=== PATIENT | male | born 1950 | race Caucasian/White ===

== ENCOUNTER 2017-05-11 05:45 | Emergency (ER) | payer MEDICARE ==
[2017-05-11] MEDS ORDERED: cefTRIAXone 250 MG VIAL IM STA (07:13)
[2017-05-11] MEDS ORDERED: CEPHALEXIN 500 MG CAP PO STA (07:13)
[2017-05-11] MEDS ORDERED: HYDROcodone/APAP 5-325MG 1 EACH TAB PO STA (07:13)
--- NOTE | 2017-05-11 07:36 | ED ---
General Adult HPI - General Chief complaint: Wound/Laceration Stated complaint: foot lac Time Seen by Provider: 05/11/17 06:13 Source: patient, RN notes reviewed, old records reviewed Mode of arrival: EMS Limitations: physical limitation - History of Present Illness Initial comments: This is a 66-year-old male who ER for evaluation of laceration. Patient is non- mobile morbidly obese patient. Patient is being transported to physical therapy this morning and had his foot banged against the door, sustaining multiple lacerations to the plantar aspect of his feet. Underneath his toes. Patient denies any complaints of pain when he states he does not have pain in his feet secondary to neuropathy. Patient has moderate bleeding from left toes , patient has no movement of left toes but he never has movement of left toes - Related Data Previous Rx's Medication Instructions Recorded Cephalexin [Keflex] 500 mg PO Q6HR #40 cap 05/11/17 Allergies Allergy/AdvReac Type Severity Reaction Status Date / Time No Known Allergies Allergy Verified 05/11/17 05:55 Review of Systems ROS Statement: Those systems with pertinent positive or pertinent negative responses have been documented in the HPI. ROS Other: All systems not noted in ROS Statement are negative. Past Medical History Past Medical History: Atrial Fibrillation, Diabetes Mellitus, Dialysis, GI Bleed , Hypertension, Pulmonary Embolus (PE), Renal Disease, Sleep Apnea/CPAP/BIPAP Additional Past Medical History / Comment(s): acute kidney failiure with dialysis with drain and nephrostomy, enlarged right kidney with stones. CKD, quadriplegia, xanthogranulomatos pyelonephritis, esophagitis, anemia, History of Any Multi-Drug Resistant Organisms: None Reported Past Surgical History: Back Surgery, Coronary Bypass/CABG, Hernia Repair Past Psychological History: No Psychological Hx Reported Smoking Status: Former smoker Past Alcohol Use History: None Reported Past Drug Use History: None Reported General Exam Limitations: physical limitation General appearance: alert, in no apparent distress Head exam: Present: atraumatic, normocephalic, normal inspection Eye exam: Present: normal appearance, PERRL, EOMI. Absent: scleral icterus, conjunctival injection, periorbital swelling ENT exam: Present: normal exam, mucous membranes moist Neck exam: Present: normal inspection. Absent: tenderness, meningismus, lymphadenopathy Respiratory exam: Present: normal lung sounds bilaterally. Absent: respiratory distress, wheezes, rales, rhonchi, stridor Cardiovascular Exam: Present: regular rate, normal rhythm, normal heart sounds. Absent: systolic murmur, diastolic murmur, rubs, gallop, clicks GI/Abdominal exam: Present: soft, normal bowel sounds. Absent: distended, tenderness, guarding, rebound, rigid Extremities exam: Present: normal inspection, full ROM, normal capillary refill , other (Laceration across the plantar aspect of 3 middle toes). Absent: tenderness, pedal edema, joint swelling, calf tenderness Back exam: Present: normal inspection Neurological exam: Present: alert, oriented X3, CN II-XII intact Psychiatric exam: Present: normal affect, normal mood Skin exam: Present: warm, dry, intact, normal color. Absent: rash Course Vital Signs 05/11/17 05/11/17 05/11/17 05:46 07:09 08:00 Temperature 99.0 F 97.7 F 97.8 F Pulse Rate 79 70 78 Respiratory 16 16 18 Rate Blood Pressure 127/68 119/63 121/64 O2 Sat by Pulse 96 95 97 Oximetry Procedures - Laceration Laceration #1 Consent Obtained: verbal consent Time Out Performed: Yes Indication: laceration Site: foot Description: linear Depth: simple, single layer Pre-repair: wound explored, irrigated extensively Type of Sutures: nylon Size of Sutures: 4-0 Technique: simple, interrupted Patient Tolerated Procedure: well Medical Decision Making - Medical Decision Making 66-year-old year for evaluation of lacerations to the plantar aspect of 3 middle toes left foot. Patient significantly from his toes, but he was able to be ceased, was completely irrigated and cleaned, cleaned with Betadine, toes and lacerations were approximated with suture, bleeding was ceased, patient did not have movement in those toes but never does. No significant pain and will be discharged home, patient plan antibiotics and encouraged to follow up with wound care regarding high likelihood of infection Disposition Clinical Impression: Laceration Disposition: HOME SELF-CARE Condition: Good Instructions: Care For Your Stitches (ED), Laceration (ED) Prescriptions: Cephalexin [Keflex] 500 mg PO Q6HR #40 cap Referrals: Roberto Summers MD [Primary Care Provider] - 1-2 days
[2017-05-11 08:04] VITALS: BP 121/64; PULSE 78; RESP 18; TEMP 97.8
--- NOTE | 2017-05-15 01:43 | CDI ---
Dear Po Thomas DO: Please do addendum length of the laceration. Thank You, Tobias Keller Email Campaign Specialist If you have any questions, please contact Security Specialist at [phone]. [facility]
== END 2017-05-11 08:23 | disposition home or self-care (01) ==
LOC: EC 05:45
DX: S91.115A Laceration without foreign body of left lesser toe(s) without damage to nail, initial encounter (principal); E66.01 Morbid (severe) obesity due to excess calories; Z87.891 Personal history of nicotine dependence; Z68.45 Body mass index [BMI] 70 or greater, adult; W20.8XXA Other cause of strike by thrown, projected or falling object, initial encounter; Y92.129 Unspecified place in nursing home as the place of occurrence of the external cause; Y93.89 Activity, other specified
CPT/HCPCS: 99283; 96372; 12001; J0696

== ENCOUNTER 2017-11-01 10:18 | Day surgery (SDC) | payer MEDICARE, OTHER ==
[2017-10-30 11:23] VITALS: BMI 46.7
[~2017-11-01 10:18] MED LIST: LACTATED RINGERS 1,000 ML IV SCH
[2017-11-01 10:42] VITALS: TEMP 99.1
[2017-11-01] MEDS ORDERED: LIDOCAINE 1% 20 ML VIAL (10MG/ML) FOR IV START INTRADERMA ONE (10:49)
[2017-11-01] MEDS ORDERED: ePHEDrine SULFATE/0.9% NACL/PF 50 MG/5 ML SYRINGE IV ONE (11:38)
[2017-11-01] MEDS ORDERED: PROPOFOL 10 MG/ML 20 ML VIAL IV ONE (11:38)
[2017-11-01] MEDS ORDERED: LIDOCAINE 1% INJ 10MG/ML (20 ML MDV) ONE (11:38)
--- NOTE | 2017-11-01 12:07 | P.PCN ---
Date of Procedure: 11/01/17 Procedure(s) Performed: BRIEF HISTORY: Patient is a 66-year-old pleasant white male scheduled for an elective colonoscopy as a part of evaluation of Hemoccult-positive stool. He denies any GI symptoms. PROCEDURE PERFORMED: Colonoscopy with snare polypectomy. PREOPERATIVE DIAGNOSIS .Hemoccult-positive stool IV sedation per Anesthesia. PROCEDURE: After informed consent was obtained, the patient, was brought into the endoscopy unit. IV sedation was administered by Anesthesia under continuous monitoring. Digital rectal examination was normal. Initially the Olympus CF- 160 flexible video colonoscope was then inserted in the rectum, gradually advanced into the cecum without any difficulty. Careful examination was performed as the scope was gradually being withdrawn. Ileocecal valve and the appendiceal orifice were visualized and appeared normal. Prep was fair. Mucosa of the cecum, appeared normal. In the ascending colon there were 2 polyps measuring 1 cm polyp removed by snare polypectomy. In the transverse colon there were 2 polyps measuring 5 mm and a 2 cm in size removed by snare polypectomy. The descending colon there was a 1.5 cm broad-based polyp removed by snare polypectomy area and in the rectum there was a 2 cm broad-based polyp removed by snare polypectomy. The rest of the, transverse colon, descending colon, sigmoid colon, and rectum appeared normal. Retroflexion was performed in the rectum and no lesions were seen. The patient tolerated the procedure well. IMPRESSION: 1 cm raising colon polyp serous post-polypectomy 5 mm and 2 cm broad-based polyps in the transverse colon status post polypectomy 1.5 cm broad-based descending colon polyp status post polypectomy 2 cm broad-based proximal rectal polyp status post polypectomy RECOMMENDATIONS: Findings of this examination were discussed with the patient [ as well as his family. He was advised to follow with the biopsy results. If the biopsy shows a tubular adenoma he can have a repeat colonoscopy in 2-3 years
[2017-11-01 12:49] VITALS: BP 122/70; PULSE 78; RESP 20
== END 2017-11-01 13:29 | disposition home or self-care (01) ==
LOC: ORWHC2ENDO 10:18
PROVIDERS: ATTEND Internal Medicine Gastroenterology
DX: D12.0 Benign neoplasm of cecum (principal); D12.4 Benign neoplasm of descending colon; D12.3 Benign neoplasm of transverse colon; K62.1 Rectal polyp; I12.0 Hypertensive chronic kidney disease with stage 5 chronic kidney disease or end stage renal disease; E11.22 Type 2 diabetes mellitus with diabetic chronic kidney disease; N18.6 End stage renal disease; Z99.2 Dependence on renal dialysis; Z86.711 Personal history of pulmonary embolism; Z79.891 Long term (current) use of opiate analgesic; Z79.899 Other long term (current) drug therapy
CPT/HCPCS: 88305; 45385; J2001; J2704

== ENCOUNTER 2018-09-11 18:22 | Inpatient (IN) | payer MEDICARE, OTHER ==
--- NOTE | 2018-09-11 18:38 | ED ---
General Adult HPI - General Chief complaint: Recheck/Abnormal Lab/Rx Stated complaint: Poss Sepsis Time Seen by Provider: 09/11/18 18:22 Source: patient, EMS, RN notes reviewed Mode of arrival: EMS Limitations: no limitations - History of Present Illness Initial comments: This is a 67-year-old male with past medical history significant for renal dialysis. Patient had dialysis this morning and had blood drawn this morning. The patient's blood work went to the primary medical care doctor and the doctor wanted the patient go to the emergency department the patient went to [facility] they evaluated the patient diagnosed with bronchitis and were about to send him home when the primary medical care doctor was informed of this he wanted the patient brought from that emergency departments waiting room to our emergency department because he wanted the patient admitted. Patient himself states he has no complaints he does have a little bit of a cough that has been dry. Patient denies being short of breath patient denies any chest pain. Patient denies any abdominal pain patient denies vomiting or diarrhea. - Related Data Home Medications Medication Instructions Recorded Confirmed Atorvastatin [Lipitor] 10 mg PO HS 10/30/17 09/11/18 B Complex W-C No.20/Folic Acid 1 mg PO HS 10/30/17 09/11/18 [Renal Caps Softgel] Calcium Acetate [Phoslo] 1,334 mg PO TID-W/MEALS 10/30/17 09/11/18 Cyanocobalamin (Vitamin B-12) 1,000 mcg PO DAILY 10/30/17 09/11/18 [Vitamin B-12] Diltiazem HCl [Diltiazem 24Hr ER] 120 mg PO DAILY 10/30/17 09/11/18 Ferrous Sulfate [Feosol] 325 mg PO DAILY 10/30/17 09/11/18 HYDROcodone/APAP 5-325MG [[place] 1 tab PO Q6HR PRN 10/30/17 09/11/18 5-325] Metoprolol Tartrate [Lopressor] 25 mg PO BID 10/30/17 09/11/18 Potassium Chloride [Klor-Con 10] 10 meq PO BID 10/30/17 09/11/18 Cholecalciferol [Vitamin D3] 1,000 unit PO DAILY 09/11/18 09/11/18 Furosemide [Lasix] 80 mg PO BID 09/11/18 09/11/18 Midodrine [ProAmatine] 5 - 10 mg PO DIRECTED PRN 09/11/18 09/11/18 Allergies Allergy/AdvReac Type Severity Reaction Status Date / Time No Known Allergies Allergy Verified 09/11/18 19:34 Review of Systems ROS Statement: Those systems with pertinent positive or pertinent negative responses have been documented in the HPI. ROS Other: All systems not noted in ROS Statement are negative. Past Medical History Past Medical History: Atrial Fibrillation, Diabetes Mellitus, Dialysis, GI Bleed , Hypertension, Pulmonary Embolus (PE), Renal Disease, Sleep Apnea/CPAP/BIPAP Additional Past Medical History / Comment(s): No use of legs r/t back injury/ surgery; Acute kidney failiure with dialysis with drain and nephrostomy bag; enlarged right kidney with stones. CKD, anemia, History of Any Multi-Drug Resistant Organisms: None Reported Past Surgical History: Back Surgery, Coronary Bypass/CABG, Hernia Repair Past Anesthesia/Blood Transfusion Reactions: No Reported Reaction Past Psychological History: No Psychological Hx Reported Smoking Status: Former smoker Past Alcohol Use History: None Reported Past Drug Use History: None Reported - Past Family History Brother(s) Family Medical History: Cancer Additional Family Medical History / Comment(s): Colon Ca Father Family Medical History: Cancer Additional Family Medical History / Comment(s): Prostate CA General Exam - General Exam Comments Initial Comments: GENERAL: Patient is well-developed and well-nourished. Patient is nontoxic and well- hydrated and is in no acute distress. ENT: Neck is soft and supple. No significant lymphadenopathy is noted. Oropharynx is clear. Moist mucous membranes. Neck has full range of motion without eliciting any pain. EYES: The sclera were anicteric and conjunctiva were pink and moist. Extraocular movements were intact and pupils were equal round and reactive to light. Eyelids were unremarkable. PULMONARY: Unlabored respirations. Good breath sounds bilaterally. No audible rales rhonchi or wheezing was noted. CARDIOVASCULAR: There is a regular rate and rhythm without any murmurs gallops or rubs. ABDOMEN: Soft and nontender with normal bowel sounds. SKIN: Skin is clear with no lesions or rashes and otherwise unremarkable. NEUROLOGIC: Patient is alert and oriented x3. Cranial nerves II through XII are grossly intact. MUSCULOSKELETAL: Normal extremities with adequate strength and full range of motion. No lower extremity swelling or edema. No calf tenderness. LYMPHATICS: No significant lymphadenopathy is noted PSYCHIATRIC: Normal psychiatric evaluation. Limitations: no limitations Course Vital Signs 09/11/18 09/11/18 18:24 19:11 Temperature 99.2 F Pulse Rate 92 90 Respiratory 20 19 Rate Blood Pressure 76/42 94/47 O2 Sat by Pulse 95 Oximetry Medical Decision Making - Medical Decision Making I reviewed all of the labs from [facility] and the chest x-ray results it did indicate the patient might have pneumonia with a white count and the chest x- ray results we decided to admit the patient. Spoke with the depression agreed to admit the patient admitted the patient I wrote admitting orders. Disposition Clinical Impression: Pneumonia Disposition: ADMITTED IP TO THIS HOSP Referrals: Akshat Nieves MD [Primary Care Provider] - 1-2 days Time of Disposition: 19:42
[2018-09-11] MEDS ORDERED: PNEUMONIA PROTOCOL UTILIZED 1 EACH MISC PO PRN (19:42)
[2018-09-11] MEDS ORDERED: SODIUM CHLORIDE 0.9% 500 ML 500 ML IV STA (20:46)
[2018-09-11] MEDS ORDERED: HYDROcodone/APAP 5-325MG 1 EACH TAB PO PRN (21:15)
[2018-09-11] MEDS ORDERED: MELATONIN 3 MG TABLET PO PRN (21:18)
[2018-09-11] MEDS ORDERED: ACETAMINOPHEN TAB 325 MG TAB PO PRN (21:18)
[2018-09-11] MEDS ORDERED: ONDANSETRON 4 MG/2 ML VIAL IVP PRN (21:18)
[2018-09-11] MEDS ORDERED: MAGNESIUM HYDROXIDE 2,400 MG/10 ML CUP PO PRN (21:18)
[2018-09-11] MEDS ORDERED: CALCIUM CARBONATE 500 MG CHEWABLE PO PRN (21:18)
[2018-09-11] MEDS ORDERED: ALPRAZolam 0.25 MG TAB PO PRN (21:18)
[2018-09-11] MEDS ORDERED: LACTULOSE 20 GM/30 ML CUP PO PRN (21:18)
--- NOTE | 2018-09-11 22:20 | HP ---
HISTORY AND PHYSICAL DATE OF ADMISSION: 09/11/2018 PRESENTING COMPLAINT: Congested chest. HISTORY OF PRESENTING COMPLAINT: This is a 67-year-old patient who follows with visiting physician Dr. Nieves. Chronic stable medical conditions include hypertension, end-stage kidney disease, on hemodialysis with left upper extremity fistula, chronic paraplegia from a back injury, chronic right-sided nephrostomy tube for over a year, pickwickian, obesity hypoventilation syndrome, obstructive sleep apnea with CPAP, chronic lower extremity venostasis. For 3 days the patient has been having a congested chest, cough, phlegm -- patient does not know the color. Appetite has gone down a little bit. Blood work was drawn and came back showing a white count of 18,000. The patient was taken down to the ER at [facility]. There was some infiltrate noted behind the left cardiac border. From there, the family requested the patient to be transferred to [facility] ER. Patient denies any obvious fever or chills. The patient was hemodialyzed today. Patient is nonambulatory. Patient's brother, who is his caregiver, and the patient's son are at the bedside. The patient is being admitted for the same. REVIEW OF SYSTEMS: CONSTITUTIONAL: Tired. HEENT: None. RESPIRATORY: As above. CARDIOVASCULAR: None. GASTROINTESTINAL: None. GENITOURINARY: None. MUSCULOSKELETAL: Pain in different joints. DERMATOLOGICAL: Chronic venostasis in the lower extremities and some intertriginous fungal skin changes. HEMATOLOGICAL: None. LYMPHATICS: None. PSYCHIATRY: None. NEUROLOGICAL: Paraparesis. PAST MEDICAL HISTORY: 1. Hypertension. 2. End-stage kidney disease, on hemodialysis, with fistula in the left upper extremity. 3. Paraplegia from back injury. 4. Chronic lower extremity venostasis. 5. Osteoarthritis. 6. GERD. 7. Obstructive sleep apnea. 8. Pickwickian syndrome. PAST SURGICAL HISTORY: 1. Back surgery. 2. Coronary artery bypass. 3. Hernia repair. 4. Right-sided nephrostomy tube. SOCIAL HISTORY: Patient smoked 2-1/2 packs for 10 years, stopped in 1979. The patient is a , lives with his brother, who is his caregiver. FAMILY HISTORY: Colon cancer. HOME MEDICATIONS: 1. Potassium 10 mEq p.o. b.i.d. 2. Midodrine 5 to 10 mg p.r.n. 3. Lopressor 25 mg b.i.d. 4. [place] 5 one tablet q.6 p.r.n. 5. Lasix 80 mg b.i.d. 6. Iron 325 p.o. daily. 7. Cardizem ER 120 mg a day. 8. Vitamin B12 1000 mcg p.o. daily. 9. Vitamin D3 1000 units p.o. daily. 10.PhosLo 1334 mg p.o. t.i.d. with meals. 11.Renal Caps soft gel 1 mg p.o. at bedtime. 12.Lipitor 10 mg at bedtime. ALLERGIES: NONE. PHYSICAL EXAMINATION: VITAL SIGNS ON PRESENTATION: Temperature 99.2, pulse 92, respiration 20, blood pressure 94/47, pulse ox 95% on room air. GENERAL APPEARANCE: Morbidly obese, BMI 48.1. Lying in bed, not in distress. EYES: Pupils equal. Conjunctivae normal. HEENT: External appearance of nose and ears normal. Oral cavity normal. NECK: Short, thick. JVD unable to assess. RESPIRATORY: Effort increased. LUNGS: Decreased breath sounds. Some expiratory crackles. CARDIOVASCULAR: Heart sounds muffled. Some edema. ABDOMEN: Soft, nontender. Liver and spleen not palpable. Right-sided nephrostomy tube. LYMPHATIC: No lymph node palpable in neck or axillae. PSYCHIATRY: Alert and oriented x3. Mood and affect normal. NEUROLOGICAL: Pupils equal. Cranial nerves grossly intact. Decreased sensation in lower extremities. No power in the lower extremities. Patient has supportive boots on both legs and has chronic skin changes on both feet with onychomycosis and footdrop. DERMATOLOGICAL: Venostasis on both lower extremities. Left upper extremity has a fistula in place and there are fungal skin changes, especially in the left armpit. INVESTIGATIONS: The patient's blood work from [facility] ER showed a hemoglobin of 9.7 and a white count of 18. Chest x-ray was reported to show possible infiltrate behind the left cardiac silhouette. ASSESSMENT: 1. Left lower lobe pneumonia in a patient who has a cough, white count of 18. 2. End-stage kidney disease, on hemodialysis Sunday, Sunday and Sunday with a left upper extremity fistula. 3. Chronic paraplegia from a back injury. 4. Chronic right-sided nephrostomy tube. 5. Primary osteoarthritis in multiple joints bilaterally. 6. Obstructive sleep apnea. Uses CPAP machine. 7. Pickwickian syndrome. 8. Anemia secondary to chronic kidney disease. 9. 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 PLAN: Patient is started on IV ceftriaxone. Normally the blood pressure runs around the 90s to 100s systolic; often has to use midodrine with hemodialysis. Patient may use his CPAP from home. Other home medications will be resumed. Care was discussed with the patient and family at the bedside. Nephrology was consulted. MMODL / IJN: [id number] /
[2018-09-11] MEDS: ATORVASTATIN 10 MG TAB PO SCH (23:05)
[2018-09-11] MEDS: FOLIC ACID-VIT B COMPLEX-VIT C 1 CAP PO SCH (23:05)
[2018-09-12 08:03] LABS: Anisocytosis Slight; Basophils % (A) 0 %; Eosinophils # (A) 0.2 k/uL (0-0.7); Eosinophils % (A) 1 %; HCT 30.1 % (39.0-53.0); Hypochromasia Marked; Lymphocytes # (A) 1.1 k/uL (1.0-4.8); Lymphocytes % (A) 7 %; MCH 27.4 pg (25.0-35.0); MCHC 29.9 g/dL (31.0-37.0); MCV 91.7 fL (80.0-100.0); Mean Platelet Volume 7.3; Monocytes # (A) 0.6 k/uL (0-1.0); Monocytes % (A) 4 %; Neutrophils # (A) 13.3 k/uL (1.3-7.7); Neutrophils % (A) 87 %; Platelet Count 271 k/uL (150-450); RBC 3.28 m/uL (4.30-5.90); WBC 15.4 k/uL (3.8-10.6)
[2018-09-12 08:18] LABS: Calcium 8.7 mg/dL (8.4-10.2); Potassium 3.3 mmol/L (3.5-5.1)
[2018-09-12] MEDS ORDERED: AZITHROMYCIN 500 MG TAB PO SCH (09:00)
[2018-09-12] MEDS: CALCIUM ACETATE 667 MG CAP PO SCH ×3 (09:03→17:25)
[2018-09-12] MEDS: FERROUS SULFATE 325 MG TAB PO SCH (09:04)
[2018-09-12] MEDS: CYANOCOBALAMIN 500 MCG TAB PO SCH (09:04)
[2018-09-12] MEDS: CHOLECALCIFEROL 1,000 UNIT TAB PO SCH (09:04)
[2018-09-12] MEDS: METOPROLOL TARTRATE 25 MG TAB PO SCH ×2 (09:05→21:40)
[2018-09-12] MEDS: POTASSIUM CITRATE 10 MEQ TABLET.ER PO SCH ×2 (09:05→21:40)
--- NOTE | 2018-09-12 10:56 | CDI ---
Last Revision, October 2017 Documentation Clarification Form Date: 09/12/2018 10:33:17 AM From: Shauna DuttonSolomonFREDDIE, CCDS Admit Date: 09/11/2018 7:42:00 PM Patient Name: Ramesh Dahl Visit Number: [id number] Discharge Date: ATTENTION: The Clinical Documentation Specialists (CDI) and [facility] Coding Staff appreciate your assistance in clarifying documentation. Please respond to the clarification below the line at the bottom and electronically sign. The CDI & [facility] Coding staff will review the response and follow-up if needed. Please note: Queries are made part of the Legal Health Record. If you have any questions, please contact the author of this message via ITS. Gamaliel Gonzales MD: 67 yo male, admitted with pneumonia. Per the History & Physical, the patient has documented paraplegia secondary to a back injury & subsequent surgery. History/Risk Factors: Hypertension, ESRD on HD, Atrial fibrillation, GERD, Anemia of CKD, Pickwickian, BMI: 48.1 and former smoker. Previous CABG. Clinical Indicators: Presented with cough & congestion. Activity per nursing: Maximum assist 3+ person, bed rails up x2 Treatment: Blood & Urine cultures, IV antibiotics for pneumonia, IV fluid bolus In order to capture the severity of condition, please clarify the type of paralysis and etiology if known: Paraplegia, please specify etiology if known: o Complete o Incomplete o Partial o Sequelae o Spastic o Traumatic o Other, please specify o Unable to determine unable to determine MTDD
[2018-09-12] MEDS: DILTIAZEM CD 120 MG CAP.ER.24H PO SCH (11:04)
[2018-09-12] MEDS: FUROSEMIDE 80 MG TAB PO SCH ×2 (11:07→21:39)
[2018-09-12] MEDS ORDERED: POTASSIUM CHLORIDE ER 20 MEQ TAB.ER PO STA (12:24)
--- NOTE | 2018-09-12 12:25 | P.NPCON ---
History of Present Illness - Reason for Consult end stage renal disease - History of Present Illness Reason for consultation: End-stage renal disease History of present illness: Patient is a 67-year-old male seen in consultation for end-stage renal disease. He is maintained on hemodialysis on a Sunday schedule for a left upper extremity AV fistula. Patient presented to the hospital due to diarrhea. He is noted to be C. diff positive. He is maintained on oral vancomycin. No vomiting. Oral intake is fair. Denies chest pain or shortness of breath. Last hemodialysis was yesterday. Hemodynamically stable. He is afebrile. Patient states he did have a cough and was seen at [facility] ER and subsequently discharged. He then came to [place] in ER. Patient has history of kidney stones and also has a chronic right-sided nephrostomy tube. He also has a history of a renal mass. He follows with urology out of [facility] in [place]. Vital signs are stable. General: The patient appeared well nourished and normally developed. HEENT: Head exam is unremarkable. Neck is without jugular venous distension. LUNGS: Lungs are clear to auscultation and percussion. Breath sounds decreased. HEART: Rate and Rhythm are regular. First and second heart sounds normal. No murmurs, rubs or gallops. ABDOMEN: Abdominal exam reveals normal bowel sounds. Non-tender and non- distended. No evidence of peritonitis. EXTREMITITES: 1+ edema. Chronic skin changes noted. Past Medical History Past Medical History: Atrial Fibrillation, Diabetes Mellitus, Dialysis, GI Bleed , Hypertension, Pulmonary Embolus (PE), Renal Disease, Sleep Apnea/CPAP/BIPAP Additional Past Medical History / Comment(s): No use of legs r/t back injury/ surgery unable to sit in his w/c -to painful;EMS TAKES HIM TO DIALYSIS TREATMENTS. ckd.Acute kidney failiure with dialysis sun-sun-sun. has drain and nephrostomy bag-per pt's son it was last changed 09-06-18 AT [facility]; enlarged right kidney with stones. , anemia, History of Any Multi-Drug Resistant Organisms: C-DIFF Date of last positivie culture/infection: 11/01/17 MDRO Source:: STOOL Past Surgical History: Back Surgery, Coronary Bypass/CABG, Hernia Repair Additional Past Surgical History / Comment(s): LT ARM FISTULA-NO BP OR BLOOD DRAWS IN LT ARM Past Anesthesia/Blood Transfusion Reactions: No Reported Reaction Smoking Status: Former smoker - Past Family History Brother(s) Family Medical History: Cancer Additional Family Medical History / Comment(s): Colon Ca Father Family Medical History: Cancer Additional Family Medical History / Comment(s): Prostate CA Medications and Allergies Home Medications Medication Instructions Recorded Confirmed Type Atorvastatin [Lipitor] 10 mg PO HS 10/30/17 09/11/18 History B Complex W-C No.20/Folic Acid 1 mg PO HS 10/30/17 09/11/18 History [Renal Caps Softgel] Calcium Acetate [Phoslo] 1,334 mg PO TID-W/MEALS 10/30/17 09/11/18 History Cyanocobalamin (Vitamin B-12) 1,000 mcg PO DAILY 10/30/17 09/11/18 History [Vitamin B-12] Diltiazem HCl [Diltiazem 24Hr ER] 120 mg PO DAILY 10/30/17 09/11/18 History Ferrous Sulfate [Feosol] 325 mg PO DAILY 10/30/17 09/11/18 History HYDROcodone/APAP 5-325MG [[place] 1 tab PO Q6HR PRN 10/30/17 09/11/18 History 5-325] Metoprolol Tartrate [Lopressor] 25 mg PO BID 10/30/17 09/11/18 History Potassium Chloride [Klor-Con 10] 10 meq PO BID 10/30/17 09/11/18 History Cholecalciferol [Vitamin D3] 1,000 unit PO DAILY 09/11/18 09/11/18 History Furosemide [Lasix] 80 mg PO BID 09/11/18 09/11/18 History Midodrine [ProAmatine] 5 - 10 mg PO DIRECTED PRN 09/11/18 09/11/18 History Allergies Allergy/AdvReac Type Severity Reaction Status Date / Time No Known Allergies Allergy Verified 09/11/18 19:34 Physical Exam Vitals: Vital Signs Temp Pulse Pulse Resp BP BP Pulse Ox 09/12/18 11:52 98.4 F 80 20 94/68 98 09/12/18 08:55 98.5 F 90 20 90/64 09/12/18 05:40 96.9 F L 92 18 91/48 95 11/01/18 00:00 20 09/11/18 22:33 97.8 F 91 18 87/55 94 L 09/11/18 21:10 91 19 92/53 97 09/11/18 20:41 98.2 F 92 20 90/50 96 09/11/18 19:11 90 19 94/47 09/11/18 18:24 99.2 F 92 20 76/42 95 Intake and Output 09/11/18 09/12/18 09/12/18 22:59 06:59 14:59 Intake Total 720 300 Output Total 1 Balance 720 300 -1 Intake: IV 500 0 Sodium Chloride 0.9% 500 500 0 ml 500 ml @ 999 mls/hr IV .Q31M STA Rx#:[id number] Oral 220 300 Output: Urine/Stool Mix 1 Other: Voiding Method Ileal Conduit (Right) Urinal # Bowel Movements 2 Weight 151.953 kg 152.2 kg Results - Lab Results Most recent lab results Calcium 8.7 mg/dL (8.4-10.2) 09/12/18 07:11 09/12/18 07:11 09/12/18 07:11 Assessment and Plan Plan: Assessment: 1. End-stage renal disease maintained on hemodialysis on a Sunday schedule via left upper extremity AV fistula. 2. C. diff colitis maintained on oral vancomycin. 3. History of nephrolithiasis with chronic right-sided nephrostomy tube. 4. History of renal mass. Patient follows with urology out of [facility] in [place]. 5. Anemia of chronic kidney disease. Rule out iron deficiency. 6. Chronic kidney disease mineral bone disease maintained on PhosLo. 7. Hypokalemia from GI losses and diuretics. Plan: Replace potassium. 40 mEq today. Hemodialysis tomorrow. Check iron studies. Add Aranesp. Maintain antibiotics. Thank you for the consultation. I will continue to follow the patient with you during his hospital stay.
[2018-09-12] MEDS ORDERED: DARBEPOETIN ALFA 40 MCG/0.4 ML SYRINGE SQ SCH (12:30)
[2018-09-12] MEDS: CHERRY FLAVOR 60 ML BOTTLE PO SCH ×2 (13:07→17:25)
[2018-09-12] MEDS: VANCOMYCIN ORAL SOLUTION 250 MG/5 ML BOTTLE PO SCH ×2 (13:07→17:25)
--- NOTE | 2018-09-12 14:11 | XR ---
EXAMINATION TYPE: XR chest 1V DATE OF EXAM: 09/12/2018 COMPARISON: Prior chest 01/31/2010 HISTORY: Pneumonia TECHNIQUE: frontal view of the chest is obtained on 2 images. FINDINGS: Patient is rotated. No evident pneumothorax or sizable effusion. Heart size may be accentu ated by technique. Question perihilar increased attenuation as on prior exam. Question prominence of the pulmonary artery. IMPRESSION: Technique somewhat limited, difficult to exclude perihilar interstitial edema or airspace disease. Additional findings above. Follow-up PA and lateral chest x-ray recommended.
[2018-09-12 19:09] LABS: Iron Saturation 13.49 (15.00-50.00)
[2018-09-12] MEDS: FOLIC ACID-VIT B COMPLEX-VIT C 1 CAP PO SCH (21:39)
[2018-09-12] MEDS: ATORVASTATIN 10 MG TAB PO SCH (21:40)
--- NOTE | 2018-09-12 23:32 | PN ---
PROGRESS NOTE DATE OF SERVICE: 09/12/2018. PRESENTING COMPLAINT: Congested chest. INTERVAL HISTORY: Patient with end-stage kidney disease with chronic paraplegia from a back injury, presented with pneumonia. The patient also tested positive for C diff. After checking today, the patient is only having 1 or 2 bowel movements a day. The patient was started on vancomycin for the same. The patient's respiratory symptoms are better. Did tolerate some diet. Also for hemodialysis. REVIEW OF SYSTEMS: Done for constitutional, cardiovascular, GI, pulmonary; relevant findings as above. CURRENT MEDICATIONS: Reviewed, that include ceftriaxone and oral vancomycin. PHYSICAL EXAMINATION: Temperature 98.4, pulse 50, respiration 20, blood pressure 94/68, pulse ox 98% on room air. GENERAL APPEARANCE: Lying in bed, awake. EYES: Pupils equal. Conjunctivae normal. HEENT: External appearance of nose and ears normal. Oral cavity normal. NECK: Short thick. JVD unable to assess. Mass not palpable. RESPIRATORY: Effort increased. Lungs distant breath sounds. CARDIOVASCULAR: 1st and 2nd sounds normal. ABDOMEN: Soft, nontender. Liver and spleen not palpable. DERMATOLOGIC: Venous stasis of both lower extremities. Left upper extremity has a fistula. Left arm fungal skin changes. NEUROLOGIC: [place] on both feet. INVESTIGATIONS: White count 15.4, hemoglobin, potassium 3.3. C diff was positive. ASSESSMENT: 1. Left lower lobe pneumonia, responding to ceftriaxone. 2. End-stage kidney disease, on hemodialysis Sunday, Sunday and Sunday with left upper extremity fistula. 3. Acute clostridium difficile colitis. 4. Chronic paraplegia from back injury. 5. Chronic right-sided nephrostomy tube. 6. Primary osteoarthritis in multiple joints bilaterally. 7. Obstructive sleep apnea, uses CPAP machine. 8. Pickwickian syndrome. 9. Anemia secondary to chronic kidney disease. 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 PLAN: Continue patient's ceftriaxone and oral vancomycin. Clinically patient is doing better. The patient normally runs low blood pressure, anywhere from 90s and 100s systolic. Care was discussed with the brother and son at the bedside. Will probably watch the patient for another 24 hours. MMODL / IJN: [id number] /
[2018-09-13] MEDS: CHERRY FLAVOR 60 ML BOTTLE PO SCH ×4 (00:23→18:10)
[2018-09-13] MEDS: VANCOMYCIN ORAL SOLUTION 250 MG/5 ML BOTTLE PO SCH ×4 (00:23→18:10)
[2018-09-13] MEDS: CALCIUM ACETATE 667 MG CAP PO SCH ×3 (07:09→18:10)
[2018-09-13] MEDS: POTASSIUM CITRATE 10 MEQ TABLET.ER PO SCH (07:11)
[2018-09-13] MEDS: CYANOCOBALAMIN 500 MCG TAB PO SCH (07:11)
[2018-09-13] MEDS: FERROUS SULFATE 325 MG TAB PO SCH (07:11)
[2018-09-13] MEDS: CHOLECALCIFEROL 1,000 UNIT TAB PO SCH (07:11)
[2018-09-13 08:06] LABS: Calcium 9.1 mg/dL (8.4-10.2); Potassium 4.1 mmol/L (3.5-5.1)
[2018-09-13] MEDS: FUROSEMIDE 80 MG TAB PO SCH (08:27)
[2018-09-13] MEDS ORDERED: MIDODRINE 5 MG TAB PO STA (10:29)
[2018-09-13] MEDS: METOPROLOL TARTRATE 25 MG TAB PO SCH (11:07)
[2018-09-13 12:12] VITALS: BP 115/58; PULSE 68; RESP 18; TEMP 97.1
[2018-09-13] MEDS: DILTIAZEM CD 120 MG CAP.ER.24H PO SCH (13:00)
[2018-09-13] MEDS ORDERED: LORATADINE-PSEUDOEPH 5-120 MG 1 EACH TAB.ER.12H PO SCH (13:30)
--- NOTE | 2018-09-13 21:49 | PN ---
PROGRESS NOTE HISTORY: Patient is currently seen on hemodialysis. His blood pressure this morning was low. He states he feels fairly well and denies any chest pains or shortness of breath. PHYSICAL EXAMINATION: This morning blood pressure was 82/47, heart rate of 90 per minute. He is afebrile. HEART: S1, S2. Examination lungs bilateral breath sounds are heard. Abdomen is soft, morbidly obese. Examination of lower extremities shows chronic skin changes, chronic edema. The patient has a right nephrostomy tube in place. LABS: Show sodium 133, potassium 4.1, hemoglobin was 9.0 g/dL. ASSESSMENT: 1. End-stage renal disease, on hemodialysis, on Sunday, Sunday, Sunday schedule. Patient is currently being dialyzed. 2. C diff colitis with improvement in diarrhea. 3. Chronic hypotension, maintained on midodrine, particularly predialysis. 4. Chronic kidney disease mineral bone disorder. 5. Anemia of chronic disease. 6. History of renal mass and obstructive uropathy with chronic right nephrostomy. PLAN: Hemodialysis today. We will give midodrine at 10 mg now and repeat if needed depending on blood pressure. Goal UF of about 2 L. MMODL / IJN: [id number] /
--- NOTE | 2018-09-14 06:01 | DS ---
DISCHARGE SUMMARY DATE OF ADMISSION: 09/10/2018 DATE OF DISCHARGE: 09/13/2018. FINAL DIAGNOSES: 1. Left lower lobe pneumonia suspect gram-negative organism. 2. End-stage kidney disease on hemodialysis Sunday, Sunday and Sunday with left upper extremity fistula. 3. Acute C difficile colitis, present on admission. 4. Chronic paraplegia from back surgery. 5. Chronic right-sided nephrostomy tube. 6. Primary osteoarthritis of multiple joints bilaterally. 7. Obstructive sleep apnea uses CPAP machine. 8. Pickwickian syndrome. 9. Anemia secondary to chronic kidney disease. 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 11.Bilateral lower extremity venous stasis with dermatitis. HOSPITAL COURSE: This morbidly obese patient with chronic bilateral lower extremity venous dermatitis , presented with a congested cough, felt to be pneumonia and diarrhea, which came back positive for C diff. The patient's diarrhea is greatly improved by the time of discharge, respiratory symptoms are greatly improved by the time of discharge. On examination, temperature 97.1, pulse 58, respiratory 18, blood pressure 115/58, pulse ox 98% on room air. Lungs fair entry. Abdomen soft, nontender. Care was discussed with the patient before he was discharged. All questions were answered. DISCHARGE MEDICATION: 1. Lipitor 10 mg q.h.s. 2. Renal caps soft gel 1 mg p.o. q.h.s. 3. PhosLo 1334 mg p.o. t.i.d. 4. Vitamin B12 1000 mcg p.o. daily. 5. Cardizem ER 120 mg a day. 6. Ferrous sulfate 325 mg p.o. daily. 7. [place] 5 one tablet p.o. q.6 p.r.n. 8. Lopressor 25 mg p.o. b.i.d. 9. Potassium 10 mEq p.o. b.i.d. 10.Vitamin D3 1000 units p.o. daily. 11.Lasix 80 mg p.o. b.i.d. 12.Midodrine 5-10 mg p.o. q.h.s. p.r.n. 13.Ceftin 500 mg p.o. b.i.d. 10 tablets. 14.Claritin-D 1 tablet p.o. b.i.d., 10 tablets. 15.Vancomycin 250 mg q.6 for 7 days. FOLLOWUP: With Visiting Physician, Dr. Akshat Nieves. Care was discussed with the patient. Copy to visiting physician Dr. Akshat Nieves. MMAGUILARL / MARLENEN: [id number] /
[2018-09-16] MEDS ORDERED: MIDODRINE 5 MG TAB PO SCH (08:00)
== END 2018-09-13 18:53 | disposition home health service (06) | DRG 177 ==
LOC: EC 18:22 → 3NMEDONC 19:42
PROVIDERS: ADMIT Hospitalist; ATTEND Hospitalist
DX: J15.6 Pneumonia due to other Gram-negative bacteria (principal); N18.6 End stage renal disease; A04.72 Enterocolitis due to Clostridium difficile, not specified as recurrent; E66.2 Morbid (severe) obesity with alveolar hypoventilation; G82.20 Paraplegia, unspecified; I12.0 Hypertensive chronic kidney disease with stage 5 chronic kidney disease or end stage renal disease; D63.1 Anemia in chronic kidney disease; E11.22 Type 2 diabetes mellitus with diabetic chronic kidney disease; E87.6 Hypokalemia; Z99.89 Dependence on other enabling machines and devices; T14.90XS Injury, unspecified, sequela; I48.91 Unspecified atrial fibrillation; I87.2 Venous insufficiency (chronic) (peripheral); I95.89 Other hypotension; K21.9 Gastro-esophageal reflux disease without esophagitis; L30.8 Other specified dermatitis; M15.9 Polyosteoarthritis, unspecified; M89.9 Disorder of bone, unspecified; Z79.899 Other long term (current) drug therapy; Z80.0 Family history of malignant neoplasm of digestive organs; Z80.42 Family history of malignant neoplasm of prostate; Z86.711 Personal history of pulmonary embolism; Z87.442 Personal history of urinary calculi; Z87.891 Personal history of nicotine dependence; Z95.1 Presence of aortocoronary bypass graft; Z99.2 Dependence on renal dialysis
CPT/HCPCS: 71045; 80048; 82728; 83540; 83550; 85025; 87040; 87493; 96365; 99285

== ENCOUNTER 2018-09-23 05:51 | Emergency (ER) | payer MEDICARE, OTHER ==
[2018-09-23 05:58] VITALS: RESP 19
--- NOTE | 2018-09-23 06:22 | ED ---
Male Urogenital HPI - General Chief complaint: Urogenital Stated complaint: Abd Pain Time Seen by Provider: 09/23/18 06:11 Source: patient, EMS Mode of arrival: EMS Limitations: physical limitation - History of Present Illness Initial comments: Ramesh Dahl is a morbidly obese 67-year-old end-stage renal disease dialysis dependent male who presents to the emergency department today for evaluation of decreased urine output and urinary retention. Patient reports that he usually urinates regularly, however since Sunday he believes he is only produced approximately 300 mL of urine. Sunil was his last dialysis he was due for dialysis this morning at 6 AM. Patient reports that he has the urge to urinate but feels as though he cannot produce any urine. She denies any other acute complaints including fevers, chills, nausea, vomiting or change in by mouth intake. - Related Data Home Medications Medication Instructions Recorded Confirmed Atorvastatin [Lipitor] 10 mg PO HS 10/30/17 09/11/18 B Complex W-C No.20/Folic Acid 1 mg PO HS 10/30/17 09/11/18 [Renal Caps Softgel] Calcium Acetate [PhosLo] 1,334 mg PO TID-W/MEALS 10/30/17 09/11/18 Cyanocobalamin (Vitamin B-12) 1,000 mcg PO DAILY 10/30/17 09/11/18 [Vitamin B-12] Diltiazem HCl [Diltiazem 24Hr ER] 120 mg PO DAILY 10/30/17 09/11/18 Ferrous Sulfate [Iron (65 MG 325 mg PO DAILY 10/30/17 09/11/18 Elemental)] HYDROcodone/APAP 5-325MG [[place] 1 tab PO Q6HR PRN 10/30/17 09/11/18 5-325] Metoprolol Tartrate [Lopressor] 25 mg PO BID 10/30/17 09/11/18 Potassium Chloride [Klor-Con 10] 10 meq PO BID 10/30/17 09/11/18 Cholecalciferol [Vitamin D3] 1,000 unit PO DAILY 09/11/18 09/11/18 Furosemide [Lasix] 80 mg PO BID 09/11/18 09/11/18 Midodrine [ProAmatine] 5 - 10 mg PO DIRECTED PRN 09/11/18 09/11/18 Previous Rx's Medication Instructions Recorded Cefuroxime Axetil [Ceftin] 500 mg PO BID #10 tab 09/13/18 Desloratadine/Pseudoephedrine 1 each PO BID #10 tbmp.12hr 09/13/18 [Clarinex-D 12 Hour Tablet] Vancomycin Oral Solution 250 mg PO Q6HR #140 ml 09/13/18 Cephalexin [Keflex] 500 mg PO Q8HR 5 Days #15 cap 09/23/18 Allergies Allergy/AdvReac Type Severity Reaction Status Date / Time No Known Allergies Allergy Verified 09/11/18 19:34 Review of Systems ROS Statement: Those systems with pertinent positive or pertinent negative responses have been documented in the HPI. ROS Other: All systems not noted in ROS Statement are negative. Past Medical History Past Medical History: Atrial Fibrillation, Diabetes Mellitus, Dialysis, GI Bleed , Hypertension, Pulmonary Embolus (PE), Renal Disease, Sleep Apnea/CPAP/BIPAP Additional Past Medical History / Comment(s): No use of legs r/t back injury/ surgery unable to sit in his w/c -to painful;EMS TAKES HIM TO DIALYSIS TREATMENTS. ckd.Acute kidney failiure with dialysis sun-sun-sun. has drain and nephrostomy bag-per pt's son it was last changed 09-06-18 AT [facility]; enlarged right kidney with stones. , anemia, History of Any Multi-Drug Resistant Organisms: C-DIFF Date of last positivie culture/infection: 11/01/17 MDRO Source:: STOOL Past Surgical History: Back Surgery, Coronary Bypass/CABG, Hernia Repair Additional Past Surgical History / Comment(s): LT ARM FISTULA-NO BP OR BLOOD DRAWS IN LT ARM Past Anesthesia/Blood Transfusion Reactions: No Reported Reaction Past Psychological History: No Psychological Hx Reported Smoking Status: Former smoker - Past Family History Brother(s) Family Medical History: Cancer Additional Family Medical History / Comment(s): Colon Ca Father Family Medical History: Cancer Additional Family Medical History / Comment(s): Prostate CA General Exam - General Exam Comments Initial Comments: Physical Exam GENERAL: Chronically ill appearing, appears much older than stated age, morbidly obese bedbound HENT: Normocephalic, Atraumatic. Poor dentition EYES: PERRL, EOMI PULMONARY: Unlabored respirations. No audible rales rhonchi or wheezing was noted. CARDIOVASCULAR: There is a regular rate and rhythm without any murmurs gallops or rubs. ABDOMEN: Obese, tenderness to palpation in suprapubic region To present in the right lateral abdomen, was placed by IR into an abscess in the right kidney draining purulent fluid SKIN: Bilateral lower extremities with significant skin changes, breakdown, venous stasis no evidence of acute cellulitis or infection : burried penis NEUROLOGIC: Patient is alert and oriented x3. Moving all extremities spontaneously MUSCULOSKELETAL: Bilateral feet in support boots, significant lymphedema bilateral lower extremities, decreased range of motion of lower extremities PSYCHIATRIC: Normal psychiatric evaluation. Limitations: no limitations Limitations: physical limitation Course Vital Signs 09/23/18 09/23/18 05:53 07:21 Temperature 97.5 F L 97.9 F Pulse Rate 79 75 Respiratory 19 19 Rate Blood Pressure 86/56 87/45 O2 Sat by Pulse 96 99 Oximetry Medical Decision Making - Medical Decision Making Patient is a 67-year-old male end-stage renal disease on dialysis who presents the ER today for evaluation of decreased urine output. Patient is scheduled for dialysis today. Does have a known infection in the right kidney within IR placed tube which is draining purulent fluid The patient is now experiencing urinary frequency, dysuria and hesitancy Limited ability to use bladder scan due to patient's body habitus Decision was made to place a Mcneal catheter The patient was noted to be mildly hypotensive however he has a history of this and is advised to take Midodrine and extra doses during dialysis. Patient has not taken his Midodrine today. Patient unable to provide urine sample, catheter sample obtained Patient care discussed with Dr. Salomon who states that oliguria is expected when on prolonged dialysis and not to be of concern, patient should attend dialysis today, no further workup indicated Plan was discussed with the patient and sons at bedside, patient expresses some surprise at the prospect of not making urine but is agreeable to not pursuing further workup and instead attending dialysis as scheduled Patient on attempting to contact dialysis Center for rescheduling of his dialysis as he is currently one hour late. Considering the patient is experiencing symptoms of dysuria and urinalysis is suggestive of a UTI I will order by mouth Keflex. Urine was cultured I advised the patient to discuss these findings with his radar technician as urinary abnormalities or not a typical patient become oligouric or anuric Patient contacted his dialysis center, they can accept him to the dialysis center [facility] and will treat him for as long as possible based on their schedule. [facility] was contacted they are his regular transport company, ETA 15 minutes and they will transport him to dialysis. - Lab Data Lab Results 09/23/18 Range/Units 06:25 Urine Color Yellow Urine Appearance Turbid (Clear) Urine pH 7.5 (5.0-8.0) Ur Specific [place] 1.015 (1.001-1.035) Urine Protein 2+ H (Negative) Urine Glucose (UA) Negative (Negative) Urine Ketones Negative (Negative) Urine Blood Moderate H (Negative) Urine Nitrite Negative (Negative) Urine Bilirubin Negative (Negative) Urine Urobilinogen <2.0 (<2.0) mg/dL Ur Leukocyte Esterase Large H (Negative) Urine RBC 35 H (0-5) /hpf Urine WBC >182 H (0-5) /hpf Urine WBC Clumps Many H (None) /hpf Urine Bacteria Few H (None) /hpf Urine Mucus Few H (None) /hpf Disposition Clinical Impression: Oliguria, ESRD (end stage renal disease), UTI (urinary tract infection) Disposition: HOME SELF-CARE Prescriptions: Cephalexin [Keflex] 500 mg PO Q8HR 5 Days #15 cap Is patient prescribed a controlled substance at d/c from ED?: No Referrals: Akshat Nieves MD [Primary Care Provider] - 1-2 days
[2018-09-23 06:48] LABS: Appearance,Urine Turbid (Clear); Bacteria,Urine Few /hpf; Bilirubin,Urine Negative (Negative); Blood,Urine Moderate (Negative); Color,Urine Yellow; Glucose,Urine (UA) Negative (Negative); Ketones,Urine Negative (Negative); Leukocyte Esterase,Urine Large (Negative); Mucus,Urine Few /hpf; Nitrite,Urine Negative (Negative); PH, Urine 7.5 (5.0-8.0); Protein,Urine 2+ (Negative); RBC,Urine 35 /hpf (0-5); Specific Gravity,Urine 1.015 (1.001-1.035); Urobilinogen,Urine <2.0 mg/dL (<2.0); WBC,Urine >182 /hpf (0-5)
[2018-09-23] MEDS ORDERED: CEPHALEXIN 500MG STARTER PACK 4 CAP BTL PO STA (07:07)
[2018-09-23 07:22] VITALS: BP 87/45; PULSE 75; TEMP 97.9
== END 2018-09-23 07:48 | disposition home or self-care (01) ==
LOC: EC 05:51
DX: N39.0 Urinary tract infection, site not specified (principal); I12.0 Hypertensive chronic kidney disease with stage 5 chronic kidney disease or end stage renal disease; N18.6 End stage renal disease; I48.91 Unspecified atrial fibrillation; D64.9 Anemia, unspecified; G47.30 Sleep apnea, unspecified; Z99.89 Dependence on other enabling machines and devices; Z93.6 Other artificial openings of urinary tract status; Z95.1 Presence of aortocoronary bypass graft; Z99.2 Dependence on renal dialysis; Z87.891 Personal history of nicotine dependence; Z87.442 Personal history of urinary calculi; Z79.899 Other long term (current) drug therapy
CPT/HCPCS: 51702; 81001; 87086; 99284

== ENCOUNTER 2018-10-09 05:43 | Inpatient (IN) | payer MEDICARE, OTHER ==
[2018-10-09] MEDS ORDERED: ONDANSETRON 4 MG/2 ML VIAL IVP STA ×2 (06:01→11:32)
[2018-10-09] MEDS ORDERED: SODIUM CHLORIDE 0.9% 1,000 ML IV STA (06:01)
--- NOTE | 2018-10-09 06:01 | ED ---
General Adult HPI <Moon Rojo - Last Filed: 10/09/18 07:38> <Zeeshan Sun - Last Filed: 10/09/18 10:08> - General Stated complaint: NVD Time Seen by Provider: 10/09/18 05:45 - History of Present Illness Initial comments: Is a 67-year-old male with end-stage renal disease on dialysis who presents the emergency department today for evaluation of approximately 12 hours of nausea, vomiting and diarrhea. Patient reports he estimates he's had approximately 10- 12 episodes of nonbloody nonbilious emesis and 2-3 episodes of nonbloody diarrhea over the past 12 hours. He denies any known suspicious food intake. He denies any sick contacts. Nobody else in the home is sick. (Moon Rojo) - Related Data Home Medications Medication Instructions Recorded Confirmed Atorvastatin [Lipitor] 10 mg PO HS 10/30/17 10/09/18 B Complex W-C No.20/Folic Acid 1 mg PO HS 10/30/17 10/09/18 [Renal Caps Softgel] Calcium Acetate [PhosLo] 1,334 mg PO TID 10/30/17 10/09/18 Cyanocobalamin (Vitamin B-12) 1,000 mcg PO DAILY 10/30/17 10/09/18 [Vitamin B-12] Diltiazem HCl [Diltiazem 24Hr ER] 120 mg PO DAILY 10/30/17 10/09/18 Ferrous Sulfate [Iron (65 MG 325 mg PO MOWEFR 10/30/17 10/09/18 Elemental)] HYDROcodone/APAP 5-325MG [[place] 1 tab PO Q6HR PRN 10/30/17 10/09/18 5-325] Metoprolol Tartrate [Lopressor] 25 mg PO BID 10/30/17 10/09/18 Potassium Chloride [Klor-Con 10] 10 meq PO BID 10/30/17 10/09/18 Cholecalciferol [Vitamin D3] 1,000 unit PO DAILY 09/11/18 10/09/18 Furosemide [Lasix] 80 mg PO BID 09/11/18 10/09/18 Midodrine [ProAmatine] 5 - 10 mg PO MOWEFR PRN 09/11/18 10/09/18 Allergies Allergy/AdvReac Type Severity Reaction Status Date / Time No Known Allergies Allergy Verified 10/09/18 07:42 Review of Systems ROS Other: All systems not noted in ROS Statement are negative. <Moon Rojo P - Last Filed: 10/09/18 07:38> ROS Other: All systems not noted in ROS Statement are negative. <Zeeshan Sun - Last Filed: 10/09/18 10:08> ROS Statement: Those systems with pertinent positive or pertinent negative responses have been documented in the HPI. Past Medical History Past Medical History: Atrial Fibrillation, Diabetes Mellitus, Dialysis, GI Bleed , Hypertension, Pulmonary Embolus (PE), Renal Disease, Sleep Apnea/CPAP/BIPAP Additional Past Medical History / Comment(s): No use of legs r/t back injury/ surgery unable to sit in his w/c -to painful;EMS TAKES HIM TO DIALYSIS TREATMENTS. ckd.Acute kidney failiure with dialysis sun-sun-sun. has drain and nephrostomy bag-per pt's son it was last changed 09-06-18 AT [facility]; enlarged right kidney with stones. , anemia, History of Any Multi-Drug Resistant Organisms: C-DIFF Date of last positivie culture/infection: 11/01/17 MDRO Source:: STOOL Past Surgical History: Back Surgery, Coronary Bypass/CABG, Hernia Repair Additional Past Surgical History / Comment(s): LT ARM FISTULA-NO BP OR BLOOD DRAWS IN LT ARM Past Anesthesia/Blood Transfusion Reactions: No Reported Reaction Past Psychological History: No Psychological Hx Reported Smoking Status: Former smoker - Past Family History Brother(s) Family Medical History: Cancer Additional Family Medical History / Comment(s): Colon Ca Father Family Medical History: Cancer Additional Family Medical History / Comment(s): Prostate CA <Moon Rojo P - Last Filed: 10/09/18 07:38> General Exam <Moon Rojo - Last Filed: 10/09/18 07:38> <Zeeshan Sun - Last Filed: 10/09/18 10:08> - General Exam Comments Initial Comments: Physical Exam GENERAL: Chronically ill-appearing, bedbound, morbidly obese HENT: Normocephalic, Atraumatic. EYES: PERRL, EOMI PULMONARY: Unlabored respirations. No audible rales rhonchi or wheezing was noted. CARDIOVASCULAR: There is a regular rate and rhythm without any murmurs gallops or rubs. ABDOMEN: Obese, soft, normal active bowel sounds Right-sided nephrostomy tube draining purulent discharge SKIN: Chronic skin changes of bilateral lower extremities with no acute erythema or signs of infection : Deferred NEUROLOGIC: Patient is alert and oriented x3. MUSCULOSKELETAL: Decreased strength and range of motion of bilateral lower extremities which is chronic PSYCHIATRIC: Normal psychiatric evaluation. Limitations: no limitations (Moon Rojo) Vital Signs 10/09/18 10/09/18 10/09/18 05:53 08:59 09:36 Temperature 98.6 F Pulse Rate 107 H 112 H 114 H Respiratory 16 18 17 Rate Blood Pressure 82/47 87/37 115/46 O2 Sat by Pulse 97 93 L 97 Oximetry Medical Decision Making - Lab Data Result diagrams: 10/09/18 06:20 <Moon Rojo - Last Filed: 10/09/18 07:38> - Lab Data Result diagrams: 10/09/18 06:20 10/09/18 06:20 <Zeeshan Sun - Last Filed: 10/09/18 10:08> - Medical Decision Making The patient was seen and evaluated history was obtained from the patient review of medical record Labs and IV fluids were ordered Patient is mildly hypertensive, however patient is hypertensive at baseline is on Midrin Patient care signed out to at 7am (Moon Rojo) Patient care sent out to me by previous shift resident. Briefly, patient is a 67-year-old male with multiple comorbidities. Patient is end-stage renal disease, gets dialysis Sunday. Patient has recently been treated for C. difficile. He's been having 3-4 days of acute nausea, vomiting and diarrhea. Patient presents with family who states that he's been having intractable nausea and vomiting. Patient was evaluated in the emergency department by previous shift resident. Plan at sign out was to follow-up with laboratory evaluation and reevaluation to reassess symptoms. Patient is reassessed with intractable nausea or vomiting. He continues to vomit. Some diarrhea while in the hospital. Patient has low blood pressure however this is his baseline. Patient denies any history of lightheadedness. Laboratory evaluation was completed. Leukocytosis of 16.7. Slightly above it it more than last time he was here recently. Rest of CBC is quite unremarkable. Metabolic panel shows stable potassium level and elevated renal markers which is the patient's baseline. Discussed patient case with motion study analyst will arrange for dialysis. Patient be admitted for intractable nausea vomiting possible recurrent C. diff infection. (Zeeshan Sun) - Lab Data Lab Results 10/09/18 10/09/18 Range/Units 06:20 06:20 WBC 16.7 H (3.8-10.6) k/uL RBC 4.02 L (4.30-5.90) m/uL Hgb 11.2 L (13.0-17.5) gm/dL Hct 37.6 L (39.0-53.0) % MCV 93.5 (80.0-100.0) fL MCH 27.9 (25.0-35.0) pg MCHC 29.8 L (31.0-37.0) g/dL RDW 19.4 H (11.5-15.5) % Plt Count 272 (150-450) k/uL Neutrophils % (Manual) 78 % Band Neutrophils % 5 % Lymphocytes % (Manual) 8 % Monocytes % (Manual) 9 % Neutrophils # (Manual) 13.80 H (1.3-7.7) k/uL Lymphocytes # (Manual) 1.34 (1.0-4.8) k/uL Monocytes # (Manual) 1.50 H (0-1.0) k/uL Nucleated RBCs 0 (0-0) /100 WBC Manual Slide Review Performed Toxic Granulation Present Hypochromasia Marked Anisocytosis Slight Macrocytosis Slight Sodium 135 L (137-145) mmol/L Potassium 4.2 (3.5-5.1) mmol/L Chloride 97 L (98-107) mmol/L Carbon Dioxide 23 (22-30) mmol/L Anion Gap 15 mmol/L BUN 26 H (9-20) mg/dL Creatinine 4.63 H (0.66-1.25) mg/dL Est GFR (CKD-EPI)AfAm 14 (>60 ml/min/1.73 sqM) Est GFR (CKD-EPI)NonAf 12 (>60 ml/min/1.73 sqM) Glucose 95 (74-99) mg/dL Calcium 8.4 (8.4-10.2) mg/dL Total Bilirubin 0.9 (0.2-1.3) mg/dL AST 25 (17-59) U/L ALT 22 (21-72) U/L Alkaline Phosphatase 80 (38-126) U/L Total Protein 6.9 (6.3-8.2) g/dL Albumin 2.8 L (3.5-5.0) g/dL Lipase 13 L (23-300) U/L Disposition <Moon Rooj - Last Filed: 10/09/18 07:38> Decision Time: 08:33 <Zeeshan Sun - Last Filed: 10/09/18 10:08> Clinical Impression: Intractable nausea and vomiting Disposition: ADMITTED IP TO THIS HOSP
[2018-10-09 06:53] LABS: Albumin 2.8 g/dL (3.5-5.0); Calcium 8.4 mg/dL (8.4-10.2); Potassium 4.2 mmol/L (3.5-5.1); Total Bilirubin 0.9 mg/dL (0.2-1.3); Total Protein 6.9 g/dL (6.3-8.2)
--- NOTE | 2018-10-09 07:30 | XR ---
EXAM: XR Kub CLINICAL HISTORY: ITS.REASON XR Reason: pain TECHNIQUE: X-ray kub. COMPARISON: No prior studies available. FINDINGS/IMPRESSION: Limited by body habitus. Flanks clipped. There is small bowel distention which may represent small bowel obstruction. There is a right percutaneous nephrostomy tube. There is suggestion of staghorn type calculi in the right kidney. Possible left renal stones, as well, with summation limiting evaluation. Calcifications in pelvis. Some of these appear vascular though cannot exclude ureteral or bladder calculi based on this examination alone.
[2018-10-09 07:50] LABS: Anisocytosis Slight; HCT 37.6 % (39.0-53.0); HGB 11.2 gm/dL (13.0-17.5); Hypochromasia Marked; MCH 27.9 pg (25.0-35.0); MCHC 29.8 g/dL (31.0-37.0); MCV 93.5 fL (80.0-100.0); Macrocytosis Slight; Platelet Count 272 k/uL (150-450); RBC 4.02 m/uL (4.30-5.90); RDW 19.4 % (11.5-15.5); WBC 16.7 k/uL (3.8-10.6)
[2018-10-09 08:05] LABS: Band Neutrophils % 5 %; Lymphocytes # (M) 1.34 k/uL (1.0-4.8); Neutrophils % (M) 78 %; Nucleated Red Blood Cells 0 /100 WBC (0-0); Total Cells Counted 100; Toxic Granulation Present
[2018-10-09] MEDS ORDERED: NALOXONE 0.4 MG/ML 1 ML VIAL IV PRN (08:30)
[2018-10-09] MEDS ORDERED: NYSTATIN 100,000UNIT/GM CREAM 30 GM TUBE TOPICAL SCH (10:45)
--- NOTE | 2018-10-09 10:52 | P.NPCON ---
History of Present Illness - Reason for Consult end stage renal disease - History of Present Illness Reason for consultation: End-stage renal disease History of present illness: Patient is a 67-year-old male seen in renal consultation for end-stage renal disease. He is maintained on hemodialysis on a Sunday schedule. Patient completed hemodialysis on Sunday. Patient presented to the hospital due to persistent nausea vomiting and diarrhea which began yesterday. Patient states he's had multiple episodes of vomiting and nonbloody diarrhea. Patient denies any sick contacts at home. Patient does have history of recent C. diff. He also has history of right-sided nephrolithiasis and has a chronic nephrostomy tube and follows at [facility]. Denies chest pain or shortness of breath. No fever or chills. Currently resting in bed. He did receive 1 L of normal saline bolus in the ER. Vital signs are stable. General: The patient appeared well nourished and normally developed. HEENT: Head exam is unremarkable. Neck is without jugular venous distension. LUNGS: Lungs are clear to auscultation and percussion. Breath sounds decreased. HEART: Rate and Rhythm are regular. First and second heart sounds normal. No murmurs, rubs or gallops. ABDOMEN: Abdominal exam reveals normal bowel sounds. Non-tender and non- distended. Right-sided nephrostomy tube noted. EXTREMITITES: No clubbing, cyanosis, or edema. Chronic changes noted. Past Medical History Past Medical History: Atrial Fibrillation, Diabetes Mellitus, Dialysis, GI Bleed , Hypertension, Pulmonary Embolus (PE), Renal Disease, Sleep Apnea/CPAP/BIPAP Additional Past Medical History / Comment(s): No use of legs r/t back injury/ surgery unable to sit in his w/c -to painful;EMS TAKES HIM TO DIALYSIS TREATMENTS. ckd.Acute kidney failiure with dialysis sun-sun-sun. has drain and nephrostomy bag-per pt's son it was last changed 09-06-18 AT [facility]; enlarged right kidney with stones. , anemia, History of Any Multi-Drug Resistant Organisms: C-DIFF Date of last positivie culture/infection: 11/01/17 MDRO Source:: STOOL Past Surgical History: Back Surgery, Coronary Bypass/CABG, Hernia Repair Additional Past Surgical History / Comment(s): LT ARM FISTULA-NO BP OR BLOOD DRAWS IN LT ARM Past Anesthesia/Blood Transfusion Reactions: No Reported Reaction Past Psychological History: No Psychological Hx Reported Smoking Status: Former smoker - Past Family History Brother(s) Family Medical History: Cancer Additional Family Medical History / Comment(s): Colon Ca Father Family Medical History: Cancer Additional Family Medical History / Comment(s): Prostate CA Medications and Allergies Home Medications Medication Instructions Recorded Confirmed Type Atorvastatin [Lipitor] 10 mg PO HS 10/30/17 10/09/18 History B Complex W-C No.20/Folic Acid 1 mg PO HS 10/30/17 10/09/18 History [Renal Caps Softgel] Calcium Acetate [PhosLo] 1,334 mg PO TID 10/30/17 10/09/18 History Cyanocobalamin (Vitamin B-12) 1,000 mcg PO DAILY 10/30/17 10/09/18 History [Vitamin B-12] Diltiazem HCl [Diltiazem 24Hr ER] 120 mg PO DAILY 10/30/17 10/09/18 History Ferrous Sulfate [Iron (65 MG 325 mg PO MOWEFR 10/30/17 10/09/18 History Elemental)] HYDROcodone/APAP 5-325MG [[place] 1 tab PO Q6HR PRN 10/30/17 10/09/18 History 5-325] Metoprolol Tartrate [Lopressor] 25 mg PO BID 10/30/17 10/09/18 History Potassium Chloride [Klor-Con 10] 10 meq PO BID 10/30/17 10/09/18 History Cholecalciferol [Vitamin D3] 1,000 unit PO DAILY 09/11/18 10/09/18 History Furosemide [Lasix] 80 mg PO BID 09/11/18 10/09/18 History Midodrine [ProAmatine] 5 - 10 mg PO MOWEFR PRN 09/11/18 10/09/18 History Allergies Allergy/AdvReac Type Severity Reaction Status Date / Time No Known Allergies Allergy Verified 10/09/18 07:42 Physical Exam Vitals: Vital Signs Temp Pulse Resp BP Pulse Ox 10/09/18 09:36 114 H 17 115/46 97 10/09/18 08:59 112 H 18 87/37 93 L 10/09/18 05:53 98.6 F 107 H 16 82/47 97 Intake and Output 10/08/18 10/09/18 10/09/18 22:59 06:59 14:59 Other: Weight 180.53 kg Results - Lab Results Most recent lab results Calcium 8.4 mg/dL (8.4-10.2) 10/09/18 06:20 10/09/18 06:20 10/09/18 06:20 Assessment and Plan Plan: Assessment: 1. End-stage renal disease maintained on hemodialysis on a Sunday schedule. 2. Intractable nausea vomiting and diarrhea possibly related to viral gastroenteritis. Rule out C. diff. 3. History of nephrolithiasis status post right-sided nephrostomy tube placement. Patient follows out of [facility]. Patient states the nephrostomy tube was last changed less than 2 months ago. 4. Chronic kidney disease mineral bone disease maintained on PhosLo. 5. Chronic hypotension maintained on midodrine before dialysis. Plan: Hemodialysis today. Check stool for C. diff. Check phosphorus level. Avoid aggressive IV fluids. Thank you for the consultation. I will continue to follow the patient with you during his hospital stay.
[2018-10-09] MEDS ORDERED: PROPRANOLOL 20 MG TAB PO STA (10:55)
[2018-10-09] MEDS ORDERED: MIDODRINE 5 MG TAB PO PRN (16:50)
[2018-10-09] MEDS ORDERED: IPRATROPIUM-ALBUTEROL 3 ML NEB INHALATION PRN (16:52)
[2018-10-09] MEDS ORDERED: ALPRAZolam 0.25 MG TAB PO PRN (16:53)
[2018-10-09] MEDS ORDERED: TEMAZEPAM 15 MG CAP PO PRN (16:53)
[2018-10-09] MEDS ORDERED: HYDROmorphone 1 MG/ML 1 ML SYRINGE IVP PRN (16:53)
[2018-10-09 17:53] LABS: INR 1.2 (<1.2); Prothrombin Time 11.4 sec (9.0-12.0)
[2018-10-09] MEDS: CALCIUM ACETATE 667 MG CAP PO SCH (17:57)
[2018-10-09] MEDS: FERROUS SULFATE 325 MG TAB PO SCH (17:57)
[2018-10-09] MEDS: VANCOMYCIN ORAL SOLUTION 250 MG/5 ML BOTTLE PO SCH (17:58)
[2018-10-09] MEDS: FUROSEMIDE 80 MG TAB PO SCH (17:58)
[2018-10-09] MEDS: CHERRY FLAVOR 60 ML BOTTLE PO PRN (17:58)
--- NOTE | 2018-10-09 18:24 | HP ---
HISTORY AND PHYSICAL DATE OF SERVICE: 10/09/2018 CHIEF COMPLAINTS: Nausea, vomiting, diarrhea and C difficile. HISTORY OF PRESENT ILLNESS: This 67-year-old gentleman with a past medical history of multiple medical problems, including history of atrial fibrillation, history of hemodialysis, chronic renal failure, history of DVT, GI bleed, hypertension, hyperlipidemia, sleep apnea, history of paraplegia secondary to back surgery, history of morbid obesity, history of anxiety, history of CAD and stent, being followed by Dr. Nieves [facility] in the outpatient setting, recently had an enlarged right kidney with stones, and nephrostomy tube was inserted through the anterior part from [facility] which is draining apparent brownish colored fluid at this time. The patient was recently admitted with acute C difficile colitis and patient was treated with antibiotics. Patient improved significantly. Currently the patient has persistent nausea, vomiting and diarrhea, and the patient also is unable to keep anything down. Patient came to [facility] and was admitted for further evaluation and treatment. The white count is still elevated. Sodium is 135. PAST MEDICAL HISTORY: 1. History of atrial fibrillation. 2. History of hemodialysis. 3. History of DVT. 4. GI bleed. 5. Hypertension. 6. Hyperlipidemia. 7. History of renal disease. 8. History of paraplegia. 9. Sleep apnea. 10.History of CAD, stent. HOME MEDICATIONS: 1. Lipitor 10 mg at bedtime. 2. ProAmatine 5-10 mg Sunday, Sunday, Sunday. 3. Elemental iron. 4. [place] 5 mg q.6 p.r.n. 5. Klor-Con 10 mEq p.o. b.i.d. 6. Lopressor 25 mg p.o. b.i.d. 7. Lasix 80 mg p.o. b.i.d. 8. Diltiazem 120 mg p.o. daily. 9. Renal Gel 1 mg at bedtime. 10.Vitamin B12 1000 mcg p.o. daily. 11.Vitamin D3 1000 daily. 12.PhosLo 1334 mg p.o. t.i.d. ALLERGIES: NONE. FAMILY HISTORY: History of colon cancer in the family. SOCIAL HISTORY: Previous history of smoking. No current smoking or alcohol intake. REVIEW OF SYSTEMS: ENT: No diminished hearing. No diminished vision. CARDIOVASCULAR SYSTEM: No angina, palpitations. RESPIRATORY SYSTEM: As mentioned earlier. GI: As mentioned earlier. : As mentioned earlier. NERVOUS SYSTEM: As mentioned earlier. ALLERGY/IMMUNOLOGY: No asthma, hayfever. MUSCULOSKELETAL: As mentioned earlier. HEMATOLOGY/ONCOLOGY: No history of anemia. ENDOCRINE: No history of diabetes, hypothyroidism. CONSTITUTIONAL: As mentioned earlier. DERMATOLOGY: Negative. RHEUMATOLOGY: Negative. PSYCHIATRY: As mentioned earlier. PHYSICAL EXAMINATION: Alert and oriented x3. Pulse is 118, blood pressure 112/43, respiration 16, temperature 98.6, pulse ox 93% on room air. HEENT: Conjunctivae normal. Oral mucosa moist. NECK: No jugular venous distention. No carotid bruit. No lymph node enlargement. CARDIOVASCULAR SYSTEM: S1, S2 muffled. RESPIRATORY SYSTEM: Breath sounds diminished at the bases. A few scattered rhonchi and crackles. ABDOMEN: Soft, obese. Nephrostomy tube from the left which is draining brownish colored fluid, as mentioned earlier. Otherwise bowel sounds are diminished. LEGS: Bilateral leg edema. Significant ulcerations and excoriations present on the tip of the toes with dry skin sacral coccygeal area as well as left axillary area. NERVOUS SYSTEM: Higher functions as mentioned earlier. Moves upper limbs. Lower limb weakness. SKIN: As mentioned earlier. JOINTS: No active inflammation. LYMPHATICS: No lymph node palpable in neck, axillae or groin. LABS: Labs at this time show WBC 16.6, hemoglobin 11.2, sodium 130, potassium 4.2, creatinine 4.6. ASSESSMENT: 1. Nausea, vomiting, diarrhea; possible acute Clostridium difficile colitis with sepsis with failure of outpatient treatment. 2. Increased white count. 3. Anemia. 4. Hyponatremia. 5. Chronic renal failure, end-stage renal disease, stage IV, on hemodialysis. 6. 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 7. Left nephrostomy tube with enlarged right kidney with stones and possible infection/tumor. 8. Atrial fibrillation. 9. Deep venous thrombosis history. 10.History of gastrointestinal bleed. 11.Hypertension. 12.Hyperlipidemia. 13.Sleep apnea. 14.History of respiratory failure and ventilation. 15.History of obstructive sleep apnea. 16.History of Clostridium difficile colitis recently. 17.History of coronary artery disease and stent. 18.History of back surgery, degenerative joint disease. 19.Remote history of nicotine dependence. 20.Morbid obesity with body mass index of 57.1. 21.FULL CODE. RECOMMENDATIONS AND DISCUSSION: In this 67-year-old gentleman who presented with multiple complex medical issues., we will monitor the patient closely, continue the current management, continue with symptomatic treatment. Will initiate vancomycin. Otherwise, stool for C difficile. Cultures. Resume the home medications. Symptomatic treatment. Consult Dr. Barahona. Consult Infectious Disease. Guarded prognosis because of multiple complex medical issues. Further recommendations to follow. A copy of this dictation is being forwarded to Dr. Nieves, who is the primary physician. MMAGUILARL / IJN: [id number] / MTDD
[2018-10-09] MEDS: MIDODRINE 5 MG TAB PO PRN (21:03)
[2018-10-09] MEDS: POTASSIUM CHLORIDE ER 10 MEQ TAB.ER.PRT PO SCH (21:13)
[2018-10-09] MEDS: METOPROLOL TARTRATE 25 MG TAB PO SCH (21:13)
[2018-10-09] MEDS: ATORVASTATIN 10 MG TAB PO SCH (21:13)
[2018-10-09] MEDS: NYSTATIN 100,000 UNIT/GM POWD 15 GM TOPICAL SCH (21:17)
[2018-10-09] MEDS: FOLIC ACID-VIT B COMPLEX-VIT C 1 CAP PO SCH (22:24)
--- NOTE | 2018-10-10 00:15 | CONS ---
CONSULTATION DATE OF SERVICE: 10/09/2018. REASON FOR FOLLOWUP: Fever and diarrhea. HISTORY OF PRESENT ILLNESS: The patient is a 67-year-old male with a past medical history significant for end-stage renal disease on hemodialysis. The patient also have right-sided nephrolithiasis with chronic infected kidney on the right side with a nephrostomy tube that was last seen about a month ago at [facility] and the patient follows at that facility for the same. The patient recently did have multiple admissions at [facility] for C difficile colitis. The last one has been about a month ago. The patient said he did finish his oral vancomycin and was doing well. However, yesterday started having nausea, vomiting and diarrhea with multiple loose stools, which are watery. No blood or mucus in it. The patient has some crampy lower abdominal pain, intensity has been about 6 top 7 out of 10 and no radiation with persistent nausea and vomiting. The patient was also complaining of fever with rigors and chills. With these symptoms, the patient did call his dialysis center who advised the patient to go to the ER instead of going to dialysis. The patient on arrival to the ER was evaluated by the ER physician. The patient did not have any fever on arrival to the ER. His white count was elevated 15.7. The patient has been admitted to the hospital. Infectious Disease was consulted for further recommendation regarding antibiotic therapy. The patient also noticed to have an excoriation of his sacral area with also a wound to the left axillary area that he has had for a couple of days to weeks. The patient did have some itching and mild dull aching pain 3-4 out of 10 and no radiation with no surrounding redness or any foul-smelling drainage. REVIEW OF SYSTEMS: CONSTITUTIONAL: Positive for weakness along with the fever. EYES: No complaint. ENT: No complaint. RESPIRATORY: No complaint. CARDIOVASCULAR: No complaint. GENITOURINARY no complaint. GASTROINTESTINAL: As per HPI. MUSCULOSKELETAL: No complaint. INTEGUMENTARY: As per HPI. PSYCHOLOGICAL: No complaint. ENDOCRINE: No complaint. NEUROLOGIC: No complaint. PAST MEDICAL HISTORY: Atrial fibrillation, diabetes mellitus, end stage renal disease, on hemodialysis, hypertension, pulmonary embolism, sleep apnea and C difficile colitis. PAST SURGICAL HISTORY: Coronary artery bypass grafting, hernia repair, back surgery and right nephrostomy tube, left arm AV fistula. SOCIAL HISTORY: Remote history of smoking. No drinking or drug use. FAMILY HISTORY: Brother with a history of colon cancer. Father history of prostate cancer. ALLERGIES: No known drug allergies. MEDICATION: Include the patient is currently on [place], DuoNeb, Xanax, Lipitor, PhosLo, vitamin D3, diltiazem, iron sulfate, Lasix, heparin and Dilaudid, Lopressor, Nephrocaps, Theragran, Narcan, Protonix, Restoril and vancomycin 250 q.6 hours. PHYSICAL EXAMINATION: Blood pressure is 112/43, pulse 180, temperature 97.5. He is 93% on room air. General description is an elderly male lying in bed in no distress. No tachypnea or accessory muscle of respiration use. HEENT: Shows slight pallor. No scleral icterus. Oral mucosa membranes are dry. No pharyngeal erythema or thrush. Neck trachea central. No thyromegaly. Lungs unlabored breathing. Clear to auscultation anteriorly. No wheeze or crackles. Heart S1, S2. Regular rate and rhythm. ABDOMEN: Soft, mildly distended. No guarding. No rigidity. No organomegaly. Extremities are chronic swelling to the legs, but no cellulitis. The patient did have extensive cutaneous candidiasis of the left axillary are but no cellulitis. Neurological: Awake, alert, oriented x3. Mood and affect normal. LABS: Hemoglobin is 11.8, white count 16.7, BUN of 26, creatinine 4.63. Liver enzymes are normal. Stool for C difficile came positive. DIAGNOSTIC IMPRESSION/PLAN: 1. Patient admitted to the hospital with acute nausea, vomiting and diarrhea in this patient who does have a history of recurrent C difficile colitis. Last have been about a month ago likely representing an episode of C difficile colitis. 2. Patient with a sacral area excoriation, likely from his diarrhea, but no definite cellulitis. 3. Patient with left axillary cutaneous candidiasis. PLAN: 1. Vancomycin dose to be up to 500 p.o. q.6 hours in view of his extensive disease and will add Questran for symptomatic relief and toxin binding. 2. Nystatin powder to the left axillary area along with the to the sacral area to keep the area dry. 3. We will follow up on clinical condition and further adjust medication if needed. Thank you for this consultation. We will follow this patient with you. MMODL / IJN: [id number] /
[2018-10-10] MEDS: HEPARIN SODIUM,PORCINE 5,000 UNIT/ML 1 ML VIAL SQ SCH ×4 (00:35→23:38)
[2018-10-10] MEDS: CHERRY FLAVOR 60 ML BOTTLE PO PRN ×4 (00:35→17:00)
[2018-10-10] MEDS: VANCOMYCIN ORAL SOLUTION 250 MG/5 ML BOTTLE PO SCH ×5 (06:00→23:38)
--- NOTE | 2018-10-10 08:46 | P.PN ---
Subjective Patient is seen in follow-up for end-stage renal disease. He is maintained on hemodialysis on a Sunday schedule. Patient tolerated hemodialysis well yesterday. Continues to have vomiting and diarrhea. He is noted to be C. diff positive. Denies chest pain or shortness of breath. Vital signs are stable. General: The patient appeared well nourished and normally developed. HEENT: Head exam is unremarkable. Neck is without jugular venous distension. LUNGS: Lungs are clear to auscultation and percussion. Breath sounds decreased. HEART: Rate and Rhythm are regular. First and second heart sounds normal. No murmurs, rubs or gallops. ABDOMEN: Abdominal exam reveals normal bowel sounds. Non-tender and non- distended. No evidence of peritonitis. EXTREMITITES: No clubbing, cyanosis, or edema. Chronic skin changes noted. Objective - Vital Signs Vital signs: Vital Signs Temp 98.7 F 10/10/18 04:00 Pulse 125 H 10/10/18 04:00 Resp 20 10/10/18 04:00 BP 92/50 10/10/18 04:00 Pulse Ox 94 L 10/10/18 04:00 Intake & Output 10/09/18 10/10/18 10/10/18 18:59 06:59 18:59 Intake Total 120 Output Total 50 Balance 70 Intake: Oral 120 Output: Drainage 50 Right Abdomen 50 Other: Voiding Method Urinal Urinal - Labs CBC & Chem 7: 10/09/18 06:20 10/09/18 06:20 Labs: Abnormal Lab Results - Last 24 Hours (Table) 10/09/18 10/09/18 10/09/18 Range/Units 06:20 16:00 17:13 INR 1.2 H (<1.2) Phosphorus 4.9 H (2.5-4.5) mg/dL C. difficile (EIA) Intrp Positive A (Negative) Assessment and Plan Plan: Assessment: 1. End-stage renal disease maintained on hemodialysis on a Sunday schedule. 2. Intractable nausea vomiting and diarrhea possibly related to viral gastroenteritis. 3. History of nephrolithiasis status post right-sided nephrostomy tube placement. Patient follows out of [facility]. Patient states the nephrostomy tube was last changed less than 2 months ago. 4. Chronic kidney disease mineral bone disease maintained on PhosLo. Phosphorus level IV.9 this admission. 5. Chronic hypotension maintained on midodrine before dialysis. 6. C. diff colitis maintained on oral vancomycin. Plan: Hemodialysis tomorrow. Avoid aggressive IV fluids.
[2018-10-10] MEDS: CHOLECALCIFEROL 1,000 UNIT TAB PO SCH (09:03)
[2018-10-10] MEDS: PANTOPRAZOLE 40 MG TABLET PO SCH (09:03)
[2018-10-10] MEDS: DILTIAZEM CD 120 MG CAP.ER.24H PO SCH (09:03)
[2018-10-10] MEDS: POTASSIUM CHLORIDE ER 10 MEQ TAB.ER.PRT PO SCH ×2 (09:03→21:43)
[2018-10-10] MEDS: CYANOCOBALAMIN 500 MCG TAB PO SCH ×2 (09:03→09:07)
[2018-10-10] MEDS: FUROSEMIDE 80 MG TAB PO SCH ×2 (09:03→17:00)
[2018-10-10] MEDS: CALCIUM ACETATE 667 MG CAP PO SCH ×3 (09:04→16:59)
[2018-10-10] MEDS: METOPROLOL TARTRATE 25 MG TAB PO SCH ×2 (09:07→22:17)
[2018-10-10 10:09] LABS: Calcium 7.8 mg/dL (8.4-10.2); Potassium 3.6 mmol/L (3.5-5.1)
[2018-10-10 10:25] LABS: Anisocytosis Slight; Basophils % (A) 0 %; Eosinophils # (A) 0.1 k/uL (0-0.7); Eosinophils % (A) 1 %; HCT 36.5 % (39.0-53.0); Hypochromasia Marked; Lymphocytes % (A) 7 %; MCH 28.4 pg (25.0-35.0); MCHC 30.1 g/dL (31.0-37.0); MCV 94.4 fL (80.0-100.0); Macrocytosis Slight; Mean Platelet Volume 7.1; Monocytes # (A) 0.7 k/uL (0-1.0); Monocytes % (A) 6 %; Neutrophils # (A) 10.8 k/uL (1.3-7.7); Neutrophils % (A) 85 %; Platelet Count 297 k/uL (150-450); RBC 3.87 m/uL (4.30-5.90); RDW 18.7 % (11.5-15.5); WBC 12.8 k/uL (3.8-10.6)
--- NOTE | 2018-10-10 14:33 | CDI ---
Last Revision, October 2017 Documentation Clarification Form Date: 10/10/2018 2:25:22 PM From: Shelli Roland RN, CCDS Admit Date: 10/09/2018 8:30:00 AM Patient Name: Ramesh Dahl Visit Number: [id number] ATTENTION: The Clinical Documentation Specialists (CDI) and [facility] Coding Staff appreciate your assistance in clarifying documentation. Please respond to the clarification below the line at the bottom and electronically sign. The CDI & [facility] Coding staff will review the response and follow-up if needed. Please note: Queries are made part of the Legal Health Record. If you have any questions, please contact the author of this message via ITS. Ronny Sweeney MD Atrial fibrillation is documented in the H&P and Progress Notes History/Risk Factors: Atrial fib, DM, HD, PE, CKD, ISACC, HTN, CRF Clinical Indicators: EKG: ST Treatment: Lopressor 25 mg PO BID Inderal 60 mg PO OT In your professional opinion, can you please clarify the type of atrial fibrillation, if known? Chronic/Permanent Paroxysmal Persistent Other, please specify Unable to determine Please continue to document in your progress notes and discharge summary in order to capture severity of illness and risk of mortality. Include clinical findings that support your diagnosis. Persistent MTDD
[2018-10-10] MEDS: MULTIVITAMINS, THERA 1 EACH TAB PO SCH (14:41)
[2018-10-10 14:47] LABS: Appearance,Urine Turbid (Clear); Bacteria,Urine Occasional /hpf; Bilirubin,Urine Negative (Negative); Blood,Urine Moderate (Negative); Color,Urine Light Red; Glucose,Urine (UA) Negative (Negative); Ketones,Urine Trace (Negative); Leukocyte Esterase,Urine Large (Negative); Nitrite,Urine Negative (Negative); PH, Urine 6.5 (5.0-8.0); Protein,Urine 3+ (Negative); RBC,Urine 87 /hpf (0-5); Specific Gravity,Urine 1.019 (1.001-1.035); Urobilinogen,Urine <2.0 mg/dL (<2.0); WBC,Urine >182 /hpf (0-5)
[2018-10-10] MEDS: NYSTATIN 100,000 UNIT/GM POWD 15 GM TOPICAL SCH ×2 (14:48→21:43)
--- NOTE | 2018-10-10 14:51 | CDI ---
Last Revision, October 2017 Documentation Clarification Form Date: 10/10/2018 2:34:29 PM From: Shelli Roland RN, CCDS Admit Date: 10/09/2018 8:30:00 AM Patient Name: Ramesh Dahl Visit Number: [id number] ATTENTION: The Clinical Documentation Specialists (CDI) and [facility] Coding Staff appreciate your assistance in clarifying documentation. Please respond to the clarification below the line at the bottom and electronically sign. The CDI & [facility] Coding staff will review the response and follow-up if needed. Please note: Queries are made part of the Legal Health Record. If you have any questions, please contact the author of this message via ITS. Ronny Sweeney MD A diagnosis of anemia lacks specificity to accurately reflect your patients severity of condition and clarification is needed. History/Risk Factors: No history of anemia. CKD joi 4, paraplegia, left nephrostomy, A-Fib, HTN, Hyperlipidemia Clinical indicators: H&P: "Anemia" Hemoglobin: 11.2/11 Hematocrit: 37.6/36.5 Treatment: Monitoring labs Vitamin D3 100 U PO QD Vitamin B-12 1000 mcg PO Feosol 325 PO M/W/F In order to capture the severity of condition, please clarify the type of anemia and etiology if known: Acute blood loss anemia Acute on chronic blood loss anemia Chronic blood loss anemia Iron deficiency anemia Anemia of chronic disease Nutritional anemia Anemia of chronic kidney disease stage 4 Unable to determine Other, please specify Please continue to document in your progress notes and discharge summary in order to capture severity of illness and risk of mortality. Include clinical findings that support your diagnosis. Anemia of chronic kidney disease stage 4 MTDD
[2018-10-10 18:18] LABS: Hepatitis B Surface AB- Quant 3.5 mIU/mL
[2018-10-10] MEDS: ATORVASTATIN 10 MG TAB PO SCH (21:43)
[2018-10-10] MEDS: FOLIC ACID-VIT B COMPLEX-VIT C 1 CAP PO SCH (23:39)
[2018-10-10] MEDS: HYDROcodone/APAP 5-325MG 1 EACH TAB PO PRN (23:39)
--- NOTE | 2018-10-10 23:46 | PN ---
PROGRESS NOTE DATE OF SERVICE: 10/10/2018. REASON FOR FOLLOWUP: 1. C difficile colitis. 2. Sacral and left wound. INTERVAL HISTORY: The patient is afebrile. No further nausea or vomiting has been noticed. He still has some left lower abdominal pain decreased in intensity, slightly decreased. No chest pain, shortness of breath or cough. PHYSICAL EXAMINATION: Blood pressure is 90/44, pulse of 119, temperature of 98.4. He is 93% on room air. General description is an elderly male lying in bed in no distress. Respiratory system: Unlabored breathing, clear to auscultation anteriorly. Heart S1, S2. Regular rate and rhythm. ABDOMEN: Soft, tender left lower quadrant area. No guarding or rigidity. LABS: Hemoglobin is 11 with white count 12.8. BUN of 21, creatinine 4.23. DIAGNOSTIC IMPRESSION/PLAN: 1. Patient with recurrent C difficile colitis, currently on oral vancomycin 500 q.6h to continue at this point along with Questran for symptomatic relief. 2. Patient left axillary area cutaneous candidiasis. Local care with nystatin powder twice a day. 3. Sacral excoriation to keep the area dry off the pressure and Nystatin powder. MMODL / IJN: [id number] /
[2018-10-11] MEDS: VANCOMYCIN ORAL SOLUTION 250 MG/5 ML BOTTLE PO SCH ×3 (06:04→17:31)
[2018-10-11 08:50] LABS: Anisocytosis Slight; Basophils % (A) 0 %; Eosinophils # (A) 0.1 k/uL (0-0.7); Eosinophils % (A) 1 %; HCT 35.9 % (39.0-53.0); HGB 10.7 gm/dL (13.0-17.5); Hypochromasia Marked; Lymphocytes % (A) 6 %; MCH 27.8 pg (25.0-35.0); MCHC 29.8 g/dL (31.0-37.0); MCV 93.2 fL (80.0-100.0); Monocytes # (A) 0.8 k/uL (0-1.0); Monocytes % (A) 5 %; Neutrophils # (A) 14.1 k/uL (1.3-7.7); Neutrophils % (A) 86 %; Platelet Count 311 k/uL (150-450); RBC 3.86 m/uL (4.30-5.90); RDW 18.5 % (11.5-15.5); WBC 16.3 k/uL (3.8-10.6)
[2018-10-11] MEDS: HEPARIN SODIUM,PORCINE 5,000 UNIT/ML 1 ML VIAL SQ SCH ×2 (08:52→15:51)
[2018-10-11] MEDS: POTASSIUM CHLORIDE ER 10 MEQ TAB.ER.PRT PO SCH (08:52)
[2018-10-11] MEDS: CHOLECALCIFEROL 1,000 UNIT TAB PO SCH (08:53)
[2018-10-11] MEDS: PANTOPRAZOLE 40 MG TABLET PO SCH (08:54)
[2018-10-11] MEDS: FUROSEMIDE 80 MG TAB PO SCH ×2 (08:55→17:30)
[2018-10-11] MEDS: CALCIUM ACETATE 667 MG CAP PO SCH ×3 (08:55→17:29)
[2018-10-11] MEDS: METOPROLOL TARTRATE 25 MG TAB PO SCH (08:55)
[2018-10-11] MEDS: DILTIAZEM CD 120 MG CAP.ER.24H PO SCH (08:56)
[2018-10-11] MEDS: NYSTATIN 100,000 UNIT/GM POWD 15 GM TOPICAL SCH (08:56)
--- NOTE | 2018-10-11 09:17 | P.PN ---
Subjective Patient is seen in follow-up for end-stage renal disease. He is maintained on hemodialysis on a Sunday schedule. Vomiting and diarrhea have improved. He tolerated dinner last night and is having breakfast this morning. He is noted to be C. diff positive. Also noted to have left axillary drainage with cultures positive for gram-negative bacilli and MRSA. Denies chest pain or shortness of breath. Vital signs are stable. General: The patient appeared well nourished and normally developed. HEENT: Head exam is unremarkable. Neck is without jugular venous distension. LUNGS: Lungs are clear to auscultation and percussion. Breath sounds decreased. HEART: Rate and Rhythm are regular. First and second heart sounds normal. No murmurs, rubs or gallops. ABDOMEN: Abdominal exam reveals normal bowel sounds. Non-tender and non- distended. No evidence of peritonitis. EXTREMITITES: No clubbing, cyanosis, or edema. Chronic skin changes noted. Objective - Vital Signs Vital signs: Vital Signs Temp 97.8 F 10/11/18 05:00 Pulse 110 H 10/11/18 06:00 Resp 18 10/11/18 06:00 BP 92/50 10/11/18 05:00 Pulse Ox 96 10/11/18 05:00 Intake & Output 10/10/18 10/11/18 10/11/18 18:59 06:59 18:59 Intake Total 160 580 Output Total 9 3 Balance 151 577 Intake: Oral 160 580 Output: Stool 9 3 Other: Voiding Method Urinal Urinal Diaper # Voids 0 # Bowel Movements 2 1 - Labs CBC & Chem 7: 10/11/18 08:13 10/11/18 08:13 Labs: Abnormal Lab Results - Last 24 Hours (Table) 10/09/18 10/10/18 10/10/18 Range/Units 15:00 09:36 09:36 WBC 12.8 H (3.8-10.6) k/uL RBC 3.87 L (4.30-5.90) m/uL Hgb 11.0 L (13.0-17.5) gm/dL Hct 36.5 L (39.0-53.0) % MCHC 30.1 L (31.0-37.0) g/dL RDW 18.7 H (11.5-15.5) % Neutrophils # 10.8 H (1.3-7.7) k/uL Sodium (137-145) mmol/L Chloride (98-107) mmol/L BUN 21 H (9-20) mg/dL Creatinine 4.23 H (0.66-1.25) mg/dL Calcium 7.8 L (8.4-10.2) mg/dL Urine Protein 3+ H (Negative) Urine Ketones Trace H (Negative) Urine Blood Moderate H (Negative) Ur Leukocyte Esterase Large H (Negative) Urine RBC 87 H (0-5) /hpf Urine WBC >182 H (0-5) /hpf Urine WBC Clumps Many H (None) /hpf Urine Bacteria Occasional H (None) /hpf 10/11/18 10/11/18 Range/Units 08:13 08:13 WBC 16.3 H (3.8-10.6) k/uL RBC 3.86 L (4.30-5.90) m/uL Hgb 10.7 L (13.0-17.5) gm/dL Hct 35.9 L (39.0-53.0) % MCHC 29.8 L (31.0-37.0) g/dL RDW 18.5 H (11.5-15.5) % Neutrophils # 14.1 H (1.3-7.7) k/uL Sodium 133 L (137-145) mmol/L Chloride 95 L (98-107) mmol/L BUN 28 H (9-20) mg/dL Creatinine 5.11 H (0.66-1.25) mg/dL Calcium 8.0 L (8.4-10.2) mg/dL Urine Protein (Negative) Urine Ketones (Negative) Urine Blood (Negative) Ur Leukocyte Esterase (Negative) Urine RBC (0-5) /hpf Urine WBC (0-5) /hpf Urine WBC Clumps (None) /hpf Urine Bacteria (None) /hpf Microbiology - Last 24 Hours (Table) 10/10/18 00:10 Gram Stain - Preliminary Aspirate Body Fluid Culture - Preliminary Presumptive MRSA Gram Neg Bacilli 10/10/18 00:10 Gram Stain - Preliminary Axilla - Left Wound Culture - Preliminary Gram Neg Bacilli Gram Neg Bacilli#2 10/09/18 17:13 Blood Culture - Preliminary Blood No Growth after 24 hours 10/09/18 15:00 Urine Culture - Preliminary Urine,Catheterized Assessment and Plan Plan: Assessment: 1. End-stage renal disease maintained on hemodialysis on a Sunday schedule. 2. Intractable nausea vomiting and diarrhea possibly related to viral gastroenteritis. 3. History of nephrolithiasis status post right-sided nephrostomy tube placement. Patient follows out of [facility]. Patient states the nephrostomy tube was last changed less than 2 months ago. 4. Chronic kidney disease mineral bone disease maintained on PhosLo. Phosphorus level 4.9 this admission. 5. Chronic hypotension maintained on midodrine before dialysis. 6. C. diff colitis maintained on oral vancomycin. 7. Left axillary drainage with cultures positive for gram-negative bacilli and MRSA. 8. Hyponatremia secondary to chronic kidney disease. Plan: Hemodialysis today. Encouraged oral intake. Antibiotics per infectious disease.
[2018-10-11] MEDS: ONDANSETRON 4 MG/2 ML VIAL IVP PRN (13:42)
[2018-10-11] MEDS: HYDROcodone/APAP 5-325MG 1 EACH TAB PO PRN (13:47)
[2018-10-11] MEDS: MULTIVITAMINS, THERA 1 EACH TAB PO SCH (13:48)
[2018-10-11] MEDS ORDERED: VANCOMYCIN IV PER PHARMACY 1 EACH MISC MISCELLANE PRN (14:36)
[2018-10-11] MEDS ORDERED: IOPAMIDOL-300 CONTRAST 30 ML VIAL (ORAL USE) PO PRN (14:40)
[2018-10-11] MEDS ORDERED: VANCOMYCIN 2,500 MG in SODIUM CHLORIDE 0.9% 500 ML 500 ML IVPB ONE (15:00)
[2018-10-11] MEDS: FERROUS SULFATE 325 MG TAB PO SCH (17:30)
--- NOTE | 2018-10-11 19:02 | PN ---
PROGRESS NOTE DATE OF SERVICE: 10/11/2018 This 67-year-old gentleman who presented with nausea, vomiting, diarrhea, and acute C difficile colitis. Patient has significant vomiting also. The patient also had MRSA grown from the urostomy tube also. The patient is being closely monitored. Patient currently on p.o. Vancomycin. Multiple consultants are following the patient closely. PAST MEDICAL HISTORY: Past medical history reviewed. REVIEW OF SYSTEM: Cardiovascular system: No angina or palpitations. Respiratory: As mentioned earlier. GI as mentioned earlier. no dysuria. Nervous system: No numbness or weakness. CURRENT MEDICATIONS ARE: Reviewed and include: 1. [place] 5 mg q.6h p.r.n. 2. DuoNeb q.i.d. and p.r.n. 3. Xanax 0.5 t.i.d. 4. Lipitor 10 mg q.h.s. 5. PhosLo 30 to 34 mg p.o. t.i.d. 6. [place] syrup. 7. Vitamin D3 1000 daily. 8. Vitamin B12 1000 mcg. 9. Cardizem CD 120 mg p.o. daily. 10.Iron sulfate 320 mg daily. 11.Lasix 80 mg b.i.d. 12.Heparin 5000 subcu q.8h. 13.Dilaudid 0.5 q.6h. 15.Lopressor 25 mg p.o. b.i.d. 17.Nephrocaps 1 q.h.s. 18.Multivitamins 1 p.o. daily. 19.Narcan 0.2 q.2h p.r.n. 20.Zofran. 21.Protonix 40 mg IV b.i.d. 22.K-Dur 10 mEq p.o. b.i.d. 23.Restoril. 24.Vancomycin 500 mg q.6h p.r.n. PHYSICAL EXAM: Patient is alert, oriented x3. Pulse is 112, blood pressure is 89/58, respiration 22, temperature 97.8, pulse ox 98% on room air. HEENT: Conjunctivae normal. Oral mucosa moist. Neck is no jugular venous distention. No carotid bruit. No lymph node enlargement. Cardiovascular: S1, S2. Respiratory: Breath sounds diminished in the bases. A few scattered rhonchi and crackles. ABDOMEN: Soft, nontender. No mass palpable. Legs: No edema. No swelling. Central nervous system: No focal deficits. LABS: WBC 16.2, hemoglobin 10.6, sodium 133. ASSESSMENT: 1. Nausea, vomiting, diarrhea, possible acute C difficile colitis with sepsis with failure of outpatient treatment. 2. MRSA from the urine culture. 3. Increased WBC. 4. Anemia. 5. Hyponatremia. 6. Chronic end-stage renal disease stage IV, on hemodialysis. 7. 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 8. Left nephrostomy tube with enlarged right kidney with stones and possible infection tumor. 9. Atrial fibrillation. 10.History of deep vein thrombosis. 11.History of gastrointestinal bleed. 12.Hypertension. 13.Hyperlipidemia. 14.Sleep apnea. 15.History of respiratory failure on ventilation. 16.History of obstructive sleep apnea. 17.History of C difficile colitis recently. 18.History of coronary artery disease/stent. 19.History of back surgery, degenerative joint disease. 20.Remote history of nicotine dependence. 21.Morbid obesity with body mass index up to 7.1. 22.FULL CODE. RECOMMENDATIONS AND DISCUSSION: Recommend to continue current medications, continue with monitoring, symptomatic treatment. Otherwise at this time, I recommend continue the current medication. Continue with p.o. vancomycin. Otherwise, we will closely follow with Infectious Disease. I will consider IV vancomycin because of MRSA. Symptomatic treatment for the vomiting and proton pump inhibitors and back off the diet and if the patient is not feeling better, the patient will need a GI evaluation and consultation as well. Prognosis guarded because of multiple complex medical issues. Further recommendations to follow. MMODL / IJN: [id number] / MTDD
--- NOTE | 2018-10-11 22:47 | CT ---
EXAMINATION TYPE: CT abdomen pelvis w con DATE OF EXAM: 10/11/2018 COMPARISON: None HISTORY: Abdominal pain. CT DLP: 4360.1 mGycm. Automated exposure control for dose reduction was used. TECHNIQUE: Helical acquisition of images was performed from the lung bases through the pelvis. CONTRAST: Performed with Oral Contrast and with IV Contrast, patient injected with 100ml mL of Isovue 300. FINDINGS: There is gantry beam hardening artifact from the left side of the body, obscuring anatomic detail. LUNG BASES: Partial right lower lobe atelectasis is seen posteromedially. LIVER: No significant abnormality is appreciated. BILIARY TREE/PANCREAS: The gallbladder is distended without evidence of cholelithiasis and there is e dematous reticulation of the right anterior pararenal space and the pericholecystic position. These f indings suggest cholecystitis. The intrahepatic and extrahepatic biliary tree is not dilated. Pancrea s and pancreatic ductal anatomy unremarkable. SPLEEN: No significant abnormality is seen. ADRENALS: No significant abnormality is seen. KIDNEYS: Arising anteriorly from the upper pole the right kidney is a 7.5 cm soft tissue heterogeneou s mass, consistent with renal cell carcinoma until proven otherwise. This mass displaces the second p ortion of the duodenum anteriorly and medially. There is distention of the stomach to a moderate degr ee, but the duodenum appears collapsed throughout its extent. Percutaneous right renal pigtail catheter enters from a right anterior retrocolonic approach. Multifo maribel staghorn renal calcifications noted. At present, no obstructive uropathy on the right or left. PERITONEAL CAVITY: No pneumoperitoneum or fluid. OMENTUM: There is a reticular nodular pattern of increased density within the omentum, particularly right of midline, suspicious for early omental carcinomatosis. ABDOMINAL ADENOPATHY: None visualized REPRODUCTIVE ORGANS: No significant abnormality is seen URINARY BLADDER: No significant abnormality is seen. PELVIC ADENOPATHY: None visualized. OSSEOUS STRUCTURES: No significant abnormality is seen. BOWEL: The entire colon shows circumferential homogeneous mural thickening to a moderate degree, con sistent with pancolitis. There are no focal findings. VASCULATURE: Coronary calcifications noted. IMPRESSION: 1) FINDINGS CONSISTENT WITH A CLINICAL DIAGNOSIS OF ACUTE CHOLECYSTITIS. 2) PROMINENT ACUTE/SUBACUTE PANCOLITIS. 3) 7.5 CM DIAMETER RIGHT RENAL MASS, CONSISTENT WITH RENAL CELL CARCINOMA UNTIL PROVEN OTHERWISE. Abnormal results just now discussed with the patient's nurse, in order to ensure intact communication s.
--- NOTE | 2018-10-11 23:29 | PN ---
PROGRESS NOTE DATE OF SERVICE: 10/11/2018. REASON FOR FOLLOW UP: 1. Acute C difficile colitis. 2. Positive culture from the right nephrostomy tube. INTERVAL HISTORY: The patient's clinical course is complicated by more nausea, no vomiting. He is also complaining of abdominal pain, more of a dull aching pain 3 to 4/10, and no radiation. The patient's diarrhea has slightly slowed down with and he did have cultures obtained from his nephrostomy tube which did not show any gram-negative bacilli and MRSA. REVIEW OF SYSTEMS: Positive points have been mentioned in HPI. Rest of systems has been negative. Past medical and surgical history reviewed, no change. Medications reviewed. PHYSICAL EXAMINATION: Blood pressure is 89/58 with a pulse of 112, temperature of 97.8. He is 92% on room air. General description is an elderly male lying in bed in no distress. HEENT: Shows pallor. No scleral icterus. Oral mucosa membranes are dry. Neck: Trachea central. No thyromegaly. Lungs unlabored breathing. Clear to auscultation anteriorly. Heart S1, S2. Regular rate and rhythm. ABDOMEN: Soft, mildly distended. No guarding or rigidity. EXTREMITIES: With chronic changes but no cellulitis. LABS: Hemoglobin is 10.7, white count up to 16.3 with a BUN of 28, creatinine 5.11. DIAGNOSTIC IMPRESSION AND PLAN: Patient admitted to the hospital with acute nausea, vomiting and diarrhea. The patient has been diagnosed with acute c difficile colitis. The patient also has chronic drainage, nephrostomy tube to his right kidney area. This changed per [facility] physician. Cultures were obtained from the same site now showing the MRSA gram- negative bacilli. The patient did have more symptoms of nausea, vomiting and did have a jump in his white count. We will go ahead and obtain a CT abdominal and pelvis done with contrast and further discuss with staff research scientist who agree with giving the patient contrast to make sure no evidence of any abscess in the renal bed fossa that may need to be drained surgically. We will add vancomycin, pharmacy to cover for MRSA and will need gram-negative coverage with significant inflammation or infection in the right kidney area as well as C difficile colitis. The patient will continue on oral vancomycin. Overall prognosis remains to be guarded. Continue supportive care. MMODL / IJN: [id number] /
[2018-10-12] MEDS: FOLIC ACID-VIT B COMPLEX-VIT C 1 CAP PO SCH ×2 (00:42→23:01)
[2018-10-12] MEDS: ATORVASTATIN 10 MG TAB PO SCH ×2 (00:42→23:01)
[2018-10-12] MEDS: NYSTATIN 100,000 UNIT/GM POWD 15 GM TOPICAL SCH ×3 (00:43→23:02)
[2018-10-12] MEDS: METOPROLOL TARTRATE 25 MG TAB PO SCH ×3 (00:43→23:01)
[2018-10-12] MEDS: POTASSIUM CHLORIDE ER 10 MEQ TAB.ER.PRT PO SCH ×3 (00:44→23:02)
[2018-10-12] MEDS: VANCOMYCIN ORAL SOLUTION 250 MG/5 ML BOTTLE PO SCH ×5 (00:44→23:05)
[2018-10-12] MEDS: HEPARIN SODIUM,PORCINE 5,000 UNIT/ML 1 ML VIAL SQ SCH ×4 (00:44→23:02)
[2018-10-12] MEDS: CHERRY FLAVOR 60 ML BOTTLE PO PRN ×5 (00:45→23:05)
[2018-10-12] MEDS: PANTOPRAZOLE 40 MG/10 ML VIAL IVP SCH ×3 (00:45→23:02)
[2018-10-12] MEDS: HYDROcodone/APAP 5-325MG 1 EACH TAB PO PRN ×3 (00:46→23:04)
[2018-10-12 07:18] LABS: Anisocytosis Slight; Basophils % (A) 0 %; Eosinophils # (A) 0.2 k/uL (0-0.7); Eosinophils % (A) 1 %; HCT 36.9 % (39.0-53.0); HGB 10.8 gm/dL (13.0-17.5); Hypochromasia Marked; Lymphocytes # (A) 1.5 k/uL (1.0-4.8); Lymphocytes % (A) 12 %; MCH 27.4 pg (25.0-35.0); MCHC 29.3 g/dL (31.0-37.0); MCV 93.4 fL (80.0-100.0); Mean Platelet Volume 7.2; Monocytes # (A) 0.8 k/uL (0-1.0); Monocytes % (A) 7 %; Neutrophils # (A) 9.7 k/uL (1.3-7.7); Neutrophils % (A) 78 %; Platelet Count 301 k/uL (150-450); RBC 3.95 m/uL (4.30-5.90); RDW 18.2 % (11.5-15.5); WBC 12.6 k/uL (3.8-10.6)
[2018-10-12 07:26] LABS: Calcium 8.3 mg/dL (8.4-10.2)
[2018-10-12 07:33] LABS: Potassium 4.4 mmol/L (3.5-5.1)
[2018-10-12] MEDS ORDERED: VANCOMYCIN 2,500 MG in SODIUM CHLORIDE 0.9% 500 ML 500 ML IVPB ONE (09:00)
[2018-10-12] MEDS: CALCIUM ACETATE 667 MG CAP PO SCH ×3 (09:08→16:41)
[2018-10-12] MEDS: DILTIAZEM CD 120 MG CAP.ER.24H PO SCH (09:08)
[2018-10-12] MEDS: FUROSEMIDE 80 MG TAB PO SCH ×2 (09:08→16:41)
[2018-10-12] MEDS: CHOLECALCIFEROL 1,000 UNIT TAB PO SCH (09:08)
--- NOTE | 2018-10-12 12:46 | P.GSCN ---
History of Present Illness Consult date: 10/12/18 Reason for Consult: Possible cholecystitis History of present illness: Patient hospitalized for ongoing diarrhea as well as vomiting. Patient has had difficulty taking care of himself at home. Patient is a history of C. diff. He has a nephrostomy catheter in the right kidney. CAT scan was obtained this hospitalization on a CAT scan reported suggest the presence of possible cholecystitis. Patient denies abdominal pain however. White blood cell count has improved. Remains slightly elevated. Liver enzymes have been normal. Review of Systems The patient denies any acute changes in vision or hearing, no dysphagia or odynophagia, no chest pain or shortness of breath, no dysuria or hematuria, no headache, no runny nose, no rectal bleeding or melena, no unexplained weight loss Past Medical History Past Medical History: Atrial Fibrillation, Dialysis, Deep Vein Thrombosis (DVT) , GI Bleed, Hyperlipidemia, Hypertension, Renal Disease, Sleep Apnea/CPAP/BIPAP Additional Past Medical History / Comment(s): Paraplegia r/t back injury/surgery -pt states he no longer gets up into wheelchair d/t too painful, ESRD with hemodialysis-last received 10/07/18, enlarged R kidney with stones-has chronic nephrostomy tube/bag, chronic anemia, mineral bone disease, possible past upper GI bleed, DVT in a leg post op, arhtritis multiple joints, pickwickian syndrome , past respiratory failure/vented, ISACC with Cpap, bilateral lower extremity venous stasis/dermatitis, bilateral lower leg/feet edema and currently scabs on L foot toes. History of Any Multi-Drug Resistant Organisms: C-DIFF Year Discovered:: 11/01/17 MDRO Source:: STOOL Past Surgical History: Adenoidectomy, Back Surgery, Heart Catheterization With Stent, Hernia Repair, Tonsillectomy Additional Past Surgical History / Comment(s): LT ARM FISTULA-NO BP OR BLOOD DRAWS IN LT ARM, PCI with stent, low back surgery, nephrostomy tube, abdominal hernia, colonoscopy with benign polyp Past Anesthesia/Blood Transfusion Reactions: No Reported Reaction Date of Last Stent Placement:: 2004 Smoking Status: Former smoker - Past Family History Brother(s) Family Medical History: Cancer Additional Family Medical History / Comment(s): Colon Ca Father Family Medical History: Cancer Additional Family Medical History / Comment(s): father had lung cancer Medications and Allergies Home Medications Medication Instructions Recorded Confirmed Type Atorvastatin [Lipitor] 10 mg PO HS 10/30/17 10/09/18 History B Complex W-C No.20/Folic Acid 1 mg PO HS 10/30/17 10/09/18 History [Renal Caps Softgel] Calcium Acetate [PhosLo] 1,334 mg PO TID 10/30/17 10/09/18 History Cyanocobalamin (Vitamin B-12) 1,000 mcg PO DAILY 10/30/17 10/09/18 History [Vitamin B-12] Diltiazem HCl [Diltiazem 24Hr ER] 120 mg PO DAILY 10/30/17 10/09/18 History Ferrous Sulfate [Iron (65 MG 325 mg PO MOWEFR 10/30/17 10/09/18 History Elemental)] HYDROcodone/APAP 5-325MG [[place] 1 tab PO Q6HR PRN 10/30/17 10/09/18 History 5-325] Metoprolol Tartrate [Lopressor] 25 mg PO BID 10/30/17 10/09/18 History Potassium Chloride [Klor-Con 10] 10 meq PO BID 10/30/17 10/09/18 History Cholecalciferol [Vitamin D3] 1,000 unit PO DAILY 09/11/18 10/09/18 History Furosemide [Lasix] 80 mg PO BID 09/11/18 10/09/18 History Midodrine [ProAmatine] 5 - 10 mg PO MOWEFR PRN 09/11/18 10/09/18 History Allergies Allergy/AdvReac Type Severity Reaction Status Date / Time No Known Allergies Allergy Verified 10/09/18 07:42 Surgical - Exam Vital Signs Temp Pulse Resp BP Pulse Ox 98.6 F 107 H 16 82/47 97 10/09/18 05:53 10/09/18 05:53 10/09/18 05:53 10/09/18 05:53 10/09/18 05:53 Physical exam: General: Extremely obese white male lying supine HEENT: Normocephalic, sclerae nonicteric Abdomen: Nontender, nondistended, nephrostomy tube right upper quadrant with seropurulent fluid Extremities: Lower extremity edema Neuro: Alert and oriented Results - Labs 10/12/18 06:45 10/12/18 06:45 Abnormal Lab Results - Last 24 Hours (Table) 10/12/18 10/12/18 Range/Units 06:45 06:45 WBC 12.6 H (3.8-10.6) k/uL RBC 3.95 L (4.30-5.90) m/uL Hgb 10.8 L (13.0-17.5) gm/dL Hct 36.9 L (39.0-53.0) % MCHC 29.3 L (31.0-37.0) g/dL RDW 18.2 H (11.5-15.5) % Neutrophils # 9.7 H (1.3-7.7) k/uL Sodium 131 L (137-145) mmol/L Chloride 96 L (98-107) mmol/L BUN 22 H (9-20) mg/dL Creatinine 3.46 H (0.66-1.25) mg/dL Calcium 8.3 L (8.4-10.2) mg/dL Microbiology - Last 24 Hours (Table) 10/09/18 15:00 Urine Culture - Preliminary Urine,Catheterized Gram Neg Bacilli 10/09/18 17:13 Blood Culture - Preliminary Blood No Growth after 48 hours 10/10/18 00:10 Gram Stain - Preliminary Aspirate Body Fluid Culture - Preliminary Presumptive MRSA Gram Neg Bacilli 10/10/18 00:10 Gram Stain - Preliminary Axilla - Left Wound Culture - Preliminary Gram Neg Bacilli Gram Neg Bacilli#2 Diabetes panel 10/12/18 Range/Units 06:45 Sodium 131 L (137-145) mmol/L Potassium 4.4 (3.5-5.1) mmol/L Chloride 96 L (98-107) mmol/L Carbon Dioxide 25 (22-30) mmol/L BUN 22 H (9-20) mg/dL Creatinine 3.46 H (0.66-1.25) mg/dL Glucose 82 (74-99) mg/dL Calcium 8.3 L (8.4-10.2) mg/dL Calcium panel 10/12/18 Range/Units 06:45 Calcium 8.3 L (8.4-10.2) mg/dL Pituitary panel 10/12/18 Range/Units 06:45 Sodium 131 L (137-145) mmol/L Potassium 4.4 (3.5-5.1) mmol/L Chloride 96 L (98-107) mmol/L Carbon Dioxide 25 (22-30) mmol/L BUN 22 H (9-20) mg/dL Creatinine 3.46 H (0.66-1.25) mg/dL Glucose 82 (74-99) mg/dL Calcium 8.3 L (8.4-10.2) mg/dL Adrenal panel 10/12/18 Range/Units 06:45 Sodium 131 L (137-145) mmol/L Potassium 4.4 (3.5-5.1) mmol/L Chloride 96 L (98-107) mmol/L Carbon Dioxide 25 (22-30) mmol/L BUN 22 H (9-20) mg/dL Creatinine 3.46 H (0.66-1.25) mg/dL Glucose 82 (74-99) mg/dL Calcium 8.3 L (8.4-10.2) mg/dL Assessment and Plan (1) Intractable nausea and vomiting Narrative/Plan: CAT scan reviewed. Gallbladder does not appear distended. There are no evidence stones. The inflammatory changes are subtle and may be related to the adjacent colitis or possibly even the presence of the nephrostomy tube. No clinical indication for cholecystitis at this time. Continue treatment of patient's recurrent C. diff. No general surgery intervention planned at this time. Current Visit: Yes Status: Acute Code(s): R11.2 - NAUSEA WITH VOMITING, UNSPECIFIED SNOMED Code(s): 249575803
[2018-10-12] MEDS: MULTIVITAMINS, THERA 1 EACH TAB PO SCH (12:53)
--- NOTE | 2018-10-12 17:00 | P.PN ---
Subjective Progress Note Date: 10/12/18 Principal diagnosis: This is a 67-year-old male with ESRD on dialysis Sunday in hospital with vomiting diarrhea, a left axillary drainage from skin as well as C. diff. His diarrhea is better. Eating very well. He was dialyzed yesterday. Is morbidly obese bedridden chronically. He has chronic edema of the legs. He also grew gram-negative bacilli and MRSA in the axilla. Blood cultures have been negative. Additionally he has a chronic indwelling right nephrostomy because coming out from the right flank which is draining thick greenish yellow Objective - Vital Signs Vital signs: Vital Signs Temp 97.6 F 10/12/18 13:00 Pulse 119 H 10/12/18 14:04 Resp 16 10/12/18 14:04 BP 112/89 10/12/18 13:00 Pulse Ox 94 L 10/12/18 13:00 Intake & Output 10/11/18 10/12/18 10/12/18 18:59 06:59 18:59 Intake Total 900 740 Output Total 30 23 Balance -30 900 717 Intake: Intake, IV Titration 500 Amount Vancomycin 2,500 mg In 500 Sodium Chloride 0.9% 500 ml 500 ml @ 167 mls/hr IVPB ONCE ONE Rx#: [id number] Oral 900 240 Output: Drainage 30 Right Abdomen 30 Urine 20 Stool 3 Other: Voiding Method Urinal Urinal Diaper Diaper # Voids 1 # Bowel Movements 1 1 On examination is morbidly obese bedridden cheerful patient HEENT exam no JVP neck is supple no facial asymmetry Lungs are clear to auscultation but air entry is less than optimal as he was in capable of moving to listen to his back Heart sounds are unremarkable for any murmur rub gallop He is in atrial flutter ablation chronically Abdomen soft nontender obese Extremity exam was chronic stasis edema. Right flank draining a kidney chronically with the per nephrostomy. Neurologically awake alert oriented completely paraplegic - Labs CBC & Chem 7: 10/12/18 06:45 10/12/18 06:45 Labs: Abnormal Lab Results - Last 24 Hours (Table) 10/12/18 10/12/18 Range/Units 06:45 06:45 WBC 12.6 H (3.8-10.6) k/uL RBC 3.95 L (4.30-5.90) m/uL Hgb 10.8 L (13.0-17.5) gm/dL Hct 36.9 L (39.0-53.0) % MCHC 29.3 L (31.0-37.0) g/dL RDW 18.2 H (11.5-15.5) % Neutrophils # 9.7 H (1.3-7.7) k/uL Sodium 131 L (137-145) mmol/L Chloride 96 L (98-107) mmol/L BUN 22 H (9-20) mg/dL Creatinine 3.46 H (0.66-1.25) mg/dL Calcium 8.3 L (8.4-10.2) mg/dL Microbiology - Last 24 Hours (Table) 10/10/18 00:10 Gram Stain - Final Aspirate Body Fluid Culture - Final Methicillin resist S. aureus Pseudomonas aeruginosa 10/10/18 00:10 Gram Stain - Final Axilla - Left Wound Culture - Final Providencia stuartii Klebsiella oxytoca Proteus mirabilis 10/09/18 15:00 Urine Culture - Preliminary Urine,Catheterized Gram Neg Bacilli 10/09/18 17:13 Blood Culture - Preliminary Blood No Growth after 48 hours Assessment and Plan Assessment: Impression 1. ESRD on dialysis Sunday with a fistula in the left upper arm. 2. Nausea vomiting resolved. 3. C. diff colitis diarrhea better. 4. Drainage from axillary small area and bandaged. 5. Chronic right nephrostomy draining greenish yellow posterior 6. Morbid obesity and chronic bedridden state 7. Anemia of ESRD hemoglobin 10.8 at target 8. Mild hypo-19 yesterday and to ESRD and excess fluid intake sodium is 131. Recommendation. 1. Maintain current medication. 2. Antibiotics per infectious disease. 3. Watch calcium phosphorus hemoglobin and saturation albumin. 4. Watch hyponatremia and curtail fluid fluids if sodium continues to go down
--- NOTE | 2018-10-13 01:35 | PN ---
PROGRESS NOTE DATE OF SERVICE: 10/12/2018 This 67-year-old gentleman admitted with acute C difficile colitis, features of pancolitis in the CT scan. There is no evidence of any cholecystitis, cholelithiasis demonstrated. The patient still has some diarrhea. Patient is on vancomycin. Infectious Disease following the patient closely as well as Dr. Tate. The patient is on IV vancomycin also. The patient has also had MRSA grown from the urine culture along with Pseudomonas aeruginosa as well. PAST MEDICAL HISTORY: Reviewed. REVIEW OF SYSTEMS: CARDIOVASCULAR: No angina or palpitations. Respiration: As mentioned earlier. GI: As mentioned earlier. : No dysuria. CENTRAL NERVOUS SYSTEM: As mentioned earlier. CURRENT MEDICATIONS ARE: 1. Lyndon 5 mg q.6h p.r.n. 2. DuoNeb q.i.d. and p.r.n. 3. Xanax 0.5 t.i.d. 4. Lipitor 10 mg q.h.s. 5. PhosLo 1334 mg a.c. t.i.d. 6. Ceftazidime 1 g q24 hours. 7. Vitamin D. 8. Vitamin B12. 9. Cardizem. 10.Iron sulfate. 11.Lasix. 12.Heparin. 13.Dilaudid. 14.Lopressor. 15.ProAmatine. 16.Nephrocaps. 17.Multivitamins. 18.Narcan. 19.Zofran. 20.K-Dur. 21.Restoril. 22.Vancomycin. PHYSICAL EXAM: Patient is alert, oriented times two. Pulse 119, blood pressure 112/89, respiration 18, temperature 98.2, pulse ox 94% on room air. HEENT: Conjunctivae normal. Oral mucosa moist. Neck is no jugular venous distention. No carotid bruit. No lymph node enlargement. CARDIOVASCULAR SYSTEM: S1, S2 muffled. RESPIRATORY SYSTEM: Breath sounds diminished at the bases. A few scattered rhonchi and crackles. ABDOMEN: Soft. Mild diffuse discomfort to palpation. LEGS: No edema, No swelling. Central nervous system: No focal deficits. LABS: WBC 12.2, hemoglobin 10.8, sodium 131, creatinine is 3.46. ASSESSMENT: 1. Nausea, vomiting, diarrhea, possible acute C difficile colitis with harding colitis with sepsis with failure of outpatient treatment. 2. MRSA and Pseudomonas aeruginosa from the aspirate. 3. Increased WBC. 4. Anemia. 5. Hyponatremia. 6. Chronic renal failure stage 4 on hemodialysis. 7. 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 8. Right nephrostomy tube with large right kidney with stones and possible infection/tumor. 9. Atrial fibrillation. 10.History of deep vein thrombosis. 11.History of gastrointestinal bleed. 12.Hypertension. 13.Hyperlipidemia. 14.Sleep apnea. 15.Respiratory failure on ventilation. 16.History of obstructive sleep apnea. 17.History of C difficile colitis recently. 18.History of coronary artery disease stent. 19.History of back surgery, degenerative joint disease. 20.History of nicotine dependence. 21.Morbid obesity with body mass index . 22.FULL CODE. RECOMMENDATIONS AND DISCUSSION: I recommend to continue current management and continue symptomatic treatment. Continue the vancomycin p.o. IV cultures as noted. Prognosis extremely guarded because of multiple complex medical issues. We will continue the current line of treatment and discussed with the family at length. Understands and agrees. Further recommendation to follow. MMODL / IJN: [id number] / REINA
[2018-10-13] MEDS: CHERRY FLAVOR 60 ML BOTTLE PO PRN ×3 (05:35→17:26)
[2018-10-13] MEDS: VANCOMYCIN ORAL SOLUTION 250 MG/5 ML BOTTLE PO SCH ×3 (05:36→17:26)
[2018-10-13 08:10] LABS: Anisocytosis Slight; Basophils % (A) 0 %; Eosinophils # (A) 0.3 k/uL (0-0.7); Eosinophils % (A) 3 %; HCT 37.4 % (39.0-53.0); HGB 10.8 gm/dL (13.0-17.5); Hypochromasia Marked; Lymphocytes # (A) 1.5 k/uL (1.0-4.8); Lymphocytes % (A) 14 %; MCH 26.6 pg (25.0-35.0); MCHC 28.8 g/dL (31.0-37.0); MCV 92.6 fL (80.0-100.0); Mean Platelet Volume 6.9; Monocytes # (A) 0.8 k/uL (0-1.0); Monocytes % (A) 8 %; Neutrophils # (A) 7.7 k/uL (1.3-7.7); Neutrophils % (A) 73 %; Platelet Count 357 k/uL (150-450); RBC 4.04 m/uL (4.30-5.90); WBC 10.5 k/uL (3.8-10.6)
[2018-10-13 08:21] LABS: Calcium 8.5 mg/dL (8.4-10.2); Potassium 4.3 mmol/L (3.5-5.1)
[2018-10-13 08:26] LABS: Vancomycin,Random 29.6 ug/mL
[2018-10-13] MEDS: CALCIUM ACETATE 667 MG CAP PO SCH ×3 (10:15→17:24)
[2018-10-13] MEDS: METOPROLOL TARTRATE 25 MG TAB PO SCH ×2 (10:16→22:08)
[2018-10-13] MEDS: CHOLECALCIFEROL 1,000 UNIT TAB PO SCH (10:16)
[2018-10-13] MEDS: CYANOCOBALAMIN 500 MCG TAB PO SCH (10:16)
[2018-10-13] MEDS: DILTIAZEM CD 120 MG CAP.ER.24H PO SCH (10:17)
[2018-10-13] MEDS: PANTOPRAZOLE 40 MG/10 ML VIAL IVP SCH ×2 (10:17→21:43)
[2018-10-13] MEDS: FUROSEMIDE 80 MG TAB PO SCH ×2 (10:17→17:24)
[2018-10-13] MEDS: POTASSIUM CHLORIDE ER 10 MEQ TAB.ER.PRT PO SCH ×2 (10:17→21:44)
[2018-10-13] MEDS: HEPARIN SODIUM,PORCINE 5,000 UNIT/ML 1 ML VIAL SQ SCH ×2 (10:17→16:28)
--- NOTE | 2018-10-13 10:17 | P.PN ---
Subjective Progress Note Date: 10/13/18 Principal diagnosis: Possible cholecystitis Patient denies abdominal pain. Still with diarrhea. White blood cell count normal at 10.5. Tolerating diet. Objective - Vital Signs Vital signs: Vital Signs Temp 97.8 F 10/13/18 05:00 Pulse 82 10/13/18 05:00 Resp 16 10/13/18 05:00 BP 92/53 10/13/18 05:00 Pulse Ox 96 10/13/18 05:00 Intake & Output 10/12/18 10/13/18 10/13/18 18:59 06:59 18:59 Intake Total 740 1200 Output Total 23 Balance 717 1200 Intake: Intake, IV Titration 500 Amount Vancomycin 2,500 mg In 500 Sodium Chloride 0.9% 500 ml 500 ml @ 167 mls/hr IVPB ONCE ONE Rx#: [id number] Oral 240 1200 Output: Urine 20 Stool 3 Other: Voiding Method Urinal Urinal Diaper Diaper # Voids 1 2 # Bowel Movements 2 - Exam Abdomen: Soft, nontender, nondistended - Labs CBC & Chem 7: 10/13/18 07:50 10/13/18 07:50 Labs: Abnormal Lab Results - Last 24 Hours (Table) 10/13/18 10/13/18 Range/Units 07:50 07:50 RBC 4.04 L (4.30-5.90) m/uL Hgb 10.8 L (13.0-17.5) gm/dL Hct 37.4 L (39.0-53.0) % MCHC 28.8 L (31.0-37.0) g/dL RDW 18.0 H (11.5-15.5) % Sodium 129 L (137-145) mmol/L Chloride 94 L (98-107) mmol/L BUN 30 H (9-20) mg/dL Creatinine 4.61 H (0.66-1.25) mg/dL Glucose 101 H (74-99) mg/dL Microbiology - Last 24 Hours (Table) 10/09/18 15:00 Urine Culture - Final Urine,Catheterized Pseudomonas aeruginosa 10/09/18 17:13 Blood Culture - Preliminary Blood No Growth after 72 hours 10/10/18 00:10 Gram Stain - Final Aspirate Body Fluid Culture - Final Methicillin resist S. aureus Pseudomonas aeruginosa 10/10/18 00:10 Gram Stain - Final Axilla - Left Wound Culture - Final Providencia stuartii Klebsiella oxytoca Proteus mirabilis Assessment and Plan (1) Intractable nausea and vomiting Narrative/Plan: Continue antibiotics for C. diff colitis. Continue diet as tolerated. Dr. De La Rosa will resume coverage tomorrow. Current Visit: Yes Status: Acute Code(s): R11.2 - NAUSEA WITH VOMITING, UNSPECIFIED SNOMED Code(s): 076931541
[2018-10-13] MEDS: NYSTATIN 100,000 UNIT/GM POWD 15 GM TOPICAL SCH ×2 (10:18→21:47)
--- NOTE | 2018-10-13 11:02 | P.PN ---
Subjective Progress Note Date: 10/13/18 Principal diagnosis: This is a 67-year-old male with ESRD on dialysis Sunday in hospital with vomiting diarrhea, a left axillary drainage from skin as well as C. diff. His diarrhea is better. Eating very well. He was dialyzed yesterday. Is morbidly obese bedridden chronically. He has chronic edema of the legs. He also grew gram-negative bacilli and MRSA in the axilla. Blood cultures have been negative. Additionally he has a chronic indwelling right nephrostomy because coming out from the right flank which is draining thick greenish yellow Objective - Vital Signs Vital signs: Vital Signs Temp 97.8 F 10/13/18 05:00 Pulse 82 10/13/18 05:00 Resp 16 10/13/18 05:00 BP 107/64 10/13/18 10:24 Pulse Ox 96 10/13/18 05:00 Intake & Output 10/12/18 10/13/18 10/13/18 18:59 06:59 18:59 Intake Total 740 1200 Output Total 23 Balance 717 1200 Intake: Intake, IV Titration 500 Amount Vancomycin 2,500 mg In 500 Sodium Chloride 0.9% 500 ml 500 ml @ 167 mls/hr IVPB ONCE ONE Rx#: [id number] Oral 240 1200 Output: Urine 20 Stool 3 Other: Voiding Method Urinal Urinal Diaper Diaper # Voids 1 2 # Bowel Movements 2 - Labs CBC & Chem 7: 10/13/18 07:50 10/13/18 07:50 Labs: Abnormal Lab Results - Last 24 Hours (Table) 10/13/18 10/13/18 Range/Units 07:50 07:50 RBC 4.04 L (4.30-5.90) m/uL Hgb 10.8 L (13.0-17.5) gm/dL Hct 37.4 L (39.0-53.0) % MCHC 28.8 L (31.0-37.0) g/dL RDW 18.0 H (11.5-15.5) % Sodium 129 L (137-145) mmol/L Chloride 94 L (98-107) mmol/L BUN 30 H (9-20) mg/dL Creatinine 4.61 H (0.66-1.25) mg/dL Glucose 101 H (74-99) mg/dL Microbiology - Last 24 Hours (Table) 10/09/18 15:00 Urine Culture - Final Urine,Catheterized Pseudomonas aeruginosa 10/09/18 17:13 Blood Culture - Preliminary Blood No Growth after 72 hours 10/10/18 00:10 Gram Stain - Final Aspirate Body Fluid Culture - Final Methicillin resist S. aureus Pseudomonas aeruginosa 10/10/18 00:10 Gram Stain - Final Axilla - Left Wound Culture - Final Providencia stuartii Klebsiella oxytoca Proteus mirabilis Assessment and Plan Assessment: Impression 1. ESRD on dialysis Sunday with a fistula in the left upper arm. 2. Nausea vomiting resolved. 3. C. diff colitis diarrhea better. 4. Drainage from axillary small area and bandaged. 5. Chronic right nephrostomy draining greenish yellow pus 6. Morbid obesity and chronic bedridden state 7. Anemia of ESRD hemoglobin 10.8 at target 8. Mild hyponatremia yesterday sec to ESRD and excess fluid intake sodium is 131 > [address] scan showed right renal cell carcinoma most likely, 10. Computed tomography scan shows cholecystitis. LFTS normal and no pain 11. Computed tomography scan shows pancolitis. Has C Def Recommendation. 1. Maintain current medication. 2. Antibiotics per infectious disease. 3. Watch calcium phosphorus hemoglobin and saturation albumin. 4. Watch hyponatremia and curtail fluid to 1200 c as sodium continues to go down 5. HD tomorrow 4 hrs and [address] scan findings need FU re Ca right [id number] May have been addressed prev)
[2018-10-13] MEDS: MULTIVITAMINS, THERA 1 EACH TAB PO SCH (12:10)
--- NOTE | 2018-10-13 19:07 | PN ---
PROGRESS NOTE DATE OF SERVICE: 10/13/2018 This 67-year-old gentleman was admitted severe colitis also had right renal lesion, possibly malignancy, possible infection. Patient is on a drainage at this time. Patient had MRSA, Pseudomonas from the cultures. The patient closely monitored. PAST MEDICAL HISTORY: Reviewed. PHYSICAL EXAM: Patient is alert, oriented x3. Pulse 119, blood pressure 92/63, respirations 16, temperature 97.8, pulse ox 96% on room air. HEENT: Conjunctivae normal. NECK: No jugular venous distention. CARDIOVASCULAR: S1, S2 muffled. RESPIRATORY: Breath sounds diminished in the bases. A few scattered rhonchi and crackles. ABDOMEN: Soft, nontender. LEGS: No edema, no swelling. NERVOUS SYSTEM: No focal deficits. LAB STUDIES: WBC 10.4, hemoglobin 10.8, sodium 129. ASSESSMENT: 1. Nausea, vomiting, diarrhea, possible acute C difficile colitis with harding colitis with sepsis, failure of outpatient treatment. 2. MRSA and Pseudomonas aeruginosa from the cultures. 3. Increased WBC. 4. Anemia. 5. Hyponatremia. 6. Chronic renal failure stage IV on hemodialysis. 7. 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 8. Right nephrostomy tube with large right kidney with stones and possible infection/tumor. 9. Atrial fibrillation history. 10.History of deep vein thrombosis. 11.History of GI bleed. 12.Hypertension. 13.Hyperlipidemia. 14.Sleep apnea. 15.History of respiratory failure on mechanical ventilation. 16.History of obstructive sleep apnea. 17.History of C difficile colitis recently. 18.History of coronary artery disease, stent. 19.History of back surgery, degenerative joint disease. 20.History of nicotine dependence. 21.Morbid obesity with body mass index. 22.FULL CODE. RECOMMENDATIONS AND DISCUSSION: I recommend to continue current management, continue with monitoring and symptomatic treatment. Continue with p.o. vancomycin. Guarded prognosis because of multiple complex medical issues. I had a detailed discussion with the family at the bedside and the patient has follow up with the [facility] regarding renal tumor. Overall prognosis extremely guarded because of multiple complex medical issues. Further recommendations to follow. MMODL / IJN: [id number] /
[2018-10-13] MEDS: ATORVASTATIN 10 MG TAB PO SCH (21:44)
[2018-10-13] MEDS: FOLIC ACID-VIT B COMPLEX-VIT C 1 CAP PO SCH (21:44)
--- NOTE | 2018-10-13 22:49 | PN ---
PROGRESS NOTE DATE OF SERVICE: 10/13/2018. REASON FOR FOLLOWUP: 1. C difficile colitis. 2. Right renal abscess. INTERVAL HISTORY: The patient is currently afebrile. He is currently breathing comfortably. Denies having any chest pain or shortness of breath or cough. No nausea, no vomiting has been noticed and his diarrhea has slowed down. EXAMINATION: Blood pressure 107/58 with a pulse of 66, temperature 97.3. He is 98% on room air. General description is an elderly male lying in bed in no distress. Respiratory system: Unlabored breathing, clear to auscultation anteriorly. Heart S1, S2. Regular rate and rhythm. ABDOMEN: Soft, no tenderness. Extremities some chronic swelling. No redness. LABS: Hemoglobin is 10.2, white count 10.5 with a BUN of 30, creatinine 4.61. DIAGNOSTIC IMPRESSION AND PLAN: Patient admitted to the hospital with C difficile colitis and currently responding to the p.o. vancomycin however the patient did have a new fever. Did have elevated white count and the fluid from the right knee aspirate did grew MRSA as well as Pseudomonas aeruginosa. However, the patient white count has responded to the addition of Vanco that will be continued. Ceftazidime has been added to cover for the Pseudomonas. We will monitor his clinical course closely. However, depending upon finding on the CT, he may benefit from an evaluation at [facility] with nephrostomy tube has been placed as he may need further drainage procedure. Continue supportive care. SRIDHAR / MARLENEN: [id number] /
[2018-10-14] MEDS: HEPARIN SODIUM,PORCINE 5,000 UNIT/ML 1 ML VIAL SQ SCH ×3 (01:34→16:29)
[2018-10-14] MEDS: VANCOMYCIN ORAL SOLUTION 250 MG/5 ML BOTTLE PO SCH ×4 (01:34→23:57)
[2018-10-14] MEDS: CALCIUM ACETATE 667 MG CAP PO SCH ×3 (08:19→16:32)
[2018-10-14] MEDS: PANTOPRAZOLE 40 MG/10 ML VIAL IVP SCH (08:20)
[2018-10-14] MEDS: CYANOCOBALAMIN 500 MCG TAB PO SCH (08:21)
[2018-10-14] MEDS: CHOLECALCIFEROL 1,000 UNIT TAB PO SCH (08:22)
[2018-10-14] MEDS: DILTIAZEM CD 120 MG CAP.ER.24H PO SCH (08:22)
[2018-10-14] MEDS: METOPROLOL TARTRATE 25 MG TAB PO SCH (08:22)
[2018-10-14] MEDS: POTASSIUM CHLORIDE ER 10 MEQ TAB.ER.PRT PO SCH (08:22)
[2018-10-14] MEDS: MIDODRINE 5 MG TAB PO PRN (09:48)
[2018-10-14] MEDS: FUROSEMIDE 80 MG TAB PO SCH ×2 (10:05→17:36)
[2018-10-14] MEDS: NYSTATIN 100,000 UNIT/GM POWD 15 GM TOPICAL SCH (10:51)
[2018-10-14 11:26] LABS: Anisocytosis Slight; HCT 36.4 % (39.0-53.0); HGB 10.6 gm/dL (13.0-17.5); Hypochromasia Marked; MCH 26.7 pg (25.0-35.0); MCHC 29.2 g/dL (31.0-37.0); MCV 91.6 fL (80.0-100.0); Platelet Count 390 k/uL (150-450); RBC 3.98 m/uL (4.30-5.90); RDW 18.1 % (11.5-15.5); WBC 10.4 k/uL (3.8-10.6)
[2018-10-14 11:28] LABS: Calcium 8.7 mg/dL (8.4-10.2); Potassium 4.5 mmol/L (3.5-5.1)
[2018-10-14 11:33] LABS: Vancomycin,Random 27.3 ug/mL
[2018-10-14 11:59] LABS: Band Neutrophils % 2 %; Eosinophils # (M) 0.31 k/uL (0-0.7); Lymphocytes # (M) 1.25 k/uL (1.0-4.8); Metamyelocytes # (M) 0.31 k/uL (0); Metamyelocytes % 3 %; Monocytes # (M) 0.83 k/uL (0-1.0); Myelocytes # (M) 0.31 k/uL (0); Myelocytes % 3 %; Neutrophils % (M) 70 %; Nucleated Red Blood Cells 0 /100 WBC (0-0); Promyelocytes % 1 %; Total Cells Counted 200
[2018-10-14 12:00] LABS: Poikilocytosis (M) Present; Toxic Granulation Present
--- NOTE | 2018-10-14 14:02 | P.PN ---
Progress Note - Text Progress Note Date: 10/14/18 The patient will be scheduled for a HIDA scan to evaluate for possible biliary dysfunction due to his nausea and vomiting.
--- NOTE | 2018-10-14 14:40 | P.PN ---
Subjective Progress Note Date: 10/14/18 67-year-old male being seen by surgical service for nausea vomiting possible related to biliary dysfunction. Scheduled for a HIDA scan this afternoon. Currently receiving dialysis. Patient additionally is being treated for C. diff on antibiotics states the diarrhea is getting better. Just has no appetite. Patient is being treated for left axillary drain. Wound culture gram -negative bacilli with MRSA growing in the cultures. Patient has chronic edema to the lower extremities. Blood cultures have been negative to date patient is morbidly obese BMI is 57 is chronically bedridden with limited mobility Objective - Vital Signs Vital signs: Vital Signs Temp 97.9 F 10/14/18 03:34 Pulse 84 10/14/18 03:34 Resp 16 10/14/18 03:34 BP 83/52 10/14/18 03:34 Pulse Ox 94 L 10/14/18 03:34 Intake & Output 10/13/18 10/14/18 10/14/18 18:59 06:59 18:59 Intake Total 530 Output Total 15 25 10 Balance -15 -25 520 Intake: Intake, IV Titration 50 Amount cefTAZidime 1 gm In 50 Sodium Chloride 0.9% 50 ml @ 100 mls/hr IVPB Q24H [facility] Rx#:[id number] Oral 480 Output: Drainage 25 10 Right Abdomen 25 10 Urine 10 Stool 5 Other: Voiding Method Urinal Urinal Diaper Incontinent # Voids 2 # Bowel Movements 1 1 - Exam Exam Abdomen obese soft reports nausea vomiting sensation stooling less. - Labs CBC & Chem 7: 10/14/18 10:45 10/14/18 10:45 Labs: Abnormal Lab Results - Last 24 Hours (Table) 10/14/18 10/14/18 Range/Units 10:45 10:45 RBC 3.98 L (4.30-5.90) m/uL Hgb 10.6 L (13.0-17.5) gm/dL Hct 36.4 L (39.0-53.0) % MCHC 29.2 L (31.0-37.0) g/dL RDW 18.1 H (11.5-15.5) % Metamyelocytes # (Man) 0.31 H (0) k/uL Myelocytes # (Manual) 0.31 H (0) k/uL Promyelocytes # (Man) 0.10 H (0) k/uL Sodium 127 L (137-145) mmol/L Chloride 95 L (98-107) mmol/L BUN 37 H (9-20) mg/dL Creatinine 5.18 H (0.66-1.25) mg/dL Glucose 103 H (74-99) mg/dL Microbiology - Last 24 Hours (Table) 10/09/18 17:13 Blood Culture - Preliminary Blood No Growth after 96 hours Assessment and Plan Assessment: Impression C. diff colitis improving End-stage renal disease on hemodialysis Drainage from axillary Morbid obesity with BMI 57 Anemia related to end-stage renal disease Nausea vomiting scheduled for a HIDA scan possible biliary dysfunction not ruled out Plan Scheduled for HIDA scan later this afternoon will follow up on results with further recommendations We'll follow with you The above impression and plan of care have been discussed and directed by signing physician. Abena Gonzalez nurse practitioner acting as scribe for signing physician.
[2018-10-14] MEDS: HYDROcodone/APAP 5-325MG 1 EACH TAB PO PRN (14:49)
[2018-10-14] MEDS: MULTIVITAMINS, THERA 1 EACH TAB PO SCH (14:49)
[2018-10-14] MEDS: FERROUS SULFATE 325 MG TAB PO SCH (16:32)
--- NOTE | 2018-10-14 19:46 | PN ---
PROGRESS NOTE Patient is seen for followup for end-stage renal disease. He is currently seen on dialysis, tolerating his treatment fairly well. PHYSICAL EXAMINATION: Blood pressure was about 120/60, heart rate 82 per minute. Patient was afebrile. Examination shows bilateral chronic lower extremity edema and cellulitis. Patient has a right nephrostomy tube that is draining dark colored drainage. Abdomen is morbidly obese, but soft. LABS SHOW: Hemoglobin 10.6, sodium 127, potassium 4.5. ASSESSMENT: 1. End-stage renal disease on hemodialysis on a Sunday, Sunday, Sunday schedule. 2. History of right renal mass and right nephrostomy tube with dark colored drainage. The patient follows with Urology out of town. 3. Hypervolemic, hyponatremia and also from renal failure. Expect improvement with hemodialysis. 4. Anemia of chronic disease. 5. C diff colitis with improved diarrhea. PLAN: Hemodialysis today. Encourage increased oral intake. Next dialysis on Sunday. MMODL / IJN: [id number] /
--- NOTE | 2018-10-14 21:49 | PN ---
PROGRESS NOTE DATE OF SERVICE: 10/14/2018 This 67-year-old gentleman was admitted with severe colitis, had C difficile colitis. Patient also right renal lesion. Multiple organisms are grown from the cultures including MRSA, Pseudomonas aeruginosa and as well as Providencia, Klebsiella and Proteus also. The patient is being closely monitored. The diarrhea is improving at this time. Dr. Mittal is following the patient. No chest pain. No palpitations. No fever. The patient is receiving hemodialysis. PHYSICAL EXAM: Alert and oriented times three. Pulse 107. Blood pressure 139/67. Respiration 16, temperature 97.7, pulse ox 98% on room air. Conjunctivae normal. Neck: No jugular venous distention. Cardiovascular: S1, S2 muffled. Respirations: Breath sounds diminished in the bases. Bilateral scattered rhonchi and crackles. ABDOMEN: Soft. Obese. Mild diffuse discomfort. Otherwise no tenderness. No guarding. No rigidity. No mass palpable. Legs: Bilateral leg edema. Nervous system diffusely weak. Paraparesis. LAB STUDIES: WBC 10.1, hemoglobin is 10.6. Otherwise sodium 127 and creatinine 5.1. ASSESSMENT: 1. Nausea, vomiting, diarrhea, possible acute C difficile colitis with harding colitis and sepsis, failure of outpatient treatment, present on admission. 2. History of MRSA pseudomonas aeruginosa grown from the cultures. 3. Providencia, Klebsiella and Proteus from the 2nd set of cultures from the axilla. 4. Increased WBC. 5. Anemia. 6. Hyponatremia. 7. Chronic renal failure stage 4, on hemodialysis. 8. History of paraplegia secondary to back surgery. 9. Right nephrostomy tube with large right kidney with stones and possible infection/tumor. 10.Atrial fibrillation history. 11.History of deep vein thrombosis. 12.History of gastrointestinal bleed. 13.Hypertension. 14.Hyperlipidemia. 15.Sleep apnea. 16.History of respiratory failure on mechanical ventilation. 17.History of obstructive sleep apnea. 18.History of C difficile colitis recently. 19.History of coronary artery disease stent. 20.History of back surgery, degenerative joint disease. 21.History of nicotine dependence. 22.History of morbid obesity with body mass index of 57.1. RECOMMENDATIONS AND DISCUSSION: In this 67-year-old male who presented with multiple complex medical issues, we will monitor the patient closely. Continue the current medications, continue symptomatic treatment. Patient is also on ceftazidime. Otherwise, continue to monitor. Continue the vancomycin p.o. and IV. Overall prognosis extremely guarded. I also discussed with the patient's family and further recommendations to follow. SRIDHAR / TANIA: [id number] /
--- NOTE | 2018-10-14 23:52 | PN ---
PROGRESS NOTE DATE OF SERVICE: 10/14/2018. REASON FOR FOLLOWUP: C difficile colitis, right renal mass/sepsis. INTERVAL HISTORY: The patient is afebrile. Has been breathing comfortably. No further nausea or vomiting has been noticed. His diarrhea has slowed. Denies having any chest pain, shortness of breath or cough. No abdominal pain. EXAMINATION: Blood pressure 139/67 with a pulse of 79, temperature 97.7, he is 98% on room air. GENERAL DESCRIPTION: An elderly male lying in bed in no distress. RESPIRATORY SYSTEM: Unlabored breathing. Clear to auscultation anteriorly. HEART: S1, S2. Regular rate and rhythm. ABDOMEN: Soft, no distention. LABS: Hemoglobin is 10.6, white count 10.4 with a BUN of 37, creatinine is 5.18. DIAGNOSTIC IMPRESSION AND PLAN: Patient admitted to the hospital with C difficile colitis and responded to oral vancomycin. The patient did have a persistently elevated white count and culture obtained from the right nephrostomy tube did show multiple pathogen for a MRSA and Pseudomonas aeruginosa. He has been treated with IV vancomycin. White count normalized. We will continue for now. Re-evaluate the CT tomorrow. The wound on the left axilla does not look infected, hence we will disregard the local culture. Continue local care as ordered. Continue supportive care. MMODL / IJN: [id number] /
[2018-10-15] MEDS: PANTOPRAZOLE 40 MG/10 ML VIAL IVP SCH ×3 (00:19→21:18)
[2018-10-15] MEDS: VANCOMYCIN ORAL SOLUTION 250 MG/5 ML BOTTLE PO SCH ×5 (00:19→23:33)
[2018-10-15] MEDS: FOLIC ACID-VIT B COMPLEX-VIT C 1 CAP PO SCH ×2 (00:20→21:18)
[2018-10-15] MEDS: METOPROLOL TARTRATE 25 MG TAB PO SCH ×3 (00:20→23:37)
[2018-10-15] MEDS: POTASSIUM CHLORIDE ER 10 MEQ TAB.ER.PRT PO SCH ×3 (00:20→21:18)
[2018-10-15] MEDS: ATORVASTATIN 10 MG TAB PO SCH ×2 (00:20→21:18)
[2018-10-15] MEDS: HEPARIN SODIUM,PORCINE 5,000 UNIT/ML 1 ML VIAL SQ SCH ×4 (00:20→23:33)
[2018-10-15] MEDS: NYSTATIN 100,000 UNIT/GM POWD 15 GM TOPICAL SCH ×3 (00:21→21:18)
--- NOTE | 2018-10-15 01:20 | NM ---
EXAMINATION TYPE: NM hepatobiliary wo EF DATE OF EXAM: 10/15/2018 COMPARISON: NONE HISTORY: Pain TECHNIQUE: After the intravenous administration of 5.33 mCi Tc 99m Mebrofenin hepatobiliary scintigra phy is performed. Immediate images post injection. FINDINGS: There is prompt uptake of the tracer by the liver that has normal size and contour. There is tracer i n the small bowel at 10 minutes. Tracers mostly cleared from the liver at 1 hour. There is no evidenc e of any tracer accumulation in the gallbladder. IMPRESSION: The exam shows no tracer uptake in the gallbladder that is suggestive of acute cholecysti tis and complete cystic duct obstruction. No evidence of common bile duct obstruction. No focal liver defect.
[2018-10-15] MEDS: ONDANSETRON 4 MG/2 ML VIAL IVP PRN ×2 (04:09→19:24)
--- NOTE | 2018-10-15 08:04 | P.PN ---
Progress Note - Text Progress Note Date: 10/15/18 HIDA scan shows no visualization the gallbladder suggestive of cystic duct obstruction and acute and chronic cholecystitis. Patient will be scheduled for laparoscopic cholecystectomy in the a.m.
[2018-10-15] MEDS: DILTIAZEM CD 120 MG CAP.ER.24H PO SCH (08:10)
[2018-10-15] MEDS: FUROSEMIDE 80 MG TAB PO SCH ×2 (08:11→17:19)
[2018-10-15 08:59] LABS: Calcium 8.8 mg/dL (8.4-10.2); Potassium 4.3 mmol/L (3.5-5.1)
[2018-10-15 09:16] LABS: Anisocytosis Slight; HCT 37.9 % (39.0-53.0); HGB 10.9 gm/dL (13.0-17.5); Hypochromasia Marked; MCH 27.3 pg (25.0-35.0); MCHC 28.9 g/dL (31.0-37.0); MCV 94.5 fL (80.0-100.0); Macrocytosis Slight; Platelet Count 377 k/uL (150-450); RBC 4.01 m/uL (4.30-5.90); RDW 18.2 % (11.5-15.5); WBC 11.2 k/uL (3.8-10.6)
[2018-10-15] MEDS: CALCIUM ACETATE 667 MG CAP PO SCH ×3 (09:46→17:22)
[2018-10-15] MEDS: CHOLECALCIFEROL 1,000 UNIT TAB PO SCH (09:47)
[2018-10-15] MEDS: CYANOCOBALAMIN 500 MCG TAB PO SCH (09:48)
[2018-10-15 09:52] LABS: Band Neutrophils % 1 %; Eosinophils # (M) 0.45 k/uL (0-0.7); Lymphocytes # (M) 1.79 k/uL (1.0-4.8); Metamyelocytes # (M) 0.22 k/uL (0); Metamyelocytes % 2 %; Monocytes # (M) 1.12 k/uL (0-1.0); Myelocytes # (M) 0.56 k/uL (0); Myelocytes % 5 %; Neutrophils % (M) 63 %; Nucleated Red Blood Cells 0 /100 WBC (0-0); Promyelocytes # (M) 0.11 k/uL (0); Promyelocytes % 1 %; Total Cells Counted 200
[2018-10-15 09:53] LABS: Poikilocytosis (M) Present
[2018-10-15] MEDS: CHERRY FLAVOR 60 ML BOTTLE PO PRN (13:14)
[2018-10-15] MEDS: MULTIVITAMINS, THERA 1 EACH TAB PO SCH (13:14)
--- NOTE | 2018-10-15 13:38 | P.PN ---
Subjective Progress Note Date: 10/15/18 67-year-old male seen this morning at the bedside currently resting comfortably in bed. Did review with the patient HIDA report which showed no visualization of the gallbladder suggestive of cystic duct obstruction acute and chronic cholecystitis. Tentatively scheduled for a lap cholecystectomy in the morning Currently the patient is denying any abdominal pain when questioning Objective - Vital Signs Vital signs: Vital Signs Temp 98.3 F 10/15/18 12:30 Pulse 94 10/15/18 12:30 Resp 20 10/15/18 12:30 BP 78/49 10/15/18 12:30 Pulse Ox 98 10/15/18 12:30 Intake & Output 10/14/18 10/15/18 10/15/18 18:59 06:59 18:59 Intake Total 530 480 Output Total 22 101 Balance 508 379 Weight 180.53 kg Intake: Intake, IV Titration 50 Amount cefTAZidime 1 gm In 50 Sodium Chloride 0.9% 50 ml @ 100 mls/hr IVPB Q24H [facility] Rx#:[id number] Oral 480 480 Output: Drainage 10 Right Abdomen 10 Urine 10 Stool 2 1 Emesis 100 Other: Voiding Method Urinal Urinal Urinal Incontinent Incontinent # Voids 2 # Bowel Movements 1 1 - Constitutional Constitutional Comment(s): exam Abdomen soft nondistended obese nontender states has had not had a bowel movement this morning incontinently urine denying any tenderness abdominal pain when questioning reports no nausea vomiting - Labs CBC & Chem 7: 10/15/18 08:34 10/15/18 08:34 Labs: Abnormal Lab Results - Last 24 Hours (Table) 10/15/18 10/15/18 Range/Units 08:34 08:34 WBC 11.2 H (3.8-10.6) k/uL RBC 4.01 L (4.30-5.90) m/uL Hgb 10.9 L (13.0-17.5) gm/dL Hct 37.9 L (39.0-53.0) % MCHC 28.9 L (31.0-37.0) g/dL RDW 18.2 H (11.5-15.5) % Monocytes # (Manual) 1.12 H (0-1.0) k/uL Metamyelocytes # (Man) 0.22 H (0) k/uL Myelocytes # (Manual) 0.56 H (0) k/uL Promyelocytes # (Man) 0.11 H (0) k/uL Sodium 136 L (137-145) mmol/L BUN 23 H (9-20) mg/dL Creatinine 3.66 H (0.66-1.25) mg/dL Glucose 104 H (74-99) mg/dL Microbiology - Last 24 Hours (Table) 10/09/18 17:13 Blood Culture - Preliminary Blood No Growth after 120 hours Assessment and Plan Assessment: Impression C. diff colitis improving End-stage renal disease on hemodialysis Drainage from axillary Morbid obesity with BMI 57 Anemia related to end-stage renal disease HIDA scan showed no visualization of the gallbladder suggestive of cystic duct obstruction acute and chronic cholecystitis Hypotensive episodes asymptomatic Chronic debilitated limited mobility bedbound Chronic indwelling right nephrostomy tube Positive wound culture right axillary gram-negative bacilli MRSA Plan Tentatively schedule October 16 laparoscopic cholecystectomy We'll follow with you Further surgical recommendations pending The above impression and plan of care have been discussed and directed by signing physician. Abena Gonzalez nurse practitioner acting as scribe for signing physician.
--- NOTE | 2018-10-15 17:21 | PN ---
PROGRESS NOTE DATE OF SERVICE: 10/15/2018 This 67-year-old gentleman who was admitted with nausea, vomiting and diarrhea also had acute C difficile colitis. The patient is being closely monitored. The patient had multiple organisms grown from the culture, including MRSA and Pseudomonas aeruginosa. No chest pain. No palpitations. No fever. PHYSICAL EXAMINATION: Alert and oriented x3. Pulse 94, blood pressure 78/49, respiration 20, temperature 98.3, pulse ox 98% on room air. HEENT: Conjunctivae normal. NECK: No jugular venous distention. CARDIOVASCULAR SYSTEM: S1, S2 muffled. RESPIRATORY SYSTEM: Breath sounds diminished at the bases. A few scattered rhonchi. ABDOMEN: Soft, obese. LEGS: No edema. No swelling. NERVOUS SYSTEM: No focal deficit. LABS: WBC 11.3, hemoglobin 10.9. Creatinine is 3.66. ASSESSMENT: 1. Nausea, vomiting, diarrhea, possible acute Clostridium difficile colitis with pancolitis, sepsis, failure of outpatient treatment, present on admission. 2. History of methicillin-resistant Staphylococcus aeruginosa, Pseudomonas aeruginosa grown from the cultures. 3. Providencia, klebsiella, proteus from second set of cultures from the axilla. 4. Increased white count. 5. Anemia. 6. Hyponatremia. 7. Chronic renal failure, stage IV, on hemodialysis. 8. History of paraplegia secondary to back surgery. 9. Right nephrostomy tube with large right kidney with stones and possible infection/tumor. 10.Atrial fibrillation history. 11.History of deep vein thrombosis. 12.History of gastrointestinal bleed. 13.Hypertension. 14.Hyperlipidemia. 15.History of sleep apnea. 16.History of respiratory failure, on mechanical ventilation. 17.History of obstructive sleep apnea. 18.History of Clostridium difficile colitis previously. 19.History of coronary artery disease, stent. 20.History of back surgery, degenerative joint disease. 21.History of nicotine dependence. 22.History of morbid obesity with a body mass index of 57.1. 23.FULL CODE. RECOMMENDATIONS AND DISCUSSION: In this 67-year-old gentleman who presented with multiple complex medical issues, we will monitor the patient closely, continue the current management, continue with symptomatic treatment, continue the vancomycin. Continue the ceftazidime. Continue the rest of the medications. Prognosis extremely guarded because of multiple complex medical issues. I would recommend either home or ECF, depending upon the patient's functional status after completion of the antibiotic course. Further recommendations to follow. Discussed with family at length. Prognosis is guarded. The patient also should return to [facility] for further evaluation of the right renal tumors/abscess. SRIDHAR / MARLENEN: [id number] /
--- NOTE | 2018-10-15 21:12 | PN ---
PROGRESS NOTE Patient is seen for followup for end-stage renal disease. Currently, he is lying in bed. He is comfortable. Denies any significant complaints. The patient is maintained on a Sunday, Sunday, Sunday schedule for dialysis. His blood pressure runs low chronically. He is currently asymptomatic. PHYSICAL EXAMINATION: This morning blood pressure was 78/49, heart rate 94 per minute patient is afebrile. Examination of the heart S1, S2. Examination of the lungs, decreased breath sounds at the bases. ABDOMEN: Soft, morbidly obese, examination of lower extremities shows chronic skin changes chronic edema. LABS: Reveal a hemoglobin 10.9, sodium 136, potassium 4.3, vancomycin level 27.3. ASSESSMENT: 1. End-stage renal disease, on hemodialysis on a Sunday, Sunday, Sunday schedule. 2. Right renal mass with right nephrostomy draining purulent drainage. 3. C diff colitis, currently improving. 4. Urinary tract infection with Pseudomonas. 5. Left axilla wound growing Klebsiella, Proteus mirabilis and Providencia stuartii. PLAN: Hemodialysis in a.m. Antibiotics as per ID. Continue phosphate binders. Continue with midodrine, increase to 5 mg b.i.d. if blood pressure remains low. MMODL / IJN: [id number] /
--- NOTE | 2018-10-15 22:39 | PN ---
PROGRESS NOTE DATE OF SERVICE: 10/15/2018. REASON FOR FOLLOW UP: 1. C difficile colitis. 2. Positive culture from his right nephrostomy with MRSA and Pseudomonas. INTERVAL HISTORY: The patient is afebrile. Overall, he is feeling better. Breathing comfortably. The patient denies having any chest pain or shortness of breath or cough. No abdominal pain. His diarrhea has resolved. Did have soft bowel movement. EXAMINATION: Blood pressure is 92/59 with a pulse of 99, temperature 97.7. He is 96% on room air. General description is an elderly male lying in bed in no distress. RESPIRATORY SYSTEM: Unlabored breathing. Clear to auscultation anteriorly. Heart S1, S2. Regular rate and rhythm. ABDOMEN: Soft, no tenderness. No guarding or rigidity. The left axilla wound is drying out with no cellulitis. LABS: Hemoglobin is 10.8, white count 11.2 with a BUN of 23, creatinine 3.66. DIAGNOSTIC IMPRESSION AND PLAN: 1. Patient with C difficile colitis responding to the current oral vancomycin that will be transitioned to 250 q.6 and the patient continue for at least 2 weeks in outpatient setting. 2. The patient with a positive culture from the left nephrostomy tube site with an MRSA and Pseudomonas did treat currently on Fortaz and vancomycin. short course of about 10 days. The family did mention that his [facility] urologist is aware of the possible mass on the right kidney area. However, they were unable to biopsy because of his size and overall poor health. The patient can continue with these 2 antibiotics with dialysis, so we can avoid a PICC line and follow up with his urologist in the outpatient setting. Continue supportive care. MMODL / IJN: [id number] /
[2018-10-16] MEDS: VANCOMYCIN ORAL SOLUTION 250 MG/5 ML BOTTLE PO SCH ×5 (06:47→23:45)
[2018-10-16] MEDS: CALCIUM ACETATE 667 MG CAP PO SCH ×4 (07:41→19:14)
[2018-10-16] MEDS: DILTIAZEM CD 120 MG CAP.ER.24H PO SCH (07:41)
[2018-10-16] MEDS: CHOLECALCIFEROL 1,000 UNIT TAB PO SCH (07:41)
[2018-10-16] MEDS: FUROSEMIDE 80 MG TAB PO SCH ×2 (07:41→17:58)
[2018-10-16] MEDS: HEPARIN SODIUM,PORCINE 5,000 UNIT/ML 1 ML VIAL SQ SCH ×3 (07:41→23:44)
[2018-10-16] MEDS: CYANOCOBALAMIN 500 MCG TAB PO SCH (07:41)
[2018-10-16] MEDS: METOPROLOL TARTRATE 25 MG TAB PO SCH ×2 (07:42→22:16)
[2018-10-16] MEDS: POTASSIUM CHLORIDE ER 10 MEQ TAB.ER.PRT PO SCH ×2 (07:42→22:03)
[2018-10-16] MEDS: PANTOPRAZOLE 40 MG/10 ML VIAL IVP SCH ×2 (07:44→22:02)
[2018-10-16] MEDS: NYSTATIN 100,000 UNIT/GM POWD 15 GM TOPICAL SCH ×2 (07:44→22:03)
[2018-10-16 09:33] LABS: Anisocytosis Slight; HCT 38.7 % (39.0-53.0); HGB 11.1 gm/dL (13.0-17.5); Hypochromasia Marked; MCH 27.2 pg (25.0-35.0); MCHC 28.8 g/dL (31.0-37.0); MCV 94.6 fL (80.0-100.0); Macrocytosis Slight; Mean Platelet Volume 6.5; Platelet Count 387 k/uL (150-450); RBC 4.09 m/uL (4.30-5.90); RDW 18.5 % (11.5-15.5); WBC 11.3 k/uL (3.8-10.6)
[2018-10-16 10:36] LABS: Albumin 2.4 g/dL (3.5-5.0); Potassium 4.4 mmol/L (3.5-5.1); Total Bilirubin 0.3 mg/dL (0.2-1.3); Total Protein 5.9 g/dL (6.3-8.2)
[2018-10-16 10:43] LABS: Vancomycin,Random 24.1 ug/mL
[2018-10-16] MEDS: MIDODRINE 5 MG TAB PO PRN (10:52)
[2018-10-16 11:10] VITALS: BMI 57.1
[2018-10-16 11:49] LABS: Band Neutrophils % 4 %; Lymphocytes # (M) 1.02 k/uL (1.0-4.8); Metamyelocytes # (M) 0.11 k/uL (0); Metamyelocytes % 1 %; Monocytes # (M) 1.02 k/uL (0-1.0); Neutrophils % (M) 77 %; Nucleated Red Blood Cells 0 /100 WBC (0-0); Total Cells Counted 100; Toxic Granulation Present
--- NOTE | 2018-10-16 11:51 | P.PN ---
Subjective This is a pleasant 67 years old male with past medical history of atrial fibrillation on dialysis, deep venous thrombosis and GI bleed. Hyperlipidemia, hypertension, sleep apnea on CPAP, history of paraplegia related to back injury and he is bedridden for 14 years has been telling me. Today was lying in bed not in distress. No chest pain or dyspnea. No nausea vomiting. He still have loose bowel movement but home sure how many times. However he denies pain in his abdomen or anywhere else. He has right frontal urostomy tube. Patient was informed about the kidney mass and possible malignancy. Patient is going for lap cholecystectomy today. Objective - Vital Signs Vital signs: Vital Signs Temp 97.6 F 10/16/18 05:00 Pulse 109 H 10/16/18 05:00 Resp 17 10/16/18 05:00 BP 90/51 10/16/18 05:00 Pulse Ox 95 10/16/18 05:00 Intake & Output 10/15/18 10/16/18 10/16/18 18:59 06:59 18:59 Intake Total 300 Balance 300 Weight 180.53 kg Intake: Oral 300 Other: Voiding Method Urinal Urinal Urinal Incontinent Incontinent Incontinent # Bowel Movements 2 - Exam GENERAL: The patient is alert and oriented x3, not in any acute distress. Morbidly obese HEENT: Pupils are round and equally reacting to light. EOMI. No scleral icterus. No conjunctival pallor. Normocephalic, atraumatic. No pharyngeal erythema. No thyromegaly. CARDIOVASCULAR: S1 and S2 present. No murmurs, rubs, or gallops. PULMONARY: Chest is clear to auscultation, no wheezing or crackles. -ABDOMEN: Soft, mild lower abdominal tenderness. nondistended, normoactive bowel sounds. No palpable organomegaly. Right urostomy tube MUSCULOSKELETAL: No joint swelling or deformity. -EXTREMITIES: No cyanosis, clubbing, or pedal edema. Left axillary open wound with some purulent discharge, with minimal surrounding erythema and cellulitis -NEUROLOGICAL: Gross neurological examination did not reveal any focal deficits. Paraplegic SKIN: No rashes. - Labs CBC & Chem 7: 10/16/18 09:15 10/16/18 09:15 Labs: Abnormal Lab Results - Last 24 Hours (Table) 10/16/18 10/16/18 Range/Units 09:15 09:15 WBC 11.3 H (3.8-10.6) k/uL RBC 4.09 L (4.30-5.90) m/uL Hgb 11.1 L (13.0-17.5) gm/dL Hct 38.7 L (39.0-53.0) % MCHC 28.8 L (31.0-37.0) g/dL RDW 18.5 H (11.5-15.5) % Sodium 135 L (137-145) mmol/L BUN 29 H (9-20) mg/dL Creatinine 4.66 H (0.66-1.25) mg/dL AST 15 L (17-59) U/L Total Protein 5.9 L (6.3-8.2) g/dL Albumin 2.4 L (3.5-5.0) g/dL Microbiology - Last 24 Hours (Table) 10/09/18 17:13 Blood Culture - Final Blood No Growth after 144 hours Assessment and Plan Assessment: Possible C. diff colitis, with sepsis History of methicillin-resistant Staphylococcus encroaching onset, Pseudomonas aeruginosa and cross from the cultures Staghorn renal calculus Urinary tract infection Left axilla abscess Right renal mass, suspicious for right renal cell carcinoma. Morbid obesity Plan: This is a pleasant 67 years old male who presents with right mass and gallbladder disease and multiple infections including UTI, C. diff and left axillary abscess. Continue with antibiotics. Infectious disease and nephrology as well as surgical consult are appreciated. Labs and medication were reviewed.. Continue same treatment. Continue with symptomatic treatment. Resume home medication. Monitor lytes and vitals. DVT and GI prophylaxis. Further recommendations of the clinical course of the patient DVT prophylaxis: Subcutaneous heparin GI Prophylaxis: Protonix Prognosis is guarded
[2018-10-16] MEDS: MULTIVITAMINS, THERA 1 EACH TAB PO SCH (12:21)
[2018-10-16] MEDS ORDERED: SODIUM CHLORIDE 0.9% 1,000 ML IV ONE (14:22)
[2018-10-16 14:48] LABS: Glucose,Whole Blood 79 mg/dL (75-99)
[2018-10-16] MEDS ORDERED: HEPARIN SODIUM,PORCINE 5,000 UNIT/ML 1 ML VIAL SQ ONE (15:02)
[2018-10-16] MEDS ORDERED: NEOSTIGMINE 1 MG/ML 10 ML VIAL ONE (16:16)
[2018-10-16] MEDS ORDERED: ETOMIDATE 2 MG/ML 10 ML VIAL ONE (16:16)
[2018-10-16] MEDS ORDERED: GLYCOPYRROLATE 0.2 MG/ML 2 ML VIAL ONE (16:16)
[2018-10-16] MEDS ORDERED: PHENYLEPHRINE-0.9% NACL SYG 1 MG/10 ML SYRINGE ONE (16:16)
[2018-10-16] MEDS ORDERED: fentaNYL (PF) 50 MCG/ML 2 ML AMP ONE (16:16)
[2018-10-16] MEDS ORDERED: CISATRACURIUM 2 MG/ML 5 ML VIAL IV ONE (16:16)
[2018-10-16] MEDS ORDERED: BUPIVACAIN-EPI 0.25%-1:200,000 30 ML VIAL SQ ONE (16:59)
[2018-10-16] MEDS ORDERED: LACTATED RINGERS 1,000 ML IV ONE (17:38)
[2018-10-16] MEDS: FERROUS SULFATE 325 MG TAB PO SCH ×2 (18:02→19:14)
--- NOTE | 2018-10-16 20:48 | PN ---
PROGRESS NOTE DATE OF SERVICE: 10/16/2018 REASON FOR FOLLOWUP: 1. C difficile colitis. 2. Infected right renal abscess. INTERVAL HISTORY: The patient is afebrile. He has been breathing comfortably. Denies having any chest pain or shortness of breath or cough. No further nausea, vomiting or any diarrhea. PHYSICAL EXAMINATION: Blood pressure is 92/49, pulse of 95, temperature 97. He is 99% on room air. General description is an elderly male lying in bed in no distress. RESPIRATORY SYSTEM: Unlabored breathing. Clear to auscultation anteriorly. HEART: S1, S2. Regular rate and rhythm. ABDOMEN: Soft. No tenderness. No guarding or rigidity. LABS: Hemoglobin is 11.1, white count 11.3 with a BUN of 29, creatinine 4.68. DIAGNOSTIC IMPRESSION AND PLAN: 1. Patient with Clostridium difficile colitis, extensive; seems to have seemed to have shown clinical improvement. His diarrhea has resolved. Antibiotics transitioned to q.4 hours for another 10 days. 2. Patient with a positive culture of pseudomonas and methicillin-resistant Staphylococcus aeruginosa from his right nephrostomy tube with concern about abscess and possible mass. Patient is currently covered with Fortaz and vancomycin, Pharmacy to dose. Than can be done through the so we can avoid PICC line placement. Continue with supportive care. MMODL / IJN: [id number] /
[2018-10-16 21:29] VITALS: RESP 18
--- NOTE | 2018-10-16 21:54 | PN ---
PROGRESS NOTE Patient is seen on hemodialysis. He was seen this morning. Patient was scheduled for laparoscopic cholecystectomy. On examination this morning, patient was stable. Blood pressure was 103/48, and during dialysis he was running about 95 mmHg systolic. Heart rate about 100 per minute. Examination shows chronic lower extremity edema. Abdomen is morbidly obese and soft, nontender. Labs were reviewed. They showed hemoglobin 11.1, sodium 135, potassium 4.4. ASSESSMENT: 1. End-stage renal disease, on hemodialysis on a Sunday, Sunday, Sunday schedule. 2. Right renal mass with right nephrostomy with purulent drainage. 3. Clostridium difficile colitis. 4. Methicillin-resistant Staphylococcus aeruginosa and pseudomonas growth in the drainage from the nephrostomy tube. 5. Chronic hypotension, maintained on midodrine. 6. Chronic cholecystitis with evidence of cystic duct obstruction. Acute and chronic cholecystitis noted on HIDA scan, which showed no visualization of the gallbladder. Patient is scheduled for laparoscopic cholecystectomy today. PLAN: Next dialysis will be on Sunday. MMODL / IJN: [id number] /
[2018-10-16] MEDS: FOLIC ACID-VIT B COMPLEX-VIT C 1 CAP PO SCH (22:03)
[2018-10-16] MEDS: ATORVASTATIN 10 MG TAB PO SCH (22:03)
[2018-10-17 02:14] VITALS: TEMP 97.8
[2018-10-17] MEDS: VANCOMYCIN ORAL SOLUTION 250 MG/5 ML BOTTLE PO SCH ×3 (05:29→17:35)
--- NOTE | 2018-10-17 08:11 | P.OP ---
Date of Procedure: 10/16/18 Preoperative Diagnosis: Cholecystitis Postoperative Diagnosis: Cholecystitis Procedure(s) Performed: Diagnostic laparoscopy Anesthesia: ANISA Surgeon: Mina De La Rosa Estimated Blood Loss (ml): 3 Pathology: none sent Condition: stable Disposition: PACU Description of Procedure: The patient's placed on the operative table in the supine position. He received general anesthesia. His abdomen was prepped and draped usual fashion. A supraumbilical abdominal trocar was placed in the abdominal cavity under direct visualization. The abdomen was insufflated. After adequate insufflation the laparoscope was placed into the peritoneal cavity. Next an 8 mm trochars placed in the epigastric position. The patient's placed in reverse Trendelenburg right side up position. There was significant inflammation in the right upper quadrant. The gallbladder could not be visualized. It was impossible to perform the procedure laparoscopically. Given the patient's underlying medical comorbidities. His decided to not perform an open cholecystectomy. The trochars withdrawn. The abdomen was desufflated. Incision sites are closed with 3-0 Monocryl suture. Dermabond was applied. Patient was sent to recovery room stable condition.
[2018-10-17] MEDS: HEPARIN SODIUM,PORCINE 5,000 UNIT/ML 1 ML VIAL SQ SCH ×2 (08:19→17:27)
[2018-10-17] MEDS: CALCIUM ACETATE 667 MG CAP PO SCH ×3 (08:19→17:35)
[2018-10-17] MEDS: CHOLECALCIFEROL 1,000 UNIT TAB PO SCH (08:19)
[2018-10-17] MEDS: CYANOCOBALAMIN 500 MCG TAB PO SCH (08:19)
[2018-10-17 08:20] VITALS: BP 95/51; PULSE 102
[2018-10-17] MEDS: NYSTATIN 100,000 UNIT/GM POWD 15 GM TOPICAL SCH (08:22)
[2018-10-17] MEDS: PANTOPRAZOLE 40 MG/10 ML VIAL IVP SCH (10:11)
[2018-10-17] MEDS: POTASSIUM CHLORIDE ER 10 MEQ TAB.ER.PRT PO SCH (10:27)
[2018-10-17] MEDS: FUROSEMIDE 80 MG TAB PO SCH ×2 (10:27→17:35)
[2018-10-17] MEDS: DILTIAZEM CD 120 MG CAP.ER.24H PO SCH (10:27)
[2018-10-17] MEDS: METOPROLOL TARTRATE 25 MG TAB PO SCH (10:27)
--- NOTE | 2018-10-17 10:58 | P.PN ---
Subjective Progress Note Date: 10/17/18 67-year-old male seen at the bedside surgical dressing site dry abdomen soft nondistended patient currently is denying any abdominal pain when questioning patient's postop diagnostic laparoscopically with the decision not to perform an open cholecystectomy gallbladder could not be visualized as a possible to perform the procedure laparoscopically. Patient reports no nausea vomiting no stooling nephroscopy tube in place Objective - Vital Signs Vital signs: Vital Signs Temp 97.8 F 10/17/18 02:13 Pulse 102 H 10/17/18 08:20 Resp 18 10/17/18 08:00 BP 95/51 10/17/18 08:20 Pulse Ox 96 10/17/18 02:13 Intake & Output 10/16/18 10/17/18 10/17/18 18:59 06:59 18:59 Intake Total 1000 450 Output Total 2 2 2 Balance 998 448 -2 Weight 180.53 kg Intake: IV 1000 Oral 450 Output: Stool 2 2 2 Estimated Blood Loss 0 Other: Voiding Method Urinal Urinal Urinal Incontinent Incontinent Incontinent - Exam Exam Abdomen obese soft surgical dressing sites dry nontender nondistended has a chronic indwelling right nephrostomy tube in place currently draining greenish yellow secretions reports no nausea no vomiting Currently denying any abdominal pain when questioning - Labs CBC & Chem 7: 10/16/18 09:15 10/16/18 09:15 Labs: Abnormal Lab Results - Last 24 Hours (Table) 10/16/18 Range/Units 09:15 Neutrophils # (Manual) 9.10 H (1.3-7.7) k/uL Monocytes # (Manual) 1.02 H (0-1.0) k/uL Metamyelocytes # (Man) 0.11 H (0) k/uL Assessment and Plan Assessment: Impression C. diff colitis improving End-stage renal disease on hemodialysis Drainage from axillary Morbid obesity with BMI 57 Anemia related to end-stage renal disease HIDA scan showed no visualization of the gallbladder suggestive of cystic duct obstruction acute and chronic cholecystitis Hypotensive episodes asymptomatic Chronic debilitated limited mobility bedbound Chronic indwelling right nephrostomy tube Positive wound culture right axillary gram-negative bacilli MRSA Cholecystitis postop diagnostic laparoscopy not able to perform laparoscopically or open cholecystectomy due to gallbladder not being able to be visualized with the significant inflammation involving the right upper quadrant Plan Continue recommendations by the attending We'll follow with you Further surgical recommendations pending The above impression and plan of care have been discussed and directed by signing physician. Abena Gonzalez nurse practitioner acting as scribe for signing physician.
[2018-10-17] MEDS: MULTIVITAMINS, THERA 1 EACH TAB PO SCH (12:56)
--- NOTE | 2018-10-17 13:02 | P.PN ---
Subjective Patient is seen in follow-up for end-stage renal disease. He is maintained on hemodialysis on a Sunday schedule. Vomiting and diarrhea have improved. He is noted to be C. diff positive and is maintained on oral vancomycin. Also noted to have left axillary drainage with cultures positive for multiple organisms. Denies chest pain or shortness of breath. Underwent cholecystectomy yesterday. Denies any significant pain. Vital signs are stable. General: The patient appeared well nourished and normally developed. HEENT: Head exam is unremarkable. Neck is without jugular venous distension. LUNGS: Lungs are clear to auscultation and percussion. Breath sounds decreased. HEART: Rate and Rhythm are regular. First and second heart sounds normal. No murmurs, rubs or gallops. ABDOMEN: Abdominal exam reveals normal bowel sounds. Non-tender and non- distended. No evidence of peritonitis. EXTREMITITES: No clubbing, cyanosis, or edema. Chronic skin changes noted. Objective - Vital Signs Vital signs: Vital Signs Temp 97.8 F 10/17/18 02:13 Pulse 102 H 10/17/18 08:20 Resp 18 10/17/18 08:00 BP 95/51 10/17/18 08:20 Pulse Ox 96 10/17/18 02:13 Intake & Output 10/16/18 10/17/18 10/17/18 18:59 06:59 18:59 Intake Total 1000 450 Output Total 2 2 2 Balance 998 448 -2 Weight 180.53 kg Intake: IV 1000 Oral 450 Output: Stool 2 2 2 Estimated Blood Loss 0 Other: Voiding Method Urinal Urinal Urinal Incontinent Incontinent Incontinent - Labs CBC & Chem 7: 10/16/18 09:15 10/16/18 09:15 Assessment and Plan Plan: Assessment: 1. End-stage renal disease maintained on hemodialysis on a Sunday schedule. 2. Right renal mass. Again the patient follows out of [facility] urology Department. 3. History of nephrolithiasis status post right-sided nephrostomy tube placement. Patient follows out of [facility]. Patient states the nephrostomy tube was last changed less than 2 months ago. Culture positive for MRSA and Pseudomonas. 4. Chronic kidney disease mineral bone disease maintained on PhosLo. 5. Chronic hypotension maintained on midodrine before dialysis. 6. C. diff colitis maintained on oral vancomycin. 7. Left axillary drainage with cultures positive for probable Providencia, Klebsiella and Proteus. 8. Hyponatremia secondary to chronic kidney disease. Stable. 9. Chronic cholecystitis with evidence of cyst duct obstruction. Status post cholecystectomy on October 16. Plan: Hemodialysis tomorrow. Encouraged oral intake. Antibiotics per infectious disease. Monitor vancomycin levels. Target level near 15.
--- NOTE | 2018-10-17 15:23 | P.DS ---
Providers Date of admission: 10/09/18 08:30 Attending physician: Ronny Rao Consults: 10/09/18 08:29 Consult Physician Routine Consulting Provider: Jeffy Barahoan Consult Reason/Comments: dialysis Do you want consulting provider notified?: Already Contacted 10/09/18 16:47 Consult Physician Routine Consulting Provider: Won Mittal Consult Reason/Comments: Wounds Do you want consulting provider notified?: Yes 10/11/18 23:21 Consult Physician Routine Consulting Provider: Mina De La Rosa Consult Reason/Comments: chloecystitis Do you want consulting provider notified?: Yes Primary care physician: Akshat Nieves MD Hospital Course: This is a pleasant 67 years old male with past medical history of atrial fibrillation, end-stage renal disease on hemodialysis, deep venous thrombosis, GI bleed, hyperlipidemia, hypertension, sleep apnea on CPAP/BiPAP, paraplegia related to back injury/surgery for the last 14 years. Has chronic nephrostomy tube on the right side anteriorly. Presents to the hospital originally because of nausea, vomiting and diarrhea. Was found to have C. diff colitis and started on by mouth vancomycin and he showed interval improvement. On admission patient has elevated white cell count and fluid from the right nephrostomy tube was growing MRSA and pseudomonas aeruginosa. Patient was placed on IV vancomycin and ceftazidime by our infectious specialist. However patient additional findings on the CAT scan of the abdomen and he may benefit from evaluation at [facility] with nephrostomy tube and he may need further drainage procedures. CT of the abdomen and pelvis showing 7.5 cm renal mass consistent with renal cell carcinoma until proven otherwise, acute cholecystitis and pancolitis. However lap cholecystectomy was tried but were surgical team but could not be done because the right upper quadrant was significantly inflamed and patient did not wanted open cholecystectomy so the procedure was ended. Also patient has a draining wound in the left axilla with minimal surrounding cellulitis. Also patient his blood pressures on the low side since this admission but is asymptomatic. Previous systolic blood pressure is 120, compared to this admission is being fluctuating between 80 and 100. Of note because of his blood pressure on the low side compared to previous admission his blood pressure medication and for his A. fib operative held including Cardizem, metoprolol and Lasix with potassium (old put on hold now). I spoke with the pt and he agrees for the transfer . pt is stable for transfer to [facility]. physical exam Gen.: Patient alert awake and oriented X 3, NOT IN DISTRESS. Morbidly obese. Patient is bedridden CVS: s1-s2, RRR, no murmur CHEST:bilateral CTA, no wheezing or crepitation Abdomen: Soft, no tenderness, no distention, positive bowel sounds Extremities: No leg edema or induration time spent more than 35 min Plan - Discharge Summary Discharge Rx Participant: No New Discharge Prescriptions: New cefTAZidime [Fortaz] 0.5 gm IVPB Q24H vial Cholecalciferol [Vitamin D3] 1,000 unit PO DAILY tab Cyanocobalamin [Vitamin B-12] 1,000 mcg PO DAILY tab Folic Acid-Vit B Complex-Vit C [Nephrocaps] 1 each PO HS cap Heparin Sodium,Porcine [Heparin Sodium] 5,000 unit SQ Q8HR vial Ipratropium-Albuterol Nebulize [Duoneb 0.5 mg-3 mg/3 ml Soln] 3 ml INHALATION RT-QID PRN ampul.neb PRN Reason: Shortness Of Breath Or Wheezing Midodrine [ProAmatine] 5 mg PO DAILY PRN tab PRN Reason: Hypotension Multivitamins, Thera [Multivitamin (formulary)] 1 each PO DAILY@1200 tab Nystatin 100,000 Unit/gm Powd [Mycostatin Powder] 1 applic TOPICAL BID applic Ondansetron [Zofran] 4 mg IVP Q6HR PRN vial PRN Reason: Nausea And Vomiting Vancomycin Oral Solution 250 mg PO Q6HR ml Continue Ferrous Sulfate [Iron (65 MG Elemental)] 325 mg PO MOWEFR Calcium Acetate [PhosLo] 1,334 mg PO TID Metoprolol Tartrate [Lopressor] 25 mg PO BID Diltiazem HCl [Diltiazem 24Hr ER] 120 mg PO DAILY Atorvastatin [Lipitor] 10 mg PO HS Potassium Chloride [Klor-Con 10] 10 meq PO BID Midodrine [ProAmatine] 5 - 10 mg PO MOWEFR PRN PRN Reason: DIALYSIS Furosemide [Lasix] 80 mg PO BID Discontinued HYDROcodone/APAP 5-325MG [[place] 5-325] 1 tab PO Q6HR PRN PRN Reason: Pain Cyanocobalamin (Vitamin B-12) [Vitamin B-12] 1,000 mcg PO DAILY B Complex W-C No.20/Folic Acid [Renal Caps Softgel] 1 mg PO HS Cholecalciferol [Vitamin D3] 1,000 unit PO DAILY Discharge Medication List Atorvastatin [Lipitor] 10 mg PO HS 10/30/17 [History] Calcium Acetate [PhosLo] 1,334 mg PO TID 10/30/17 [History] Diltiazem HCl [Diltiazem 24Hr ER] 120 mg PO DAILY 10/30/17 [History] Ferrous Sulfate [Iron (65 MG Elemental)] 325 mg PO MOWEFR 10/30/17 [History] Metoprolol Tartrate [Lopressor] 25 mg PO BID 10/30/17 [History] Potassium Chloride [Klor-Con 10] 10 meq PO BID 10/30/17 [History] Furosemide [Lasix] 80 mg PO BID 09/11/18 [History] Midodrine [ProAmatine] 5 - 10 mg PO MOWEFR PRN 09/11/18 [History] Cholecalciferol [Vitamin D3] 1,000 unit PO DAILY tab 10/17/18 [Rx] Cyanocobalamin [Vitamin B-12] 1,000 mcg PO DAILY tab 10/17/18 [Rx] Folic Acid-Vit B Complex-Vit C [Nephrocaps] 1 each PO HS cap 10/17/18 [Rx] Heparin Sodium,Porcine [Heparin Sodium] 5,000 unit SQ Q8HR vial 10/17/18 [Rx] Ipratropium-Albuterol Nebulize [Duoneb 0.5 mg-3 mg/3 ml Soln] 3 ml INHALATION RT -QID PRN ampul.neb 10/17/18 [Rx] Midodrine [ProAmatine] 5 mg PO DAILY PRN tab 10/17/18 [Rx] Multivitamins, Thera [Multivitamin (formulary)] 1 each PO DAILY@1200 tab [Rx] Nystatin 100,000 Unit/gm Powd [Mycostatin Powder] 1 applic TOPICAL BID applic 10/17/18 [Rx] Ondansetron [Zofran] 4 mg IVP Q6HR PRN vial 10/17/18 [Rx] Vancomycin Oral Solution 250 mg PO Q6HR ml 10/17/18 [Rx] cefTAZidime [Fortaz] 0.5 gm IVPB Q24H vial 10/17/18 [Rx] Follow up Appointment(s)/Referral(s): Akshat Nieves MD [Primary Care Provider] - 1-2 days
--- NOTE | 2018-10-18 04:26 | PN ---
PROGRESS NOTE DATE OF SERVICE: 10/17/2018. REASON FOR FOLLOWUP VISIT: 1. C. dif colitis. 2. Right renal abscess with MRSA and Pseudomonas aeruginosa. INTERVAL HISTORY: The patient was seen on rounds earlier this afternoon. The patient has been afebrile. The patient denies having any chest pain or shortness of breath. No nausea, vomiting. RN mentioned that he had only one small loose stool today. The patient wanted to go home. EXAMINATION: Blood pressure 95/51 with a pulse of 102. Temperature 97.8. He is 97% on CPAP. General description is an elderly male lying in bed in no distress. Respiratory system: Unlabored breathing. Clear to auscultation anteriorly. Heart S1, S2. Regular rate and rhythm. ABDOMEN: Soft. No guarding. No rigidity. LABS: Hemoglobin 9.1, white count 11.3 with a BUN of 29, creatinine 4.66. DIAGNOSTIC IMPRESSION AND PLAN: 1. Patient with C difficile colitis. The patient to continue with p.o. vancomycin 250 q6 for another 10 days to 2 weeks. 2. Patient with right nephrostomy tube, positive culture with possible renal abscess. Culture positive for MRSA and Pseudomonas aeruginosa. The patient to continue with and vancomycin through dialysis for at least another 10 days to finish a course of therapy with close outpatient followup. Continue supportive care. APRYLL / MARLENEN: [id number] /
== END 2018-10-17 17:40 | disposition short-term general hospital (02) | DRG 853 ==
LOC: EC 05:43 → 3NMEDONC 08:30
PROVIDERS: ADMIT Hospitalist; ATTEND Hospitalist
PROC: 5A1D70Z Performance of Urinary Filtration, Intermittent, Less than 6 Hours Per Day (ICD-10-PCS; 2018-10-13)
PROC: 0WJG4ZZ Inspection of Peritoneal Cavity, Percutaneous Endoscopic Approach (ICD-10-PCS; principal; 2018-10-16 16:30)
DX: A41.9 Sepsis, unspecified organism (principal); N15.1 Renal and perinephric abscess; N18.6 End stage renal disease; A04.71 Enterocolitis due to Clostridium difficile, recurrent; C64.1 Malignant neoplasm of right kidney, except renal pelvis; Z68.43 Body mass index [BMI] 50.0-59.9, adult; E87.1 Hypo-osmolality and hyponatremia; M96.89 Other intraoperative and postprocedural complications and disorders of the musculoskeletal system; G82.20 Paraplegia, unspecified; I12.0 Hypertensive chronic kidney disease with stage 5 chronic kidney disease or end stage renal disease; I48.1 Persistent atrial fibrillation; K81.2 Acute cholecystitis with chronic cholecystitis; L02.412 Cutaneous abscess of left axilla; N39.0 Urinary tract infection, site not specified; B96.5 Pseudomonas (aeruginosa) (mallei) (pseudomallei) as the cause of diseases classified elsewhere; D63.1 Anemia in chronic kidney disease; E11.22 Type 2 diabetes mellitus with diabetic chronic kidney disease; E66.01 Morbid (severe) obesity due to excess calories; E78.5 Hyperlipidemia, unspecified; E87.70 Fluid overload, unspecified; G47.33 Obstructive sleep apnea (adult) (pediatric); Y83.8 Other surgical procedures as the cause of abnormal reaction of the patient, or of later complication, without mention of misadventure at the time of the procedure; Y79.3 Surgical instruments, materials and orthopedic devices (including sutures) associated with adverse incidents; I25.10 Atherosclerotic heart disease of native coronary artery without angina pectoris; I95.89 Other hypotension; N20.0 Calculus of kidney; Z74.01 Bed confinement status; Z79.899 Other long term (current) drug therapy; Z80.0 Family history of malignant neoplasm of digestive organs; Z80.1 Family history of malignant neoplasm of trachea, bronchus and lung; Z80.42 Family history of malignant neoplasm of prostate; Z86.14 Personal history of Methicillin resistant Staphylococcus aureus infection; Z86.19 Personal history of other infectious and parasitic diseases; Z86.711 Personal history of pulmonary embolism; Z86.718 Personal history of other venous thrombosis and embolism; Z87.442 Personal history of urinary calculi; Z87.891 Personal history of nicotine dependence; Z90.49 Acquired absence of other specified parts of digestive tract; Z93.6 Other artificial openings of urinary tract status; Z95.1 Presence of aortocoronary bypass graft; Z95.5 Presence of coronary angioplasty implant and graft; Z99.2 Dependence on renal dialysis; Z99.89 Dependence on other enabling machines and devices; Z53.8 Procedure and treatment not carried out for other reasons
CPT/HCPCS: 36415; 74018; 74177; 78226; 80048; 80053; 80202; 81001; 83605; 83690; 84100; 85025; 85610; 86704; 86706; 87040; 87070; 87077; 87086; 87186; 87205; 87324; 87340; 90935; 93005; 96361; 96374; 96376; 99285

== ENCOUNTER 2018-11-05 16:13 | Inpatient (IN) | payer MEDICARE, OTHER ==
[2018-11-05] MEDS ORDERED: ONDANSETRON 4 MG/2 ML VIAL IVP STA ×2 (16:37→20:50)
[2018-11-05] MEDS ORDERED: SODIUM CHLORIDE 0.9% 1,000 ML IV STA (16:37)
[2018-11-05] MEDS ORDERED: FAMOTIDINE 20 MG/2 ML VIAL IV STA (16:38)
--- NOTE | 2018-11-05 16:41 | ED ---
General Adult HPI - General Chief complaint: Nausea/Vomiting/Diarrhea Stated complaint: Nausea/Vomiting Time Seen by Provider: 11/05/18 16:23 Source: patient, EMS, RN notes reviewed Mode of arrival: EMS Limitations: no limitations - History of Present Illness Initial comments: Patient is a pleasant 67-year-old male presenting to the emergency department with nausea vomiting. Onset was this morning. Patient has vomited multiple times today. Patient states at least 10 times. Patient still has some nausea. has some mild discomfort only related with emesis. Otherwise no pain. No cough or dyspnea. Patient denies having any wounds. Patient does have a nephrostomy tube however still urinates. Patient states he is chronically unable to ambulate however is unclear why. Patient states he is minimally able to move his toes. - Related Data Home Medications Medication Instructions Recorded Confirmed Atorvastatin [Lipitor] 10 mg PO HS 10/30/17 11/05/18 Calcium Acetate [PhosLo] 1,334 mg PO TID 10/30/17 11/05/18 Diltiazem HCl [Diltiazem 24Hr ER] 120 mg PO DAILY 10/30/17 11/05/18 Ferrous Sulfate [Iron (65 MG 325 mg PO MOWEFR 10/30/17 11/05/18 Elemental)] Metoprolol Tartrate [Lopressor] 25 mg PO BID 10/30/17 11/05/18 Potassium Chloride [Klor-Con 10] 10 meq PO BID 10/30/17 11/05/18 Furosemide [Lasix] 80 mg PO BID 09/11/18 11/05/18 Midodrine [ProAmatine] 5 - 10 mg PO MOWEFR PRN 09/11/18 11/05/18 HYDROcodone/APAP 10-325MG [[place] 1 tab PO Q6HR PRN 11/05/18 11/05/18 10-325] Previous Rx's Medication Instructions Recorded Cholecalciferol [Vitamin D3] 1,000 unit PO DAILY tab 10/17/18 Cyanocobalamin [Vitamin B-12] 1,000 mcg PO DAILY tab 10/17/18 Folic Acid-Vit B Complex-Vit C 1 each PO HS cap 10/17/18 [Nephrocaps] Nystatin 100,000 Unit/gm Powd 1 applic TOPICAL BID applic 10/17/18 [Mycostatin Powder] Vancomycin Oral Solution 250 mg PO Q6HR ml 10/17/18 Allergies Allergy/AdvReac Type Severity Reaction Status Date / Time No Known Allergies Allergy Verified 11/05/18 19:08 Review of Systems ROS Statement: Those systems with pertinent positive or pertinent negative responses have been documented in the HPI. ROS Other: All systems not noted in ROS Statement are negative. Constitutional: Denies: fever Eyes: Denies: eye pain ENT: Denies: ear pain Respiratory: Denies: cough, dyspnea Cardiovascular: Denies: chest pain Endocrine: Reports: fatigue Gastrointestinal: Reports: nausea, vomiting. Denies: diarrhea, constipation Genitourinary: Denies: dysuria Musculoskeletal: Denies: back pain Skin: Denies: rash Neurological: Denies: weakness Past Medical History Past Medical History: Atrial Fibrillation, Dialysis, Deep Vein Thrombosis (DVT) , GI Bleed, Hyperlipidemia, Hypertension, Renal Disease, Sleep Apnea/CPAP/BIPAP Additional Past Medical History / Comment(s): Paraplegia r/t back injury/surgery -pt states he no longer gets up into wheelchair d/t too painful, ESRD with hemodialysis-last received 10/07/18, enlarged R kidney with stones-has chronic nephrostomy tube/bag, chronic anemia, mineral bone disease, possible past upper GI bleed, DVT in a leg post op, arhtritis multiple joints, pickwickian syndrome , past respiratory failure/vented, ISACC with Cpap, bilateral lower extremity venous stasis/dermatitis, bilateral lower leg/feet edema and currently scabs on L foot toes. History of Any Multi-Drug Resistant Organisms: C-DIFF, MRSA Date of last positivie culture/infection: 10/10/18 MDRO Source:: MRSA AXILLA Past Surgical History: Adenoidectomy, Back Surgery, Heart Catheterization With Stent, Hernia Repair, Tonsillectomy Additional Past Surgical History / Comment(s): LT ARM FISTULA-NO BP OR BLOOD DRAWS IN LT ARM, PCI with stent, low back surgery, nephrostomy tube, abdominal hernia, colonoscopy with benign polyp Past Anesthesia/Blood Transfusion Reactions: No Reported Reaction Date of Last Stent Placement:: 2004 Past Psychological History: No Psychological Hx Reported Smoking Status: Former smoker Past Alcohol Use History: None Reported Past Drug Use History: None Reported - Past Family History Brother(s) Family Medical History: Cancer Additional Family Medical History / Comment(s): Colon Ca Father Family Medical History: Cancer Additional Family Medical History / Comment(s): father had lung cancer General Exam Limitations: no limitations General appearance: alert, in no apparent distress, obese Head exam: Present: atraumatic Eye exam: Present: normal appearance, PERRL ENT exam: Present: mucous membranes dry Neck exam: Present: normal inspection Respiratory exam: Present: normal lung sounds bilaterally Cardiovascular Exam: Present: regular rate, normal rhythm GI/Abdominal exam: Present: soft. Absent: distended, tenderness, guarding, rebound, rigid Extremities exam: Present: other (Bilateral lower extremity medical boots.) Neurological exam: Present: alert, oriented X3, CN II-XII intact, other ( Bilateral leg weakness, strength 1/5. No upper extremity weakness.) Psychiatric exam: Present: normal affect, normal mood Skin exam: Present: normal color. Absent: rash Course Vital Signs 11/05/18 11/05/18 11/05/18 16:17 16:20 16:30 Temperature 97.9 F Pulse Rate 107 H Respiratory 18 Rate Blood Pressure 73/61 73/61 O2 Sat by Pulse 97 95 95 Oximetry 11/05/18 11/05/18 11/05/18 17:00 17:30 18:30 Temperature Pulse Rate Respiratory Rate Blood Pressure 97/71 96/78 110/98 O2 Sat by Pulse 96 96 97 Oximetry 11/05/18 19:31 Temperature Pulse Rate Respiratory 17 Rate Blood Pressure O2 Sat by Pulse Oximetry EKG Findings - EKG Comments: EKG Findings:: Sinus tachycardia 106. MI 164. QRS 96. QT 360. QTC 478. Normal axis. Normal QRS. No acute ST elevation. Medical Decision Making - Medical Decision Making Patient reevaluated and updated. Patient still of vomiting. Case discussed in detail with Dr. Zhang, covering for Dr. Burkett, who admits for Dr. Nieves. He will admit. - Lab Data Result diagrams: 11/05/18 18:17 11/05/18 18:17 Lab Results 11/05/18 11/05/18 11/05/18 Range/Units 18:17 18:17 18:17 WBC 9.5 (3.8-10.6) k/uL RBC 3.48 L (4.30-5.90) m/uL Hgb 9.4 L D (13.0-17.5) gm/dL Hct 32.4 L (39.0-53.0) % MCV 93.3 (80.0-100.0) fL MCH 27.0 (25.0-35.0) pg MCHC 29.0 L (31.0-37.0) g/dL RDW 20.0 H (11.5-15.5) % Plt Count 431 (150-450) k/uL Neutrophils % 87 % Lymphocytes % 7 % Monocytes % 4 % Eosinophils % 1 % Basophils % 0 % Neutrophils # 8.2 H (1.3-7.7) k/uL Lymphocytes # 0.7 L (1.0-4.8) k/uL Monocytes # 0.4 (0-1.0) k/uL Eosinophils # 0.1 (0-0.7) k/uL Basophils # 0.0 (0-0.2) k/uL Hypochromasia Marked Anisocytosis Moderate Macrocytosis Slight PT (9.0-12.0) sec INR (<1.2) APTT (22.0-30.0) sec Sodium 141 (137-145) mmol/L Potassium 4.1 (3.5-5.1) mmol/L Chloride 101 (98-107) mmol/L Carbon Dioxide 32 H (22-30) mmol/L Anion Gap 8 mmol/L BUN 30 H (9-20) mg/dL Creatinine 4.91 H (0.66-1.25) mg/dL Est GFR (CKD-EPI)AfAm 13 (>60 ml/min/1.73 sqM) Est GFR (CKD-EPI)NonAf 11 (>60 ml/min/1.73 sqM) Glucose 111 H (74-99) mg/dL Calcium 8.2 L (8.4-10.2) mg/dL Total Bilirubin 0.3 (0.2-1.3) mg/dL AST 16 L (17-59) U/L ALT 21 (21-72) U/L Alkaline Phosphatase 109 (38-126) U/L Total Creatine Kinase 25 L (55-170) U/L CK-MB (CK-2) 0.8 (0.0-2.4) ng/mL CK-MB (CK-2) Rel Index 3.2 Troponin I 0.014 (0.000-0.034) ng/mL Total Protein 7.1 (6.3-8.2) g/dL Albumin 3.0 L (3.5-5.0) g/dL Amylase 78 (30-110) U/L Lipase 193 (23-300) U/L 11/05/18 Range/Units 18:17 WBC (3.8-10.6) k/uL RBC (4.30-5.90) m/uL Hgb (13.0-17.5) gm/dL Hct (39.0-53.0) % MCV (80.0-100.0) fL MCH (25.0-35.0) pg MCHC (31.0-37.0) g/dL RDW (11.5-15.5) % Plt Count (150-450) k/uL Neutrophils % % Lymphocytes % % Monocytes % % Eosinophils % % Basophils % % Neutrophils # (1.3-7.7) k/uL Lymphocytes # (1.0-4.8) k/uL Monocytes # (0-1.0) k/uL Eosinophils # (0-0.7) k/uL Basophils # (0-0.2) k/uL Hypochromasia Anisocytosis Macrocytosis PT 9.9 (9.0-12.0) sec INR 0.9 (<1.2) APTT 24.1 (22.0-30.0) sec Sodium (137-145) mmol/L Potassium (3.5-5.1) mmol/L Chloride (98-107) mmol/L Carbon Dioxide (22-30) mmol/L Anion Gap mmol/L BUN (9-20) mg/dL Creatinine (0.66-1.25) mg/dL Est GFR (CKD-EPI)AfAm (>60 ml/min/1.73 sqM) Est GFR (CKD-EPI)NonAf (>60 ml/min/1.73 sqM) Glucose (74-99) mg/dL Calcium (8.4-10.2) mg/dL Total Bilirubin (0.2-1.3) mg/dL AST (17-59) U/L ALT (21-72) U/L Alkaline Phosphatase (38-126) U/L Total Creatine Kinase (55-170) U/L CK-MB (CK-2) (0.0-2.4) ng/mL CK-MB (CK-2) Rel Index Troponin I (0.000-0.034) ng/mL Total Protein (6.3-8.2) g/dL Albumin (3.5-5.0) g/dL Amylase (30-110) U/L Lipase (23-300) U/L - Radiology Data Radiology results: report reviewed (Chest x-ray shows atelectasis. No heart failure. KUB shows ileus. Renal calculi, staghorn.) Disposition Clinical Impression: Ileus, Intractable nausea and vomiting Disposition: ADMITTED IP TO THIS HOSP Is patient prescribed a controlled substance at d/c from ED?: No Referrals: Akshat Nieves MD [Primary Care Provider] - 1-2 days Decision Time: 20:47
[2018-11-05 18:56] LABS: Anisocytosis Moderate; Basophils % (A) 0 %; Eosinophils # (A) 0.1 k/uL (0-0.7); Eosinophils % (A) 1 %; HCT 32.4 % (39.0-53.0); Hypochromasia Marked; Lymphocytes # (A) 0.7 k/uL (1.0-4.8); Lymphocytes % (A) 7 %; MCV 93.3 fL (80.0-100.0); Macrocytosis Slight; Mean Platelet Volume 6.7; Monocytes # (A) 0.4 k/uL (0-1.0); Monocytes % (A) 4 %; Neutrophils # (A) 8.2 k/uL (1.3-7.7); Neutrophils % (A) 87 %; Platelet Count 431 k/uL (150-450); RBC 3.48 m/uL (4.30-5.90); WBC 9.5 k/uL (3.8-10.6)
[2018-11-05 19:03] LABS: HGB 9.4 gm/dL (13.0-17.5)
[2018-11-05 19:12] LABS: Calcium 8.2 mg/dL (8.4-10.2); Potassium 4.1 mmol/L (3.5-5.1); Total Bilirubin 0.3 mg/dL (0.2-1.3); Total Protein 7.1 g/dL (6.3-8.2)
--- NOTE | 2018-11-05 19:15 | XR ---
EXAMINATION TYPE: XR chest 2V DATE OF EXAM: 11/05/2018 COMPARISON: 09/12/2018 HISTORY: Pneumonia TECHNIQUE: Frontal and lateral views of the chest are obtained. FINDINGS: There is some linear density at the right lung base consistent with atelectasis. There is no heart failure. Heart size is normal. I see no definite pleural effusion. There is large amount of intestinal gas. IMPRESSION: Atelectasis at the right lung base is new compared to old exam. No heart failure.
--- NOTE | 2018-11-05 19:16 | XR ---
EXAMINATION TYPE: XR KUB DATE OF EXAM: 11/05/2018 COMPARISON: NONE HISTORY: Nausea and vomiting TECHNIQUE: 6 views FINDINGS: There is a large amount of intestinal gas. I see no definite free air. There is gas down to the rectum. There is right-sided apparent nephrostomy tube. There is no evidence of a mass. There ar e numerous calcifications over the right kidney. IMPRESSION: Staghorn right renal calculus. Large amount of intestinal gas consistent with generalized ileus. No change compared to last exam.
[2018-11-05 19:24] LABS: INR 0.9 (<1.2); Partial Thromboplastin Time 24.1 sec (22.0-30.0); Prothrombin Time 9.9 sec (9.0-12.0)
[2018-11-05 19:30] LABS: Creatine Kinase MB 0.8 ng/mL (0.0-2.4); Troponin I 0.014 ng/mL (0.000-0.034)
[2018-11-05] MEDS ORDERED: NALOXONE 0.4 MG/ML 1 ML VIAL IV PRN (20:48)
[2018-11-05 21:18] LABS: Appearance,Urine Clear (Clear); Bacteria,Urine Rare /hpf; Bilirubin,Urine Negative (Negative); Blood,Urine Trace (Negative); Color,Urine Light Yellow; Glucose,Urine (UA) 1+ (Negative); Ketones,Urine Negative (Negative); Leukocyte Esterase,Urine Large (Negative); Mucus,Urine Rare /hpf; Nitrite,Urine Negative (Negative); PH, Urine 8.5 (5.0-8.0); Protein,Urine 2+ (Negative); RBC,Urine 9 /hpf (0-5); Specific Gravity,Urine 1.008 (1.001-1.035); Squamous Epithelial Cell,Urine <1 /hpf (0-4); Urobilinogen,Urine <2.0 mg/dL (<2.0); WBC,Urine 76 /hpf (0-5)
[2018-11-05] MEDS: SODIUM CHLORIDE 0.9% 1,000 ML IV SCH (21:26)
[2018-11-05] MEDS: PANTOPRAZOLE 40 MG/10 ML VIAL IV SCH (21:26)
[2018-11-05 22:21] VITALS: BMI 48.0
[2018-11-06] MEDS: FERROUS SULFATE 325 MG TAB PO SCH (07:53)
[2018-11-06] MEDS: POTASSIUM CHLORIDE ER 10 MEQ TAB.ER.PRT PO SCH ×2 (07:53→22:06)
[2018-11-06] MEDS: FUROSEMIDE 80 MG TAB PO SCH ×2 (07:53→22:06)
[2018-11-06] MEDS: CALCIUM ACETATE 667 MG CAP PO SCH ×3 (07:53→17:10)
[2018-11-06] MEDS: CHOLECALCIFEROL 1,000 UNIT TAB PO SCH (07:53)
[2018-11-06] MEDS: METOPROLOL TARTRATE 25 MG TAB PO SCH ×2 (07:53→22:06)
[2018-11-06] MEDS: NYSTATIN 100,000 UNIT/GM POWD 15 GM TOPICAL SCH ×2 (07:53→22:07)
[2018-11-06] MEDS: PANTOPRAZOLE 40 MG/10 ML VIAL IV SCH (07:54)
[2018-11-06] MEDS: SODIUM CHLORIDE 0.9% 1,000 ML IV SCH (07:54)
[2018-11-06] MEDS: CYANOCOBALAMIN 500 MCG TAB PO SCH (07:54)
[2018-11-06] MEDS: DILTIAZEM CD 120 MG CAP.ER.24H PO SCH (07:58)
--- NOTE | 2018-11-06 09:06 | P.NPCON ---
History of Present Illness - Reason for Consult end stage renal disease - History of Present Illness Reason for consultation: End-stage renal disease History of present illness: Patient is a 67-year-old male seen in renal consultation for end-stage renal disease. He is maintained on hemodialysis on a Sunday schedule for a left upper extremity AV fistula. Patient presented to the hospital with nausea and vomiting. Patient states he had multiple episodes of vomiting yesterday. He also admits to diarrhea. Overall he feels better now. He is currently on clear liquids. Patient has history of nephrolithiasis and as a chronic right-sided nephrostomy tube in place. Patient follows out of [facility] urology Department. Abdominal x-ray this admission was suggestive of an ileus. Patient also has history of multiple episodes of C. diff colitis. Patient is currently resting in bed. Hemodynamically stable. He is due for dialysis today. Vital signs are stable. General: The patient appeared well nourished and normally developed. HEENT: Head exam is unremarkable. Neck is without jugular venous distension. LUNGS: Lungs are clear to auscultation and percussion. Breath sounds decreased. HEART: Rate and Rhythm are regular. First and second heart sounds normal. No murmurs, rubs or gallops. ABDOMEN: Abdominal exam reveals normal bowel sounds. Non-tender and non- distended. No evidence of peritonitis. EXTREMITITES: No clubbing, cyanosis, or edema. Chronic changes noted. Past Medical History Past Medical History: Atrial Fibrillation, Dialysis, Deep Vein Thrombosis (DVT) , GI Bleed, Hyperlipidemia, Hypertension, Renal Disease, Sleep Apnea/CPAP/BIPAP Additional Past Medical History / Comment(s): Paraplegia r/t back injury/surgery -pt states he no longer gets up into wheelchair d/t too painful, ESRD with hemodialysis-last received 10/07/18, enlarged R kidney with stones-has chronic nephrostomy tube/bag, chronic anemia, mineral bone disease, possible past upper GI bleed, DVT in a leg post op, arhtritis multiple joints, pickwickian syndrome , past respiratory failure/vented, ISACC with Cpap, bilateral lower extremity venous stasis/dermatitis, bilateral lower leg/feet edema and currently scabs on L foot toes. History of Any Multi-Drug Resistant Organisms: C-DIFF, MRSA Date of last positivie culture/infection: 10/10/18 MDRO Source:: MRSA AXILLA Past Surgical History: Adenoidectomy, Back Surgery, Heart Catheterization With Stent, Hernia Repair, Tonsillectomy Additional Past Surgical History / Comment(s): LT ARM FISTULA-NO BP OR BLOOD DRAWS IN LT ARM, PCI with stent, low back surgery, nephrostomy tube, abdominal hernia, colonoscopy with benign polyp Past Anesthesia/Blood Transfusion Reactions: No Reported Reaction Date of Last Stent Placement:: 2004 Past Psychological History: No Psychological Hx Reported Additional Psychological History / Comment(s): Pt has a brother that lives with him and his son comes over daily. They are his caregivers. He currently has no home care. Pt has a hospital bed and stays in bed now d/t too painful to get up into wheelchair. Owns a kelby lift, cpap and megamover transfer mat. Smoking Status: Former smoker Past Alcohol Use History: None Reported Additional Past Alcohol Use History / Comment(s): Pt started smoking in 1971 and quit in 1981 Past Drug Use History: None Reported - Past Family History Brother(s) Family Medical History: Cancer Additional Family Medical History / Comment(s): Colon Ca Father Family Medical History: Cancer Additional Family Medical History / Comment(s): father had lung cancer Medications and Allergies Home Medications Medication Instructions Recorded Confirmed Type Atorvastatin [Lipitor] 10 mg PO HS 10/30/17 11/05/18 History Calcium Acetate [PhosLo] 1,334 mg PO TID 10/30/17 11/05/18 History Diltiazem HCl [Diltiazem 24Hr ER] 120 mg PO DAILY 10/30/17 11/05/18 History Ferrous Sulfate [Iron (65 MG 325 mg PO MOWEFR 10/30/17 11/05/18 History Elemental)] Metoprolol Tartrate [Lopressor] 25 mg PO BID 10/30/17 11/05/18 History Potassium Chloride [Klor-Con 10] 10 meq PO BID 10/30/17 11/05/18 History Furosemide [Lasix] 80 mg PO BID 09/11/18 11/05/18 History Midodrine [ProAmatine] 5 - 10 mg PO MOWEFR PRN 09/11/18 11/05/18 History Cholecalciferol [Vitamin D3] 1,000 unit PO DAILY tab 10/17/18 11/05/18 Rx Cyanocobalamin [Vitamin B-12] 1,000 mcg PO DAILY tab 10/17/18 11/05/18 Rx Folic Acid-Vit B Complex-Vit C 1 each PO HS cap 10/17/18 11/05/18 Rx [Nephrocaps] Nystatin 100,000 Unit/gm Powd 1 applic TOPICAL BID applic 10/17/18 11/05/18 Rx [Mycostatin Powder] Vancomycin Oral Solution 250 mg PO Q6HR ml 10/17/18 11/05/18 Rx HYDROcodone/APAP 10-325MG [[place] 1 tab PO Q6HR PRN 11/05/18 11/05/18 History 10-325] Allergies Allergy/AdvReac Type Severity Reaction Status Date / Time No Known Allergies Allergy Verified 11/05/18 19:08 Physical Exam Vitals: Vital Signs Temp Pulse Pulse Resp BP BP Pulse Ox 11/06/18 07:15 98.0 F 104 H 20 91/56 97 11/05/18 23:00 97.2 F L 107 H 20 100/69 98 11/05/18 21:20 98.7 F 17 11/05/18 21:00 18 109/81 93 L 11/05/18 20:30 19 87/71 98 11/05/18 20:00 17 89/65 97 11/05/18 19:31 17 11/05/18 19:30 18 118/57 98 11/05/18 18:30 110/98 97 11/05/18 17:30 96/78 96 11/05/18 17:00 97/71 96 11/05/18 16:30 73/61 95 11/05/18 16:20 97.9 F 107 H 18 73/61 95 11/05/18 16:17 97 Intake and Output 11/05/18 11/06/18 11/06/18 22:59 06:59 14:59 Other: Voiding Method Urinal # Voids 0 # Bowel Movements 1 Weight 151.9 kg 171.912 kg Results - Lab Results Most recent lab results Calcium 8.2 mg/dL (8.4-10.2) L 11/05/18 18:17 11/05/18 18:17 11/05/18 18:17 Assessment and Plan Plan: Assessment: 1. End-stage renal disease maintained on hemodialysis on a Sunday schedule for a left upper extremity AV fistula. 2. Nausea and vomiting. Patient noted to have an ileus. Surgery recommendations pending. 3. History of C. diff colitis. Currently not on antibiotics. 4. Anemia of chronic kidney disease. 5. History of nephrolithiasis with chronic right-sided nephrostomy tube. Patient follows at [facility] urology department. 6. Chronic kidney disease mineral bone disease maintained on PhosLo. 7. Chronic hypotension maintained on midodrine. Plan: Hemodialysis today. Hep-Lock IV fluids. Add Aranesp. Check stool for C. diff. Advance diet per surgery. Thank you for the consultation. I will continue to follow the patient with you during his hospital stay.
[2018-11-06] MEDS ORDERED: DARBEPOETIN ALFA 40 MCG/0.4 ML SYRINGE SQ SCH (10:00)
[2018-11-06 10:51] LABS: Anisocytosis Slight; Basophils % (A) 1 %; Eosinophils # (A) 0.2 k/uL (0-0.7); Eosinophils % (A) 3 %; HGB 9.2 gm/dL (13.0-17.5); Hypochromasia Marked; Lymphocytes # (A) 1.1 k/uL (1.0-4.8); Lymphocytes % (A) 15 %; MCH 27.5 pg (25.0-35.0); MCHC 28.9 g/dL (31.0-37.0); MCV 95.1 fL (80.0-100.0); Macrocytosis Slight; Mean Platelet Volume 6.4; Monocytes # (A) 0.4 k/uL (0-1.0); Monocytes % (A) 6 %; Neutrophils # (A) 5.2 k/uL (1.3-7.7); Neutrophils % (A) 73 %; Platelet Count 410 k/uL (150-450); RBC 3.36 m/uL (4.30-5.90); RDW 19.9 % (11.5-15.5); WBC 7.2 k/uL (3.8-10.6)
[2018-11-06 11:06] LABS: Albumin 2.8 g/dL (3.5-5.0); Calcium 7.8 mg/dL (8.4-10.2); Total Bilirubin 0.3 mg/dL (0.2-1.3); Total Protein 6.6 g/dL (6.3-8.2)
[2018-11-06] MEDS: MIDODRINE 5 MG TAB PO PRN (17:10)
--- NOTE | 2018-11-06 20:19 | P.GSCN ---
History of Present Illness Consult date: 11/06/18 Reason for Consult: Abdominal pain History of present illness: Patient came to the hospital yesterday with complaints of nausea and vomiting. Those symptoms have since stopped. He thinks is related to some sausage that he was eating. Patient was taken or attempted laparoscopic cholecystectomy by Dr. De La Rosa a few weeks ago. Patient has multiple other comorbidities and medical problems. He is tolerating his liquid diet at this time. He is asking for solid foods. He is passing flatus. Review of Systems The patient denies any acute changes in vision or hearing, no dysphagia or odynophagia, no chest pain or shortness of breath, no dysuria or hematuria, no headache, no runny nose, no rectal bleeding or melena, no unexplained weight loss Past Medical History Past Medical History: Atrial Fibrillation, Dialysis, Deep Vein Thrombosis (DVT) , GI Bleed, Hyperlipidemia, Hypertension, Renal Disease, Sleep Apnea/CPAP/BIPAP Additional Past Medical History / Comment(s): Paraplegia r/t back injury/surgery -pt states he no longer gets up into wheelchair d/t too painful, ESRD with hemodialysis-last received 10/07/18, enlarged R kidney with stones-has chronic nephrostomy tube/bag, chronic anemia, mineral bone disease, possible past upper GI bleed, DVT in a leg post op, arhtritis multiple joints, pickwickian syndrome , past respiratory failure/vented, ISACC with Cpap, bilateral lower extremity venous stasis/dermatitis, bilateral lower leg/feet edema and currently scabs on L foot toes. History of Any Multi-Drug Resistant Organisms: C-DIFF, MRSA Year Discovered:: 10/10/18 MDRO Source:: MRSA AXILLA Past Surgical History: Adenoidectomy, Back Surgery, Heart Catheterization With Stent, Hernia Repair, Tonsillectomy Additional Past Surgical History / Comment(s): LT ARM FISTULA-NO BP OR BLOOD DRAWS IN LT ARM, PCI with stent, low back surgery, nephrostomy tube, abdominal hernia, colonoscopy with benign polyp Past Anesthesia/Blood Transfusion Reactions: No Reported Reaction Date of Last Stent Placement:: 2004 Past Psychological History: No Psychological Hx Reported Additional Psychological History / Comment(s): Pt has a brother that lives with him and his son comes over daily. They are his caregivers. He currently has no home care. Pt has a hospital bed and stays in bed now d/t too painful to get up into wheelchair. Owns a kelby lift, cpap and megamover transfer mat. Smoking Status: Former smoker Past Alcohol Use History: None Reported Additional Past Alcohol Use History / Comment(s): Pt started smoking in 1971 and quit in 1981 Past Drug Use History: None Reported - Past Family History Brother(s) Family Medical History: Cancer Additional Family Medical History / Comment(s): Colon Ca Father Family Medical History: Cancer Additional Family Medical History / Comment(s): father had lung cancer Medications and Allergies Home Medications Medication Instructions Recorded Confirmed Type Atorvastatin [Lipitor] 10 mg PO HS 10/30/17 11/05/18 History Calcium Acetate [PhosLo] 1,334 mg PO TID 10/30/17 11/05/18 History Diltiazem HCl [Diltiazem 24Hr ER] 120 mg PO DAILY 10/30/17 11/05/18 History Ferrous Sulfate [Iron (65 MG 325 mg PO MOWEFR 10/30/17 11/05/18 History Elemental)] Metoprolol Tartrate [Lopressor] 25 mg PO BID 10/30/17 11/05/18 History Potassium Chloride [Klor-Con 10] 10 meq PO BID 10/30/17 11/05/18 History Furosemide [Lasix] 80 mg PO BID 09/11/18 11/05/18 History Midodrine [ProAmatine] 5 - 10 mg PO MOWEFR PRN 09/11/18 11/05/18 History Cholecalciferol [Vitamin D3] 1,000 unit PO DAILY tab 10/17/18 11/05/18 Rx Cyanocobalamin [Vitamin B-12] 1,000 mcg PO DAILY tab 10/17/18 11/05/18 Rx Folic Acid-Vit B Complex-Vit C 1 each PO HS cap 10/17/18 11/05/18 Rx [Nephrocaps] Nystatin 100,000 Unit/gm Powd 1 applic TOPICAL BID applic 10/17/18 11/05/18 Rx [Mycostatin Powder] Vancomycin Oral Solution 250 mg PO Q6HR ml 10/17/18 11/05/18 Rx HYDROcodone/APAP 10-325MG [[place] 1 tab PO Q6HR PRN 11/05/18 11/05/18 History 10-325] Allergies Allergy/AdvReac Type Severity Reaction Status Date / Time No Known Allergies Allergy Verified 11/05/18 19:08 Surgical - Exam Vital Signs Pulse Ox 97 11/05/18 16:17 Physical exam: General: Well-developed, well-nourished HEENT: Normocephalic, sclerae nonicteric Abdomen: Nontender, nondistended, nephrostomy tube noted Extremities: No edema Neuro: Alert and oriented Results - Labs 11/06/18 10:20 11/06/18 10:20 Abnormal Lab Results - Last 24 Hours (Table) 11/05/18 11/06/18 11/06/18 Range/Units 20:45 10:20 10:20 RBC 3.36 L (4.30-5.90) m/uL Hgb 9.2 L (13.0-17.5) gm/dL Hct 32.0 L (39.0-53.0) % MCHC 28.9 L (31.0-37.0) g/dL RDW 19.9 H (11.5-15.5) % BUN 32 H (9-20) mg/dL Creatinine 4.88 H (0.66-1.25) mg/dL Calcium 7.8 L (8.4-10.2) mg/dL ALT 17 L (21-72) U/L Albumin 2.8 L (3.5-5.0) g/dL Urine pH 8.5 H (5.0-8.0) Urine Protein 2+ H (Negative) Urine Glucose (UA) 1+ H (Negative) Urine Blood Trace H (Negative) Ur Leukocyte Esterase Large H (Negative) Urine RBC 9 H (0-5) /hpf Urine WBC 76 H (0-5) /hpf Urine Bacteria Rare H (None) /hpf Urine Mucus Rare H (None) /hpf Microbiology - Last 24 Hours (Table) 11/05/18 20:45 Urine Culture - Preliminary Urine,Voided Diabetes panel 11/06/18 Range/Units 10:20 Sodium 142 (137-145) mmol/L Potassium 4.0 (3.5-5.1) mmol/L Chloride 104 (98-107) mmol/L Carbon Dioxide 29 (22-30) mmol/L BUN 32 H (9-20) mg/dL Creatinine 4.88 H (0.66-1.25) mg/dL Glucose 96 (74-99) mg/dL Calcium 7.8 L (8.4-10.2) mg/dL AST 17 (17-59) U/L ALT 17 L (21-72) U/L Alkaline Phosphatase 81 (38-126) U/L Total Protein 6.6 (6.3-8.2) g/dL Albumin 2.8 L (3.5-5.0) g/dL Calcium panel 11/06/18 Range/Units 10:20 Calcium 7.8 L (8.4-10.2) mg/dL Albumin 2.8 L (3.5-5.0) g/dL Pituitary panel 11/06/18 Range/Units 10:20 Sodium 142 (137-145) mmol/L Potassium 4.0 (3.5-5.1) mmol/L Chloride 104 (98-107) mmol/L Carbon Dioxide 29 (22-30) mmol/L BUN 32 H (9-20) mg/dL Creatinine 4.88 H (0.66-1.25) mg/dL Glucose 96 (74-99) mg/dL Calcium 7.8 L (8.4-10.2) mg/dL Adrenal panel 11/06/18 Range/Units 10:20 Sodium 142 (137-145) mmol/L Potassium 4.0 (3.5-5.1) mmol/L Chloride 104 (98-107) mmol/L Carbon Dioxide 29 (22-30) mmol/L BUN 32 H (9-20) mg/dL Creatinine 4.88 H (0.66-1.25) mg/dL Glucose 96 (74-99) mg/dL Calcium 7.8 L (8.4-10.2) mg/dL Total Bilirubin 0.3 (0.2-1.3) mg/dL AST 17 (17-59) U/L ALT 17 L (21-72) U/L Alkaline Phosphatase 81 (38-126) U/L Total Protein 6.6 (6.3-8.2) g/dL Albumin 2.8 L (3.5-5.0) g/dL Assessment and Plan (1) Intractable nausea and vomiting Narrative/Plan: Suspect gastroenteritis or food poisoning. His symptoms have resolved. Resume diet. We'll reevaluate tomorrow. Current Visit: Yes Status: Acute Code(s): R11.2 - NAUSEA WITH VOMITING, UNSPECIFIED SNOMED Code(s): 060600696
[2018-11-06] MEDS: ATORVASTATIN 10 MG TAB PO SCH (22:06)
[2018-11-06] MEDS: FOLIC ACID-VIT B COMPLEX-VIT C 1 CAP PO SCH (22:06)
[2018-11-06] MEDS: HEPARIN SODIUM,PORCINE 5,000 UNIT/ML 1 ML VIAL SQ SCH (22:07)
--- NOTE | 2018-11-06 23:40 | P.HPIM ---
History of Present Illness H&P Date: 11/06/18 Chief Complaint: Intractable nausea and vomiting Patient is a 67-year-old male with a known history of ESRD on hemodialysis, atrial fibrillation, history of DVT, hypertension, hyperlipidemia and obstructive sleep apnea and other multiple medical problems came to ER with complaints of intractable nausea and vomiting since yesterday. He is also having diarrhea. Patient says that all his symptoms started after eating sausage. No fever no chills. No cough or sputum production. chest pain or shortness of breath. patient is scheduled for hemodialysis today as per his regular schedule. patient does have a chronic right-sided nephrostomy tube, due to nephrolithiasis however still urinates. patient is chronically unable to ambulate. patient otherwise is morbidly obese. abdominal x-ray showed. ileus. patient does have a history of c. diff colitis. Review of Systems Constitutional: Patient denies any fever or chills . No generalized weakness or weight loss. Abdomen: Patient does have intractable nausea vomiting and diarrhea. Abdominal pain as well.. Cardiovascular: Patient denies any chest pain or short of breath no palpitations. Respiratory: patient denied any cough is from production. No shortness of breath Neurologic: Patient denied any numbness or tingling headache. Musculoskeletal: Patient denies any complaints of joint swelling or deformity. Skin: Negative Psychiatric: Negative Endocrine: No heat or cold intolerance. No recent weight gain. Genitourinary: No dysuria or hematuria. All other 14 point ROS negative except the above Past Medical History Past Medical History: Atrial Fibrillation, Dialysis, Deep Vein Thrombosis (DVT) , GI Bleed, Hyperlipidemia, Hypertension, Renal Disease, Sleep Apnea/CPAP/BIPAP Additional Past Medical History / Comment(s): Paraplegia r/t back injury/surgery -pt states he no longer gets up into wheelchair d/t too painful, ESRD with hemodialysis-last received 10/07/18, enlarged R kidney with stones-has chronic nephrostomy tube/bag, chronic anemia, mineral bone disease, possible past upper GI bleed, DVT in a leg post op, arhtritis multiple joints, pickwickian syndrome , past respiratory failure/vented, ISACC with Cpap, bilateral lower extremity venous stasis/dermatitis, bilateral lower leg/feet edema and currently scabs on L foot toes. History of Any Multi-Drug Resistant Organisms: C-DIFF, MRSA Date of last positivie culture/infection: 10/10/18 MDRO Source:: MRSA AXILLA Past Surgical History: Adenoidectomy, Back Surgery, Heart Catheterization With Stent, Hernia Repair, Tonsillectomy Additional Past Surgical History / Comment(s): LT ARM FISTULA-NO BP OR BLOOD DRAWS IN LT ARM, PCI with stent, low back surgery, nephrostomy tube, abdominal hernia, colonoscopy with benign polyp Past Anesthesia/Blood Transfusion Reactions: No Reported Reaction Date of Last Stent Placement:: 2004 Past Psychological History: No Psychological Hx Reported Additional Psychological History / Comment(s): Pt has a brother that lives with him and his son comes over daily. They are his caregivers. He currently has no home care. Pt has a hospital bed and stays in bed now d/t too painful to get up into wheelchair. Owns a kelby lift, cpap and megamover transfer mat. Smoking Status: Former smoker Past Alcohol Use History: None Reported Additional Past Alcohol Use History / Comment(s): Pt started smoking in 1971 and quit in 1981 Past Drug Use History: None Reported - Past Family History Brother(s) Family Medical History: Cancer Additional Family Medical History / Comment(s): Colon Ca Father Family Medical History: Cancer Additional Family Medical History / Comment(s): father had lung cancer Medications and Allergies Home Medications Medication Instructions Recorded Confirmed Type Atorvastatin [Lipitor] 10 mg PO HS 10/30/17 11/05/18 History Calcium Acetate [PhosLo] 1,334 mg PO TID 10/30/17 11/05/18 History Diltiazem HCl [Diltiazem 24Hr ER] 120 mg PO DAILY 10/30/17 11/05/18 History Ferrous Sulfate [Iron (65 MG 325 mg PO MOWEFR 10/30/17 11/05/18 History Elemental)] Metoprolol Tartrate [Lopressor] 25 mg PO BID 10/30/17 11/05/18 History Potassium Chloride [Klor-Con 10] 10 meq PO BID 10/30/17 11/05/18 History Furosemide [Lasix] 80 mg PO BID 09/11/18 11/05/18 History Midodrine [ProAmatine] 5 - 10 mg PO MOWEFR PRN 09/11/18 11/05/18 History Cholecalciferol [Vitamin D3] 1,000 unit PO DAILY tab 10/17/18 11/05/18 Rx Cyanocobalamin [Vitamin B-12] 1,000 mcg PO DAILY tab 10/17/18 11/05/18 Rx Folic Acid-Vit B Complex-Vit C 1 each PO HS cap 10/17/18 11/05/18 Rx [Nephrocaps] Nystatin 100,000 Unit/gm Powd 1 applic TOPICAL BID applic 10/17/18 11/05/18 Rx [Mycostatin Powder] Vancomycin Oral Solution 250 mg PO Q6HR ml 10/17/18 11/05/18 Rx HYDROcodone/APAP 10-325MG [[place] 1 tab PO Q6HR PRN 11/05/18 11/05/18 History 10-325] Allergies Allergy/AdvReac Type Severity Reaction Status Date / Time No Known Allergies Allergy Verified 11/05/18 19:08 Physical Exam Vitals: Vital Signs Temp Pulse Pulse Resp BP BP Pulse Ox 11/06/18 07:15 98.0 F 104 H 20 91/56 97 11/05/18 23:00 97.2 F L 107 H 20 100/69 98 11/05/18 21:20 98.7 F 17 11/05/18 21:00 18 109/81 93 L 11/05/18 20:30 19 87/71 98 11/05/18 20:00 17 89/65 97 11/05/18 19:31 17 11/05/18 19:30 18 118/57 98 11/05/18 18:30 110/98 97 11/05/18 17:30 96/78 96 11/05/18 17:00 97/71 96 11/05/18 16:30 73/61 95 11/05/18 16:20 97.9 F 107 H 18 73/61 95 11/05/18 16:17 97 Intake and Output 11/05/18 11/06/18 11/06/18 22:59 06:59 14:59 Output Total 0 Balance 0 Output: Urine 0 Other: Voiding Method Urinal # Voids 0 # Bowel Movements 1 Weight 151.9 kg 171.912 kg PHYSICAL EXAMINATION: Patient is lying in the bed comfortably, no acute distress, awake alert and oriented.. HEENT: Normocephalic. Neck is supple. Pupils reactive. Nostrils clear. Oral cavity is moist. Ears reveal no drainage. Neck reveals no JVD, carotid bruits, or thyromegaly. CHEST EXAMINATION: Trachea is central. Symmetrical expansion. Bibasilar diminished air entry.. CARDIAC: Normal S1, S2 with no gallops. No murmurs ABDOMEN: Soft. Bowel sounds normal. Bowel sounds normal. No organomegaly. No abdominal bruits. Extremities: reveal no edema. No clubbing or cyanosis Neurologically awake, alert, oriented x3 with well-coordinated movements. No focal deficits noted Skin: No rash or skin lesions. Psychiatric: Coperative. Nonsuicidal Musculoskeletal: No joint swelling or deformity. Normal range of motion. Results CBC & Chem 7: 11/06/18 10:20 11/06/18 10:20 Labs: Abnormal Lab Results - Last 24 Hours (Table) 11/05/18 11/05/18 11/05/18 Range/Units 18:17 18:17 18:17 RBC 3.48 L (4.30-5.90) m/uL Hgb 9.4 L D (13.0-17.5) gm/dL Hct 32.4 L (39.0-53.0) % MCHC 29.0 L (31.0-37.0) g/dL RDW 20.0 H (11.5-15.5) % Neutrophils # 8.2 H (1.3-7.7) k/uL Lymphocytes # 0.7 L (1.0-4.8) k/uL Carbon Dioxide 32 H (22-30) mmol/L BUN 30 H (9-20) mg/dL Creatinine 4.91 H (0.66-1.25) mg/dL Glucose 111 H (74-99) mg/dL Calcium 8.2 L (8.4-10.2) mg/dL AST 16 L (17-59) U/L ALT (21-72) U/L Total Creatine Kinase 25 L (55-170) U/L Albumin 3.0 L (3.5-5.0) g/dL Urine pH (5.0-8.0) Urine Protein (Negative) Urine Glucose (UA) (Negative) Urine Blood (Negative) Ur Leukocyte Esterase (Negative) Urine RBC (0-5) /hpf Urine WBC (0-5) /hpf Urine Bacteria (None) /hpf Urine Mucus (None) /hpf 11/05/18 11/06/18 11/06/18 Range/Units 20:45 10:20 10:20 RBC 3.36 L (4.30-5.90) m/uL Hgb 9.2 L (13.0-17.5) gm/dL Hct 32.0 L (39.0-53.0) % MCHC 28.9 L (31.0-37.0) g/dL RDW 19.9 H (11.5-15.5) % Neutrophils # (1.3-7.7) k/uL Lymphocytes # (1.0-4.8) k/uL Carbon Dioxide (22-30) mmol/L BUN 32 H (9-20) mg/dL Creatinine 4.88 H (0.66-1.25) mg/dL Glucose (74-99) mg/dL Calcium 7.8 L (8.4-10.2) mg/dL AST (17-59) U/L ALT 17 L (21-72) U/L Total Creatine Kinase (55-170) U/L Albumin 2.8 L (3.5-5.0) g/dL Urine pH 8.5 H (5.0-8.0) Urine Protein 2+ H (Negative) Urine Glucose (UA) 1+ H (Negative) Urine Blood Trace H (Negative) Ur Leukocyte Esterase Large H (Negative) Urine RBC 9 H (0-5) /hpf Urine WBC 76 H (0-5) /hpf Urine Bacteria Rare H (None) /hpf Urine Mucus Rare H (None) /hpf Microbiology - Last 24 Hours (Table) 11/05/18 20:45 Urine Culture - Preliminary Urine,Voided Thrombosis Risk Factor Assmnt - DVT/VTE Prophylaxis DVT/VTE Prophylaxis: Pharmacologic Prophylaxis ordered - Choose All That Apply Any of the Below Risk Factors Present?: Yes Each Factor Represents 1 point: Obesity (BMI >25) Other Risk Factors: Yes Each Risk Factor Represents 2 Points: Age 61-74 years Thrombosis Risk Factor Assessment Total Risk Factor Score: 3 Thrombosis Risk Factor Assessment Level: Moderate Risk Assessment and Plan Assessment: Intractable nausea vomiting and diarrhea possible gastroenteritis. Resolving now. Ileus secondary to above ESRD on hemodialysis History of atrial fibrillation and GI bleed Hypertension Hyperlipidemia Obstructive sleep apnea on CPAP Paraplegia related to back surgery/injury patient says that he no longer gets up into wheelchair due to pain Enlarged right kidney with stones is post chronic nephrostomy tube/bag next line chronic anemia/anemia of chronic disease Degenerative joint disease Pickwickian syndrome Bilateral lower action to venostasis/dermatitis and bilateral lower extremities swelling History of back surgery coronary artery disease with stent placement Previous history of smoking Chronic hypotension Maintained on Midodrin Morbid obesity with BMI 54.4 History of C. diff colitis DVT prophylaxis Plan: Patient will be continued on symptomatic management for nausea and vomiting. Patient is improving symptomatically otherwise. Seen by general surgery. No intervention recommended. Patient wants to try oral diet. Hemodialysis as per schedule. C. diff toxin was ordered. General surgery and nephrology is following. Further recommendations based on the clinical course. Prognosis is guarded with multiple medical problems and comorbid conditions. Time with Patient: Greater than 30
--- NOTE | 2018-11-07 09:39 | P.PN ---
Subjective Patient is seen in follow-up for end-stage renal disease. He is maintained on hemodialysis on a Sunday schedule. Currently resting in bed. He is tolerating breakfast. Denies abdominal pain. Did have vomiting after dinner last night. Vital signs are stable. General: The patient appeared well nourished and normally developed. HEENT: Head exam is unremarkable. Neck is without jugular venous distension. LUNGS: Lungs are clear to auscultation and percussion. Breath sounds decreased. HEART: Rate and Rhythm are regular. First and second heart sounds normal. No murmurs, rubs or gallops. ABDOMEN: Abdominal exam reveals normal bowel sounds. Non-tender and non- distended. No evidence of peritonitis. EXTREMITITES: No clubbing, cyanosis, or edema. Chronic changes noted. Objective - Vital Signs Vital signs: Vital Signs Temp 98.1 F 11/07/18 06:41 Pulse 94 11/07/18 06:41 Resp 18 11/07/18 06:41 BP 93/65 11/07/18 06:41 Pulse Ox 96 11/07/18 06:41 Intake & Output 11/06/18 11/07/18 11/07/18 18:59 06:59 18:59 Intake Total 100 Output Total 0 101 Balance 0 -1 Intake: Oral 100 Output: Urine 0 100 Emesis 1 Other: Voiding Method Urinal Urinal - Labs CBC & Chem 7: 11/06/18 10:20 11/06/18 10:20 Labs: Abnormal Lab Results - Last 24 Hours (Table) 11/06/18 11/06/18 Range/Units 10:20 10:20 RBC 3.36 L (4.30-5.90) m/uL Hgb 9.2 L (13.0-17.5) gm/dL Hct 32.0 L (39.0-53.0) % MCHC 28.9 L (31.0-37.0) g/dL RDW 19.9 H (11.5-15.5) % BUN 32 H (9-20) mg/dL Creatinine 4.88 H (0.66-1.25) mg/dL Calcium 7.8 L (8.4-10.2) mg/dL ALT 17 L (21-72) U/L Albumin 2.8 L (3.5-5.0) g/dL Microbiology - Last 24 Hours (Table) 11/05/18 18:17 Blood Culture - Preliminary Blood No Growth after 24 hours 11/05/18 20:45 Urine Culture - Preliminary Urine,Voided Assessment and Plan Plan: Assessment: 1. End-stage renal disease maintained on hemodialysis on a Sunday schedule for a left upper extremity AV fistula. 2. Nausea and vomiting. Tolerating regular diet this morning. Surgery following as well. 3. History of C. diff colitis. Currently not on antibiotics. 4. Anemia of chronic kidney disease maintained on Aranesp. 5. History of nephrolithiasis with chronic right-sided nephrostomy tube. Patient follows at [facility] urology department. 6. Chronic kidney disease mineral bone disease maintained on PhosLo. 7. Chronic hypotension maintained on midodrine. Plan: Hemodialysis tomorrow.
[2018-11-07] MEDS: ONDANSETRON 4 MG/2 ML VIAL IVP PRN ×2 (09:40→23:38)
[2018-11-07] MEDS: PANTOPRAZOLE 40 MG/10 ML VIAL IV SCH (09:40)
[2018-11-07] MEDS: HEPARIN SODIUM,PORCINE 5,000 UNIT/ML 1 ML VIAL SQ SCH ×2 (09:43→21:14)
[2018-11-07] MEDS: POTASSIUM CHLORIDE ER 10 MEQ TAB.ER.PRT PO SCH ×2 (09:46→21:14)
[2018-11-07] MEDS: DILTIAZEM CD 120 MG CAP.ER.24H PO SCH (09:46)
[2018-11-07] MEDS: METOPROLOL TARTRATE 25 MG TAB PO SCH ×2 (09:46→21:14)
[2018-11-07] MEDS: NYSTATIN 100,000 UNIT/GM POWD 15 GM TOPICAL SCH ×2 (09:46→21:16)
[2018-11-07] MEDS: CALCIUM ACETATE 667 MG CAP PO SCH ×3 (09:46→17:53)
[2018-11-07] MEDS: CHOLECALCIFEROL 1,000 UNIT TAB PO SCH (09:46)
[2018-11-07] MEDS: FUROSEMIDE 80 MG TAB PO SCH ×2 (09:46→21:14)
[2018-11-07] MEDS: CYANOCOBALAMIN 500 MCG TAB PO SCH (12:27)
[2018-11-07] MEDS ORDERED: SODIUM POLYSTYRENE SULFONATE 15 GM/60 ML BOTTLE PO STA (13:37)
--- NOTE | 2018-11-07 19:58 | P.PN ---
Subjective Progress Note Date: 11/07/18 Principal diagnosis: Abdominal pain Patient had an episode of vomiting today. Patient believes it was related to the Rich salad dressing. Denies pain currently. Objective - Vital Signs Vital signs: Vital Signs Temp 97.7 F 11/07/18 15:00 Pulse 94 11/07/18 15:00 Resp 22 11/07/18 15:00 BP 102/51 11/07/18 15:00 Pulse Ox 91 L 11/07/18 15:00 Intake & Output 11/07/18 11/07/18 11/08/18 06:59 18:59 06:59 Intake Total 100 240 Output Total 101 Balance -1 240 Intake: Oral 100 240 Output: Urine 100 Emesis 1 Other: Voiding Method Urinal # Voids 2 # Bowel Movements 1 - Exam An: Soft, nondistended, nontender, nephrostomy noted - Labs CBC & Chem 7: 11/06/18 10:20 11/06/18 10:20 Labs: Microbiology - Last 24 Hours (Table) 11/05/18 20:45 Urine Culture - Final Urine,Voided 11/05/18 18:17 Blood Culture - Preliminary Blood No Growth after 24 hours Assessment and Plan (1) Intractable nausea and vomiting Narrative/Plan: Continue diet as tolerated. We'll sign off. Please call if needed. Current Visit: Yes Status: Acute Code(s): R11.2 - NAUSEA WITH VOMITING, UNSPECIFIED SNOMED Code(s): 702935344
[2018-11-07] MEDS: ATORVASTATIN 10 MG TAB PO SCH (21:14)
[2018-11-07] MEDS: FOLIC ACID-VIT B COMPLEX-VIT C 1 CAP PO SCH (21:14)
--- NOTE | 2018-11-08 00:20 | P.PN ---
Subjective Progress Note Date: 11/07/18 Principal diagnosis: Intractable nausea and vomiting ESRD on hemodialysis Patient is a 67-year-old male with a known history of ESRD on hemodialysis, atrial fibrillation, history of DVT, hypertension, hyperlipidemia and obstructive sleep apnea and other multiple medical problems came to ER with complaints of intractable nausea and vomiting since yesterday. He is also having diarrhea. Patient says that all his symptoms started after eating sausage. No fever no chills. No cough or sputum production. chest pain or shortness of breath. patient is scheduled for hemodialysis today as per his regular schedule. patient does have a chronic right-sided nephrostomy tube, due to nephrolithiasis however still urinates. patient is chronically unable to ambulate. patient otherwise is morbidly obese. abdominal x-ray showed. ileus. patient does have a history of c. diff colitis. 11/07/2018 Patient did have a large emesis this morning. Currently is still complaining of nausea. Denied any bowel movement today. No fever no chills. No commerce of chest pain or worsening shortness of breath. No headache or dizziness or lightheadedness. No abdominal pain. No other acute overnight issues. Current medications reviewed Objective - Vital Signs Vital signs: Vital Signs Temp 97.7 F 11/07/18 15:00 Pulse 94 11/07/18 15:00 Resp 22 11/07/18 15:00 BP 102/51 11/07/18 15:00 Pulse Ox 91 L 11/07/18 15:00 Intake & Output 11/07/18 11/07/18 11/08/18 06:59 18:59 06:59 Intake Total 100 240 Output Total 101 Balance -1 240 Intake: Oral 100 240 Output: Urine 100 Emesis 1 Other: Voiding Method Urinal Urinal # Voids 2 # Bowel Movements 1 - Exam Patient is lying in the bed comfortably, no acute distress, awake alert and oriented. Morbidly obese. HEENT: Normocephalic. Neck is supple. Pupils reactive. Nostrils clear. Oral cavity is moist. Ears reveal no drainage. Neck reveals no JVD, carotid bruits, or thyromegaly. CHEST EXAMINATION: Trachea is central. Symmetrical expansion. Bibasilar diminished air entry.. CARDIAC: Normal S1, S2 with no gallops. No murmurs ABDOMEN: Soft. Bowel sounds normal. Bowel sounds normal. No organomegaly. No abdominal bruits. Extremities: Bilateral lower the chronic swelling and discoloration. No clubbing or cyanosis Neurologically awake, alert, oriented x3 with well-coordinated movements. No focal deficits noted Skin: No rash or skin lesions. Psychiatric: Coperative. Nonsuicidal Musculoskeletal: No joint swelling or deformity. Normal range of motion. - Labs CBC & Chem 7: 11/06/18 10:20 11/06/18 10:20 Labs: Microbiology - Last 24 Hours (Table) 11/05/18 18:17 Blood Culture - Preliminary Blood No Growth after 48 hours 11/05/18 20:45 Urine Culture - Final Urine,Voided Assessment and Plan Assessment: Intractable nausea vomiting and diarrhea possible gastroenteritis. Ileus secondary to above. Patient able to pass flatus. 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 diff colitis DVT prophylaxis Plan: Patient will be continued on symptomatic management for nausea and vomiting. Patient is improving symptomatically otherwise. Seen by general surgery. No intervention recommended. Patient wants to try oral diet. Hemodialysis as per schedule. C. diff toxin was ordered. General surgery and nephrology is following. Further recommendations based on the clinical course. Prognosis is guarded with multiple medical problems and comorbid conditions. Time with Patient: Greater than 30
[2018-11-08 07:54] LABS: Anisocytosis Slight; Basophils % (A) 1 %; Eosinophils # (A) 0.3 k/uL (0-0.7); Eosinophils % (A) 5 %; HCT 30.7 % (39.0-53.0); HGB 9.2 gm/dL (13.0-17.5); Hypochromasia Marked; Lymphocytes # (A) 1.1 k/uL (1.0-4.8); Lymphocytes % (A) 20 %; MCH 28.4 pg (25.0-35.0); MCHC 30.1 g/dL (31.0-37.0); MCV 94.4 fL (80.0-100.0); Macrocytosis Slight; Mean Platelet Volume 6.5; Monocytes # (A) 0.4 k/uL (0-1.0); Monocytes % (A) 8 %; Neutrophils # (A) 3.5 k/uL (1.3-7.7); Neutrophils % (A) 64 %; Platelet Count 322 k/uL (150-450); RBC 3.25 m/uL (4.30-5.90); RDW 19.1 % (11.5-15.5); WBC 5.5 k/uL (3.8-10.6)
[2018-11-08] MEDS: FERROUS SULFATE 325 MG TAB PO SCH (07:57)
[2018-11-08] MEDS: CALCIUM ACETATE 667 MG CAP PO SCH ×3 (07:57→17:11)
[2018-11-08] MEDS: DILTIAZEM CD 120 MG CAP.ER.24H PO SCH (07:57)
[2018-11-08] MEDS: FUROSEMIDE 80 MG TAB PO SCH ×2 (07:57→20:55)
[2018-11-08] MEDS: PANTOPRAZOLE 40 MG/10 ML VIAL IV SCH (07:58)
[2018-11-08] MEDS: ONDANSETRON 4 MG/2 ML VIAL IVP PRN (07:58)
[2018-11-08] MEDS: POTASSIUM CHLORIDE ER 10 MEQ TAB.ER.PRT PO SCH ×2 (07:58→20:55)
[2018-11-08] MEDS: METOPROLOL TARTRATE 25 MG TAB PO SCH ×2 (07:58→20:55)
[2018-11-08] MEDS: CHOLECALCIFEROL 1,000 UNIT TAB PO SCH (07:58)
[2018-11-08] MEDS: HEPARIN SODIUM,PORCINE 5,000 UNIT/ML 1 ML VIAL SQ SCH ×2 (07:58→21:00)
[2018-11-08] MEDS: NYSTATIN 100,000 UNIT/GM POWD 15 GM TOPICAL SCH ×2 (07:59→20:52)
[2018-11-08 08:12] LABS: Calcium 8.1 mg/dL (8.4-10.2); Potassium 4.2 mmol/L (3.5-5.1)
--- NOTE | 2018-11-08 09:03 | P.PN ---
Subjective Patient is seen in follow-up for end-stage renal disease. He is maintained on hemodialysis on a Sunday schedule. Currently resting in bed. He is tolerating breakfast. Denies abdominal pain. Did have vomiting yesterday and last night. Vital signs are stable. General: The patient appeared well nourished and normally developed. HEENT: Head exam is unremarkable. Neck is without jugular venous distension. LUNGS: Lungs are clear to auscultation and percussion. Breath sounds decreased. HEART: Rate and Rhythm are regular. First and second heart sounds normal. No murmurs, rubs or gallops. ABDOMEN: Abdominal exam reveals normal bowel sounds. Non-tender and non- distended. No evidence of peritonitis. EXTREMITITES: No clubbing, cyanosis, or edema. Chronic changes noted. Objective - Vital Signs Vital signs: Vital Signs Temp 98.0 F 11/08/18 07:40 Pulse 98 11/08/18 07:40 Resp 18 11/08/18 07:40 BP 95/54 11/08/18 07:40 Pulse Ox 92 L 11/08/18 07:40 Intake & Output 11/07/18 11/08/18 11/08/18 18:59 06:59 18:59 Intake Total 240 Balance 240 Weight 171 kg Intake: Oral 240 Other: Voiding Method Urinal # Voids 2 1 # Bowel Movements 1 - Labs CBC & Chem 7: 11/08/18 07:26 11/08/18 07:26 Labs: Abnormal Lab Results - Last 24 Hours (Table) 11/08/18 11/08/18 Range/Units 07:26 07:26 RBC 3.25 L (4.30-5.90) m/uL Hgb 9.2 L (13.0-17.5) gm/dL Hct 30.7 L (39.0-53.0) % MCHC 30.1 L (31.0-37.0) g/dL RDW 19.1 H (11.5-15.5) % BUN 23 H (9-20) mg/dL Creatinine 4.48 H (0.66-1.25) mg/dL Calcium 8.1 L (8.4-10.2) mg/dL Microbiology - Last 24 Hours (Table) 11/05/18 20:45 Urine Culture - Final Urine,Voided 11/05/18 18:17 Blood Culture - Preliminary Blood No Growth after 48 hours Assessment and Plan Plan: Assessment: 1. End-stage renal disease maintained on hemodialysis on a Sunday schedule for a left upper extremity AV fistula. 2. Nausea and vomiting. Tolerating regular diet this morning. Surgery following as well. 3. History of C. diff colitis. Currently not on antibiotics. C. diff now negative. 4. Anemia of chronic kidney disease maintained on Aranesp. 5. History of nephrolithiasis with chronic right-sided nephrostomy tube. Patient follows at [facility] urology department. 6. Chronic kidney disease mineral bone disease maintained on PhosLo. 7. Chronic hypotension maintained on midodrine. Plan: Hemodialysis today. Stable to be discharged home from nephrology standpoint.
--- NOTE | 2018-11-08 09:39 | P.PN ---
Subjective Progress Note Date: 11/08/18 Principal diagnosis: Abdominal pain Patient doing well today. Denies abdominal pain. No nausea or vomiting. Tolerating breakfast. White blood cell count normal. Objective - Vital Signs Vital signs: Vital Signs Temp 98.0 F 11/08/18 07:40 Pulse 98 11/08/18 07:40 Resp 18 11/08/18 07:40 BP 95/54 11/08/18 07:40 Pulse Ox 92 L 11/08/18 07:40 Intake & Output 11/07/18 11/08/18 11/08/18 18:59 06:59 18:59 Intake Total 240 Balance 240 Weight 171 kg Intake: Oral 240 Other: Voiding Method Urinal # Voids 2 1 # Bowel Movements 1 - Exam Abdomen: Soft, nondistended, nontender, nephrostomy noted - Labs CBC & Chem 7: 11/08/18 07:26 11/08/18 07:26 Labs: Abnormal Lab Results - Last 24 Hours (Table) 11/08/18 11/08/18 Range/Units 07:26 07:26 RBC 3.25 L (4.30-5.90) m/uL Hgb 9.2 L (13.0-17.5) gm/dL Hct 30.7 L (39.0-53.0) % MCHC 30.1 L (31.0-37.0) g/dL RDW 19.1 H (11.5-15.5) % BUN 23 H (9-20) mg/dL Creatinine 4.48 H (0.66-1.25) mg/dL Calcium 8.1 L (8.4-10.2) mg/dL Microbiology - Last 24 Hours (Table) 11/05/18 20:45 Urine Culture - Final Urine,Voided 11/05/18 18:17 Blood Culture - Preliminary Blood No Growth after 48 hours Assessment and Plan (1) Intractable nausea and vomiting Narrative/Plan: Continue diet as tolerated. No further workup or intervention planned. We'll sign off. Current Visit: Yes Status: Acute Code(s): R11.2 - NAUSEA WITH VOMITING, UNSPECIFIED SNOMED Code(s): 907568660
[2018-11-08] MEDS: MIDODRINE 5 MG TAB PO PRN (11:11)
[2018-11-08] MEDS: CYANOCOBALAMIN 500 MCG TAB PO SCH (12:28)
[2018-11-08] MEDS ORDERED: ONDANSETRON 4 MG/2 ML VIAL IVP PRN (16:44)
[2018-11-08] MEDS: ATORVASTATIN 10 MG TAB PO SCH (20:55)
[2018-11-08] MEDS: FOLIC ACID-VIT B COMPLEX-VIT C 1 CAP PO SCH (21:00)
[2018-11-09 06:44] VITALS: BP 116/60; PULSE 103; RESP 22; TEMP 96.4
[2018-11-09] MEDS ORDERED: PANTOPRAZOLE 40 MG TABLET PO SCH (07:30)
[2018-11-09] MEDS: CHOLECALCIFEROL 1,000 UNIT TAB PO SCH (07:52)
[2018-11-09] MEDS: CALCIUM ACETATE 667 MG CAP PO SCH ×2 (07:52→11:52)
[2018-11-09] MEDS: POTASSIUM CHLORIDE ER 10 MEQ TAB.ER.PRT PO SCH (07:53)
[2018-11-09] MEDS: METOPROLOL TARTRATE 25 MG TAB PO SCH (07:53)
[2018-11-09] MEDS: HEPARIN SODIUM,PORCINE 5,000 UNIT/ML 1 ML VIAL SQ SCH (07:53)
[2018-11-09] MEDS: FUROSEMIDE 80 MG TAB PO SCH (07:53)
[2018-11-09] MEDS: NYSTATIN 100,000 UNIT/GM POWD 15 GM TOPICAL SCH (07:53)
[2018-11-09] MEDS: DILTIAZEM CD 120 MG CAP.ER.24H PO SCH (08:49)
--- NOTE | 2018-11-09 09:14 | P.PN ---
Subjective Patient is seen in follow-up for end-stage renal disease. He is maintained on hemodialysis on a Sunday schedule. Currently resting in bed. He is tolerating breakfast. Denies abdominal pain. Did have emesis last night. Overall doing better. Tolerated hemodialysis well yesterday. Vital signs are stable. General: The patient appeared well nourished and normally developed. HEENT: Head exam is unremarkable. Neck is without jugular venous distension. LUNGS: Lungs are clear to auscultation and percussion. Breath sounds decreased. HEART: Rate and Rhythm are regular. First and second heart sounds normal. No murmurs, rubs or gallops. ABDOMEN: Abdominal exam reveals normal bowel sounds. Non-tender and non- distended. No evidence of peritonitis. EXTREMITITES: No clubbing, cyanosis, or edema. Chronic changes noted. Objective - Vital Signs Vital signs: Vital Signs Temp 96.4 F L 11/09/18 06:00 Pulse 103 H 11/09/18 06:00 Resp 22 11/09/18 06:00 BP 116/60 11/09/18 06:00 Pulse Ox 98 11/09/18 06:00 Intake & Output 11/08/18 11/09/18 11/09/18 18:59 06:59 18:59 Intake Total 800 600 Output Total 600 30 Balance 800 0 -30 Weight 160 kg Intake: Oral 800 600 Output: Drainage 30 Right Abdomen 30 Emesis 600 Other: Voiding Method Urinal # Voids 2 2 # Bowel Movements 1 # Emeses 2 1 - Labs CBC & Chem 7: 11/08/18 07:26 11/08/18 07:26 Labs: Microbiology - Last 24 Hours (Table) 11/05/18 18:17 Blood Culture - Preliminary Blood No Growth after 72 hours 11/05/18 20:45 Urine Culture - Final Urine,Voided Assessment and Plan Plan: Assessment: 1. End-stage renal disease maintained on hemodialysis on a Sunday schedule for a left upper extremity AV fistula. 2. Nausea and vomiting. Tolerating regular diet this morning. Surgery following as well. 3. History of C. diff colitis. Currently not on antibiotics. C. diff now negative. 4. Anemia of chronic kidney disease maintained on Aranesp. 5. History of nephrolithiasis with chronic right-sided nephrostomy tube. Patient follows at [facility] urology department. 6. Chronic kidney disease mineral bone disease maintained on PhosLo. 7. Chronic hypotension maintained on midodrine. Plan: Hemodialysis on Sunday if still in the hospital. Otherwise outpatient hemodialysis will be on Sunday due to holiday week schedule. Stable to be discharged home from nephrology standpoint.
[2018-11-09] MEDS: CYANOCOBALAMIN 500 MCG TAB PO SCH (11:52)
--- NOTE | 2018-11-09 23:16 | P.PN ---
Subjective Progress Note Date: 11/08/18 Principal diagnosis: Intractable nausea and vomiting ESRD on hemodialysis Patient is a 67-year-old male with a known history of ESRD on hemodialysis, atrial fibrillation, history of DVT, hypertension, hyperlipidemia and obstructive sleep apnea and other multiple medical problems came to ER with complaints of intractable nausea and vomiting since yesterday. He is also having diarrhea. Patient says that all his symptoms started after eating sausage. No fever no chills. No cough or sputum production. chest pain or shortness of breath. patient is scheduled for hemodialysis today as per his regular schedule. patient does have a chronic right-sided nephrostomy tube, due to nephrolithiasis however still urinates. patient is chronically unable to ambulate. patient otherwise is morbidly obese. abdominal x-ray showed. ileus. patient does have a history of c. diff colitis. 11/07/2018 Patient did have a large emesis this morning. Currently is still complaining of nausea. Denied any bowel movement today. No fever no chills. No commerce of chest pain or worsening shortness of breath. No headache or dizziness or lightheadedness. No abdominal pain. 11/08/2018 Patient did have emesis this afternoon. Otherwise tolerating oral diet. Patient did have a bowel movement. No fever no chills. No other acute overnight issues. Zofran dose will be increased to every 6 hourly. Anticipate discharge in next 24 hours. Current medications reviewed Objective - Vital Signs Vital signs: Vital Signs Temp 98.2 F 11/08/18 15:00 Pulse 81 11/08/18 15:00 Resp 18 11/08/18 15:00 BP 113/62 11/08/18 15:00 Pulse Ox 92 L 11/08/18 15:00 Intake & Output 11/08/18 11/08/18 11/09/18 06:59 18:59 06:59 Intake Total 800 Balance 800 Weight 171 kg Intake: Oral 800 Other: Voiding Method Urinal # Voids 1 2 # Bowel Movements 1 # Emeses 2 - Exam Patient is lying in the bed comfortably, no acute distress, awake alert and oriented. Morbidly obese. HEENT: Normocephalic. Neck is supple. Pupils reactive. Nostrils clear. Oral cavity is moist. Ears reveal no drainage. Neck reveals no JVD, carotid bruits, or thyromegaly. CHEST EXAMINATION: Trachea is central. Symmetrical expansion. Bibasilar diminished air entry.. CARDIAC: Normal S1, S2 with no gallops. No murmurs ABDOMEN: Soft. Bowel sounds normal. Bowel sounds normal. No organomegaly. No abdominal bruits. Extremities: Bilateral lower the chronic swelling and discoloration. No clubbing or cyanosis Neurologically awake, alert, oriented x3 with well-coordinated movements. No focal deficits noted Skin: No rash or skin lesions. Psychiatric: Coperative. Nonsuicidal Musculoskeletal: No joint swelling or deformity. Normal range of motion. - Labs CBC & Chem 7: 11/08/18 07:26 11/08/18 07:26 Labs: Abnormal Lab Results - Last 24 Hours (Table) 11/08/18 11/08/18 Range/Units 07:26 07:26 RBC 3.25 L (4.30-5.90) m/uL Hgb 9.2 L (13.0-17.5) gm/dL Hct 30.7 L (39.0-53.0) % MCHC 30.1 L (31.0-37.0) g/dL RDW 19.1 H (11.5-15.5) % BUN 23 H (9-20) mg/dL Creatinine 4.48 H (0.66-1.25) mg/dL Calcium 8.1 L (8.4-10.2) mg/dL Microbiology - Last 24 Hours (Table) 11/05/18 18:17 Blood Culture - Preliminary Blood No Growth after 72 hours 11/05/18 20:45 Urine Culture - Final Urine,Voided Assessment and Plan Assessment: Intractable nausea vomiting and diarrhea possible gastroenteritis. Ileus secondary to above. Patient able to pass flatus. 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 diff colitis DVT prophylaxis Plan: Patient will be continued on symptomatic management for nausea and vomiting. Patient is improving symptomatically otherwise. Seen by general surgery. No intervention recommended. Patient wants to try oral diet. Hemodialysis as per schedule. C. diff toxin was ordered. General surgery and nephrology is following. Further recommendations based on the clinical course. Prognosis is guarded with multiple medical problems and comorbid conditions.
--- NOTE | 2018-11-09 23:19 | P.DS ---
Providers Date of admission: 11/05/18 20:48 Expected date of discharge: 11/09/18 Attending physician: Galilea Zhang Consults: 11/05/18 20:48 Consult Physician Urgent Consulting Provider: Mina De La Rosa Consult Reason/Comments: ileus, vomiting Do you want consulting provider notified?: Yes 11/06/18 06:37 Consult Physician Routine Consulting Provider: Barbara Jacobson Consult Reason/Comments: dialysis Do you want consulting provider notified?: Yes, Notify in am Primary care physician: Akshat Nieves MD Hospital Course: Discharge diagnosis Intractable nausea vomiting and diarrhea possible gastroenteritis/food poisoning. Ileus secondary to above. Patient able to pass flatus. 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 diff colitis DVT prophylaxis Hospital course Patient is a 67-year-old male with a known history of ESRD on hemodialysis, atrial fibrillation, history of DVT, hypertension, hyperlipidemia and obstructive sleep apnea and other multiple medical problems came to ER with complaints of intractable nausea and vomiting since yesterday. He is also having diarrhea. Patient says that all his symptoms started after eating sausage. No fever no chills. No cough or sputum production. chest pain or shortness of breath. patient is scheduled for hemodialysis today as per his regular schedule. patient does have a chronic right-sided nephrostomy tube, due to nephrolithiasis however still urinates. patient is chronically unable to ambulate. patient otherwise is morbidly obese. abdominal x-ray showed. ileus. patient does have a history of c. diff colitis. 11/07/2018 Patient did have a large emesis this morning. Currently is still complaining of nausea. Denied any bowel movement today. No fever no chills. No commerce of chest pain or worsening shortness of breath. No headache or dizziness or lightheadedness. No abdominal pain. 11/08/2018 Patient did have emesis this afternoon. Otherwise tolerating oral diet. Patient did have a bowel movement. No fever no chills. No other acute overnight issues. Zofran dose will be increased to every 6 hourly. Anticipate discharge in next 24 hours. 11/09/2018 Patient is tolerating oral diet. No nausea vomiting or abdominal pain. No chest pain or shortness of breath. Patient is stable to be discharged home otherwise. Follow with hemodialysis center as an outpatient. Plan: Patient was continued on symptomatic management for nausea and vomiting. Seen by general surgery. No intervention recommended. Hemodialysis as per schedule. C. diff toxin was ordered. C. diff toxin was negative. Otherwise patient did improve clinically with symptomatic management. Hemodialysis as per schedule while in hospital. Patient is otherwise stable to be discharged home. Vital Signs - 24 hr 11/09/18 06:00 Temperature 96.4 F L Pulse Rate [ 103 H Pulse Oximetery ] Respiratory 22 Rate Blood Pressure 116/60 [Right Arm] O2 Sat by Pulse 98 Oximetry Patient Condition at Discharge: Stable Plan - Discharge Summary New Discharge Prescriptions: Continue Calcium Acetate [PhosLo] 1,334 mg PO TID Metoprolol Tartrate [Lopressor] 25 mg PO BID Diltiazem HCl [Diltiazem 24Hr ER] 120 mg PO DAILY Atorvastatin [Lipitor] 10 mg PO HS Potassium Chloride [Klor-Con 10] 10 meq PO BID Midodrine [ProAmatine] 5 - 10 mg PO MOWEFR PRN PRN Reason: DIALYSIS Furosemide [Lasix] 80 mg PO BID Cholecalciferol [Vitamin D3] 1,000 unit PO DAILY tab Cyanocobalamin [Vitamin B-12] 1,000 mcg PO DAILY tab Folic Acid-Vit B Complex-Vit C [Nephrocaps] 1 each PO HS cap Nystatin 100,000 Unit/gm Powd [Mycostatin Powder] 1 applic TOPICAL BID applic Vancomycin Oral Solution 250 mg PO Q6HR ml HYDROcodone/APAP 10-325MG [[place] 10-325] 1 tab PO Q6HR PRN PRN Reason: Pain Discontinued Ferrous Sulfate [Iron (65 MG Elemental)] 325 mg PO MOWEFR Discharge Medication List Atorvastatin [Lipitor] 10 mg PO HS 10/30/17 [History] Calcium Acetate [PhosLo] 1,334 mg PO TID 10/30/17 [History] Diltiazem HCl [Diltiazem 24Hr ER] 120 mg PO DAILY 10/30/17 [History] Metoprolol Tartrate [Lopressor] 25 mg PO BID 10/30/17 [History] Potassium Chloride [Klor-Con 10] 10 meq PO BID 10/30/17 [History] Furosemide [Lasix] 80 mg PO BID 09/11/18 [History] Midodrine [ProAmatine] 5 - 10 mg PO MOWEFR PRN 09/11/18 [History] Cholecalciferol [Vitamin D3] 1,000 unit PO DAILY tab 10/17/18 [Rx] Cyanocobalamin [Vitamin B-12] 1,000 mcg PO DAILY tab 10/17/18 [Rx] Folic Acid-Vit B Complex-Vit C [Nephrocaps] 1 each PO HS cap 10/17/18 [Rx] Nystatin 100,000 Unit/gm Powd [Mycostatin Powder] 1 applic TOPICAL BID applic 10/17/18 [Rx] Vancomycin Oral Solution 250 mg PO Q6HR ml 10/17/18 [Rx] HYDROcodone/APAP 10-325MG [[place] 10-325] 1 tab PO Q6HR PRN 11/05/18 [History] Follow up Appointment(s)/Referral(s): Akshat Nieves MD [Primary Care Provider] - 1-2 days (Please call and schedule appointment when office is open. ) Patient Instructions/Handouts: Acute Nausea and Vomiting (DC) Activity/Diet/Wound Care/Special Instructions: Activity as tolerated. Soft bland diet as tolerated. Discharge Disposition: HOME SELF-CARE
== END 2018-11-09 15:37 | disposition home or self-care (01) | DRG 391 ==
LOC: EC 16:13 → 4MS4W 20:48
PROVIDERS: ADMIT Internal Medicine; ATTEND Internal Medicine
PROC: 5A1D70Z Performance of Urinary Filtration, Intermittent, Less than 6 Hours Per Day (ICD-10-PCS; principal; 2018-11-06)
DX: A05.9 Bacterial foodborne intoxication, unspecified (principal); N18.6 End stage renal disease; K56.7 Ileus, unspecified; I12.0 Hypertensive chronic kidney disease with stage 5 chronic kidney disease or end stage renal disease; E66.2 Morbid (severe) obesity with alveolar hypoventilation; Z68.43 Body mass index [BMI] 50.0-59.9, adult; G82.20 Paraplegia, unspecified; E78.5 Hyperlipidemia, unspecified; D63.1 Anemia in chronic kidney disease; I25.10 Atherosclerotic heart disease of native coronary artery without angina pectoris; I48.91 Unspecified atrial fibrillation; I95.89 Other hypotension; L30.9 Dermatitis, unspecified; M79.89 Other specified soft tissue disorders; M19.90 Unspecified osteoarthritis, unspecified site; N20.0 Calculus of kidney; Z80.0 Family history of malignant neoplasm of digestive organs; Z79.899 Other long term (current) drug therapy; Z80.1 Family history of malignant neoplasm of trachea, bronchus and lung; Z99.2 Dependence on renal dialysis; Z99.89 Dependence on other enabling machines and devices; Z86.19 Personal history of other infectious and parasitic diseases; Z86.718 Personal history of other venous thrombosis and embolism; Z87.891 Personal history of nicotine dependence; Z93.6 Other artificial openings of urinary tract status; Z95.5 Presence of coronary angioplasty implant and graft
CPT/HCPCS: 36415; 71046; 74018; 80048; 80053; 81001; 82150; 82550; 82553; 83690; 84484; 85025; 85610; 85730; 87040; 87086; 87324; 90935; 93005; 96361; 96374; 96375; 96376; 99285

== ENCOUNTER 2019-03-05 20:27 | Inpatient (IN) | payer MEDICARE, OTHER ==
[2019-03-05 21:46] LABS: Anisocytosis Slight; Basophils % (A) 0 %; Eosinophils # (A) 0.2 k/uL (0-0.7); Eosinophils % (A) 1 %; HGB 11.1 gm/dL (13.0-17.5); Hypochromasia Marked; Lymphocytes # (A) 1.1 k/uL (1.0-4.8); Lymphocytes % (A) 7 %; MCH 26.2 pg (25.0-35.0); MCHC 30.1 g/dL (31.0-37.0); Mean Platelet Volume 6.8; Monocytes # (A) 0.7 k/uL (0-1.0); Monocytes % (A) 4 %; Neutrophils # (A) 14.7 k/uL (1.3-7.7); Neutrophils % (A) 87 %; Platelet Count 368 k/uL (150-450); RBC 4.25 m/uL (4.30-5.90); RDW 18.1 % (11.5-15.5)
[2019-03-05 21:55] LABS: Albumin 3.5 g/dL (3.5-5.0); Calcium 8.8 mg/dL (8.4-10.2); Potassium 3.8 mmol/L (3.5-5.1); Total Bilirubin 0.7 mg/dL (0.2-1.3); Total Protein 7.6 g/dL (6.3-8.2)
[2019-03-05] MEDS ORDERED: ONDANSETRON 4 MG TAB PO STA (22:27)
--- NOTE | 2019-03-06 00:19 | XR ---
EXAM: XR Abdomen CLINICAL HISTORY: Pain. TECHNIQUE: Frontal supine view of the abdomen/pelvis. A total of 4 images were obtained. COMPARISON: Radiographs dated 11/05/2018. FINDINGS: Gastrointestinal tract: Nonspecific and nonobstructive bowel gas pattern. Organs: Density in region of right renal pelvis and calyces suggestive of large right renal calculi. Bones/joints: Osseous degenerative changes. Tubes, lines and devices: Right nephrostomy tube with tip projecting at right renal fossa. IMPRESSION: 1. Right nephrostomy tube with tip projecting at right renal fossa. 2. Density in region of right renal pelvis and calyces suggestive of right renal staghorn calculus/calculi. 3. Nonspecific and nonobstructive bowel gas pattern.
[2019-03-06] MEDS ORDERED: CEFEPIME 2 GM in SODIUM CHLORIDE 0.9% 100 ML IVPB STA (00:42)
[2019-03-06] MEDS ORDERED: SODIUM CHLORIDE 0.9% 500 ML 500 ML IV ONE (00:43)
[2019-03-06] MEDS ORDERED: VANCOMYCIN IV PER PHARMACY 1 EACH MISC MISCELLANE PRN ×3 (00:46→23:27)
[2019-03-06] MEDS ORDERED: VANCOMYCIN 2,000 MG in SODIUM CHLORIDE 0.9% 500 ML 500 ML IVPB STA (00:47)
[2019-03-06 02:51] LABS: Appearance,Urine Turbid (Clear); Bilirubin,Urine Negative (Negative); Blood,Urine Moderate (Negative); Color,Urine Yellow; Glucose,Urine (UA) Negative (Negative); Ketones,Urine Negative (Negative); Leukocyte Esterase,Urine Large (Negative); Nitrite,Urine Negative (Negative); Protein,Urine 3+ (Negative); RBC,Urine 180 /hpf (0-5); Specific Gravity,Urine 1.019 (1.001-1.035); Urobilinogen,Urine <2.0 mg/dL (<2.0); WBC,Urine >182 /hpf (0-5)
[2019-03-06] MEDS ORDERED: SODIUM CHLORIDE 0.9% 500 ML 500 ML IV STA ×2 (03:00→03:02)
--- NOTE | 2019-03-06 03:53 | CT ---
EXAM: CT Abdomen and Pelvis Without Intravenous Contrast CLINICAL HISTORY: Pain TECHNIQUE: Axial computed tomography images of the abdomen and pelvis without intravenous contrast. CTDI is 0.242, 0.242, 31.3 mGy and DLP is 1995 mGy- cm. This CT exam was performed using one or more of the following dose reduction techniques: automated exposure control, adjustment of the mA and/or kV according to patient size, and/or use of iterative reconstruction technique. COMPARISON: CT abdomen and pelvis dated 10/11/2018 FINDINGS: Lung bases: Consolidation within the right lower lobe which unchanged. Pleural space: Trace right-sided pleural effusion. ABDOMEN: Liver: Unremarkable. Gallbladder and bile ducts: Gallstones. No CT evidence of acute cholecystitis. Pancreas: Unremarkable. Spleen: Unremarkable. Adrenals: Unremarkable. Kidneys and ureters: Calcifications are seen within both kidneys. Staghorn calculus noted within the right renal pelvis. Nephrostomy tube is noted. No hydronephrosis. 7.5 cm complex mass seen within superior pole right kidney likely representing neoplasm, which is unchanged. Complex cystic lesion seen within the inferior pole right kidney measures up to 5.3 cm which is grossly unchanged compared to the prior. Stomach and bowel: Mild wall thickening seen throughout the colon and rectum which may represent nonspecific proctocolitis. No bowel obstruction. PELVIS: Appendix: Appendix is unremarkable Bladder: Unremarkable. Reproductive: Unremarkable as visualized. ABDOMEN and PELVIS: Intraperitoneal space: Unremarkable. Bones/joints: No acute fracture. No dislocation. Soft tissues: Unremarkable. Vasculature: IVC filter is noted. No abdominal aortic aneurysm. Lymph nodes: Unremarkable. IMPRESSION: 1. Trace right-sided pleural effusion with consolidation within the right lower lobe, likely atelectasis. This is unchanged compared to the prior. 2. Gallstones. No CT evidence of acute cholecystitis. 3. Calcifications are seen within both kidneys. Staghorn calculus noted within the right renal pelvis. Nephrostomy tube is noted. No hydronephrosis. 4. 7.5 cm complex mass seen within superior pole right kidney likely representing neoplasm, which is unchanged. 5. Complex cystic lesion seen within the inferior pole right kidney measures up to 5.3 cm which is grossly unchanged compared to the prior. 6. Mild wall thickening seen throughout the colon and rectum which may represent nonspecific proctocolitis.
--- NOTE | 2019-03-06 04:15 | ED ---
General Adult HPI - General Chief complaint: Nausea/Vomiting/Diarrhea Stated complaint: Nausea, Vomiting Time Seen by Provider: 03/05/19 21:38 Source: EMS, RN notes reviewed, old records reviewed Mode of arrival: EMS Limitations: physical limitation - History of Present Illness Initial comments: 68-year-old male patient past medical history of end-stage renal disease, hypertension presents to ED with approximately 4 days a waxing and waning nausea vomiting diarrhea, waxing waning fevers. Patient did have dialysis treatment earlier today, tolerated well without difficulty. Patient course of after returning from as previously to have a mild fever resolved after ibuprofen. Patient currently denies any other complaints today. Denies any chest pain pain shortness of breath, abdominal pain. 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 Systemic: Pt denies fatigue, myalgia, fever/chills, rash. Pt denies weakness, night sweats, weight loss. Neuro: Pt denies headache, visual disturbances, syncope or pre-syncope. HEENT: Pt denies ocular discharge or irritation, otalgia, rhinorrhea, pharyngitis or notable lymphadenopathy. Cardiopulmonary: Pt denies chest pain, SOB, heart palpitations, dyspnea on exertion. Abdominal/GI: Pt denies abdominal pain. : Pt denies dysuria, burning w/ urination, frequency/urgency. Denies new onset urinary or bowel incontinence. MSK: Pt denies myalgia, loss of strength or function in extremities. Neuro: Pt denies new onset weakness, paresthesias. - Related Data Home Medications Medication Instructions Recorded Confirmed Atorvastatin [Lipitor] 10 mg PO HS 10/30/17 03/05/19 Calcium Acetate [PhosLo] 1,334 mg PO TID 10/30/17 03/05/19 Diltiazem HCl [Diltiazem 24Hr ER] 120 mg PO DAILY 10/30/17 03/05/19 Metoprolol Tartrate [Lopressor] 25 mg PO BID 10/30/17 03/05/19 Potassium Chloride [Klor-Con 10] 10 meq PO BID 10/30/17 03/05/19 Furosemide [Lasix] 80 mg PO BID 09/11/18 03/05/19 Midodrine [ProAmatine] 5 - 10 mg PO MOWEFR PRN 09/11/18 03/05/19 Ferrous Sulfate [Iron (65 MG 325 mg PO MOWEFR 03/05/19 03/05/19 Elemental)] HYDROcodone/APAP 5-325MG [[place] 1 tab PO Q6H PRN 03/05/19 03/05/19 5-325] Previous Rx's Medication Instructions Recorded Cholecalciferol [Vitamin D3] 1,000 unit PO DAILY tab 10/17/18 Cyanocobalamin [Vitamin B-12] 1,000 mcg PO DAILY tab 10/17/18 Folic Acid-Vit B Complex-Vit C 1 each PO HS cap 10/17/18 [Nephrocaps] Nystatin 100,000 Unit/gm Powd 1 applic TOPICAL BID applic 10/17/18 [Mycostatin Powder] Allergies Allergy/AdvReac Type Severity Reaction Status Date / Time No Known Allergies Allergy Verified 03/05/19 21:00 Review of Systems ROS Statement: Those systems with pertinent positive or pertinent negative responses have been documented in the HPI. ROS Other: All systems not noted in ROS Statement are negative. Past Medical History Past Medical History: Atrial Fibrillation, Dialysis, Deep Vein Thrombosis (DVT), GI Bleed, Hyperlipidemia, Hypertension, Renal Disease, Sleep Apnea/CPAP/BIPAP Additional Past Medical History / Comment(s): Paraplegia r/t back injury/surgery-pt states he no longer gets up into wheelchair d/t too painful, ESRD with hemodialysis-last received 10/07/18, enlarged R kidney with stones-has chronic nephrostomy tube/bag, chronic anemia, mineral bone disease, possible past upper GI bleed, DVT in a leg post op, arhtritis multiple joints, pickwickian syndrome, past respiratory failure/vented, ISACC with Cpap, bilateral lower extremity venous stasis/dermatitis, bilateral lower leg/feet edema and currently scabs on L foot toes. History of Any Multi-Drug Resistant Organisms: C-DIFF, MRSA Date of last positivie culture/infection: 10/10/18 MDRO Source:: MRSA AXILLA Past Surgical History: Adenoidectomy, Back Surgery, Heart Catheterization With Stent, Hernia Repair, Tonsillectomy Additional Past Surgical History / Comment(s): LT ARM FISTULA-NO BP OR BLOOD DRAWS IN LT ARM, PCI with stent, low back surgery, nephrostomy tube, abdominal hernia, colonoscopy with benign polyp Past Anesthesia/Blood Transfusion Reactions: No Reported Reaction Date of Last Stent Placement:: 2004 Past Psychological History: No Psychological Hx Reported Additional Psychological History / Comment(s): Pt has a brother that lives with him and his son comes over daily. They are his caregivers. He currently has no home care. Pt has a hospital bed and stays in bed now d/t too painful to get up into wheelchair. Owns a kelby lift, cpap and megamover transfer mat. Smoking Status: Former smoker Past Alcohol Use History: None Reported Additional Past Alcohol Use History / Comment(s): Pt started smoking in 1971 and quit in 1981 Past Drug Use History: None Reported - Past Family History Brother(s) Family Medical History: Cancer Additional Family Medical History / Comment(s): Colon Ca Father Family Medical History: Cancer Additional Family Medical History / Comment(s): father had lung cancer General Exam - General Exam Comments Initial Comments: Constitutional: NAD, AOX3, Pt has pleasant affect. HEENT: NC/AT, trachea midline, neck supple, no lymphadenopathy. Posterior pharynx non erythematous, without exudates. External ears appear normal, without discharge. Mucous membranes moist. Eyes PERRLA, EOM intact. There is no scleral icterus. No pallor noted. Cardiopulmonary: RRR, no murmurs, rubs or gallops, no JVD noted. Lungs CTAB in anterior and posterior dunn. No peripheral edema. Abdominal exam: Abdomen soft and non-distended. Abdomen non-tender to palpation in all 4 quadrants. Bowel sounds active in LLQ. No hepatosplenomegaly. No ecchymosis. Neuro: CN II-XII grossly intact. No nuchal rigidity. MSK: No posterior calf tenderness bilaterally, homans sign negative bilaterally. Posterior tibialis and radial pulse +2 bilaterally. Sensation intact in upper and lower extremities. Full active ROM in upper and lower extremities, 5/5 stregnth. Limitations: physical limitation Course Vital Signs 03/05/19 03/05/19 03/05/19 21:07 21:41 23:30 Temperature 97.3 F L Pulse Rate 104 H 104 H Respiratory 18 16 16 Rate Blood Pressure 134/107 111/64 Blood Pressure 96/83 [Right Arm] O2 Sat by Pulse 95 99 99 Oximetry 03/05/19 03/06/19 03/06/19 23:48 00:00 01:08 Temperature Pulse Rate 105 H 101 H Respiratory 14 24 Rate Blood Pressure 100/59 95/50 Blood Pressure [Right Arm] O2 Sat by Pulse 94 L Oximetry 03/06/19 03/06/19 03/06/19 01:30 03:00 03:30 Temperature Pulse Rate 99 98 101 H Respiratory 20 20 23 Rate Blood Pressure 95/50 90/57 85/60 Blood Pressure [Right Arm] O2 Sat by Pulse 95 95 95 Oximetry Medical Decision Making - Medical Decision Making 68-year-old male patient past medical history of end-stage renal disease, hypertension presents to ED with approximately 4 days a waxing and waning nausea vomiting diarrhea, waxing waning fevers. Patient did have dialysis treatment earlier today, tolerated well without difficulty. Patient course of after returning from as previously to have a mild fever resolved after ibuprofen. Patient currently denies any other complaints today. Denies any chest pain pain shortness of breath, abdominal pain. 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 Physical exam displayed nontender abdomen. Investigations revealed leukocytosis of 17.0. CMP revealed a creatinine of 2.6, patient is yesterday. UA revealed significant urinary tract infection. Lactic acid within normal limits. CT abdomen and pelvis without contrast displayed right-sided pleural effusion with likely atelectasis, unchanged to prior exam. Gallstones, close occasions within both kidneys. Simple 5 cm complex mass seen within superior right kidney pole, complex cystic lesion the inferior pole kidney 5.3 cm. Both of these A grossly unchanged compared to prior exam. Mild wall thickening throughout: Show a Nonspecific Proctocolitis. Blood Cultures Obtained. Patient Administered Antibiotics Cefepime, Vancomycin. Patient Be Admitted for IV Antibiotics, Evaluation from Nephrology, infectious Disease. Case discussed with Dr. Morales. - Lab Data Result diagrams: 03/05/19 21:38 03/05/19 21:38 Lab Results 03/05/19 03/05/19 03/05/19 Range/Units 21:38 21:38 21:38 WBC 17.0 H (3.8-10.6) k/uL RBC 4.25 L (4.30-5.90) m/uL Hgb 11.1 L (13.0-17.5) gm/dL Hct 37.0 L (39.0-53.0) % MCV 87.0 (80.0-100.0) fL MCH 26.2 (25.0-35.0) pg MCHC 30.1 L (31.0-37.0) g/dL RDW 18.1 H (11.5-15.5) % Plt Count 368 (150-450) k/uL Neutrophils % 87 % Lymphocytes % 7 % Monocytes % 4 % Eosinophils % 1 % Basophils % 0 % Neutrophils # 14.7 H (1.3-7.7) k/uL Lymphocytes # 1.1 (1.0-4.8) k/uL Monocytes # 0.7 (0-1.0) k/uL Eosinophils # 0.2 (0-0.7) k/uL Basophils # 0.0 (0-0.2) k/uL Hypochromasia Marked Anisocytosis Slight Sodium 137 (137-145) mmol/L Potassium 3.8 (3.5-5.1) mmol/L Chloride 95 L (98-107) mmol/L Carbon Dioxide 33 H (22-30) mmol/L Anion Gap 9 mmol/L BUN 20 (9-20) mg/dL Creatinine 2.60 H (0.66-1.25) mg/dL Est GFR (CKD-EPI)AfAm 28 (>60 ml/min/1.73 sqM) Est GFR (CKD-EPI)NonAf 25 (>60 ml/min/1.73 sqM) Glucose 97 (74-99) mg/dL Plasma Lactic Acid Dennis 1.2 (0.7-2.0) mmol/L Calcium 8.8 (8.4-10.2) mg/dL Total Bilirubin 0.7 (0.2-1.3) mg/dL AST 19 (17-59) U/L ALT 21 (21-72) U/L Alkaline Phosphatase 92 (38-126) U/L Total Protein 7.6 (6.3-8.2) g/dL Albumin 3.5 (3.5-5.0) g/dL Lipase (23-300) U/L Urine Color Urine Appearance (Clear) Urine pH (5.0-8.0) Ur Specific [place] (1.001-1.035) Urine Protein (Negative) Urine Glucose (UA) (Negative) Urine Ketones (Negative) Urine Blood (Negative) Urine Nitrite (Negative) Urine Bilirubin (Negative) Urine Urobilinogen (<2.0) mg/dL Ur Leukocyte Esterase (Negative) Urine RBC (0-5) /hpf Urine WBC (0-5) /hpf Urine WBC Clumps (None) /hpf 03/05/19 03/06/19 Range/Units 21:38 02:00 WBC (3.8-10.6) k/uL RBC (4.30-5.90) m/uL Hgb (13.0-17.5) gm/dL Hct (39.0-53.0) % MCV (80.0-100.0) fL MCH (25.0-35.0) pg MCHC (31.0-37.0) g/dL RDW (11.5-15.5) % Plt Count (150-450) k/uL Neutrophils % % Lymphocytes % % Monocytes % % Eosinophils % % Basophils % % Neutrophils # (1.3-7.7) k/uL Lymphocytes # (1.0-4.8) k/uL Monocytes # (0-1.0) k/uL Eosinophils # (0-0.7) k/uL Basophils # (0-0.2) k/uL Hypochromasia Anisocytosis Sodium (137-145) mmol/L Potassium (3.5-5.1) mmol/L Chloride (98-107) mmol/L Carbon Dioxide (22-30) mmol/L Anion Gap mmol/L BUN (9-20) mg/dL Creatinine (0.66-1.25) mg/dL Est GFR (CKD-EPI)AfAm (>60 ml/min/1.73 sqM) Est GFR (CKD-EPI)NonAf (>60 ml/min/1.73 sqM) Glucose (74-99) mg/dL Plasma Lactic Acid Dennis (0.7-2.0) mmol/L Calcium (8.4-10.2) mg/dL Total Bilirubin (0.2-1.3) mg/dL AST (17-59) U/L ALT (21-72) U/L Alkaline Phosphatase (38-126) U/L Total Protein (6.3-8.2) g/dL Albumin (3.5-5.0) g/dL Lipase 16 L (23-300) U/L Urine Color Yellow Urine Appearance Turbid (Clear) Urine pH 8.0 (5.0-8.0) Ur Specific [place] 1.019 (1.001-1.035) Urine Protein 3+ H (Negative) Urine Glucose (UA) Negative (Negative) Urine Ketones Negative (Negative) Urine Blood Moderate H (Negative) Urine Nitrite Negative (Negative) Urine Bilirubin Negative (Negative) Urine Urobilinogen <2.0 (<2.0) mg/dL Ur Leukocyte Esterase Large H (Negative) Urine RBC 180 H (0-5) /hpf Urine WBC >182 H (0-5) /hpf Urine WBC Clumps Many H (None) /hpf Disposition Clinical Impression: UTI (urinary tract infection), Sepsis Disposition: ADMITTED IP TO THIS HOSP Condition: Serious Is patient prescribed a controlled substance at d/c from ED?: No Referrals: Akshat Nieves MD [Primary Care Provider] - 1-2 days
[2019-03-06] MEDS ORDERED: NALOXONE 0.4 MG/ML 1 ML VIAL IV PRN (04:17)
[2019-03-06] MEDS: SODIUM CHLORIDE 0.9% 1,000 ML IV SCH (07:44)
--- NOTE | 2019-03-06 11:44 | P.NPCON ---
History of Present Illness - Reason for Consult end stage renal disease - History of Present Illness Reason for consultation: End-stage renal disease History of present illness: Patient is a 68-year-old male seen in renal consultation for end-stage renal disease. He is maintained on hemodialysis on a Sunday schedule. Patient presented to the hospital with nausea and vomiting going on for 2 days. Patient states he vomited after dialysis yesterday. He was unable to keep any food down. The brother decided to bring him to the hospital after he vomited shortly after starting his dinner. Patient did complete hemodialysis yesterday. He denies chest pain or shortness of breath. Patient has history of nephrolithiasis and is a chronic right-sided nephrostomy tube in place. He also has a right-sided renal mass for which she follows with urology out of [facility]. Patient states he was at [facility] last week and no significant changes were made in his care. No fever or chills. Hemodynamically stable. Vital signs are stable. General: The patient appeared well nourished and normally developed. HEENT: Head exam is unremarkable. Neck is without jugular venous distension. LUNGS: Lungs are clear to auscultation and percussion. Breath sounds decreased. HEART: Rate and Rhythm are regular. First and second heart sounds normal. No murmurs, rubs or gallops. ABDOMEN: Abdominal exam reveals normal bowel sounds. Non-tender and non- distended. No evidence of peritonitis. EXTREMITITES: 1+ edema. Chronic changes noted. Past Medical History Past Medical History: Atrial Fibrillation, Dialysis, Deep Vein Thrombosis (DVT), GI Bleed, Hyperlipidemia, Hypertension, Renal Disease, Sleep Apnea/CPAP/BIPAP Additional Past Medical History / Comment(s): Paraplegia r/t back injury/surgery-pt states he no longer gets up into wheelchair d/t too painful, ESRD with hemodialysis-last received 10/07/18, enlarged R kidney with stones-has chronic nephrostomy tube/bag, chronic anemia, mineral bone disease, possible past upper GI bleed, DVT in a leg post op, arhtritis multiple joints, pickwickian syndrome, past respiratory failure/vented, ISACC with Cpap, bilateral lower extremity venous stasis/dermatitis, bilateral lower leg/feet edema and currently scabs on L foot toes. History of Any Multi-Drug Resistant Organisms: C-DIFF, MRSA Date of last positivie culture/infection: 10/10/18 MDRO Source:: MRSA AXILLA Past Surgical History: Adenoidectomy, Back Surgery, Heart Catheterization With Stent, Hernia Repair, Tonsillectomy Additional Past Surgical History / Comment(s): LT ARM FISTULA-NO BP OR BLOOD DRAWS IN LT ARM, PCI with stent, low back surgery, nephrostomy tube, abdominal hernia, colonoscopy with benign polyp Past Anesthesia/Blood Transfusion Reactions: No Reported Reaction Date of Last Stent Placement:: 2004 Past Psychological History: No Psychological Hx Reported Additional Psychological History / Comment(s): Pt has a brother that lives with him and his son comes over daily. They are his caregivers. He currently has no home care. Pt has a hospital bed and stays in bed now d/t too painful to get up into wheelchair. Owns a kelby lift, cpap and megamover transfer mat. Smoking Status: Former smoker Past Alcohol Use History: None Reported Additional Past Alcohol Use History / Comment(s): Pt started smoking in 1971 and quit in 1981 Past Drug Use History: None Reported - Past Family History Brother(s) Family Medical History: Cancer Additional Family Medical History / Comment(s): Colon Ca Father Family Medical History: Cancer Additional Family Medical History / Comment(s): father had lung cancer Medications and Allergies Home Medications Medication Instructions Recorded Confirmed Type Atorvastatin [Lipitor] 10 mg PO HS 10/30/17 03/05/19 History Calcium Acetate [PhosLo] 1,334 mg PO TID 10/30/17 03/05/19 History Diltiazem HCl [Diltiazem 24Hr ER] 120 mg PO DAILY 10/30/17 03/05/19 History Metoprolol Tartrate [Lopressor] 25 mg PO BID 10/30/17 03/05/19 History Potassium Chloride [Klor-Con 10] 10 meq PO BID 10/30/17 03/05/19 History Furosemide [Lasix] 80 mg PO BID 09/11/18 03/05/19 History Midodrine [ProAmatine] 5 - 10 mg PO MOWEFR PRN 09/11/18 03/05/19 History Cholecalciferol [Vitamin D3] 1,000 unit PO DAILY tab 10/17/18 03/05/19 Rx Cyanocobalamin [Vitamin B-12] 1,000 mcg PO DAILY tab 10/17/18 03/05/19 Rx Folic Acid-Vit B Complex-Vit C 1 each PO HS cap 10/17/18 03/05/19 Rx [Nephrocaps] Nystatin 100,000 Unit/gm Powd 1 applic TOPICAL BID applic 10/17/18 03/05/19 Rx [Mycostatin Powder] Ferrous Sulfate [Iron (65 MG 325 mg PO MOWEFR 03/05/19 03/05/19 History Elemental)] HYDROcodone/APAP 5-325MG [[place] 1 tab PO Q6H PRN 03/05/19 03/05/19 History 5-325] Allergies Allergy/AdvReac Type Severity Reaction Status Date / Time No Known Allergies Allergy Verified 03/05/19 21:00 Physical Exam Vitals: Vital Signs Temp Pulse Pulse Resp BP BP Pulse Ox 03/06/19 07:44 97.4 F L 57 L 18 85/49 92 L 03/06/19 06:10 19 03/06/19 04:19 98.8 F 03/06/19 04:00 101 H 19 102/52 93 L 03/06/19 03:30 101 H 23 85/60 95 03/06/19 03:00 98 20 90/57 95 03/06/19 01:30 99 20 95/50 95 03/06/19 01:08 101 H 24 95/50 94 L 03/06/19 00:00 100/59 03/05/19 23:48 105 H 14 03/05/19 23:30 104 H 16 111/64 99 03/05/19 21:41 16 96/83 99 03/05/19 21:07 97.3 F L 104 H 18 134/107 95 Intake and Output 03/05/19 03/06/19 03/06/19 22:59 06:59 14:59 Other: Voiding Method Urinal Urinal Weight 151.953 kg Results - Lab Results Most recent lab results Calcium 8.8 mg/dL (8.4-10.2) 03/05/19 21:38 03/05/19 21:38 03/05/19 21:38 Assessment and Plan Plan: Assessment: 1. End-stage renal disease maintained on hemodialysis on a Sunday schedule. 2. Nausea and vomiting. Possible gastroenteritis. 3. Chronic kidney disease mineral bone disease maintained on PhosLo. 4. Chronic hypotension maintained on midodrine prior to dialysis. 5. Staghorn calculi with chronic right-sided nephrostomy tube in place. 6. Right-sided renal mass. No interventions planned. Patient follows with urology Department out of [facility] in [place]. Plan: Hemodialysis tomorrow. Resume PhosLo with meals. Follow-up cultures. Monitor vancomycin levels. Target level 15. Thank you for the consultation. I will continue to follow the patient with you during his hospital stay.
[2019-03-06] MEDS ORDERED: MIDODRINE 5 MG TAB PO PRN (11:50)
[2019-03-06] MEDS ORDERED: VANCOMYCIN 2,000 MG in SODIUM CHLORIDE 0.9% 500 ML 500 ML IVPB SCH (12:00)
--- NOTE | 2019-03-06 12:42 | P.HPIM ---
History of Present Illness Chief Complaint: Nausea vomiting diarrhea and abdominal pain 68-year-old gentleman with a past medical history significant for incisional disease on dialysis, history of right staghorn calculi status post nephrostomy tube on the right side, comes in with above-mentioned complaints. The patient says that nausea vomiting started about 4 days ago and 2 days ago he started having diarrhea. He says that he's been having fevers and chills with a T-max of 10 1F. He also is complaining of abdominal pain in the lower part of the abdomen. He otherwise does not complain of any chest pain racing heart, no cough no shortness of breath, no tingling numbness of the 70s, and additional rest. Patient says that he is mostly bedbound due to back problems since a long time. Patient is on dialysis. ER course temperature in the ER was 98.8 pulse 101 respiration 19 blood pressure 102/52 satting 9 3 % on room air. Labwork was initial WBC 17.0 hemoglobin 11.1 platelets 368 sodium 137 potassium 3.8 B1 20 creatinine 2.60. Patient had a CT of the abdomen pelvis done which showed mild wall thickening throughout the colon and rectum representing nonspecific proctocolitis. Complex cystic lesion in the inferior pole of the right kidney up to 5.3 cm unchanged from prior exam 7.5 complex mass seen in the superior pole of the right kidney which is unchanged. Patient has nephrostomy tubes. Patient had a UA done which showed more than 182 WBCs. Patient was thus admitted to the hospitalist service with the diagnosis of UTI. Nephrology and infectious disease were consulted Review of Systems All systems: negative Past Medical History Past Medical History: Atrial Fibrillation, Dialysis, Deep Vein Thrombosis (DVT), GI Bleed, Hyperlipidemia, Hypertension, Renal Disease, Sleep Apnea/CPAP/BIPAP Additional Past Medical History / Comment(s): Paraplegia r/t back injury/surgery-pt states he no longer gets up into wheelchair d/t too painful, ESRD with hemodialysis-last received 10/07/18, enlarged R kidney with stones-has chronic nephrostomy tube/bag, chronic anemia, mineral bone disease, possible past upper GI bleed, DVT in a leg post op, arhtritis multiple joints, pickwickian syndrome, past respiratory failure/vented, ISACC with Cpap, bilateral lower extremity venous stasis/dermatitis, bilateral lower leg/feet edema and currently scabs on L foot toes. History of Any Multi-Drug Resistant Organisms: C-DIFF, MRSA Date of last positivie culture/infection: 10/10/18 MDRO Source:: MRSA AXILLA Past Surgical History: Adenoidectomy, Back Surgery, Heart Catheterization With Stent, Hernia Repair, Tonsillectomy Additional Past Surgical History / Comment(s): LT ARM FISTULA-NO BP OR BLOOD DR BRYN IN LT ARM, PCI with stent, low back surgery, nephrostomy tube, abdominal hernia, colonoscopy with benign polyp Past Anesthesia/Blood Transfusion Reactions: No Reported Reaction Date of Last Stent Placement:: 2004 Past Psychological History: No Psychological Hx Reported Additional Psychological History / Comment(s): Pt has a brother that lives with him and his son comes over daily. They are his caregivers. He currently has no home care. Pt has a hospital bed and stays in bed now d/t too painful to get up into wheelchair. Owns a kelby lift, cpap and megamover transfer mat. Smoking Status: Former smoker Past Alcohol Use History: None Reported Additional Past Alcohol Use History / Comment(s): Pt started smoking in 1971 and quit in 1981 Past Drug Use History: None Reported - Past Family History Brother(s) Family Medical History: Cancer Additional Family Medical History / Comment(s): Colon Ca Father Family Medical History: Cancer Additional Family Medical History / Comment(s): father had lung cancer Medications and Allergies Home Medications Medication Instructions Recorded Confirmed Type Atorvastatin [Lipitor] 10 mg PO HS 10/30/17 03/05/19 History Calcium Acetate [PhosLo] 1,334 mg PO TID 10/30/17 03/05/19 History Diltiazem HCl [Diltiazem 24Hr ER] 120 mg PO DAILY 10/30/17 03/05/19 History Metoprolol Tartrate [Lopressor] 25 mg PO BID 10/30/17 03/05/19 History Potassium Chloride [Klor-Con 10] 10 meq PO BID 10/30/17 03/05/19 History Furosemide [Lasix] 80 mg PO BID 09/11/18 03/05/19 History Midodrine [ProAmatine] 5 - 10 mg PO MOWEFR PRN 09/11/18 03/05/19 History Cholecalciferol [Vitamin D3] 1,000 unit PO DAILY tab 10/17/18 03/05/19 Rx Cyanocobalamin [Vitamin B-12] 1,000 mcg PO DAILY tab 10/17/18 03/05/19 Rx Folic Acid-Vit B Complex-Vit C 1 each PO HS cap 10/17/18 03/05/19 Rx [Nephrocaps] Nystatin 100,000 Unit/gm Powd 1 applic TOPICAL BID applic 10/17/18 03/05/19 Rx [Mycostatin Powder] Ferrous Sulfate [Iron (65 MG 325 mg PO MOWEFR 03/05/19 03/05/19 History Elemental)] HYDROcodone/APAP 5-325MG [[place] 1 tab PO Q6H PRN 03/05/19 03/05/19 History 5-325] Allergies Allergy/AdvReac Type Severity Reaction Status Date / Time No Known Allergies Allergy Verified 03/05/19 21:00 Physical Exam Vitals: Vital Signs Temp Pulse Pulse Resp BP BP Pulse Ox 03/06/19 07:44 97.4 F L 57 L 18 85/49 92 L 03/06/19 06:10 19 03/06/19 04:19 98.8 F 03/06/19 04:00 101 H 19 102/52 93 L 03/06/19 03:30 101 H 23 85/60 95 03/06/19 03:00 98 20 90/57 95 03/06/19 01:30 99 20 95/50 95 03/06/19 01:08 101 H 24 95/50 94 L 03/06/19 00:00 100/59 03/05/19 23:48 105 H 14 03/05/19 23:30 104 H 16 111/64 99 03/05/19 21:41 16 96/83 99 03/05/19 21:07 97.3 F L 104 H 18 134/107 95 Intake and Output 03/05/19 03/06/19 03/06/19 22:59 06:59 14:59 Other: Voiding Method Urinal Urinal Weight 151.953 kg On exam, alert and oriented x3. HEENT: Conjunctivae normal. eyes normal. NECK: No JVD. No thyroid enlargement. No LNs CARDIOVASCULAR: S1, S2 muffled. No murmur RESPIRATION: Breath sounds diminished in the bases. No rhonchi or crackles. No bronchial breathing. ABDOMEN: Soft, tenderness in the suprapubic area. Patient has nephrostomy tube in the right side LEGS: No edema. no swelling NERVOUS SYSTEM: Cranial N 2-12 grossly normal. Moves all 4 limbs. No focal deficits. No sensory deficit. No signs of cerebellar dysfucntion. Skin: no ulcer no rash . Results CBC & Chem 7: 03/05/19 21:38 03/05/19 21:38 Labs: Abnormal Lab Results - Last 24 Hours (Table) 03/05/19 03/05/19 03/05/19 Range/Units 21:38 21:38 21:38 WBC 17.0 H (3.8-10.6) k/uL RBC 4.25 L (4.30-5.90) m/uL Hgb 11.1 L (13.0-17.5) gm/dL Hct 37.0 L (39.0-53.0) % MCHC 30.1 L (31.0-37.0) g/dL RDW 18.1 H (11.5-15.5) % Neutrophils # 14.7 H (1.3-7.7) k/uL Chloride 95 L (98-107) mmol/L Carbon Dioxide 33 H (22-30) mmol/L Creatinine 2.60 H (0.66-1.25) mg/dL Lipase 16 L (23-300) U/L Urine Protein (Negative) Urine Blood (Negative) Ur Leukocyte Esterase (Negative) Urine RBC (0-5) /hpf Urine WBC (0-5) /hpf Urine WBC Clumps (None) /hpf 03/06/19 Range/Units 02:00 WBC (3.8-10.6) k/uL RBC (4.30-5.90) m/uL Hgb (13.0-17.5) gm/dL Hct (39.0-53.0) % MCHC (31.0-37.0) g/dL RDW (11.5-15.5) % Neutrophils # (1.3-7.7) k/uL Chloride (98-107) mmol/L Carbon Dioxide (22-30) mmol/L Creatinine (0.66-1.25) mg/dL Lipase (23-300) U/L Urine Protein 3+ H (Negative) Urine Blood Moderate H (Negative) Ur Leukocyte Esterase Large H (Negative) Urine RBC 180 H (0-5) /hpf Urine WBC >182 H (0-5) /hpf Urine WBC Clumps Many H (None) /hpf Microbiology - Last 24 Hours (Table) 03/06/19 02:45 Body Fluid Culture - Preliminary Aspirate 03/06/19 02:00 Urine Culture - Preliminary Urine,Catheterized Thrombosis Risk Factor Assmnt - Choose All That Apply Any of the Below Risk Factors Present?: Yes Each Factor Represents 1 point: Obesity (BMI >25) Other Risk Factors: Yes Each Risk Factor Represents 2 Points: Age 61-74 years Thrombosis Risk Factor Assessment Total Risk Factor Score: 3 Thrombosis Risk Factor Assessment Level: Moderate Risk Assessment and Plan Assessment: - UTI - Proctocolitis - End-stage renal disease on dialysis - History of right staghorn calculi - History of complex mass in the right kidney. No surgical intervention contemplated at this time patient follows with urology as an outpatient - Obesity - History of A. fib - History of DVT - History of hyperlipidemia - History of hypertension - History of sleep apnea Plan - Patient is admitted to inpatient with telemetry - Continue antibiotics. Infectious disease consulted we'll wait for the expert recommendation from them - Continue dialysis as per nephrology schedule - Continue rest of home medications - DVT and GI prophylaxis - We'll order for lab work in the morning - Expected length of stay: 2 midnights - Patient is full code Time with Patient: Greater than 30
[2019-03-06] MEDS: CALCIUM ACETATE 667 MG CAP PO SCH ×2 (12:47→17:01)
[2019-03-06] MEDS: FUROSEMIDE 80 MG TAB PO SCH (17:01)
[2019-03-06] MEDS: CHERRY FLAVOR 60 ML BOTTLE PO PRN ×2 (17:40→23:13)
[2019-03-06] MEDS: VANCOMYCIN ORAL SOLUTION 250 MG/5 ML BOTTLE PO SCH ×2 (17:41→23:13)
[2019-03-06] MEDS ORDERED: CEFEPIME 0.5 GM in SODIUM CHLORIDE 0.9% 50 ML IVPB SCH (21:00)
[2019-03-06] MEDS: NYSTATIN 100,000 UNIT/GM POWD 15 GM TOPICAL SCH (21:35)
[2019-03-06] MEDS: ATORVASTATIN 10 MG TAB PO SCH (21:35)
[2019-03-06] MEDS: METOPROLOL TARTRATE 25 MG TAB PO SCH (21:55)
[2019-03-06] MEDS: HYDROcodone/APAP 5-325MG 1 EACH TAB PO PRN (22:52)
--- NOTE | 2019-03-06 23:26 | P.CONS ---
History of Present Illness - Reason for Consult Consult date: 03/06/19 - Chief Complaint Nausea and emesis - History of Present Illness 68-year-old male has multiple medical troubles that includes obesity, end-stage renal disease on hemodialysis, chronic staghorn calculus into the right kidney with obstruction requiring percutaneous nephrostomy tube for norah inage. Patient also has renal masses with concerns to underlying neoplasm. Disease-related the patient has been recently evaluated by his utility assembler at [facility] without any new changes. The patient has a very poor functional status and is not thought to be a surgical candidate for any specific intervention such as nephrectomy. Is related the patient suddenly became ill after his dialysis and during his dinner on the day of admission. He developed nausea and emesis and because of this he was brought to the emergency center and admitted. With concerns to sepsis the infectious diseases consultation was requested. The patient relates that he feels poorly. Nausea though is im proving. He believes he had fever and chill this is now improved. He has no new skin rashes. In the drainage from the percutaneous tube is without acute change. Review of Systems HEENT:Denies headache or acute visual change. Denies sinus or mouth discomforts. Denies neck stiffness or pain. Denies significant oral cavity pain. Denies difficulty on swallowing. Lungs: Denies significant shortness of breath, cough, sputum production, or hemoptysis. Cardiovascular: Denies significant shortness of breath, chest pain, chest wall pain, orthopnea, dyspnea on exertion, syncope Gastrointestinal: Is under pretty HPI Musculoskeletal: Chronic difficulty with ambulation due to lower extremity abnormalities Skin: Denies new rash or lesions. No new ulcers or wounds are related.. Neuro: Patient denies stroke but has evidence of poor function of the lower extremities right greater than left Psychiatric:Denies anxiety or depression. Endocrine: Chronic fatigue and superobesity Past Medical History Past Medical History: Atrial Fibrillation, Dialysis, Deep Vein Thrombosis (DVT), GI Bleed, Hyperlipidemia, Hypertension, Renal Disease, Sleep Apnea/CPAP/BIPAP Additional Past Medical History / Comment(s): Paraplegia r/t back injury/surgery-pt states he no longer gets up into wheelchair d/t too painful, ESRD with hemodialysis-last received 10/07/18, enlarged R kidney with stones-has chronic nephrostomy tube/bag, chronic anemia, mineral bone disease, possible past upper GI bleed, DVT in a leg post op, arhtritis multiple joints, pickwickian syndrome, past respiratory failure/vented, ISACC with Cpap, bilateral lower extremity venous stasis/dermatitis, bilateral lower leg/feet edema and cur rently scabs on L foot toes. History of Any Multi-Drug Resistant Organisms: C-DIFF, MRSA Year Discovered:: 10/10/18 MDRO Source:: MRSA AXILLA Past Surgical History: Adenoidectomy, Back Surgery, Heart Catheterization With Stent, Hernia Repair, Tonsillectomy Additional Past Surgical History / Comment(s): LT ARM FISTULA-NO BP OR BLOOD DRAWS IN LT ARM, PCI with stent, low back surgery, nephrostomy tube, abdominal hernia, colonoscopy with benign polyp Past Anesthesia/Blood Transfusion Reactions: No Reported Reaction Date of Last Stent Placement:: 2004 Past Psychological History: No Psychological Hx Reported Additional Psychological History / Comment(s): Pt has a brother that lives with him and his son comes over daily. They are his caregivers. He currently has no home care. Pt has a hospital bed and stays in bed now d/t too painful to get up into wheelchair. Owns a kelby lift, cpap and megamover transfer mat. Smoking Status: Former smoker Past Alcohol Use History: None Reported Additional Past Alcohol Use History / Comment(s): Pt started smoking in 1971 and quit in 1981 Past Drug Use History: None Reported - Past Family History Brother(s) Family Medical History: Cancer Additional Family Medical History / Comment(s): Colon Ca Father Family Medical History: Cancer Additional Family Medical History / Comment(s): father had lung cancer Medications and Allergies Home Medications and Allergies Comment(s): Current Medications Hydrocodone Bitart/Acetaminophen (Casselberry 5-325) 1 each PO Q6H PRN PRN Reason: Pain Last Admin: 03/06/19 22:52 Dose: 1 each Documented by: Atorvastatin Calcium (Lipitor) 10 mg PO HS [facility] Last Admin: 03/06/19 21:35 Dose: 10 mg Documented by: Calcium Acetate (Phoslo) 1,334 mg PO TID-W/MEALS [facility] Last Admin: 03/06/19 17:01 Dose: 1,334 mg Documented by: Ballard Syrup (Ballard Syrup) 5 ml PO Q6HR PRN PRN Reason: VANCO FLAVORING Last Admin: 03/06/19 23:13 Dose: 5 ml Documented by: Cholecalciferol (Vitamin D3) 1,000 unit PO DAILY [facility] Diltiazem HCl (Cardizem Cd) 120 mg PO DAILY [facility] Ferrous Sulfate (Feosol) 325 mg PO MoWeFr@1200 [facility] Furosemide (Lasix) 80 mg PO BID@0900,1600 [facility] Last Admin: 03/06/19 17:01 Dose: 80 mg Documented by: Sodium Chloride (Saline 0.9%) 1,000 mls @ 40 mls/hr IV .Q24H [facility] Last Admin: 03/06/19 07:44 Dose: Not Given Documented by: Cefepime HCl 0.5 gm/ Sodium (Chloride) 50 mls @ 100 mls/hr IVPB Q24H [facility] Last Admin: 03/06/19 21:35 Dose: 100 mls/hr Documented by: Metoprolol Tartrate (Lopressor) 25 mg PO BID [facility] Last Admin: 03/06/19 21:55 Dose: 25 mg Documented by: Midodrine (Proamatine) 5 - 10 mg PO MOWEFR PRN PRN Reason: DIALYSIS Naloxone HCl (Narcan) 0.2 mg IV Q2M PRN PRN Reason: Opioid Reversal Nystatin (Mycostatin Powder) 1 applic TOPICAL BID [facility] Last Admin: 03/06/19 21:35 Dose: 1 applic Documented by: Vancomycin HCl (Vancomycin Oral Solution) 250 mg PO Q6HR [facility] Last Admin: 03/06/19 23:13 Dose: 250 mg Documented by: Home Medications Medication Instructions Recorded Confirmed Type Atorvastatin [Lipitor] 10 mg PO HS 10/30/17 03/05/19 History Calcium Acetate [PhosLo] 1,334 mg PO TID 10/30/17 03/05/19 History Diltiazem HCl [Diltiazem 24Hr ER] 120 mg PO DAILY 10/30/17 03/05/19 History Metoprolol Tartrate [Lopressor] 25 mg PO BID 10/30/17 03/05/19 History Potassium Chloride [Klor-Con 10] 10 meq PO BID 10/30/17 03/05/19 History Furosemide [Lasix] 80 mg PO BID 09/11/18 03/05/19 History Midodrine [ProAmatine] 5 - 10 mg PO MOWEFR PRN 09/11/18 03/05/19 History Cholecalciferol [Vitamin D3] 1,000 unit PO DAILY tab 10/17/18 03/05/19 Rx Cyanocobalamin [Vitamin B-12] 1,000 mcg PO DAILY tab 10/17/18 03/05/19 Rx Folic Acid-Vit B Complex-Vit C 1 each PO HS cap 10/17/18 03/05/19 Rx [Nephrocaps] Nystatin 100,000 Unit/gm Powd 1 applic TOPICAL BID applic 10/17/18 03/05/19 Rx [Mycostatin Powder] Ferrous Sulfate [Iron (65 MG 325 mg PO MOWEFR 03/05/19 03/05/19 History Elemental)] HYDROcodone/APAP 5-325MG [Casselberry 1 tab PO Q6H PRN 03/05/19 03/05/19 History 5-325] Allergies Allergy/AdvReac Type Severity Reaction Status Date / Time No Known Allergies Allergy Verified 03/05/19 21:00 Physical Exam Vitals: Vital Signs Temp Pulse Pulse Resp BP BP Pulse Ox 03/06/19 19:19 97.5 F L 80 17 99/55 98 03/06/19 16:13 97 03/06/19 14:53 97.6 F 100 18 81/53 94 L 03/06/19 07:44 97.4 F L 57 L 18 85/49 92 L 03/06/19 06:10 19 03/06/19 04:19 98.8 F 03/06/19 04:00 101 H 19 102/52 93 L 03/06/19 03:30 101 H 23 85/60 95 03/06/19 03:00 98 20 90/57 95 03/06/19 01:30 99 20 95/50 95 03/06/19 01:08 101 H 24 95/50 94 L 03/06/19 00:00 100/59 03/05/19 23:48 105 H 14 03/05/19 23:30 104 H 16 111/64 99 Intake and Output 03/06/19 03/06/19 03/07/19 14:59 22:59 06:59 Intake Total 540 540 Balance 540 540 Intake: Oral 540 540 Other: Voiding Method Urinal Urinal # Voids 1 0 # Bowel Movements 2 0 Pleasant superobese male who relates feeling somewhat better than at home. Intense nausea and emesis have resolved. Appetite is poor. Fever and chill have improved HEENT: Anicteric conjunctiva are pink and moist nasal mucosa grossly intact without significant lesions, there is no thrush. Neck: The neck is supple without significant lymphadenopathy or thyromegaly. Lungs: Good bilateral air entry without significant crackles or wheezing. There is no significant bronchial sounds. There is no egophony or dullness. Heart: Regular rate and rhythm with an audible S1-S2, no S3 no S4. There is no significant murmur click or rub, PMI was nondisplaced. Abdomen: Obese, large pannus limits exam but it is not tender bowel sounds are heard Extremities: The upper and lower extremities are evaluated. The hemodialysis fistula to the upper extremity is without tenderness. There is no drainage or erythema. Lower extremities have chronic venous stasis in lipedema changes without open ulcerations being seen Neuro: Patient is awake and alert he is able to answer simple questions he however has this lower extremity malfunction but he relates is not from a stroke and cannot really tell why he has a difficulty with ambulation. Results CBC & Chem 7: 03/05/19 21:38 03/05/19 21:38 Labs: Abnormal Lab Results - Last 24 Hours (Table) 03/06/19 03/06/19 Range/Units 02:00 14:45 Urine Protein 3+ H (Negative) Urine Blood Moderate H (Negative) Ur Leukocyte Esterase Large H (Negative) Urine RBC 180 H (0-5) /hpf Urine WBC >182 H (0-5) /hpf Urine WBC Clumps Many H (None) /hpf C. difficile (EIA) Intrp Positive A (Negative) Microbiology - Last 24 Hours (Table) 03/06/19 02:45 Gram Stain - Preliminary Aspirate Body Fluid Culture - Preliminary 03/06/19 02:00 Urine Culture - Preliminary Urine,Catheterized Laboratory Results WBC 17.0 k/uL (3.8-10.6) H 03/05/19 21:38 RBC 4.25 m/uL (4.30-5.90) L 03/05/19 21:38 Hgb 11.1 gm/dL (13.0-17.5) L 03/05/19 21:38 Hct 37.0 % (39.0-53.0) L 03/05/19 21:38 MCV 87.0 fL (80.0-100.0) 03/05/19 21:38 MCH 26.2 pg (25.0-35.0) 03/05/19 21:38 MCHC 30.1 g/dL (31.0-37.0) L 03/05/19 21:38 RDW 18.1 % (11.5-15.5) H 03/05/19 21:38 Plt Count 368 k/uL (150-450) 03/05/19 21:38 Neutrophils % 87 % 03/05/19 21:38 Lymphocytes % 7 % 03/05/19 21:38 Monocytes % 4 % 03/05/19 21:38 Eosinophils % 1 % 03/05/19 21:38 Basophils % 0 % 03/05/19 21:38 Neutrophils # 14.7 k/uL (1.3-7.7) H 03/05/19 21:38 Lymphocytes # 1.1 k/uL (1.0-4.8) 03/05/19 21:38 Monocytes # 0.7 k/uL (0-1.0) 03/05/19 21:38 Eosinophils # 0.2 k/uL (0-0.7) 03/05/19 21:38 Basophils # 0.0 k/uL (0-0.2) 03/05/19 21:38 Hypochromasia Marked 03/05/19 21:38 Anisocytosis Slight 03/05/19 21:38 Sodium 137 mmol/L (137-145) 03/05/19 21:38 Potassium 3.8 mmol/L (3.5-5.1) 03/05/19 21:38 Chloride 95 mmol/L (98-107) L 03/05/19 21:38 Carbon Dioxide 33 mmol/L (22-30) H 03/05/19 21:38 Anion Gap 9 mmol/L 03/05/19 21:38 BUN 20 mg/dL (9-20) 03/05/19 21:38 Creatinine 2.60 mg/dL (0.66-1.25) H 03/05/19 21:38 Est GFR (CKD-EPI)AfAm 28 (>60 ml/min/1.73 sqM) 03/05/19 21:38 Est GFR (CKD-EPI)NonAf 25 (>60 ml/min/1.73 sqM) 03/05/19 21:38 Glucose 97 mg/dL (74-99) 03/05/19 21:38 Plasma Lactic Acid Dennis 1.2 mmol/L (0.7-2.0) 03/05/19 21:38 Calcium 8.8 mg/dL (8.4-10.2) 03/05/19 21:38 Total Bilirubin 0.7 mg/dL (0.2-1.3) 03/05/19 21:38 AST 19 U/L (17-59) 03/05/19 21:38 ALT 21 U/L (21-72) 03/05/19 21:38 Alkaline Phosphatase 92 U/L (38-126) 03/05/19 21:38 Total Protein 7.6 g/dL (6.3-8.2) 03/05/19 21:38 Albumin 3.5 g/dL (3.5-5.0) 03/05/19 21:38 Lipase 16 U/L (23-300) L 03/05/19 21:38 Urine Color Yellow 03/06/19 02:00 Urine Appearance Turbid (Clear) 03/06/19 02:00 Urine pH 8.0 (5.0-8.0) 03/06/19 02:00 Ur Specific [place] 1.019 (1.001-1.035) 03/06/19 02:00 Urine Protein 3+ (Negative) H 03/06/19 02:00 Urine Glucose (UA) Negative (Negative) 03/06/19 02:00 Urine Ketones Negative (Negative) 03/06/19 02:00 Urine Blood Moderate (Negative) H 03/06/19 02:00 Urine Nitrite Negative (Negative) 03/06/19 02:00 Urine Bilirubin Negative (Negative) 03/06/19 02:00 Urine Urobilinogen <2.0 mg/dL (<2.0) 03/06/19 02:00 Ur Leukocyte Esterase Large (Negative) H 03/06/19 02:00 Urine RBC 180 /hpf (0-5) H 03/06/19 02:00 Urine WBC >182 /hpf (0-5) H 03/06/19 02:00 Urine WBC Clumps Many /hpf (None) H 03/06/19 02:00 C. difficile (EIA) Intrp Positive (Negative) A 03/06/19 14:45 Microbiology 03/06/19 02:45 Aspirate Gram Stain - Preliminary 03/06/19 02:45 Aspirate Body Fluid Culture - Preliminary 03/06/19 02:00 Urine,Catheterized Urine Culture - Preliminary Assessment and Plan (1) Sepsis Narrative/Plan: 68-year-old male presents to emergency center feeling very poorly with the onset of nausea and emesis after his bout of hemodialysis. Was unable to eat his dinner because of the difficulty with nausea and emesis. Because of his illness he was brought to hospital and has been admitted. evaluations reveal evidence of infection to the drainage from the nephrostomy tube antibiotic therapy has been initiated. There is no evidence of any small bowel obstruction, pneumonia or new skin lesions. Antibiotic therapy was initiated with vancomycin as well as cefepime. We'll continue vancomycin for now given the concern to the infection from the nephrostomy tube. Oral vancomycin will be started for the treatment of the C. diff colitis We'll try to limit antibiotic therapy is much as possible given the C. diff colitis. The leukocytosis is likely due to the C. diff colitis as well as what appears to be a gram-positive cocci infection of the urinary system. Current Visit: Yes Status: Acute Code(s): A41.9 - SEPSIS, UNSPECIFIED ORGANISM SNOMED Code(s): 65846393 (2) Intractable nausea and vomiting Current Visit: No Status: Acute Code(s): R11.2 - NAUSEA WITH VOMITING, UNSPECIFIED SNOMED Code(s): 149850344 (3) UTI (urinary tract infection) Current Visit: Yes Status: Acute Code(s): N39.0 - URINARY TRACT INFECTION, SITE NOT SPECIFIED SNOMED Code(s): 82509849 (4) C. difficile colitis Current Visit: Yes Status: Acute Code(s): A04.72 - ENTEROCOLITIS D/T CLOSTRIDIUM DIFFICILE, NOT SPCF RECUR SNOMED Code(s): 187660089
[2019-03-07] MEDS ORDERED: CEFEPIME 2 GM in SODIUM CHLORIDE 0.9% 100 ML IVPB SCH (03:00)
[2019-03-07 03:50] LABS: Hepatitis B Surface AB- Quant 3.5 mIU/mL
[2019-03-07] MEDS ORDERED: SODIUM CHLORIDE 0.9% 250 ML IV SCH (06:00)
[2019-03-07] MEDS ORDERED: VANCOMYCIN 2,000 MG in SODIUM CHLORIDE 0.9% 500 ML 500 ML IVPB ONE ×2 (06:00→09:00)
[2019-03-07] MEDS: VANCOMYCIN ORAL SOLUTION 250 MG/5 ML BOTTLE PO SCH ×4 (06:09→23:45)
[2019-03-07] MEDS: CHERRY FLAVOR 60 ML BOTTLE PO PRN ×2 (06:10→23:45)
[2019-03-07] MEDS ORDERED: SODIUM CHLORIDE 0.9% 500 ML 250 ML IV SCH (06:12)
[2019-03-07 06:16] LABS: Partial Thromboplastin Time 25.4 sec (22.0-30.0); Prothrombin Time 10.8 sec (9.0-12.0)
[2019-03-07 06:18] LABS: Calcium 8.3 mg/dL (8.4-10.2); Potassium 3.7 mmol/L (3.5-5.1)
[2019-03-07] MEDS: SODIUM CHLORIDE 0.9% 1,000 ML IV SCH (08:32)
[2019-03-07] MEDS: CHOLECALCIFEROL 1,000 UNIT TAB PO SCH (08:36)
[2019-03-07] MEDS: CALCIUM ACETATE 667 MG CAP PO SCH ×3 (08:36→17:50)
[2019-03-07] MEDS: NYSTATIN 100,000 UNIT/GM POWD 15 GM TOPICAL SCH ×2 (08:54→20:09)
--- NOTE | 2019-03-07 09:06 | P.PN ---
Subjective Patient is seen in follow-up for end-stage renal disease. He is maintained on hemodialysis on a Sunday schedule. Denies chest pain or shortness of breath. Vomiting has resolved. He did have an episode of diarrhea this morning. He is noted to be C. diff positive. Patient is a chronic right- sided nephrostomy tube in place for staghorn calculus. Culture is positive for MRSA. Vital signs are stable. General: The patient appeared well nourished and normally developed. HEENT: Head exam is unremarkable. Neck is without jugular venous distension. LUNGS: Breath sounds decreased. HEART: Rate and Rhythm are regular. First and second heart sounds normal. No murmurs, rubs or gallops. ABDOMEN: Abdominal exam reveals normal bowel sounds. Morbidly obese. EXTREMITITES: 1+ edema. Chronic changes noted. Objective - Vital Signs Vital signs: Vital Signs Temp 97.9 F 03/07/19 07:00 Pulse 84 03/07/19 07:00 Resp 18 03/07/19 07:00 BP 79/58 03/07/19 07:00 Pulse Ox 97 03/07/19 07:00 Intake & Output 03/06/19 03/07/19 03/07/19 18:59 06:59 18:59 Intake Total 1080 Output Total 40 Balance 1080 -40 Intake: Oral 1080 Output: Drainage 40 Right Lateral 40 Other: Voiding Method Urinal Urinal # Voids 1 0 # Bowel Movements 1 1 - Labs CBC & Chem 7: 03/05/19 21:38 03/07/19 05:55 Labs: Abnormal Lab Results - Last 24 Hours (Table) 03/06/19 03/07/19 Range/Units 14:45 05:55 Sodium 136 L (137-145) mmol/L BUN 31 H (9-20) mg/dL Creatinine 3.72 H (0.66-1.25) mg/dL Glucose 101 H (74-99) mg/dL Calcium 8.3 L (8.4-10.2) mg/dL C. difficile (EIA) Intrp Positive A (Negative) Microbiology - Last 24 Hours (Table) 03/06/19 02:45 Gram Stain - Preliminary Aspirate Body Fluid Culture - Preliminary Presumptive MRSA 03/06/19 01:51 Blood Culture - Preliminary Blood No Growth after 24 hours 03/06/19 02:00 Urine Culture - Preliminary Urine,Catheterized Assessment and Plan Plan: Assessment: 1. End-stage renal disease maintained on hemodialysis on a Sunday schedule. 2. Nausea and vomiting. Possible gastroenteritis. Better. 3. Chronic kidney disease mineral bone disease maintained on PhosLo. 4. Chronic hypotension maintained on midodrine prior to dialysis. 5. Staghorn calculi with chronic right-sided nephrostomy tube in place. Culture positive for MRSA. 6. Right-sided renal mass. No interventions planned. Patient follows with urology Department out of [facility] in [place]. 7. C. diff colitis. Maintained on oral vancomycin. Plan: Hemodialysis today. Resume PhosLo with meals. Follow-up cultures. Monitor vancomycin levels. Target level 15. Increase midodrine to 10 mg 3 times daily as needed for systolic blood pressure less than 90.
[2019-03-07] MEDS: FUROSEMIDE 80 MG TAB PO SCH ×2 (11:31→15:58)
[2019-03-07] MEDS: DILTIAZEM CD 120 MG CAP.ER.24H PO SCH (11:31)
--- NOTE | 2019-03-07 12:54 | P.PN ---
Subjective Patient says that he still having diarrhea Feeling weak No nausea and vomiting No chest pain or racing heart Blood pressure low this morning Objective - Vital Signs Vital signs: Vital Signs Temp 97.9 F 03/07/19 07:00 Pulse 84 03/07/19 07:00 Resp 18 03/07/19 07:00 BP 79/58 03/07/19 07:00 Pulse Ox 97 03/07/19 07:00 Intake & Output 03/06/19 03/07/19 03/07/19 18:59 06:59 18:59 Intake Total 1080 400 Output Total 40 Balance 1080 -40 400 Intake: Oral 1080 400 Output: Drainage 40 Right Lateral 40 Other: Voiding Method Urinal Urinal Urinal # Voids 1 0 # Bowel Movements 1 1 1 - Exam On exam, alert and oriented x3. HEENT: Conjunctivae normal. eyes normal. NECK: No JVD. No thyroid enlargement. No LNs CARDIOVASCULAR: S1, S2 muffled. No murmur RESPIRATION: Breath sounds diminished in the bases. No rhonchi or crackles. No bronchial breathing. ABDOMEN: Soft, tenderness in the suprapubic area. Patient has nephrostomy tube in the right side LEGS: No edema. no swelling NERVOUS SYSTEM: Cranial N 2-12 grossly normal. Moves all 4 limbs. No focal deficits. No sensory deficit. No signs of cerebellar dysfucntion. Skin: no ulcer no rash - Labs CBC & Chem 7: 03/05/19 21:38 03/07/19 05:55 Labs: Abnormal Lab Results - Last 24 Hours (Table) 03/06/19 03/07/19 Range/Units 14:45 05:55 Sodium 136 L (137-145) mmol/L BUN 31 H (9-20) mg/dL Creatinine 3.72 H (0.66-1.25) mg/dL Glucose 101 H (74-99) mg/dL Calcium 8.3 L (8.4-10.2) mg/dL C. difficile (EIA) Intrp Positive A (Negative) Microbiology - Last 24 Hours (Table) 03/06/19 02:00 Urine Culture - Preliminary Urine,Catheterized Presumptive Staph aureus 03/06/19 02:45 Gram Stain - Preliminary Aspirate Body Fluid Culture - Preliminary Presumptive MRSA 03/06/19 01:51 Blood Culture - Preliminary Blood No Growth after 24 hours Assessment and Plan Assessment: - UTI- MRSA positive - C. diff colitis - End-stage renal disease on dialysis - History of right staghorn calculi - History of complex mass in the right kidney. No surgical intervention contemplated at this time patient follows with urology as an outpatient - Obesity - History of A. fib - History of DVT - History of hyperlipidemia - History of hypertension - History of sleep apnea Plan - Continue IV and oral vancomycin - ID on board. Appreciate the recommendations - Dialysis as per nephrology - Patient blood pressure low this morning. Cardigayathrim and Eron on hold - We'll discuss with infectious disease regarding possibility of referring the patient for fecal transplant. Time with Patient: Less than 30
[2019-03-07] MEDS: MIDODRINE 5 MG TAB PO SCH ×3 (12:59→17:50)
[2019-03-07] MEDS: FERROUS SULFATE 325 MG TAB PO SCH (13:00)
--- NOTE | 2019-03-07 13:49 | CDI ---
Documentation Clarification Form Date: 03/07/2019 1:34:06 PM From: Shauna DuttonSolomonFREDDIE donaldson, CCDS Admit Date: 03/06/2019 3:26:00 AM Patient Name: Ramesh Dahl Visit Number: [id number] Discharge Date: ATTENTION: The Clinical Documentation Specialists (CDI) and [facility] Coding Staff appreciate your assistance in clarifying documentation. Please respond to the clarification below the line at the bottom and electronically sign. The CDI & [facility] Coding staff will review the response and follow-up if needed. Please note: Queries are made part of the Legal Health Record. If you have any questions, please contact the author of this message via ITS. Dr. Dilan Zeng: Per the Infectious Disease consult: "With concerns to sepsis the infectious diseases consultation was requested. 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 Clinical Indicators: Presented with nausea, vomiting & diarrhea after dialysis treatment. VS: T 97.3*, P 104^, R 18, BP 134/107, PO 95 RA BMI: 46.7 LAB: WBC 17.0^, Neut 14.7^, Lactic Acid (1.2) UA: Yellow, Turbid, 3+ protein, moderate blood, Large Esterase, RBC 180^, WBC >182^. Urine Culture: Preliminary MRSA. C Diff: positive Treatment: Telemetry, Blood culture, Urine culture, IV Cefepime, IV fluid boluses, IV Vanco, Consults: Infectious disease, Nephrology In your professional opinion, please clarify if these findings signify one of the following conditions, whether the condition is POA, and cause, if known: Sepsis ruled out Sepsis, due to: With or Without Severe Sepsis Other, please specify Unable to determine Present on Admission o Yes o No Identify the (suspected) organism (Last Revision: February 2018) MTDD
[2019-03-07] MEDS: METOPROLOL TARTRATE 25 MG TAB PO SCH ×2 (15:58→20:06)
[2019-03-07] MEDS: ATORVASTATIN 10 MG TAB PO SCH (20:09)
--- NOTE | 2019-03-07 22:57 | P.PN ---
Subjective Progress Note Date: 03/07/19 68-year-old male has multiple medical troubles that includes obesity, end-stage renal disease on hemodialysis, chronic staghorn calculus into the right kidney with obstruction requiring percutaneous nephrostomy tube for drainage. Patient also has renal masses with concerns to underlying neoplasm. 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 The patient has a very poor functional status and is not thought to be a surgical candidate for any specific intervention such as nephrectomy. Is related the patient suddenly became ill after his dialysis and during his dinner on the day of admission. He developed nausea and emesis and because of this he was brought to the emergency center and admitted. With concerns to sepsis the infectious diseases consultation was requested. The patient relates that he feels poorly. Nausea though is improving. He believes he had fever and chill this is now improved. He has no new skin rashes. In the drainage from the percutaneous tube is without acute change 03/07/2018 the patient feels slightly better. Her appetite improved. Tolerated dialysis well. Denies fevers or chills today. Purulent drainage continues out of the percutaneous nephrostomy tube. Objective - Vital Signs Vital signs: Vital Signs Temp 98.0 F 03/07/19 19:24 Pulse 96 03/07/19 19:24 Resp 17 03/07/19 19:24 BP 67/53 03/07/19 19:24 Pulse Ox 95 03/07/19 19:24 Intake & Output 03/07/19 03/07/19 03/08/19 06:59 18:59 06:59 Intake Total 640 Output Total 40 4015 Balance -40 -3379 Intake: Oral 640 Output: Drainage 40 15 Right Lateral 40 15 Hemodialysis 4000 Other: Voiding Method Urinal Urinal # Voids 0 0 2 # Bowel Movements 1 3 1 - Exam Pleasant superobese male who relates feeling somewhat better than at home. Intense nausea and emesis have resolved. Appetite is poor. Fever and chill have improved HEENT: Anicteric conjunctiva are pink and moist nasal mucosa grossly intact without significant lesions, there is no thrush. Neck: The neck is supple without significant lymphadenopathy or thyromegaly. Lungs: Good bilateral air entry without significant crackles or wheezing. There is no significant bronchial sounds. There is no egophony or dullness. Heart: Regular rate and rhythm with an audible S1-S2, no S3 no S4. There is no significant murmur click or rub, PMI was nondisplaced. Abdomen: Obese, large pannus limits exam but it is not tender bowel sounds are heard Extremities: The upper and lower extremities are evaluated. The hemodialysis fistula to the upper extremity is without tenderness. There is no drainage or erythema. Lower extremities have chronic venous stasis in lipedema changes without open ulcerations being seen Neuro: Patient is awake and alert he is able to answer simple questions he however has this lower extremity malfunction but he relates is not from a stroke and cannot really tell why he has a difficulty with ambulation. - Labs CBC & Chem 7: 03/05/19 21:38 03/07/19 05:55 Labs: Abnormal Lab Results - Last 24 Hours (Table) 03/07/19 Range/Units 05:55 Sodium 136 L (137-145) mmol/L BUN 31 H (9-20) mg/dL Creatinine 3.72 H (0.66-1.25) mg/dL Glucose 101 H (74-99) mg/dL Calcium 8.3 L (8.4-10.2) mg/dL Microbiology - Last 24 Hours (Table) 03/06/19 02:00 Urine Culture - Preliminary Urine,Catheterized Presumptive Staph aureus 03/06/19 02:45 Gram Stain - Preliminary Aspirate Body Fluid Culture - Preliminary Presumptive MRSA 03/06/19 01:51 Blood Culture - Preliminary Blood No Growth after 24 hours Laboratory Results WBC 17.0 k/uL (3.8-10.6) H 03/05/19 21:38 RBC 4.25 m/uL (4.30-5.90) L 03/05/19 21:38 Hgb 11.1 gm/dL (13.0-17.5) L 03/05/19 21:38 Hct 37.0 % (39.0-53.0) L 03/05/19 21:38 MCV 87.0 fL (80.0-100.0) 03/05/19 21:38 MCH 26.2 pg (25.0-35.0) 03/05/19 21:38 MCHC 30.1 g/dL (31.0-37.0) L 03/05/19 21:38 RDW 18.1 % (11.5-15.5) H 03/05/19 21:38 Plt Count 368 k/uL (150-450) 03/05/19 21:38 Neutrophils % 87 % 03/05/19 21:38 Lymphocytes % 7 % 03/05/19 21:38 Monocytes % 4 % 03/05/19 21:38 Eosinophils % 1 % 03/05/19 21:38 Basophils % 0 % 03/05/19 21:38 Neutrophils # 14.7 k/uL (1.3-7.7) H 03/05/19 21:38 Lymphocytes # 1.1 k/uL (1.0-4.8) 03/05/19 21:38 Monocytes # 0.7 k/uL (0-1.0) 03/05/19 21:38 Eosinophils # 0.2 k/uL (0-0.7) 03/05/19 21:38 Basophils # 0.0 k/uL (0-0.2) 03/05/19 21:38 Hypochromasia Marked 03/05/19 21:38 Anisocytosis Slight 03/05/19 21:38 PT 10.8 sec (9.0-12.0) 03/07/19 05:55 INR 1.0 (<1.2) 03/07/19 05:55 APTT 25.4 sec (22.0-30.0) 03/07/19 05:55 Sodium 136 mmol/L (137-145) L 03/07/19 05:55 Potassium 3.7 mmol/L (3.5-5.1) 03/07/19 05:55 Chloride 98 mmol/L (98-107) 03/07/19 05:55 Carbon Dioxide 29 mmol/L (22-30) 03/07/19 05:55 Anion Gap 9 mmol/L 03/07/19 05:55 BUN 31 mg/dL (9-20) H 03/07/19 05:55 Creatinine 3.72 mg/dL (0.66-1.25) H 03/07/19 05:55 Est GFR (CKD-EPI)AfAm 18 (>60 ml/min/1.73 sqM) 03/07/19 05:55 Est GFR (CKD-EPI)NonAf 16 (>60 ml/min/1.73 sqM) 03/07/19 05:55 Glucose 101 mg/dL (74-99) H 03/07/19 05:55 Plasma Lactic Acid Dennis 1.2 mmol/L (0.7-2.0) 03/05/19 21:38 Calcium 8.3 mg/dL (8.4-10.2) L 03/07/19 05:55 Total Bilirubin 0.7 mg/dL (0.2-1.3) 03/05/19 21:38 AST 19 U/L (17-59) 03/05/19 21:38 ALT 21 U/L (21-72) 03/05/19 21:38 Alkaline Phosphatase 92 U/L (38-126) 03/05/19 21:38 Total Protein 7.6 g/dL (6.3-8.2) 03/05/19 21:38 Albumin 3.5 g/dL (3.5-5.0) 03/05/19 21:38 Lipase 16 U/L (23-300) L 03/05/19 21:38 Urine Color Yellow 03/06/19 02:00 Urine Appearance Turbid (Clear) 03/06/19 02:00 Urine pH 8.0 (5.0-8.0) 03/06/19 02:00 Ur Specific [place] 1.019 (1.001-1.035) 03/06/19 02:00 Urine Protein 3+ (Negative) H 03/06/19 02:00 Urine Glucose (UA) Negative (Negative) 03/06/19 02:00 Urine Ketones Negative (Negative) 03/06/19 02:00 Urine Blood Moderate (Negative) H 03/06/19 02:00 Urine Nitrite Negative (Negative) 03/06/19 02:00 Urine Bilirubin Negative (Negative) 03/06/19 02:00 Urine Urobilinogen <2.0 mg/dL (<2.0) 03/06/19 02:00 Ur Leukocyte Esterase Large (Negative) H 03/06/19 02:00 Urine RBC 180 /hpf (0-5) H 03/06/19 02:00 Urine WBC >182 /hpf (0-5) H 03/06/19 02:00 Urine WBC Clumps Many /hpf (None) H 03/06/19 02:00 C. difficile (EIA) Intrp Positive (Negative) A 03/06/19 14:45 Hep Bs Antigen Non-Reactive (Non-Reactive) 03/06/19 18:27 Hep Bs Antibody Non-Reactive (Non-Reactive) 03/06/19 18:27 Hep Bs Antibody, Quant 3.5 mIU/mL 03/06/19 18:27 Hep B Core Total Ab Non-Reactive (Non-Reactive) 03/06/19 18:27 Microbiology 03/06/19 02:00 Urine,Catheterized Urine Culture - Preliminary Presumptive Staph aureus 03/06/19 02:45 Aspirate Gram Stain - Preliminary 03/06/19 02:45 Aspirate Body Fluid Culture - Preliminary Presumptive MRSA 03/06/19 01:51 Blood Blood Culture - Preliminary No Growth after 24 hours Assessment and Plan (1) Sepsis Narrative/Plan: 68-year-old male presents to emergency center feeling very poorly with the onset of nausea and emesis after his bout of hemodialysis. Was unable to eat his dinner because of the difficulty with nausea and emesis. Because of his illness he was brought to hospital and has been admitted. evaluations reveal evidence of infection to the drainage from the nephrostomy tube antibiotic therapy has been initiated. There is no evidence of any small bowel obstruction, pneumonia or new skin lesions. Antibiotic therapy was initiated with vancomycin as well as cefepime. We'll continue vancomycin for now given the concern to the infection from the nephrostomy tube. Oral vancomycin will be started for the treatment of the C. diff colitis We'll try to limit antibiotic therapy is much as possible given the C. diff colitis. The leukocytosis is likely due to the C. diff colitis as well as what appears to be a gram-positive cocci infection of the urinary system. 03/07/2019 patient's diarrhea is improved. He does feel better overall. Urine culture with MRSA. Percutaneous drainage with evidence of MRSA but blood culture negative so far. Await final culture data for determination of possibilities of outpatient antibiotic therapy. He does not have an indwelling catheter for IV access. Current Visit: Yes Status: Acute Code(s): A41.9 - SEPSIS, UNSPECIFIED ORGANISM SNOMED Code(s): 92450579 (2) Intractable nausea and vomiting Current Visit: No Status: Acute Code(s): R11.2 - NAUSEA WITH VOMITING, UNSPECIFIED SNOMED Code(s): 131398350 (3) UTI (urinary tract infection) Current Visit: Yes Status: Acute Code(s): N39.0 - URINARY TRACT INFECTION, SITE NOT SPECIFIED SNOMED Code(s): 72585146 (4) C. difficile colitis Current Visit: Yes Status: Acute Code(s): A04.72 - ENTEROCOLITIS D/T CLOSTRIDIUM DIFFICILE, NOT SPCF RECUR SNOMED Code(s): 840375290
[2019-03-07] MEDS: HYDROcodone/APAP 5-325MG 1 EACH TAB PO PRN (23:44)
[2019-03-08] MEDS ORDERED: ONDANSETRON 4 MG/2 ML VIAL IVP PRN (00:19)
[2019-03-08] MEDS: SODIUM CHLORIDE 0.9% 1,000 ML IV SCH ×2 (03:34→16:57)
[2019-03-08] MEDS ORDERED: VANCOMYCIN 2,000 MG in SODIUM CHLORIDE 0.9% 500 ML 500 ML IVPB SCH (04:00)
[2019-03-08] MEDS: VANCOMYCIN ORAL SOLUTION 250 MG/5 ML BOTTLE PO SCH ×4 (05:18→23:08)
[2019-03-08] MEDS: CHERRY FLAVOR 60 ML BOTTLE PO PRN ×3 (05:18→16:57)
[2019-03-08 07:35] LABS: Anisocytosis Slight; HCT 37.1 % (39.0-53.0); HGB 10.6 gm/dL (13.0-17.5); Hypochromasia Marked; MCH 25.5 pg (25.0-35.0); MCHC 28.5 g/dL (31.0-37.0); MCV 89.6 fL (80.0-100.0); Mean Platelet Volume 7.1; Platelet Count 338 k/uL (150-450); RBC 4.14 m/uL (4.30-5.90); RDW 18.2 % (11.5-15.5)
[2019-03-08] MEDS: DILTIAZEM CD 120 MG CAP.ER.24H PO SCH (07:58)
[2019-03-08] MEDS: METOPROLOL TARTRATE 25 MG TAB PO SCH ×2 (07:58→19:53)
[2019-03-08] MEDS: CALCIUM ACETATE 667 MG CAP PO SCH ×3 (08:00→16:57)
[2019-03-08] MEDS: CHOLECALCIFEROL 1,000 UNIT TAB PO SCH (08:00)
[2019-03-08] MEDS: MIDODRINE 5 MG TAB PO SCH ×3 (08:00→16:57)
[2019-03-08] MEDS: NYSTATIN 100,000 UNIT/GM POWD 15 GM TOPICAL SCH ×2 (08:01→19:53)
[2019-03-08] MEDS: FUROSEMIDE 80 MG TAB PO SCH ×2 (08:06→15:23)
[2019-03-08 08:15] LABS: Calcium 8.8 mg/dL (8.4-10.2); Potassium 3.8 mmol/L (3.5-5.1)
--- NOTE | 2019-03-08 12:48 | P.PN ---
Subjective Progress Note Date: 03/08/19 Seen and examined for the follow-up of ESRD. Feeling better today. No nausea vomiting diarrhea. Last hemodialysis was on Sunday. Objective - Vital Signs Vital signs: Vital Signs Temp 98.7 F 03/08/19 07:00 Pulse 56 L 03/08/19 07:00 Resp 14 03/08/19 07:00 BP 108/76 03/08/19 07:00 Pulse Ox 95 03/08/19 07:00 Intake & Output 03/07/19 03/08/19 03/08/19 18:59 06:59 18:59 Intake Total 640 118 Output Total 4015 30 Balance -3375 -30 118 Intake: Oral 640 118 Output: Drainage 15 30 Right Lateral 15 30 Hemodialysis 4000 Other: Voiding Method Urinal # Voids 0 2 # Bowel Movements 3 2 - Exam No acute distress S1-S2 heard Diminished breath sounds Left upper arm aVF Edema. - Labs CBC & Chem 7: 03/08/19 07:05 03/08/19 07:05 Labs: Abnormal Lab Results - Last 24 Hours (Table) 03/08/19 03/08/19 Range/Units 07:05 07:05 WBC 15.0 H (3.8-10.6) k/uL RBC 4.14 L (4.30-5.90) m/uL Hgb 10.6 L (13.0-17.5) gm/dL Hct 37.1 L (39.0-53.0) % MCHC 28.5 L (31.0-37.0) g/dL RDW 18.2 H (11.5-15.5) % Sodium 136 L (137-145) mmol/L Chloride 97 L (98-107) mmol/L BUN 27 H (9-20) mg/dL Creatinine 3.30 H (0.66-1.25) mg/dL Microbiology - Last 24 Hours (Table) 03/06/19 02:45 Gram Stain - Preliminary Aspirate Body Fluid Culture - Preliminary Methicillin resist S. aureus Gram Neg Bacilli 03/06/19 02:00 Urine Culture - Preliminary Urine,Catheterized Methicillin resist S. aureus 03/06/19 01:51 Blood Culture - Preliminary Blood No Growth after 48 hours Assessment and Plan Assessment: #1 ESRD, MWF via left upper arm aVF #2 staghorn calculus with right-sided nephrostomy tube. #3 MRSA UTI #4 right renal mass, follows with urology at and referred [facility] #5 C. diff colitis on vancomycin #6 hypotension on midodrine #7 lower extremity edema Plan: #1 plan hemodialysis as outpatient schedule. #2 ESRD medications #3 antibiotics as per infectious disease #4 maintain on midodrine.
--- NOTE | 2019-03-08 15:52 | P.PN ---
Subjective Patient is being treated for sepsis secondary to C. diff colitis the along with her tract infection and a nephrostomy tube infection patient urine is positive for MRSA in the gram-negative bacilli. Patient is presently on cefepime and vancomycin IV as well as oral to treat all these infections. Patient is still having minimal diarrhea. Constitutional: Denied any fatigue denied any fever. Cardio vascular: denied any chest pain, palpitations Gastrointestinal denied any nausea vomiting Pulmonary: Denied any shortness of breath cough Neurologic denied any new focal deficits All inpatient medications were reviewed and appropriate changes in these medications as dictated in the interval history and assessment and plan. Objective - Vital Signs Vital signs: Vital Signs Temp 97.5 F L 03/08/19 14:49 Pulse 81 03/08/19 14:49 Resp 16 03/08/19 14:49 BP 89/54 03/08/19 14:49 Pulse Ox 96 03/08/19 14:49 Intake & Output 03/07/19 03/08/19 03/08/19 18:59 06:59 18:59 Intake Total 640 674 Output Total 4015 30 Balance -3375 -30 674 Intake: IV 320 Sodium Chloride 0.9% 1, 320 000 ml @ 40 mls/hr IV . Q24H [facility] Rx#:[id number] Oral 640 354 Output: Drainage 15 30 Right Lateral 15 30 Hemodialysis 4000 Other: Voiding Method Urinal # Voids 0 2 # Bowel Movements 3 2 - Exam PHYSICAL EXAMINATION: GENERAL: The patient is alert and oriented x3, not in any acute distress. Obese HEENT: Pupils are round and equally reacting to light. EOMI. No scleral icterus. No conjunctival pallor. Normocephalic, atraumatic. No pharyngeal erythema. No thyromegaly. CARDIOVASCULAR: S1 and S2 present. No murmurs, rubs, or gallops. PULMONARY: Chest is clear to auscultation, no wheezing or crackles. ABDOMEN: Soft, nontender, nondistended, normoactive bowel sounds. No palpable organomegaly. She has a nephrostomy tube in place MUSCULOSKELETAL: No joint swelling or deformity. EXTREMITIES: No cyanosis, clubbing, or pedal edema. NEUROLOGICAL: Gross neurological examination did not reveal any focal deficits. SKIN: No rashes. - Labs CBC & Chem 7: 03/08/19 07:05 03/08/19 07:05 Labs: Abnormal Lab Results - Last 24 Hours (Table) 03/08/19 03/08/19 Range/Units 07:05 07:05 WBC 15.0 H (3.8-10.6) k/uL RBC 4.14 L (4.30-5.90) m/uL Hgb 10.6 L (13.0-17.5) gm/dL Hct 37.1 L (39.0-53.0) % MCHC 28.5 L (31.0-37.0) g/dL RDW 18.2 H (11.5-15.5) % Sodium 136 L (137-145) mmol/L Chloride 97 L (98-107) mmol/L BUN 27 H (9-20) mg/dL Creatinine 3.30 H (0.66-1.25) mg/dL Microbiology - Last 24 Hours (Table) 03/06/19 02:45 Gram Stain - Preliminary Aspirate Body Fluid Culture - Preliminary Methicillin resist S. aureus Gram Neg Bacilli 03/06/19 02:00 Urine Culture - Preliminary Urine,Catheterized Methicillin resist S. aureus 03/06/19 01:51 Blood Culture - Preliminary Blood No Growth after 48 hours Assessment and Plan Plan: -Sepsis related to C. diff colitis and urinary tract infection patient has a nephrostomy tube in place, patient is presently on oral and IV vancomycin and cefepime -Atrial fibrillation presently rate controlled -End-stage renal disease on hemodialysis patient will continue her hemodialysis -Patient has a staghorn calculi which is chronic and in a complex mass in the right kidney urology for the following the patient --history of DVT in the past patient is an anti-coagulation at this time -Hyperlipidemia -Hypertension -Sleep apnea and obesity -Hypertension secondary to Cardizem, metoprolol but patient needs his medications for A. fib. Patient is also on Midodrin
[2019-03-08] MEDS: ATORVASTATIN 10 MG TAB PO SCH (19:53)
[2019-03-09] MEDS: HYDROcodone/APAP 5-325MG 1 EACH TAB PO PRN ×2 (00:07→05:14)
[2019-03-09] MEDS: VANCOMYCIN ORAL SOLUTION 250 MG/5 ML BOTTLE PO SCH ×4 (05:44→23:05)
[2019-03-09 08:18] LABS: Calcium 9.2 mg/dL (8.4-10.2); Potassium 4.2 mmol/L (3.5-5.1)
--- NOTE | 2019-03-09 09:44 | P.PN ---
Subjective Progress Note Date: 03/09/19 Seen and examined for the follow-up of ESRD. Feeling better today. No nausea vomiting diarrhea. Last hemodialysis was on Sunday. Objective - Vital Signs Vital signs: Vital Signs Temp 98.1 F 03/09/19 07:00 Pulse 88 03/09/19 07:00 Resp 16 03/09/19 07:00 BP 84/47 03/09/19 07:00 Pulse Ox 95 03/09/19 07:00 Intake & Output 03/08/19 03/09/19 03/09/19 18:59 06:59 18:59 Intake Total 970 500 236 Balance 970 500 236 Intake: IV 320 140 Sodium Chloride 0.9% 1, 320 140 000 ml @ 40 mls/hr IV . Q24H [facility] Rx#:[id number] Intake, IV Titration 360 Amount Sodium Chloride 0.9% 1, 360 000 ml @ 40 mls/hr IV . Q24H [facility] Rx#:[id number] Oral 650 236 Other: Voiding Method Urinal Urinal # Voids 2 # Bowel Movements 2 - Exam No acute distress S1-S2 heard Diminished breath sounds Left upper arm aVF Edema. - Labs CBC & Chem 7: 03/08/19 07:05 03/09/19 07:05 Labs: Abnormal Lab Results - Last 24 Hours (Table) 03/09/19 Range/Units 07:05 Sodium 136 L (137-145) mmol/L BUN 40 H (9-20) mg/dL Creatinine 4.20 H (0.66-1.25) mg/dL Microbiology - Last 24 Hours (Table) 03/06/19 01:51 Blood Culture - Preliminary Blood No Growth after 72 hours 03/06/19 02:45 Gram Stain - Preliminary Aspirate Body Fluid Culture - Preliminary Methicillin resist S. aureus Gram Neg Bacilli 03/06/19 02:00 Urine Culture - Preliminary Urine,Catheterized Methicillin resist S. aureus Assessment and Plan Assessment: #1 ESRD, MWF via left upper arm aVF #2 staghorn calculus with right-sided nephrostomy tube. #3 MRSA UTI #4 right renal mass, follows with urology at and referred [facility] #5 C. diff colitis on vancomycin #6 hypotension on midodrine #7 lower extremity edema Plan: #1 plan hemodialysis as outpatient schedule. MWF #2 ESRD medications #3 antibiotics as per infectious disease #4 maintain on midodrine.
[2019-03-09] MEDS: CALCIUM ACETATE 667 MG CAP PO SCH ×3 (10:29→17:29)
[2019-03-09] MEDS: DILTIAZEM CD 120 MG CAP.ER.24H PO SCH (10:29)
[2019-03-09] MEDS: CHOLECALCIFEROL 1,000 UNIT TAB PO SCH (10:29)
[2019-03-09] MEDS: MIDODRINE 5 MG TAB PO SCH ×3 (10:29→17:29)
[2019-03-09] MEDS: FUROSEMIDE 80 MG TAB PO SCH ×2 (10:29→17:29)
[2019-03-09] MEDS: METOPROLOL TARTRATE 25 MG TAB PO SCH ×2 (10:29→20:00)
[2019-03-09] MEDS: NYSTATIN 100,000 UNIT/GM POWD 15 GM TOPICAL SCH ×2 (10:30→20:00)
--- NOTE | 2019-03-09 12:16 | P.PN ---
Subjective Patient is being treated for sepsis secondary to C. diff colitis the along with her tract infection and a nephrostomy tube infection patient urine is positive for MRSA in the gram-negative bacilli. Patient is presently on cefepime and vancomycin IV as well as oral to treat all these infections. Patient is still having minimal diarrhea. 03/01/2019 Patient is doing fairly well today no more diarrhea patient probably can be discharged to home with home care. Patient is an [facility]. Patient will undergo hemodialysis before his discharge tomorrow Constitutional: Denied any fatigue denied any fever. Cardio vascular: denied any chest pain, palpitations Gastrointestinal denied any nausea vomiting Pulmonary: Denied any shortness of breath cough Neurologic denied any new focal deficits All inpatient medications were reviewed and appropriate changes in these medications as dictated in the interval history and assessment and plan. Objective - Vital Signs Vital signs: Vital Signs Temp 98.1 F 03/09/19 07:00 Pulse 83 03/09/19 10:28 Resp 16 03/09/19 07:00 BP 98/66 03/09/19 10:28 Pulse Ox 95 03/09/19 07:00 Intake & Output 03/08/19 03/09/19 03/09/19 18:59 06:59 18:59 Intake Total 970 500 236 Balance 970 500 236 Intake: IV 320 140 Sodium Chloride 0.9% 1, 320 140 000 ml @ 40 mls/hr IV . Q24H [facility] Rx#:[id number] Intake, IV Titration 360 Amount Sodium Chloride 0.9% 1, 360 000 ml @ 40 mls/hr IV . Q24H [facility] Rx#:[id number] Oral 650 236 Other: Voiding Method Urinal Urinal # Voids 2 # Bowel Movements 2 - Exam PHYSICAL EXAMINATION: GENERAL: The patient is alert and oriented x3, not in any acute distress. Obese HEENT: Pupils are round and equally reacting to light. EOMI. No scleral icterus. No conjunctival pallor. Normocephalic, atraumatic. No pharyngeal erythema. No thyromegaly. CARDIOVASCULAR: S1 and S2 present. No murmurs, rubs, or gallops. PULMONARY: Chest is clear to auscultation, no wheezing or crackles. ABDOMEN: Soft, nontender, nondistended, normoactive bowel sounds. No palpable organomegaly. She has a nephrostomy tube in place MUSCULOSKELETAL: No joint swelling or deformity. EXTREMITIES: No cyanosis, clubbing, or pedal edema. NEUROLOGICAL: Gross neurological examination did not reveal any focal deficits. SKIN: No rashes. - Labs CBC & Chem 7: 03/08/19 07:05 03/09/19 07:05 Labs: Abnormal Lab Results - Last 24 Hours (Table) 03/09/19 Range/Units 07:05 Sodium 136 L (137-145) mmol/L BUN 40 H (9-20) mg/dL Creatinine 4.20 H (0.66-1.25) mg/dL Microbiology - Last 24 Hours (Table) 03/06/19 02:00 Urine Culture - Final Urine,Catheterized Methicillin resist S. aureus 03/06/19 01:51 Blood Culture - Preliminary Blood No Growth after 72 hours 03/06/19 02:45 Gram Stain - Preliminary Aspirate Body Fluid Culture - Preliminary Methicillin resist S. aureus Gram Neg Bacilli Assessment and Plan Plan: -Sepsis related to C. diff colitis and urinary tract infection patient has a nephrostomy tube in place, patient is presently on oral and IV vancomycin and cefepime. Possibly of discharge tomorrow -Atrial fibrillation presently rate controlled -End-stage renal disease on hemodialysis patient will continue her hemodialysis -Patient has a staghorn calculi which is chronic and in a complex mass in the right kidney urology for the following the patient --history of DVT in the past patient is an anti-coagulation at this time -Hyperlipidemia -Hypertension -Sleep apnea and obesity -Hypertension secondary to Cardizem, metoprolol but patient needs his medications for A. fib. Patient is also on Midodrin
[2019-03-09] MEDS: ATORVASTATIN 10 MG TAB PO SCH (20:00)
[2019-03-10] MEDS: SODIUM CHLORIDE 0.9% 1,000 ML IV SCH (04:53)
[2019-03-10] MEDS: VANCOMYCIN ORAL SOLUTION 250 MG/5 ML BOTTLE PO SCH ×2 (05:46→11:49)
[2019-03-10] MEDS: MIDODRINE 5 MG TAB PO SCH ×2 (08:01→11:48)
[2019-03-10] MEDS: CHOLECALCIFEROL 1,000 UNIT TAB PO SCH (08:01)
[2019-03-10] MEDS: METOPROLOL TARTRATE 25 MG TAB PO SCH (08:01)
[2019-03-10] MEDS: NYSTATIN 100,000 UNIT/GM POWD 15 GM TOPICAL SCH (08:02)
[2019-03-10] MEDS: FUROSEMIDE 80 MG TAB PO SCH ×2 (08:02→16:11)
[2019-03-10] MEDS: CALCIUM ACETATE 667 MG CAP PO SCH ×2 (08:02→11:48)
[2019-03-10] MEDS: DILTIAZEM CD 120 MG CAP.ER.24H PO SCH (08:02)
[2019-03-10 08:28] LABS: Calcium 9.4 mg/dL (8.4-10.2); Potassium 4.5 mmol/L (3.5-5.1)
[2019-03-10 08:33] LABS: Vancomycin,Random 24.7 ug/mL
--- NOTE | 2019-03-10 10:19 | P.PN ---
Subjective Patient is seen in follow-up for end-stage renal disease. He is maintained on hemodialysis on a Sunday schedule. Denies chest pain or shortness of breath. Vomiting has resolved. Denies diarrhea. He is noted to be C. diff positive. Patient is a chronic right-sided nephrostomy tube in place for staghorn calculus. Culture is positive for MRSA. Vital signs are stable. General: The patient appeared well nourished and normally developed. HEENT: Head exam is unremarkable. Neck is without jugular venous distension. LUNGS: Breath sounds decreased. HEART: Rate and Rhythm are regular. First and second heart sounds normal. No murmurs, rubs or gallops. ABDOMEN: Abdominal exam reveals normal bowel sounds. Morbidly obese. EXTREMITITES: 1+ edema. Chronic changes noted. Objective - Vital Signs Vital signs: Vital Signs Temp 97.6 F 03/10/19 07:03 Pulse 69 03/10/19 07:03 Resp 16 03/10/19 08:20 BP 78/50 03/10/19 07:03 Pulse Ox 99 03/10/19 07:03 Intake & Output 03/09/19 03/10/19 03/10/19 18:59 06:59 18:59 Intake Total 792 140 Output Total 2 Balance 790 140 Intake: IV 140 Sodium Chloride 0.9% 1, 140 000 ml @ 40 mls/hr IV . Q24H [facility] Rx#:[id number] Intake, IV Titration 320 Amount Sodium Chloride 0.9% 1, 320 000 ml @ 40 mls/hr IV . Q24H [facility] Rx#:[id number] Oral 472 Output: Stool 2 Other: Voiding Method Urinal Urinal # Bowel Movements 3 1 - Labs CBC & Chem 7: 03/08/19 07:05 03/10/19 06:41 Labs: Abnormal Lab Results - Last 24 Hours (Table) 03/10/19 Range/Units 06:41 Sodium 135 L (137-145) mmol/L BUN 50 H (9-20) mg/dL Creatinine 5.23 H (0.66-1.25) mg/dL Microbiology - Last 24 Hours (Table) 03/06/19 01:51 Blood Culture - Preliminary Blood No Growth after 96 hours 03/06/19 02:00 Urine Culture - Final Urine,Catheterized Methicillin resist S. aureus Assessment and Plan Plan: Assessment: 1. End-stage renal disease maintained on hemodialysis on a Sunday schedule. 2. Nausea and vomiting. Possible gastroenteritis. Better. 3. Chronic kidney disease mineral bone disease maintained on PhosLo. 4. Chronic hypotension maintained on midodrine prior to dialysis. 5. Staghorn calculi with chronic right-sided nephrostomy tube in place. Culture positive for MRSA. 6. Right-sided renal mass. No interventions planned. Patient follows with urology [facility] in [place]. 7. C. diff colitis. Maintained on oral vancomycin. Plan: Hemodialysis today. Maintain midodrine to 10 mg 3 times daily as needed for systolic blood pressure less than 90. Monitor vancomycin levels. Target level 15.
[2019-03-10] MEDS: FERROUS SULFATE 325 MG TAB PO SCH (11:48)
--- NOTE | 2019-03-10 14:19 | P.DS ---
Providers Date of admission: 03/06/19 03:26 Attending physician: Ronny Rao Consults: 03/06/19 04:16 Consult Physician Stat Consulting Provider: Jay Chadwick Consult Reason/Comments: UTI, sepsis Do you want consulting provider notified?: Yes Consult Physician Stat Consulting Provider: Barbara Jacobson Consult Reason/Comments: UTI, sepsis, ESRD on dialysis Do you want consulting provider notified?: Yes Primary care physician: Akshat Nieves MD Hospital Course: Patient is being treated for sepsis secondary to C. diff colitis the along with her tract infection and a nephrostomy tube infection patient urine is positive for MRSA in the gram-negative bacilli. Patient is presently on cefepime and vancomycin IV as well as oral to treat all these infections. Patient is still having minimal diarrhea. 03/09/2019 Patient is doing fairly well today no more diarrhea patient probably can be discharged to home with home care. [facility] is [facility]. Patient will undergo hemodialysis before his discharge tomorrow 03/10/2019 Patient diarrhea improved patient has a staghorn colic less multiple UTIs has a nephrostomy tube urine has MRSA for which patient is on vancomycin patient does have C. diff which complicates things and patient is on oral vancomycin for that and that there is some gram-negative bacilli which was not identified. Infectious disease will recommend antibiotics after that patient will be discharged today patient is presently undergoing dialysis patient blood pressure is normally low and is on midodrine which will be continued patient is on Cardizem and metoprolol for A. fib without which patient heart rate goes up. PHYSICAL EXAMINATION: GENERAL: The patient is alert and oriented x3, not in any acute distress. Obese HEENT: Pupils are round and equally reacting to light. EOMI. No scleral icterus. No conjunctival pallor. Normocephalic, atraumatic. No pharyngeal erythema. No thyromegaly. CARDIOVASCULAR: S1 and S2 present. No murmurs, rubs, or gallops. PULMONARY: Chest is clear to auscultation, no wheezing or crackles. ABDOMEN: Soft, nontender, nondistended, normoactive bowel sounds. No palpable organomegaly. he has a nephrostomy tube in place MUSCULOSKELETAL: No joint swelling or deformity. EXTREMITIES: No cyanosis, clubbing, or pedal edema. NEUROLOGICAL: Gross neurological examination did not reveal any focal deficits. SKIN: No rashes. Assessment and Plan Plan: -Sepsis related to C. diff colitis and urinary tract infection patient has a nephrostomy tube in place, patient is presently on oral and IV vancomycin and cefepime. Patient will be discharged today, please refer to Dr. Chadwick dictation for further details of about antibiotics -Atrial fibrillation presently rate controlled -End-stage renal disease on hemodialysis patient will continue her hemodialysis -Patient has a staghorn calculi which is chronic and in a complex mass in the right kidney , urology evaluate the patient here and he'll follow with urology as outpatient --history of DVT in the past patient is an anti-coagulation at this time -Hyperlipidemia -Hypertension -Sleep apnea and obesity -Hypertension secondary to Cardizem, metoprolol but patient needs his medications for A. fib. Patient is also on Midodrin Patient Condition at Discharge: Serious Plan - Discharge Summary Discharge Rx Participant: No New Discharge Prescriptions: New Midodrine [ProAmatine] 10 mg PO AC-TID tab Continue Calcium Acetate [PhosLo] 1,334 mg PO TID Metoprolol Tartrate [Lopressor] 25 mg PO BID Diltiazem HCl [Diltiazem 24Hr ER] 120 mg PO DAILY Atorvastatin [Lipitor] 10 mg PO HS Potassium Chloride [Klor-Con 10] 10 meq PO BID Furosemide [Lasix] 80 mg PO BID Cholecalciferol [Vitamin D3] 1,000 unit PO DAILY tab Cyanocobalamin [Vitamin B-12] 1,000 mcg PO DAILY tab Folic Acid-Vit B Complex-Vit C [Nephrocaps] 1 each PO HS cap Nystatin 100,000 Unit/gm Powd [Mycostatin Powder] 1 applic TOPICAL BID applic HYDROcodone/APAP 5-325MG [Loman 5-325] 1 tab PO Q6H PRN PRN Reason: Pain Ferrous Sulfate [Iron (65 MG Elemental)] 325 mg PO MOWEFR Discontinued Midodrine [ProAmatine] 5 - 10 mg PO MOWEFR PRN PRN Reason: DIALYSIS Discharge Medication List Atorvastatin [Lipitor] 10 mg PO HS 10/30/17 [History] Calcium Acetate [PhosLo] 1,334 mg PO TID 10/30/17 [History] Diltiazem HCl [Diltiazem 24Hr ER] 120 mg PO DAILY 10/30/17 [History] Metoprolol Tartrate [Lopressor] 25 mg PO BID 10/30/17 [History] Potassium Chloride [Klor-Con 10] 10 meq PO BID 10/30/17 [History] Furosemide [Lasix] 80 mg PO BID 09/11/18 [History] Cholecalciferol [Vitamin D3] 1,000 unit PO DAILY tab 10/17/18 [Rx] Cyanocobalamin [Vitamin B-12] 1,000 mcg PO DAILY tab 10/17/18 [Rx] Folic Acid-Vit B Complex-Vit C [Nephrocaps] 1 each PO HS cap 10/17/18 [Rx] Nystatin 100,000 Unit/gm Powd [Mycostatin Powder] 1 applic TOPICAL BID applic 10/17/18 [Rx] Ferrous Sulfate [Iron (65 MG Elemental)] 325 mg PO MOWEFR 03/05/19 [History] HYDROcodone/APAP 5-325MG [Loman 5-325] 1 tab PO Q6H PRN 03/05/19 [History] Midodrine [ProAmatine] 10 mg PO AC-TID tab 03/10/19 [Rx] Follow up Appointment(s)/Referral(s): Akshat Nieves MD [Primary Care Provider] - 3 Days Jay Chadwick MD [STAFF PHYSICIAN] - 1 Week [facility]Nurse [NON-STAFF] - 3 Days
[2019-03-10 15:06] VITALS: BP 95/39; PULSE 66; RESP 20; TEMP 97.5
--- NOTE | 2019-03-10 21:31 | P.PN ---
Subjective Progress Note Date: 03/10/19 68-year-old male has multiple medical troubles that includes obesity, end-stage renal disease on hemodialysis, chronic staghorn calculus into the right kidney with obstruction requiring percutaneous nephrostomy tube for drainage. Patient also has renal masses with concerns to underlying neoplasm. Disease-related the patient has been recently evaluated by his shift leader at [facility] without any new changes. The patient has a very poor functional status and is not thought to be a surgical candidate for any specific intervention such as nephrectomy. Is related the patient suddenly became ill after his dialysis and during his dinner on the day of admission. He developed nausea and emesis and because of this he was brought to the emergency center and admitted. With concerns to sepsis the infectious diseases consultation was requested. The patient relates that he feels poorly. Nausea though is improving. He believes he had fever and chill this is now improved. He has no new skin rashes. In the drainage from the percutaneous tube is without acute change 03/07/2018 the patient feels slightly better. appetite improved. Tolerated dialysis well. Denies fevers or chills today. Purulent drainage continues out of the percutaneous nephrostomy tube. 03/10/2019 patient has had some further improvement. Receiving dialysis without difficulty. One small stool today without diarrhea. No abdominal pain. Feeling better overall. No fever or chills. Objective - Vital Signs Vital signs: Vital Signs Temp 97.5 F L 03/10/19 15:01 Pulse 66 03/10/19 15:01 Resp 20 03/10/19 15:01 BP 95/39 03/10/19 15:01 Pulse Ox 99 03/10/19 07:03 Intake & Output 03/10/19 03/10/19 03/11/19 06:59 18:59 06:59 Intake Total 140 Output Total 3043 Balance 140 -3043 Intake: IV 140 Sodium Chloride 0.9% 1, 140 000 ml @ 40 mls/hr IV . Q24H [facility] Rx#:[id number] Output: Hemodialysis 3043 Other: Voiding Method Urinal Urinal # Bowel Movements 1 - Exam Pleasant superobese male who relates feeling somewhat better than at home. Intense nausea and emesis have resolved. Appetite is poor. Fever and chill have improved HEENT: Anicteric conjunctiva are pink and moist nasal mucosa grossly intact without significant lesions, there is no thrush. Neck: The neck is supple without significant lymphadenopathy or thyromegaly. Lungs: Good bilateral air entry without significant crackles or wheezing. There is no significant bronchial sounds. There is no egophony or dullness. Heart: Regular rate and rhythm with an audible S1-S2, no S3 no S4. There is no significant murmur click or rub, PMI was nondisplaced. Abdomen: Obese, large pannus limits exam but it is not tender bowel sounds are heard Extremities: The upper and lower extremities are evaluated. The hemodialysis fistula to the upper extremity is without tenderness. There is no drainage or erythema. Lower extremities have chronic venous stasis in lipedema changes without open ulcerations being seen Neuro: Patient is awake and alert he is able to answer simple questions he however has this lower extremity malfunction but he relates is not from a stroke and cannot really tell why he has a difficulty with ambulation. - Labs CBC & Chem 7: 03/08/19 07:05 03/10/19 06:41 Labs: Abnormal Lab Results - Last 24 Hours (Table) 03/10/19 Range/Units 06:41 Sodium 135 L (137-145) mmol/L BUN 50 H (9-20) mg/dL Creatinine 5.23 H (0.66-1.25) mg/dL Microbiology - Last 24 Hours (Table) 03/06/19 01:51 Blood Culture - Preliminary Blood No Growth after 96 hours Laboratory Results WBC 15.0 k/uL (3.8-10.6) H 03/08/19 07:05 RBC 4.14 m/uL (4.30-5.90) L 03/08/19 07:05 Hgb 10.6 gm/dL (13.0-17.5) L 03/08/19 07:05 Hct 37.1 % (39.0-53.0) L 03/08/19 07:05 MCV 89.6 fL (80.0-100.0) 03/08/19 07:05 MCH 25.5 pg (25.0-35.0) 03/08/19 07:05 MCHC 28.5 g/dL (31.0-37.0) L 03/08/19 07:05 RDW 18.2 % (11.5-15.5) H 03/08/19 07:05 Plt Count 338 k/uL (150-450) 03/08/19 07:05 Neutrophils % 87 % 03/05/19 21:38 Lymphocytes % 7 % 03/05/19 21:38 Monocytes % 4 % 03/05/19 21:38 Eosinophils % 1 % 03/05/19 21:38 Basophils % 0 % 03/05/19 21:38 Neutrophils # 14.7 k/uL (1.3-7.7) H 03/05/19 21:38 Lymphocytes # 1.1 k/uL (1.0-4.8) 03/05/19 21:38 Monocytes # 0.7 k/uL (0-1.0) 03/05/19 21:38 Eosinophils # 0.2 k/uL (0-0.7) 03/05/19 21:38 Basophils # 0.0 k/uL (0-0.2) 03/05/19 21:38 Hypochromasia Marked 03/08/19 07:05 Anisocytosis Slight 03/08/19 07:05 PT 10.8 sec (9.0-12.0) 03/07/19 05:55 INR 1.0 (<1.2) 03/07/19 05:55 APTT 25.4 sec (22.0-30.0) 03/07/19 05:55 Sodium 135 mmol/L (137-145) L 03/10/19 06:41 Potassium 4.5 mmol/L (3.5-5.1) 03/10/19 06:41 Chloride 99 mmol/L (98-107) 03/10/19 06:41 Carbon Dioxide 25 mmol/L (22-30) 03/10/19 06:41 Anion Gap 11 mmol/L 03/10/19 06:41 BUN 50 mg/dL (9-20) H 03/10/19 06:41 Creatinine 5.23 mg/dL (0.66-1.25) H 03/10/19 06:41 Est GFR (CKD-EPI)AfAm 12 (>60 ml/min/1.73 sqM) 03/10/19 06:41 Est GFR (CKD-EPI)NonAf 10 (>60 ml/min/1.73 sqM) 03/10/19 06:41 Glucose 94 mg/dL (74-99) 03/10/19 06:41 Plasma Lactic Acid Dennis 1.2 mmol/L (0.7-2.0) 03/05/19 21:38 Calcium 9.4 mg/dL (8.4-10.2) 03/10/19 06:41 Total Bilirubin 0.7 mg/dL (0.2-1.3) 03/05/19 21:38 AST 19 U/L (17-59) 03/05/19 21:38 ALT 21 U/L (21-72) 03/05/19 21:38 Alkaline Phosphatase 92 U/L (38-126) 03/05/19 21:38 Total Protein 7.6 g/dL (6.3-8.2) 03/05/19 21:38 Albumin 3.5 g/dL (3.5-5.0) 03/05/19 21:38 Lipase 16 U/L (23-300) L 03/05/19 21:38 Urine Color Yellow 03/06/19 02:00 Urine Appearance Turbid (Clear) 03/06/19 02:00 Urine pH 8.0 (5.0-8.0) 03/06/19 02:00 Ur Specific [place] 1.019 (1.001-1.035) 03/06/19 02:00 Urine Protein 3+ (Negative) H 03/06/19 02:00 Urine Glucose (UA) Negative (Negative) 03/06/19 02:00 Urine Ketones Negative (Negative) 03/06/19 02:00 Urine Blood Moderate (Negative) H 03/06/19 02:00 Urine Nitrite Negative (Negative) 03/06/19 02:00 Urine Bilirubin Negative (Negative) 03/06/19 02:00 Urine Urobilinogen <2.0 mg/dL (<2.0) 03/06/19 02:00 Ur Leukocyte Esterase Large (Negative) H 03/06/19 02:00 Urine RBC 180 /hpf (0-5) H 03/06/19 02:00 Urine WBC >182 /hpf (0-5) H 03/06/19 02:00 Urine WBC Clumps Many /hpf (None) H 03/06/19 02:00 Random Vancomycin 24.7 ug/mL 03/10/19 06:41 C. difficile (EIA) Intrp Positive (Negative) A 03/06/19 14:45 Hep Bs Antigen Non-Reactive (Non-Reactive) 03/06/19 18:27 Hep Bs Antibody Non-Reactive (Non-Reactive) 03/06/19 18:27 Hep Bs Antibody, Quant 3.5 mIU/mL 03/06/19 18:27 Hep B Core Total Ab Non-Reactive (Non-Reactive) 03/06/19 18:27 Microbiology 03/06/19 01:51 Blood Blood Culture - Preliminary No Growth after 96 hours 03/06/19 02:00 Urine,Catheterized Urine Culture - Final Methicillin resist S. aureus 03/06/19 02:45 Aspirate Gram Stain - Preliminary 03/06/19 02:45 Aspirate Body Fluid Culture - Preliminary Methicillin resist S. aureus Gram Neg Bacilli Assessment and Plan (1) Sepsis Narrative/Plan: 68-year-old male presents to emergency center feeling very poorly with the onset of nausea and emesis after his bout of hemodialysis. Was unable to eat his dinner because of the difficulty with nausea and emesis. Because of his illness he was brought to hospital and has been admitted. evaluations reveal evidence of infection to the drainage from the nephrostomy tube antibiotic therapy has been initiated. There is no evidence of any small bowel obstruction, pneumonia or new skin lesions. Antibiotic therapy was initiated with vancomycin as well as cefepime. We'll continue vancomycin for now given the concern to the infection from the nephrostomy tube. Oral vancomycin will be started for the treatment of the C. diff colitis We'll try to limit antibiotic therapy is much as possible given the C. diff colitis. The leukocytosis is likely due to the C. diff colitis as well as what appears to be a gram-positive cocci infection of the urinary system. 03/07/2019 patient's diarrhea is improved. He does feel better overall. Urine culture with MRSA. Percutaneous drainage with evidence of MRSA but blood cul ture negative so far. Await final culture data for determination of possibilities of outpatient antibiotic therapy. He does not have an indwelling catheter for IV access. 03/10/2019 patient has had further improvement of his status. He is no longer having diarrhea. Denies abdominal pain. Eating well without nausea or emesis. Tolerating dialysis well. The patient's drainage from the right nephrostomy evidence of MRSA as the urine culture and possibly a few gram-negative bacilli that could not be identified. The patient had marked improvement will be discharged home on oral tetracycline 100 mg orally twice per day as well as oral vancomycin 125 mg orally 4 times a day for 10 days. We have asked for documentation from the family or other practitioner as to the number of bouts of C. diff that he is proven to have. If he has failed multiple attempts of treatment he may become a candidate for fecal transplantation which he be challenging given his difficulty with transportation. Status: Acute Code(s): A41.9 - SEPSIS, UNSPECIFIED ORGANISM SNOMED Code(s): 60494886 (2) Intractable nausea and vomiting Status: Acute Code(s): R11.2 - NAUSEA WITH VOMITING, UNSPECIFIED SNOMED Code(s): 067843029 (3) UTI (urinary tract infection) Status: Acute Code(s): N39.0 - URINARY TRACT INFECTION, SITE NOT SPECIFIED SNOMED Code(s): 53649618 (4) C. difficile colitis Status: Acute Code(s): A04.72 - ENTEROCOLITIS D/T CLOSTRIDIUM DIFFICILE, NOT SPCF RECUR SNOMED Code(s): 020463758
== END 2019-03-10 16:40 | disposition home or self-care (01) | DRG 871 ==
LOC: EC 20:27 → 4SSUR 03-06 03:26 → OBSVTOIN 03-06 03:26
PROVIDERS: ADMIT Hospitalist; ATTEND Hospitalist
PROC: 5A1D70Z Performance of Urinary Filtration, Intermittent, Less than 6 Hours Per Day (ICD-10-PCS; principal; 2019-03-07)
DX: A41.02 Sepsis due to Methicillin resistant Staphylococcus aureus (principal); N18.6 End stage renal disease; N39.0 Urinary tract infection, site not specified; A04.72 Enterocolitis due to Clostridium difficile, not specified as recurrent; G82.20 Paraplegia, unspecified; I12.0 Hypertensive chronic kidney disease with stage 5 chronic kidney disease or end stage renal disease; J90 Pleural effusion, not elsewhere classified; J98.11 Atelectasis; A41.89 Other specified sepsis; I95.89 Other hypotension; I48.91 Unspecified atrial fibrillation; E66.01 Morbid (severe) obesity due to excess calories; E78.5 Hyperlipidemia, unspecified; G47.33 Obstructive sleep apnea (adult) (pediatric); I87.8 Other specified disorders of veins; E83.89 Other disorders of mineral metabolism; N20.0 Calculus of kidney; N28.89 Other specified disorders of kidney and ureter; N99.521 Infection of incontinent external stoma of urinary tract; D63.1 Anemia in chronic kidney disease; M15.9 Polyosteoarthritis, unspecified; Z79.899 Other long term (current) drug therapy; Z68.42 Body mass index [BMI] 45.0-49.9, adult; Z99.2 Dependence on renal dialysis; Z87.442 Personal history of urinary calculi; Z87.891 Personal history of nicotine dependence; Z87.440 Personal history of urinary (tract) infections; Z86.718 Personal history of other venous thrombosis and embolism; Z95.5 Presence of coronary angioplasty implant and graft; Z86.14 Personal history of Methicillin resistant Staphylococcus aureus infection; Z90.49 Acquired absence of other specified parts of digestive tract; Z86.010 Personal history of colon polyps; Z80.0 Family history of malignant neoplasm of digestive organs; Z80.1 Family history of malignant neoplasm of trachea, bronchus and lung
CPT/HCPCS: 36415; 74018; 74176; 80048; 80053; 80202; 81001; 83605; 83690; 85025; 85027; 85610; 85730; 86704; 86706; 87040; 87070; 87077; 87086; 87186; 87205; 87324; 87340; 90935; 94760; 96361; 96365; 96366; 96367; 99285

== ENCOUNTER 2019-05-28 05:58 | Inpatient (IN) | payer MEDICARE, OTHER ==
[2019-05-28 06:36] LABS: Anisocytosis Slight; Basophils % (A) 1 %; Eosinophils % (A) 1 %; HCT 32.8 % (39.0-53.0); HGB 9.8 gm/dL (13.0-17.5); Hypochromasia Marked; Lymphocytes % (A) 4 %; MCH 26.1 pg (25.0-35.0); MCHC 29.9 g/dL (31.0-37.0); MCV 87.3 fL (80.0-100.0); Mean Platelet Volume 7.4; Monocytes % (A) 4 %; Neutrophils % (A) 89 %; Platelet Count 368 k/uL (150-450); RBC 3.75 m/uL (4.30-5.90); RDW 17.8 % (11.5-15.5); WBC 21.7 k/uL (3.8-10.6)
[2019-05-28 06:37] LABS: Basophils # (A) 0.1 k/uL (0-0.2); Eosinophils # (A) 0.2 k/uL (0-0.7); Neutrophils # (A) 19.3 k/uL (1.3-7.7)
[2019-05-28 06:43] LABS: Albumin 3.2 g/dL (3.5-5.0); Calcium 9.1 mg/dL (8.4-10.2); Potassium 4.3 mmol/L (3.5-5.1); Total Bilirubin 0.5 mg/dL (0.2-1.3); Total Protein 7.6 g/dL (6.3-8.2)
--- NOTE | 2019-05-28 06:45 | ED ---
Nausea/Vomiting/Diarrhea HPI - General Source: EMS Mode of arrival: EMS Limitations: physical limitation - History of Present Illness MD complaint: diarrhea -: hour(s) Description of Diarrhea: water, mucous Associated Abdominal Pain: No Improves with: none Worsens with: none <David Solis - Last Filed: 05/28/19 06:41> <Po Hammer - Last Filed: 05/28/19 08:37> - General Chief complaint: Nausea/Vomiting/Diarrhea Stated complaint: C.Diff Time Seen by Provider: 05/28/19 06:21 - History of Present Illness Initial comments: Patient's 68-year-old man with history of multiple previous episodes of Clostridium difficile. Patient presents here to be evaluated for suspected recurrence of the same. Most of the history comes patient's caregivers who are his son and brother. The patient over the course of last night has developed profuse diarrhea with some mucousy material. Patient is denying abdominal pain, fever and chills. (David Solis) - Related Data Home Medications Medication Instructions Recorded Confirmed Atorvastatin [Lipitor] 10 mg PO HS 10/30/17 05/28/19 Calcium Acetate [PhosLo] 1,334 mg PO AC-TID 10/30/17 05/28/19 Diltiazem HCl [Diltiazem 24Hr ER] 120 mg PO DAILY 10/30/17 05/28/19 Metoprolol Tartrate [Lopressor] 25 mg PO BID 10/30/17 05/28/19 Potassium Chloride [Klor-Con 10] 10 meq PO BID 10/30/17 05/28/19 Furosemide [Lasix] 80 mg PO BID 09/11/18 05/28/19 Ferrous Sulfate [Iron (65 MG 325 mg PO MOWEFR 03/05/19 05/28/19 Elemental)] HYDROcodone/APAP 5-325MG [[place] 1 tab PO Q6H PRN 03/05/19 05/28/19 5-325] Calcium Carb-Mag Carb-Folic 1 tab PO DAILY 05/28/19 05/28/19 [Magnebind 400 Rx] Midodrine [ProAmatine] 10 mg PO MOWEFR 05/28/19 05/28/19 Landy-Emmanuel 1 tab PO HS 05/28/19 05/28/19 Previous Rx's Medication Instructions Recorded Cholecalciferol [Vitamin D3 (25 1,000 unit PO DAILY tab 10/17/18 Mcg = 1000 Iu)] Cyanocobalamin [Vitamin B-12] 1,000 mcg PO DAILY tab 10/17/18 Allergies Allergy/AdvReac Type Severity Reaction Status Date / Time heparin AdvReac Unknown Verified 05/28/19 07:03 Review of Systems ROS Other: All systems not noted in ROS Statement are negative. Limitations: ROS unobtainable due to patients medical condition Constitutional: Denies: fever, chills Respiratory: Denies: cough, dyspnea Cardiovascular: Denies: chest pain, palpitations, edema Gastrointestinal: Reports: diarrhea. Denies: abdominal pain, nausea, vomiting, melena, hematochezia Musculoskeletal: Denies: back pain Skin: Denies: rash <David Solis - Last Filed: 05/28/19 06:41> ROS Other: All systems not noted in ROS Statement are negative. <Po Hammer - Last Filed: 05/28/19 08:37> ROS Statement: Those systems with pertinent positive or pertinent negative responses have been documented in the HPI. Past Medical History Past Medical History: Atrial Fibrillation, Dialysis, Deep Vein Thrombosis (DVT), GI Bleed, Hyperlipidemia, Hypertension, Renal Disease, Sleep Apnea/CPAP/BIPAP Additional Past Medical History / Comment(s): Paraplegia r/t back injury/surgery-pt states he no longer gets up into wheelchair d/t too painful, ESRD with hemodialysis-last received 10/07/18, enlarged R kidney with stones-has chronic nephrostomy tube/bag, chronic anemia, mineral bone disease, possible past upper GI bleed, DVT in a leg post op, arhtritis multiple joints, pickwickian syndrome, past respiratory failure/vented, ISACC with Cpap, bilateral lower extremity venous stasis/dermatitis, bilateral lower leg/feet edema and currently scabs on L foot toes. History of Any Multi-Drug Resistant Organisms: C-DIFF, MRSA Date of last positivie culture/infection: 03/06/19 MDRO Source:: MRSA URINE, ASPIRATE Past Surgical History: Adenoidectomy, Back Surgery, Heart Catheterization With Stent, Hernia Repair, Tonsillectomy Additional Past Surgical History / Comment(s): LT ARM FISTULA-NO BP OR BLOOD DRAWS IN LT ARM, PCI with stent, low back surgery, nephrostomy tube, abdominal hernia, colonoscopy with benign polyp Past Anesthesia/Blood Transfusion Reactions: No Reported Reaction Date of Last Stent Placement:: 2004 Past Psychological History: No Psychological Hx Reported Smoking Status: Former smoker Past Alcohol Use History: None Reported Past Drug Use History: None Reported - Past Family History Brother(s) Family Medical History: Cancer Additional Family Medical History / Comment(s): Colon Ca Father Family Medical History: Cancer Additional Family Medical History / Comment(s): father had lung cancer <David Solis - Last Filed: 05/28/19 06:41> General Exam Limitations: physical limitation General appearance: alert, in no apparent distress, obese Head exam: Present: atraumatic, normocephalic Eye exam: Present: normal appearance. Absent: scleral icterus, conjunctival injection Respiratory exam: Present: rales (Bilateral bases). Absent: respiratory distress, wheezes, rhonchi, stridor Cardiovascular Exam: Present: regular rate (Rate is 96 at my exam), normal rhythm, normal heart sounds. Absent: systolic murmur, diastolic murmur, rubs, gallop GI/Abdominal exam: Present: soft. Absent: distended, tenderness, guarding, rebound Extremities exam: Present: normal capillary refill, pedal edema (Trace edema bilaterally), other (Bilateral AFO. Venous stasis changes) Neurological exam: Present: alert Skin exam: Present: warm, dry, intact, normal color. Absent: rash <David Solis - Last Filed: 05/28/19 06:41> Course Vital Signs 05/28/19 05/28/19 06:01 07:36 Temperature 98.0 F Pulse Rate 103 H 100 Respiratory 20 20 Rate Blood Pressure 91/44 95/55 O2 Sat by Pulse 97 93 L Oximetry Medical Decision Making - Lab Data Result diagrams: 05/28/19 06:17 <David Solis - Last Filed: 05/28/19 06:41> - Lab Data Result diagrams: 05/28/19 06:17 05/28/19 06:17 <Po Hammer - Last Filed: 05/28/19 08:37> - Medical Decision Making I started the patient on vancomycin in the emergency department. I spoke with Dr. Burkett he agrees to admit the patient admitted the patient I continue vancomycin on the floor. (Po Hammer) - Lab Data Lab Results 05/28/19 05/28/19 Range/Units 06:17 06:17 WBC 21.7 H (3.8-10.6) k/uL RBC 3.75 L (4.30-5.90) m/uL Hgb 9.8 L (13.0-17.5) gm/dL Hct 32.8 L (39.0-53.0) % MCV 87.3 (80.0-100.0) fL MCH 26.1 (25.0-35.0) pg MCHC 29.9 L (31.0-37.0) g/dL RDW 17.8 H (11.5-15.5) % Plt Count 368 (150-450) k/uL Neutrophils % 89 % Lymphocytes % 4 % Monocytes % 4 % Eosinophils % 1 % Basophils % 1 % Neutrophils # 19.3 H (1.3-7.7) k/uL Lymphocytes # 1.0 (1.0-4.8) k/uL Monocytes # 1.0 (0-1.0) k/uL Eosinophils # 0.2 (0-0.7) k/uL Basophils # 0.1 (0-0.2) k/uL Hypochromasia Marked Anisocytosis Slight Sodium 138 (137-145) mmol/L Potassium 4.3 (3.5-5.1) mmol/L Chloride 94 L (98-107) mmol/L Carbon Dioxide 32 H (22-30) mmol/L Anion Gap 12 mmol/L BUN 39 H (9-20) mg/dL Creatinine 4.50 H (0.66-1.25) mg/dL Est GFR (CKD-EPI)AfAm 15 (>60 ml/min/1.73 sqM) Est GFR (CKD-EPI)NonAf 13 (>60 ml/min/1.73 sqM) Glucose 103 H (74-99) mg/dL Calcium 9.1 (8.4-10.2) mg/dL Total Bilirubin 0.5 (0.2-1.3) mg/dL AST 15 L (17-59) U/L ALT 12 L (21-72) U/L Alkaline Phosphatase 85 (38-126) U/L Total Protein 7.6 (6.3-8.2) g/dL Albumin 3.2 L (3.5-5.0) g/dL Amylase 48 (30-110) U/L Lipase 15 L (23-300) U/L Disposition <David Solis - Last Filed: 05/28/19 06:41> Time of Disposition: 08:37 <Po Hammer - Last Filed: 05/28/19 08:37> Clinical Impression: Clostridium difficile infection Disposition: ADMITTED IP TO THIS HOSP Referrals: Akshat Nieves MD [Primary Care Provider] - 1-2 days
[2019-05-28] MEDS ORDERED: SODIUM CHLORIDE 0.9% 1,000 ML IV ONE (08:37)
[2019-05-28] MEDS: VANCOMYCIN ORAL SOLUTION 250 MG/5 ML BOTTLE PO STA ×2 (09:14→16:15)
[2019-05-28] MEDS ORDERED: VANCOMYCIN ORAL SOLUTION 250 MG/5 ML BOTTLE PO SCH (12:00)
--- NOTE | 2019-05-28 13:58 | P.NPCON ---
History of Present Illness - Reason for Consult end stage renal disease - History of Present Illness Reason for consultation: End-stage renal disease History of present illness: Patient is a 68-year-old male seen in renal consultation for end-stage renal disease. He is maintained on hemodialysis on a Sunday schedule. Patient presented to the hospital with diarrhea. Patient has history of recurrent episodes of C. diff. Patient was maintained on for months of vancomycin and once he completed the dose he developed C. difficile in 2 weeks. He was then started on oral vancomycin again for 2 months and he completed last dose about 2 weeks ago. Patient developed diarrhea last night and significant diarrhea this morning. Patient denies chest pain or shortness of breath. No vomiting. Oral intake is fair. Scheduled for hemodialysis today. Hemodynamically stable. No other complaints. Denies melena or hematochezia. Vital signs are stable. General: The patient appeared well nourished and normally developed. HEENT: Head exam is unremarkable. Neck is without jugular venous distension. LUNGS: Lungs are clear to auscultation and percussion. Breath sounds decreased. HEART: Rate and Rhythm are regular. First and second heart sounds normal. No murmurs, rubs or gallops. ABDOMEN: Abdominal exam reveals normal bowel sounds. Obese. EXTREMITITES: 2+ edema. Chronic skin changes noted. 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 History of Any Multi-Drug Resistant Organisms: C-DIFF, MRSA Date of last positivie culture/infection: 03/06/19 MDRO Source:: MRSA URINE, ASPIRATE Past Surgical History: Adenoidectomy, Back Surgery, Heart Catheterization With Stent, Hernia Repair, Tonsillectomy Additional Past Surgical History / Comment(s): LT ARM FISTULA-NO BP OR BLOOD DRAWS IN LT ARM, PCI with stent, low back surgery, nephrostomy tubes-replaced 05/22/19, abdominal hernia, colonoscopy with benign polyp Past Anesthesia/Blood Transfusion Reactions: No Reported Reaction Date of Last Stent Placement:: 2004 Smoking Status: Former smoker - Past Family History Brother(s) Family Medical History: Cancer Additional Family Medical History / Comment(s): Colon Ca- Father Family Medical History: Cancer Additional Family Medical History / Comment(s): father had lung cancer. He was a smoker and worked in a foundry. Mother Family Medical History: Coronary Artery Disease (CAD) Additional Family Medical History / Comment(s): Mother had CABG in her 70s. Medications and Allergies Home Medications Medication Instructions Recorded Confirmed Type Atorvastatin [Lipitor] 10 mg PO HS 10/30/17 05/28/19 History Calcium Acetate [PhosLo] 1,334 mg PO AC-TID 10/30/17 05/28/19 History Diltiazem HCl [Diltiazem 24Hr ER] 120 mg PO DAILY 10/30/17 05/28/19 History Metoprolol Tartrate [Lopressor] 25 mg PO BID 10/30/17 05/28/19 History Potassium Chloride [Klor-Con 10] 10 meq PO BID 10/30/17 05/28/19 History Furosemide [Lasix] 80 mg PO BID 09/11/18 05/28/19 History Cholecalciferol [Vitamin D3 (25 1,000 unit PO DAILY tab 10/17/18 05/28/19 Rx Mcg = 1000 Iu)] Cyanocobalamin [Vitamin B-12] 1,000 mcg PO DAILY tab 10/17/18 05/28/19 Rx Ferrous Sulfate [Iron (65 MG 325 mg PO MOWEFR 03/05/19 05/28/19 History Elemental)] HYDROcodone/APAP 5-325MG [[place] 1 tab PO Q6H PRN 03/05/19 05/28/19 History 5-325] Calcium Carb-Mag Carb-Folic 1 tab PO DAILY 05/28/19 05/28/19 History [Magnebind 400 Rx] Midodrine [ProAmatine] 10 mg PO MOWEFR 05/28/19 05/28/19 History Landy-Emmanuel 1 tab PO HS 05/28/19 05/28/19 History Allergies Allergy/AdvReac Type Severity Reaction Status Date / Time heparin AdvReac Unknown Verified 05/28/19 07:03 Physical Exam Vitals: Vital Signs Temp Pulse Pulse Resp BP BP Pulse Ox 05/28/19 11:46 97.7 F 103 H 18 87/48 95 05/28/19 09:15 97 20 80/51 96 05/28/19 07:36 100 20 95/55 93 L 05/28/19 06:01 98.0 F 103 H 20 91/44 97 Intake and Output 05/27/19 05/28/19 05/28/19 22:59 06:59 14:59 Other: Weight 151.953 kg Results - Lab Results Most recent lab results Calcium 9.1 mg/dL (8.4-10.2) 05/28/19 06:17 05/28/19 06:17 05/28/19 06:17 Assessment and Plan Plan: Assessment: 1. End-stage renal disease maintained on hemodialysis on a Sunday schedule. 2. Recurrent C. diff. 3. Chronic hypotension maintained on midodrine prior to dialysis. 4. Chronic kidney disease mineral bone disease maintained on PhosLo. 5. History of nephrolithiasis with chronic nephrostomy tube. Patient follows with urology Department out of [facility]. Patient states the nephrostomy tube was last changed last week. Plan: Hemodialysis today. Follow-up cultures. Resume phosphate binders. Thank you for the consultation. I will continue to follow the patient with you during his hospital stay.
[2019-05-28 15:03] VITALS: BMI 48.0
[2019-05-28] MEDS: VANCOMYCIN ORAL SOLUTION 250 MG/5 ML BOTTLE PO SCH ×2 (16:15→21:19)
[2019-05-28] MEDS: CALCIUM ACETATE 667 MG CAP PO SCH (16:16)
[2019-05-28] MEDS ORDERED: MIDODRINE 5 MG TAB PO PRN (16:23)
--- NOTE | 2019-05-28 16:27 | P.HPIM ---
History of Present Illness H&P Date: 05/28/19 Chief Complaint: Diarrhea History of presenting complaint: This is a very pleasant 68-year-old patient of Dr. Akshat Acevedo from visiting physician. Has a rather extensive medical history. Patient's brother lives with them and also provides care to him. Patient's son also drops in the house to help him out. Chronic stable medical conditions include atrial fibrillation, end-stage kidney disease on hemodialysis, hyperlipidemia, hypertension, sleep apnea. 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 Patient gets him dialysis Sunday and Sunday. Patient also has obstructive sleep apnea uses CPAP. Patient also got bilateral lower extremity venous stasis dermatitis. Dry feet. Patient now presents with diarrh ea that is about 3-4 times a day. Soft. No nausea vomiting. No fever no chills. Denies any obvious abdominal pain. Admitted for same. Nobody is in the house was sick. Patient has boots on bilateral feet. Patient also noted to have a dark bowel movements and rather concentrated appearing urine. Patient normally uses a urinal at home Review of systems: GEN.: Weak tired EYES: None HEENT: None NECK: None RESPIRATORY: None CARDIOVASCULAR: None GASTROINTESTINAL: As above GENITOURINARY: Concentrated urine MUSCULOSKELETAL: Chronic pain in the joints LYMPHATICS: None HEMATOLOGICAL: None PSYCHIATRY: None NEUROLOGICAL: Chronic paraplegia Social history: Patient's brother lives with him. Was also's caregiver. Some drops in intermittently. Patient smoked only 10 years stopped in 1981. Patient is but he was bedbound. Family history: Colon cancer Physical examination: VITAL SIGNS: 98, 103, 20, 91/44, 97% room air GENERAL: BMI 48.1, laying in bed, tired appearing. EYES: Pupils equal. Conjunctiva normal. HEENT: External appearance of nose and ears normal, oral cavity grossly normal. NECK: JVD not raised; masses not palpable. HEART: First and second heart sounds are normal; no edema. LUNGS: Respiratory rate normal; diminished breath sounds. ABDOMEN: Soft, nontender, liver spleen not palpable, no masses palpable. PSYCH: Alert and oriented x3; mood and affect normal. NEUROLOGICAL: Cranial nerves grossly intact; no facial asymmetry, minimal power in the lower extremity, sensation grossly present. LYMPHATICS: No lymph nodes palpable in the axilla and neck EXTREMITY: Dry, both the feet with t dysmorphic nails. Patient wearing boots on both the feet Investigations: White count 21.7 hemoglobin 9.8 potassium 4.3 blood urine nitrogen 39 creatinine 4.5 Assessment: -Acute gastroenteritis. There is no fever no chills. No abdominal pain. Patient does have leukocytosis. Abdominal examination soft. -History of atrial fibrillation -End-stage kidney disease on hemodialysis Sunday and Sunday -Hyperlipidemia -Essential hypertension -Obstructive sleep apnea uses CPAP -Chronic paraplegia due to a back injury -Chronic medical debility patient is being much bedbound -I anemia of chronic kidney disease -Medrol bone disease -Primary osteoarthritis multiple joints -Pickwickian syndrome -Bilateral lower extremity venous stasis dermatitis Plan: Nephrology be consulted to resume hemodialysis. Home medications were resumed. Still has been depression for C. diff. Patient's been put in isolation. Care was discussed with the patient. Questions were answered. 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 History of Any Multi-Drug Resistant Organisms: C-DIFF, MRSA Date of last positivie culture/infection: 03/06/19 MDRO Source:: MRSA URINE, ASPIRATE Past Surgical History: Adenoidectomy, Back Surgery, Heart Catheterization With S tent, Hernia Repair, Tonsillectomy Additional Past Surgical History / Comment(s): LT ARM FISTULA-NO BP OR BLOOD DRAWS IN LT ARM, PCI with stent, low back surgery, nephrostomy tubes-replaced 05/22/19, abdominal hernia, colonoscopy with benign polyp Past Anesthesia/Blood Transfusion Reactions: No Reported Reaction Date of Last Stent Placement:: 2004 Smoking Status: Former smoker - Past Family History Brother(s) Family Medical History: Cancer Additional Family Medical History / Comment(s): Colon Ca- Father Family Medical History: Cancer Additional Family Medical History / Comment(s): father had lung cancer. He was a smoker and worked in a foundry. Mother Family Medical History: Coronary Artery Disease (CAD) Additional Family Medical History / Comment(s): Mother had CABG in her 70s. Medications and Allergies Home Medications Medication Instructions Recorded Confirmed Type Atorvastatin [Lipitor] 10 mg PO HS 10/30/17 05/28/19 History Calcium Acetate [PhosLo] 1,334 mg PO AC-TID 10/30/17 05/28/19 History Diltiazem HCl [Diltiazem 24Hr ER] 120 mg PO DAILY 10/30/17 05/28/19 History Metoprolol Tartrate [Lopressor] 25 mg PO BID 10/30/17 05/28/19 History Potassium Chloride [Klor-Con 10] 10 meq PO BID 10/30/17 05/28/19 History Furosemide [Lasix] 80 mg PO BID 09/11/18 05/28/19 History Cholecalciferol [Vitamin D3 (25 1,000 unit PO DAILY tab 10/17/18 05/28/19 Rx Mcg = 1000 Iu)] Cyanocobalamin [Vitamin B-12] 1,000 mcg PO DAILY tab 10/17/18 05/28/19 Rx Ferrous Sulfate [Iron (65 MG 325 mg PO MOWEFR 03/05/19 05/28/19 History Elemental)] HYDROcodone/APAP 5-325MG [[place] 1 tab PO Q6H PRN 03/05/19 05/28/19 History 5-325] Calcium Carb-Mag Carb-Folic 1 tab PO DAILY 05/28/19 05/28/19 History [Magnebind 400 Rx] Midodrine [ProAmatine] 10 mg PO MOWEFR 05/28/19 05/28/19 History Landy-Emmanuel 1 tab PO HS 05/28/19 05/28/19 History Allergies Allergy/AdvReac Type Severity Reaction Status Date / Time heparin AdvReac Unknown Verified 05/28/19 07:03 Physical Exam Vitals: Vital Signs Temp Pulse Pulse Resp BP BP Pulse Ox 05/28/19 15:34 103 H 18 05/28/19 11:46 97.7 F 103 H 18 87/48 95 05/28/19 09:15 97 20 80/51 96 05/28/19 07:36 100 20 95/55 93 L 05/28/19 06:01 98.0 F 103 H 20 91/44 97 Intake and Output 05/28/19 05/28/19 05/28/19 06:59 14:59 22:59 Intake Total 240 Balance 240 Intake: Oral 240 Other: Voiding Method Diaper Incontinent # Voids 2 2 Weight 151.953 kg 151.953 kg Results CBC & Chem 7: 05/28/19 06:17 05/28/19 06:17 Labs: Abnormal Lab Results - Last 24 Hours (Table) 05/28/19 05/28/19 Range/Units 06:17 06:17 WBC 21.7 H (3.8-10.6) k/uL RBC 3.75 L (4.30-5.90) m/uL Hgb 9.8 L (13.0-17.5) gm/dL Hct 32.8 L (39.0-53.0) % MCHC 29.9 L (31.0-37.0) g/dL RDW 17.8 H (11.5-15.5) % Neutrophils # 19.3 H (1.3-7.7) k/uL Chloride 94 L (98-107) mmol/L Carbon Dioxide 32 H (22-30) mmol/L BUN 39 H (9-20) mg/dL Creatinine 4.50 H (0.66-1.25) mg/dL Glucose 103 H (74-99) mg/dL AST 15 L (17-59) U/L ALT 12 L (21-72) U/L Albumin 3.2 L (3.5-5.0) g/dL Lipase 15 L (23-300) U/L Thrombosis Risk Factor Assmnt - Choose All That Apply Any of the Below Risk Factors Present?: Yes Each Factor Represents 1 point: Obesity (BMI >25) Other Risk Factors: Yes Each Risk Factor Represents 2 Points: Age 61-74 years Each Risk Factor Represents 3 Points: History of DVT/PE Other congenital or acquired thrombophilia - If yes, enter type in comment: No Thrombosis Risk Factor Assessment Total Risk Factor Score: 6 Thrombosis Risk Factor Assessment Level: High Risk
[2019-05-29] MEDS: VANCOMYCIN ORAL SOLUTION 250 MG/5 ML BOTTLE PO SCH ×2 (02:15→10:43)
[2019-05-29] MEDS: CHERRY FLAVOR 60 ML BOTTLE PO PRN ×2 (02:15→10:43)
[2019-05-29 05:01] VITALS: RESP 18
--- NOTE | 2019-05-29 08:51 | P.PN ---
Subjective Patient is seen in follow-up for incisional disease. He is maintained on hemodialysis on a Sunday schedule. Tolerated hemodialysis well yesterday. Diarrhea has significantly improved. No active complaints at this time. Vital signs are stable. General: The patient appeared well nourished and normally developed. HEENT: Head exam is unremarkable. Neck is without jugular venous distension. LUNGS: Lungs are clear to auscultation and percussion. Breath sounds decreased. HEART: Rate and Rhythm are regular. First and second heart sounds normal. No murmurs, rubs or gallops. ABDOMEN: Abdominal exam reveals normal bowel sounds. Non-tender and non- distended. No evidence of peritonitis. EXTREMITITES: No clubbing, cyanosis, or edema. Chronic skin changes noted. Objective - Vital Signs Vital signs: Vital Signs Temp 97.9 F 05/29/19 05:00 Pulse 104 H 05/29/19 05:00 Resp 18 05/29/19 05:00 BP 83/50 05/29/19 05:00 Pulse Ox 92 L 05/29/19 05:00 Intake & Output 05/28/19 05/29/19 05/29/19 18:59 06:59 18:59 Intake Total 240 600 Output Total 3500 Balance 240 -2900 Weight 151.953 kg Intake: Intake, IV Titration 600 Amount Sodium Chloride 0.9% 1, 600 000 ml @ 75 mls/hr IV . [id number] ONE Rx#:[id number] Oral 240 Output: Hemodialysis 3500 Other: Voiding Method Diaper Diaper Incontinent # Voids 2 1 # Bowel Movements 1 - Labs CBC & Chem 7: 05/28/19 06:17 05/28/19 06:17 Assessment and Plan Plan: Assessment: 1. End-stage renal disease maintained on hemodialysis on a Sunday schedule. 2. Recurrent C. diff. unable to obtain stool sample this admission. 3. Chronic hypotension maintained on midodrine prior to dialysis. 4. Chronic kidney disease mineral bone disease maintained on PhosLo. 5. History of nephrolithiasis with chronic nephrostomy tube. Patient follows with urology Department out of [facility]. Patient states the nephrostomy tube was last changed last week. Plan: Hemodialysis tomorrow.
[2019-05-29] MEDS: CALCIUM ACETATE 667 MG CAP PO SCH (10:40)
[2019-05-29 11:38] VITALS: BP 97/49; PULSE 89; TEMP 97.8
--- NOTE | 2019-06-02 22:35 | P.DS ---
Providers Date of admission: 05/28/19 08:48 Expected date of discharge: 05/29/19 Attending physician: Gamaliel Burkett Consults: 05/28/19 13:29 Consult Physician Routine Consulting Provider: Jeffy Barahona Consult Reason/Comments: dialysis Do you want consulting provider notified?: Already Contacted Primary care physician: Akshat Nieves MD Hospital Course: Hospital course: This is a very pleasant 68-year-old patient of Dr. Akshat Acevedo from visiting physician. Has a rather extensive medical history. Patient's brother lives with them and also provides care to him. Patient's son also drops in the house to help him out. Chronic stable medical conditions include atrial fibrillation, end-stage kidney disease on hemodialysis, hyperlipidemia, hypertension, sleep apnea. 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 Patient gets him dialysis Sunday and Sunday. Patient also has obstructive sleep apnea uses CPAP. Patient also got bilateral lower extremity venous stasis dermatitis. Dry feet. Patient now presents with diarrhea that is about 3-4 times a day. Soft. No nausea vomiting. No fever no chills. Denies any obvious abdominal pain. Admitted for same. Nobody is in the house was sick. Patient has boots on bilateral feet. Patient also noted to have a dark bowel movements and rather concentrated appearing urine. Patient normally uses a urinal at home. Patient had only one diarrhea the first day and only 1 the following day. Given that prior history of C. diff in first felt that the stool positive EIA was from prior episodes as patient not having anymore diarrhea. Patient is doing well. Hence he is being discharged care was discussed with the patient. Consultation: Dr. Barahona from nephrology Physical examination: VITAL SIGNS: 97.8, 89, 18, 97/49, 96% room air GENERAL: BMI 48.1, laying in bed, tired appearing. EYES: Pupils equal. Conjunctiva normal. HEENT: External appearance of nose and ears normal, oral cavity grossly normal. NECK: JVD not raised; masses not palpable. HEART: First and second heart sounds are normal; no edema. LUNGS: Respiratory rate normal; diminished breath sounds. ABDOMEN: Soft, nontender, liver spleen not palpable, no masses palpable. PSYCH: Alert and oriented x3; mood and affect normal. NEUROLOGICAL: Cranial nerves grossly intact; no facial asymmetry, minimal power in the lower extremity, sensation grossly present. EXTREMITY: Dry, both the feet with t dysmorphic nails. Patient wearing boots on both the feet Investigations: White count 21.7 hemoglobin 9.8 potassium 4.3 blood urine nitrogen 39 creatinine 4.5 C. diff-EIA positive Assessment: -Acute gastroenteritis. There is no fever no chills. No abdominal pain. Patient does have leukocytosis. Abdominal examination soft. Self-limiting. Diarrhea resolved -History of atrial fibrillation -End-stage kidney disease on hemodialysis Sunday and Sunday -Hyperlipidemia -Essential hypertension -Obstructive sleep apnea uses CPAP -Chronic paraplegia due to a back injury -Chronic medical debility patient is being much bedbound -I anemia of chronic kidney disease -Medrol bone disease -Primary osteoarthritis multiple joints -Pickwickian syndrome -Bilateral lower extremity venous stasis dermatitis Disposition: Home Patient Condition at Discharge: Stable Plan - Discharge Summary Discharge Rx Participant: Yes New Discharge Prescriptions: Continue Calcium Acetate [PhosLo] 1,334 mg PO AC-TID Metoprolol Tartrate [Lopressor] 25 mg PO BID Diltiazem HCl [Diltiazem 24Hr ER] 120 mg PO DAILY Atorvastatin [Lipitor] 10 mg PO HS Potassium Chloride [Klor-Con 10] 10 meq PO BID Furosemide [Lasix] 80 mg PO BID Cholecalciferol [Vitamin D3 (25 Mcg = 1000 Iu)] 1,000 unit PO DAILY tab Cyanocobalamin [Vitamin B-12] 1,000 mcg PO DAILY tab HYDROcodone/APAP 5-325MG [[place] 5-325] 1 tab PO Q6H PRN PRN Reason: Pain Ferrous Sulfate [Iron (65 MG Elemental)] 325 mg PO MOWEFR Landy-Emmanuel 1 tab PO HS Midodrine [ProAmatine] 10 mg PO MOWEFR Calcium Carb-Mag Carb-Folic [Magnebind 400] 1 tab PO DAILY No Action Psyllium Husk 100% [Metamucil Packet] 6 gm PO BID #60 packet Vancomycin Oral Solution 125 mg PO Q6HR #70 ml Discharge Medication List Atorvastatin [Lipitor] 10 mg PO HS 10/30/17 [History] Calcium Acetate [PhosLo] 1,334 mg PO AC-TID 10/30/17 [History] Diltiazem HCl [Diltiazem 24Hr ER] 120 mg PO DAILY 10/30/17 [History] Metoprolol Tartrate [Lopressor] 25 mg PO BID 10/30/17 [History] Potassium Chloride [Klor-Con 10] 10 meq PO BID 10/30/17 [History] Furosemide [Lasix] 80 mg PO BID 09/11/18 [History] Cholecalciferol [Vitamin D3 (25 Mcg = 1000 Iu)] 1,000 unit PO DAILY tab 10/17/18 [Rx] Cyanocobalamin [Vitamin B-12] 1,000 mcg PO DAILY tab 10/17/18 [Rx] Ferrous Sulfate [Iron (65 MG Elemental)] 325 mg PO MOWEFR 03/05/19 [History] HYDROcodone/APAP 5-325MG [[place] 5-325] 1 tab PO Q6H PRN 03/05/19 [History] Calcium Carb-Mag Carb-Folic [Magnebind 400] 1 tab PO DAILY 05/28/19 [History] Midodrine [ProAmatine] 10 mg PO MOWEFR 05/28/19 [History] Landy-Emmanuel 1 tab PO HS 05/28/19 [History] Psyllium Husk 100% [Metamucil Packet] 6 gm PO BID #60 packet 06/01/19 [Rx] Vancomycin Oral Solution 125 mg PO Q6HR #70 ml 06/01/19 [Rx] Follow up Appointment(s)/Referral(s): Akshat Nieves MD [Primary Care Provider] - 1-2 days (Per Dr. Nieves's office, they will call patients brother to see patient either Sunday or Sunday.) [facility], [NON-STAFF] - 1-2 Days Discharge Disposition: HOME WITH HOME HEALTH SERVICES
== END 2019-05-29 15:00 | disposition home health service (06) | DRG 371 ==
LOC: EC 05:58 → 3NMEDONC 08:37 → OBSVTOIN 08:37 → 3NMEDONC 08:48 → UNDOADMOB 08:48 → UNDODISOB 05-29 15:00
PROVIDERS: ADMIT Hospitalist; ATTEND Hospitalist
DX: A04.71 Enterocolitis due to Clostridium difficile, recurrent (principal); N18.6 End stage renal disease; G82.20 Paraplegia, unspecified; I12.0 Hypertensive chronic kidney disease with stage 5 chronic kidney disease or end stage renal disease; E66.2 Morbid (severe) obesity with alveolar hypoventilation; Z68.42 Body mass index [BMI] 45.0-49.9, adult; I48.91 Unspecified atrial fibrillation; E78.5 Hyperlipidemia, unspecified; Z99.89 Dependence on other enabling machines and devices; D63.1 Anemia in chronic kidney disease; Z74.01 Bed confinement status; I87.2 Venous insufficiency (chronic) (peripheral); I95.89 Other hypotension; M89.8X9 Other specified disorders of bone, unspecified site; Z99.2 Dependence on renal dialysis; Z87.891 Personal history of nicotine dependence; Z86.718 Personal history of other venous thrombosis and embolism; Z87.19 Personal history of other diseases of the digestive system; Z86.14 Personal history of Methicillin resistant Staphylococcus aureus infection; Z87.442 Personal history of urinary calculi; Z86.19 Personal history of other infectious and parasitic diseases; Z87.440 Personal history of urinary (tract) infections; T14.8XXS Other injury of unspecified body region, sequela; Z93.6 Other artificial openings of urinary tract status; Z95.5 Presence of coronary angioplasty implant and graft; Z79.899 Other long term (current) drug therapy; Z79.891 Long term (current) use of opiate analgesic; Z88.8 Allergy status to other drugs, medicaments and biological substances; Z80.0 Family history of malignant neoplasm of digestive organs; Z80.1 Family history of malignant neoplasm of trachea, bronchus and lung; Z82.49 Family history of ischemic heart disease and other diseases of the circulatory system; M15.9 Polyosteoarthritis, unspecified
CPT/HCPCS: 36415; 80053; 82150; 83690; 85025; 87324; 90935; 99285

== ENCOUNTER 2019-05-30 11:44 | Observation (INO) | payer MEDICARE, OTHER ==
[2019-05-30] MEDS ORDERED: SODIUM CHLORIDE 0.9% 1,000 ML IV STA (12:17)
--- NOTE | 2019-05-30 12:30 | ED ---
Nausea/Vomiting/Diarrhea HPI - General Chief complaint: Nausea/Vomiting/Diarrhea Stated complaint: CDIFF Time Seen by Provider: 05/30/19 12:16 Source: patient, family, EMS, RN notes reviewed, old records reviewed Mode of arrival: EMS Limitations: physical limitation - History of Present Illness Initial comments: This is a 68-year-old male with a history of chronic renal disease with dialysis history of recurrent C. diff was back today with reports of a positive C. diff culture. He was just discharged from the hospital 2 days ago and is back today at the direction of his doctor. These been feeling weak having diarrhea he denies any fevers chills or sweats he does believe is taking in fluids. He does have chronic foot issues and is wearing body boots. No other new modifying factors MD complaint: diarrhea - Related Data Home Medications Medication Instructions Recorded Confirmed Atorvastatin [Lipitor] 10 mg PO HS 10/30/17 05/30/19 Calcium Acetate [PhosLo] 1,334 mg PO AC-TID 10/30/17 05/30/19 Diltiazem HCl [Diltiazem 24Hr ER] 120 mg PO DAILY 10/30/17 05/30/19 Metoprolol Tartrate [Lopressor] 25 mg PO BID 10/30/17 05/30/19 Potassium Chloride [Klor-Con 10] 10 meq PO BID 10/30/17 05/30/19 Furosemide [Lasix] 80 mg PO BID 09/11/18 05/30/19 Ferrous Sulfate [Iron (65 MG 325 mg PO MOWEFR 03/05/19 05/30/19 Elemental)] HYDROcodone/APAP 5-325MG [[place] 1 tab PO Q6H PRN 03/05/19 05/30/19 5-325] Calcium Carb-Mag Carb-Folic 1 tab PO DAILY 05/28/19 05/30/19 [Magnebind 400] Midodrine [ProAmatine] 10 mg PO MOWEFR 05/28/19 05/30/19 Landy-Emmanuel 1 tab PO HS 05/28/19 05/30/19 Previous Rx's Medication Instructions Recorded Cholecalciferol [Vitamin D3 (25 1,000 unit PO DAILY tab 10/17/18 Mcg = 1000 Iu)] Cyanocobalamin [Vitamin B-12] 1,000 mcg PO DAILY tab 10/17/18 Allergies Allergy/AdvReac Type Severity Reaction Status Date / Time diphenhydramine Allergy Unknown Verified 05/30/19 12:52 [From Benadryl] heparin AdvReac Unknown Verified 05/30/19 12:52 Review of Systems ROS Statement: Those systems with pertinent positive or pertinent negative responses have been documented in the HPI. ROS Other: All systems not noted in ROS Statement are negative. Past Medical History Past Medical History: Atrial Fibrillation, Dialysis, Deep Vein Thrombosis (DVT), GI Bleed, Hyperlipidemia, Hypertension, Renal Disease, Sleep Apnea/CPAP/BIPAP Additional Past Medical History / Comment(s): Paraplegia r/t back injury/surgery-pt states he no longer gets up into wheelchair d/t too painful, ESRD with hemodialysis-M/W/F, enlarged R kidney with stones/staghorn-has chronic nephrostomy tube/bag, chronic anemia, mineral bone disease, recurrent CDiff in fections, sepsis 2ndary to CDiff colitis/UTI, possible past upper GI bleed, DVT in a leg post op, arhtritis multiple joints, pickwickian syndrome, past respiratory failure/vented, ISACC with Cpap, bilateral lower extremity venous stasis/dermatitis, bilateral lower leg/feet edema and currently scabs on L foot toes. History of Any Multi-Drug Resistant Organisms: C-DIFF, MRSA Date of last positivie culture/infection: 03/06/19 MDRO Source:: MRSA URINE, ASPIRATE, Cdiff now Past Surgical History: Adenoidectomy, Back Surgery, Heart Catheterization With Stent, Hernia Repair, Tonsillectomy Additional Past Surgical History / Comment(s): LT ARM FISTULA-NO BP OR BLOOD DRAWS IN LT ARM, PCI with stent, low back surgery, nephrostomy tubes-replaced 05/22/19, abdominal hernia, colonoscopy with benign polyp Past Anesthesia/Blood Transfusion Reactions: No Reported Reaction Date of Last Stent Placement:: 2004 Past Psychological History: No Psychological Hx Reported Smoking Status: Former smoker Past Alcohol Use History: None Reported Past Drug Use History: None Reported - Past Family History Brother(s) Family Medical History: Cancer Additional Family Medical History / Comment(s): Colon Ca- Father Family Medical History: Cancer Additional Family Medical History / Comment(s): father had lung cancer. He was a smoker and worked in a foundry. Mother Family Medical History: Coronary Artery Disease (CAD) Additional Family Medical History / Comment(s): Mother had CABG in her 70s. General Exam - General Exam Comments Initial Comments: This a well-developed well-nourished awake alert oriented times female Limitations: physical limitation General appearance: alert Head exam: Present: atraumatic, normocephalic, normal inspection Eye exam: Present: normal appearance, PERRL, EOMI. Absent: scleral icterus, conjunctival injection, periorbital swelling ENT exam: Present: mucous membranes dry Neck exam: Present: normal inspection, full ROM, other (No stridor JVD or bruits). Absent: tenderness, meningismus, lymphadenopathy Respiratory exam: Present: normal lung sounds bilaterally. Absent: respiratory distress, wheezes, rales, rhonchi, stridor Cardiovascular Exam: Present: normal rhythm, tachycardia, normal heart sounds. Absent: systolic murmur, diastolic murmur, rubs, gallop, clicks GI/Abdominal exam: Present: soft, tenderness (Mild tenderness no guarding rebound masses or bruits), normal bowel sounds. Absent: distended, guarding, rebound, rigid Rectal exam: Present: deferred Extremities exam: Present: full ROM, normal capillary refill, other (Chronic was in both feet). Absent: tenderness, pedal edema, joint swelling, calf tenderness Back exam: Present: normal inspection Neurological exam: Present: alert, oriented X3, CN II-XII intact Psychiatric exam: Present: normal affect, normal mood Skin exam: Present: warm, dry, normal color. Absent: rash Course Vital Signs 05/30/19 05/30/19 05/30/19 11:49 11:51 12:00 Temperature 97.0 F L Pulse Rate 106 H 101 H Respiratory 20 20 Rate Blood Pressure 79/51 79/51 O2 Sat by Pulse 82 L 98 Oximetry 05/30/19 05/30/19 05/30/19 12:10 12:40 13:00 Temperature Pulse Rate 101 H 100 Respiratory 17 18 Rate Blood Pressure 107/53 80/61 116/53 O2 Sat by Pulse 97 91 L Oximetry 05/30/19 05/30/19 05/30/19 13:40 13:50 14:00 Temperature Pulse Rate 110 H 105 H 96 Respiratory 11 L 15 20 Rate Blood Pressure 87/55 85/69 85/69 O2 Sat by Pulse 94 L 93 L 82 L Oximetry Medical Decision Making - Medical Decision Making I did discuss findings with patient and with family members as well as Dr. Burkett patient be admitted for treatment of diarrhea, C. diff, failure to thrive - Lab Data Result diagrams: 05/30/19 13:10 05/30/19 13:10 Lab Results 05/30/19 05/30/19 05/30/19 Range/Units 13:10 13:10 14:25 WBC 15.2 H (3.8-10.6) k/uL RBC 3.88 L (4.30-5.90) m/uL Hgb 10.2 L (13.0-17.5) gm/dL Hct 34.2 L (39.0-53.0) % MCV 88.3 (80.0-100.0) fL MCH 26.4 (25.0-35.0) pg MCHC 29.9 L (31.0-37.0) g/dL RDW 17.3 H (11.5-15.5) % Plt Count 381 (150-450) k/uL Neutrophils % 84 % Lymphocytes % 9 % Monocytes % 4 % Eosinophils % 1 % Basophils % 0 % Neutrophils # 12.8 H (1.3-7.7) k/uL Lymphocytes # 1.4 (1.0-4.8) k/uL Monocytes # 0.6 (0-1.0) k/uL Eosinophils # 0.2 (0-0.7) k/uL Basophils # 0.1 (0-0.2) k/uL Hypochromasia Marked Anisocytosis Slight Sodium 138 (137-145) mmol/L Potassium 3.4 L (3.5-5.1) mmol/L Chloride 95 L (98-107) mmol/L Carbon Dioxide 32 H (22-30) mmol/L Anion Gap 11 mmol/L BUN 14 (9-20) mg/dL Creatinine 1.86 H (0.66-1.25) mg/dL Est GFR (CKD-EPI)AfAm 42 (>60 ml/min/1.73 sqM) Est GFR (CKD-EPI)NonAf 37 (>60 ml/min/1.73 sqM) Glucose 103 H (74-99) mg/dL Calcium 8.6 (8.4-10.2) mg/dL Total Bilirubin 0.5 (0.2-1.3) mg/dL AST 17 (17-59) U/L ALT 12 L (21-72) U/L Alkaline Phosphatase 93 (38-126) U/L Total Protein 8.3 H (6.3-8.2) g/dL Albumin 3.6 (3.5-5.0) g/dL Lipase 83 (23-300) U/L Urine Color Yellow Urine Appearance Turbid (Clear) Urine pH 6.5 (5.0-8.0) Ur Specific [place] 1.016 (1.001-1.035) Urine Protein 2+ H (Negative) Urine Glucose (UA) Negative (Negative) Urine Ketones Negative (Negative) Urine Blood Large H (Negative) Urine Nitrite Negative (Negative) Urine Bilirubin Negative (Negative) Urine Urobilinogen <2.0 (<2.0) mg/dL Ur Leukocyte Esterase Large H (Negative) Urine RBC 5 (0-5) /hpf Urine WBC >182 H (0-5) /hpf Urine WBC Clumps Many H (None) /hpf Ur Squamous Epith Cells <1 (0-4) /hpf Urine Bacteria Few H (None) /hpf - Radiology Data Radiology results: report reviewed (I did review the imaging and report no acute findings.), image reviewed Disposition Clinical Impression: C. difficile colitis, Clostridium difficile infection, Failure to thrive Disposition: ADMITTED IP TO THIS [facility] Condition: Fair Referrals: Akshat Nieves MD [Primary Care Provider] - 1-2 days
--- NOTE | 2019-05-30 12:58 | XR ---
KUB HISTORY: Nausea vomiting and diarrhea KUB on [address] and plain film 03/06/2019 Right-sided nephrostomy catheter and multiple right-sided renal calculi are again noted. There is no evident bowel obstruction or pneumoperitoneum. Arthropathy again seen within the hips. Degenerative d isc changes in the visualized spine. Multiple calcifications are present within the kidneys as on fidelia or. Inferior vena cava filter is in place. IMPRESSION: Nonobstructive bowel gas pattern. Bilateral nephrolithiasis with right-sided nephrostomy tube in place. Postprocedural changes.
[2019-05-30 13:46] LABS: Anisocytosis Slight; Basophils # (A) 0.1 k/uL (0-0.2); Basophils % (A) 0 %; Eosinophils # (A) 0.2 k/uL (0-0.7); Eosinophils % (A) 1 %; HCT 34.2 % (39.0-53.0); HGB 10.2 gm/dL (13.0-17.5); Hypochromasia Marked; Lymphocytes # (A) 1.4 k/uL (1.0-4.8); Lymphocytes % (A) 9 %; MCH 26.4 pg (25.0-35.0); MCHC 29.9 g/dL (31.0-37.0); MCV 88.3 fL (80.0-100.0); Mean Platelet Volume 7.2; Monocytes # (A) 0.6 k/uL (0-1.0); Monocytes % (A) 4 %; Neutrophils # (A) 12.8 k/uL (1.3-7.7); Neutrophils % (A) 84 %; Platelet Count 381 k/uL (150-450); RBC 3.88 m/uL (4.30-5.90); RDW 17.3 % (11.5-15.5); WBC 15.2 k/uL (3.8-10.6)
[2019-05-30 13:58] LABS: Albumin 3.6 g/dL (3.5-5.0); Calcium 8.6 mg/dL (8.4-10.2); Potassium 3.4 mmol/L (3.5-5.1); Total Bilirubin 0.5 mg/dL (0.2-1.3); Total Protein 8.3 g/dL (6.3-8.2)
[2019-05-30 15:00] LABS: Appearance,Urine Turbid (Clear); Bacteria,Urine Few /hpf; Bilirubin,Urine Negative (Negative); Blood,Urine Large (Negative); Color,Urine Yellow; Glucose,Urine (UA) Negative (Negative); Ketones,Urine Negative (Negative); Leukocyte Esterase,Urine Large (Negative); Nitrite,Urine Negative (Negative); PH, Urine 6.5 (5.0-8.0); Protein,Urine 2+ (Negative); RBC,Urine 5 /hpf (0-5); Specific Gravity,Urine 1.016 (1.001-1.035); Squamous Epithelial Cell,Urine <1 /hpf (0-4); Urobilinogen,Urine <2.0 mg/dL (<2.0); WBC,Urine >182 /hpf (0-5)
[2019-05-30] MEDS ORDERED: ACETAMINOPHEN TAB 325 MG TAB PO PRN (15:38)
[2019-05-30] MEDS ORDERED: NALOXONE 0.4 MG/ML 1 ML VIAL IV PRN (15:38)
[2019-05-30] MEDS: SODIUM CHLORIDE 0.9% 1,000 ML IV SCH (15:54)
[2019-05-30] MEDS ORDERED: FERROUS SULFATE 325 MG TAB PO SCH (16:15)
[2019-05-30] MEDS ORDERED: MIDODRINE 5 MG TAB PO SCH (16:15)
[2019-05-30] MEDS: FUROSEMIDE 80 MG TAB PO SCH (18:14)
[2019-05-30] MEDS: CALCIUM ACETATE 667 MG CAP PO SCH (18:20)
[2019-05-30] MEDS: ATORVASTATIN 10 MG TAB PO SCH (22:27)
[2019-05-30] MEDS: POTASSIUM CHLORIDE ER 10 MEQ TAB.ER.PRT PO SCH (22:27)
[2019-05-30] MEDS: FOLIC ACID-VIT B COMPLEX-VIT C 1 CAP PO SCH (22:27)
--- NOTE | 2019-05-30 23:04 | P.HPIM ---
History of Present Illness H&P Date: 05/30/19 Chief Complaint: Loose stools History of presenting complaint: This is a very pleasant 68-year-old patient of Dr. Akshat Acevedo from visiting physician. Has a rather extensive medical history. Patient's brother lives with them and also provides care to him. Patient's son also drops in the house to help him out. Chronic stable medical conditions include atrial fibrillation, end-stage kidney disease on hemodialysis, hyperlipidemia, chronic hypotension, sleep apnea. 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 Patient gets him dialysis Sunday and Sunday. Patient also has obstructive sleep apnea uses CPAP. Patient also got bilateral lower extremity venous stasis dermatitis. Dry feet. Patient was admitted to the hospital on May 28 with diarrhea. Patient had prior C. diff. Patient had no more diarrhea on the floor and was back to his normal once or twice a day bowel pattern. C. diff was tested and it was felt to be more colonization. Patient was discharged. Patient called for his usual dialysis. Yesterday had 1 loose stool. And today again had 1 large loose stool. Given that she was sent back to the hospital for possible C. diff. And admitted for the same. Patient had no fever or chills. No abdominal pain. Her nausea vomiting. Patient otherwise feeling well. Back to his baseline. Review of systems: GEN.: Tired EYES: None HEENT: None NECK: None RESPIRATORY: None CARDIOVASCULAR: None GASTROINTESTINAL: As above GENITOURINARY: None MUSCULOSKELETAL: Chronic pain in the joints LYMPHATICS: None HEMATOLOGICAL: None PSYCHIATRY: None NEUROLOGICAL: Chronic paraplegia Social history: Patient's brother lives with him. Was also's caregiver. Some drops in intermittently. Patient smoked only 10 years stopped in 1981. Patient is but he was bedbound. Family history: Colon cancer Physical examination: VITAL SIGNS: 97, 106, 20, 79/51, 98% room air GENERAL: BMI 48.1, laying in bed, awake. EYES: Pupils equal. Conjunctiva normal. HEENT: External appearance of nose and ears normal, oral cavity grossly normal. NECK: JVD not raised; masses not palpable. HEART: First and second heart sounds are normal; no edema. LUNGS: Respiratory rate normal; diminished breath sounds. ABDOMEN: Soft, nontender, liver spleen not palpable, no masses palpable. PSYCH: Alert and oriented x3; mood and affect normal. NEUROLOGICAL: Cranial nerves grossly intact; no facial asymmetry, minimal power in the lower extremity, sensation grossly present. LYMPHATICS: No lymph nodes palpable in the axilla and neck EXTREMITY: Dry, both the feet with dysmorphic nails. Patient wearing boots on both the feet Investigations: White count 15.2, hemoglobin 10.2, potassium 3.4, creatinine 1.86 Assessment: -This is a patient with prior C. diff. Now presenting with diarrhea. Had 1 loose stool yesterday. 1 large loose stool today. Patient's C. diff was positive days ago.. It may be that this is all colonization. We will get a ID opinion in the meantime patient be put on vancomycin present orally -History of atrial fibrillation -End-stage kidney disease on hemodialysis Sunday and Sunday -Hyperlipidemia -Essential hypertension -Obstructive sleep apnea uses CPAP -Chronic paraplegia due to a back injury -Chronic medical debility patient is being much bedbound - anemia of chronic kidney disease -Medrol bone disease -Primary osteoarthritis multiple joints -Pickwickian syndrome -Bilateral lower extremity venous stasis dermatitis Plan: ID was reconsulted. Nephrology will be consulted for hemodialysis. Home medications to continue. I will start the patient on vancomycin. But see if of it discussing with ID if it can be discontinued. We'll also add Metamucil to bulk on the stool. Care was discussed with the patient. 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 History of Any Multi-Drug Resistant Organisms: C-DIFF, MRSA Date of last positivie culture/infection: 03/06/19 MDRO Source:: MRSA URINE, ASPIRATE, Cdiff now Past Surgical History: Adenoidectomy, Back Surgery, Heart Catheterization With Stent, Hernia Repair, Tonsillectomy Additional Past Surgical History / Comment(s): LT ARM FISTULA-NO BP OR BLOOD DRAWS IN LT ARM, PCI with stent, low back surgery, nephrostomy tubes-replaced 05/22/19, abdominal hernia, colonoscopy with benign polyp Past Anesthesia/Blood Transfusion Reactions: No Reported Reaction Date of Last Stent Placement:: 2004 Past Psychological History: No Psychological Hx Reported Additional Psychological History / Comment(s): Pt has a brother that lives with him and his son comes over daily. They are his caregivers. He currently has no home care. Pt has a hospital bed and stays in bed now d/t too painful to get up into wheelchair. Owns a kelby lift, cpap and megamover transfer mat. Smoking Status: Former smoker Past Alcohol Use History: None Reported Additional Past Alcohol Use History / Comment(s): Pt started smoking in 1971 and quit in 1981 Past Drug Use History: None Reported - Past Family History Brother(s) Family Medical History: Cancer Additional Family Medical History / Comment(s): Colon Ca- Father Family Medical History: Cancer Additional Family Medical History / Comment(s): father had lung cancer. He was a smoker and worked in a foundry. Mother Family Medical History: Coronary Artery Disease (CAD) Additional Family Medical History / Comment(s): Mother had CABG in her 70s. Medications and Allergies Home Medications Medication Instructions Recorded Confirmed Type Atorvastatin [Lipitor] 10 mg PO HS 10/30/17 05/30/19 History Calcium Acetate [PhosLo] 1,334 mg PO AC-TID 10/30/17 05/30/19 History Diltiazem HCl [Diltiazem 24Hr ER] 120 mg PO DAILY 10/30/17 05/30/19 History Metoprolol Tartrate [Lopressor] 25 mg PO BID 10/30/17 05/30/19 History Potassium Chloride [Klor-Con 10] 10 meq PO BID 10/30/17 05/30/19 History Furosemide [Lasix] 80 mg PO BID 09/11/18 05/30/19 History Cholecalciferol [Vitamin D3 (25 1,000 unit PO DAILY tab 10/17/18 05/30/19 Rx Mcg = 1000 Iu)] Cyanocobalamin [Vitamin B-12] 1,000 mcg PO DAILY tab 10/17/18 05/30/19 Rx Ferrous Sulfate [Iron (65 MG 325 mg PO MOWEFR 03/05/19 05/30/19 History Elemental)] HYDROcodone/APAP 5-325MG [[place] 1 tab PO Q6H PRN 03/05/19 05/30/19 History 5-325] Calcium Carb-Mag Carb-Folic 1 tab PO DAILY 05/28/19 05/30/19 History [Magnebind 400] Midodrine [ProAmatine] 10 mg PO MOWEFR 05/28/19 05/30/19 History Landy-Emmanuel 1 tab PO HS 05/28/19 05/30/19 History Allergies Allergy/AdvReac Type Severity Reaction Status Date / Time diphenhydramine Allergy Unknown Verified 05/30/19 12:52 [From Benadryl] heparin AdvReac Unknown Verified 05/30/19 12:52 Physical Exam Vitals: Vital Signs Temp Pulse Pulse Resp BP BP Pulse Ox 05/30/19 21:00 98.8 F 98 20 87/46 95 05/30/19 18:15 96.6 F L 88 20 80/38 92 L 05/30/19 16:50 101 H 18 78/52 97 05/30/19 16:40 96 20 113/73 97 05/30/19 16:30 112 H 24 90/62 92 L 05/30/19 16:20 101 H 14 90/62 93 L 05/30/19 16:10 95 10 L 70/49 97 05/30/19 16:00 104 H 15 89/59 97 05/30/19 15:50 99 23 89/59 93 L 05/30/19 15:40 96 17 100/64 97 05/30/19 15:30 18 94/45 91 L 05/30/19 15:20 101 H 25 H 94/45 99 05/30/19 15:10 98 11 L 104/42 96 05/30/19 15:00 107 H 23 89/51 96 05/30/19 14:50 100 20 89/51 97 05/30/19 14:40 101 H 19 83/50 96 05/30/19 14:30 105 H 12 95/72 98 05/30/19 14:20 107 H 12 97 05/30/19 14:10 118 H 17 101/59 87 L 05/30/19 14:00 96 20 85/69 82 L 05/30/19 13:50 105 H 15 85/69 93 L 05/30/19 13:40 110 H 11 L 87/55 94 L 05/30/19 13:00 100 18 116/53 91 L 05/30/19 12:40 80/61 05/30/19 12:10 101 H 17 107/53 97 05/30/19 12:00 101 H 20 79/51 05/30/19 11:51 97.0 F L 106 H 20 79/51 98 05/30/19 11:49 82 L Intake and Output 05/30/19 05/30/19 05/30/19 06:59 14:59 22:59 Other: Weight 151.953 kg Results CBC & Chem 7: 05/30/19 13:10 05/30/19 13:10 Labs: Abnormal Lab Results - Last 24 Hours (Table) 05/30/19 05/30/19 05/30/19 Range/Units 13:10 13:10 14:25 WBC 15.2 H (3.8-10.6) k/uL RBC 3.88 L (4.30-5.90) m/uL Hgb 10.2 L (13.0-17.5) gm/dL Hct 34.2 L (39.0-53.0) % MCHC 29.9 L (31.0-37.0) g/dL RDW 17.3 H (11.5-15.5) % Neutrophils # 12.8 H (1.3-7.7) k/uL Potassium 3.4 L (3.5-5.1) mmol/L Chloride 95 L (98-107) mmol/L Carbon Dioxide 32 H (22-30) mmol/L Creatinine 1.86 H (0.66-1.25) mg/dL Glucose 103 H (74-99) mg/dL ALT 12 L (21-72) U/L Total Protein 8.3 H (6.3-8.2) g/dL Urine Protein 2+ H (Negative) Urine Blood Large H (Negative) Ur Leukocyte Esterase Large H (Negative) Urine WBC >182 H (0-5) /hpf Urine WBC Clumps Many H (None) /hpf Urine Bacteria Few H (None) /hpf Thrombosis Risk Factor Assmnt - Choose All That Apply Any of the Below Risk Factors Present?: Yes Each Factor Represents 1 point: Medical pt on bed rest, Obesity (BMI >25), Swollen legs (current) Other Risk Factors: Yes Each Risk Factor Represents 2 Points: Age 61-74 years, Patient confined to bed Other congenital or acquired thrombophilia - If yes, enter type in comment: No Thrombosis Risk Factor Assessment Total Risk Factor Score: 7 Thrombosis Risk Factor Assessment Level: High Risk
[2019-05-31] MEDS: METOPROLOL TARTRATE 25 MG TAB PO SCH ×3 (00:28→22:48)
[2019-05-31] MEDS: PSYLLIUM HUSK 100% 6 GM PACKET PO SCH ×3 (00:29→22:44)
[2019-05-31] MEDS: HYDROcodone/APAP 5-325MG 1 EACH TAB PO PRN (01:32)
[2019-05-31] MEDS: VANCOMYCIN ORAL SOLUTION 250 MG/5 ML BOTTLE PO SCH ×4 (01:32→17:11)
[2019-05-31] MEDS: CHERRY FLAVOR 60 ML BOTTLE PO SCH ×4 (01:32→17:11)
[2019-05-31] MEDS: SODIUM CHLORIDE 0.9% 1,000 ML IV SCH (05:28)
[2019-05-31] MEDS: FUROSEMIDE 80 MG TAB PO SCH ×2 (08:20→17:11)
[2019-05-31] MEDS: DILTIAZEM CD 120 MG CAP.ER.24H PO SCH (08:20)
[2019-05-31] MEDS: POTASSIUM CHLORIDE ER 10 MEQ TAB.ER.PRT PO SCH ×2 (08:20→22:48)
[2019-05-31] MEDS: CHOLECALCIFEROL 1,000 UNIT TAB PO SCH (08:20)
[2019-05-31] MEDS: CYANOCOBALAMIN 500 MCG TAB PO SCH (08:20)
[2019-05-31] MEDS: CALCIUM ACETATE 667 MG CAP PO SCH ×3 (08:20→17:11)
[2019-05-31] MEDS: CALCIUM CARB-MAG CARB-FOLIC 1 EACH TAB PO SCH (08:21)
[2019-05-31 09:05] LABS: Anisocytosis Slight; Basophils % (A) 0 %; Eosinophils # (A) 0.3 k/uL (0-0.7); Eosinophils % (A) 3 %; HCT 33.8 % (39.0-53.0); HGB 9.7 gm/dL (13.0-17.5); Hypochromasia Marked; Lymphocytes # (A) 1.4 k/uL (1.0-4.8); Lymphocytes % (A) 14 %; MCH 25.9 pg (25.0-35.0); MCHC 28.8 g/dL (31.0-37.0); Mean Platelet Volume 7.2; Monocytes # (A) 0.7 k/uL (0-1.0); Monocytes % (A) 7 %; Neutrophils # (A) 7.3 k/uL (1.3-7.7); Neutrophils % (A) 74 %; Platelet Count 383 k/uL (150-450); RBC 3.75 m/uL (4.30-5.90); RDW 17.1 % (11.5-15.5); WBC 9.9 k/uL (3.8-10.6)
[2019-05-31 09:13] LABS: Albumin 3.3 g/dL (3.5-5.0); Calcium 8.2 mg/dL (8.4-10.2); Potassium 4.1 mmol/L (3.5-5.1); Total Bilirubin 0.4 mg/dL (0.2-1.3); Total Protein 7.7 g/dL (6.3-8.2)
--- NOTE | 2019-05-31 09:37 | P.NPCON ---
History of Present Illness - Reason for Consult end stage renal disease - History of Present Illness Reason for consultation: End-stage renal disease History of present illness: Patient is a 68-year-old male seen in consultation for end-stage renal disease. He is maintained on hemodialysis on a Sunday schedule. Patient was in the hospital 2 days ago with diarrhea with concern for C. diff. Patient has had recurrent episodes of C. diff and is maintained on oral vancomycin outpatient. After the patient was discharged he states he developed diarrhea the same night and came back to the hospital. C. diff was negative. Overall diarrhea has improved. He feels much better today. He did complete hemodialysis yesterday. Denies chest pain or shortness of breath. Patient has chronic hypotension and is maintained on midodrine. He is afebrile. No vomiting. Vital signs are stable. General: The patient appeared well nourished and normally developed. HEENT: Head exam is unremarkable. Neck is without jugular venous distension. LUNGS: Lungs are clear to auscultation and percussion. Breath sounds decreased. HEART: Rate and Rhythm are regular. First and second heart sounds normal. No murmurs, rubs or gallops. ABDOMEN: Abdominal exam reveals normal bowel sounds. Nephrostomy tube noted. Obese. EXTREMITITES: 1+ edema. Chronic skin changes noted. 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 History of Any Multi-Drug Resistant Organisms: C-DIFF, MRSA Date of last positivie culture/infection: 03/06/19 MDRO Source:: MRSA URINE, ASPIRATE, Cdiff now Past Surgical History: Adenoidectomy, Back Surgery, Heart Catheterization With Stent, Hernia Repair, Tonsillectomy Additional Past Surgical History / Comment(s): LT ARM FISTULA-NO BP OR BLOOD DRAWS IN LT ARM, PCI with stent, low back surgery, nephrostomy tubes-replaced 05/22/19, abdominal hernia, colonoscopy with benign polyp Past Anesthesia/Blood Transfusion Reactions: No Reported Reaction Date of Last Stent Placement:: 2004 Past Psychological History: No Psychological Hx Reported Additional Psychological History / Comment(s): Pt has a brother that lives with him and his son comes over daily. They are his caregivers. He currently has no home care. Pt has a hospital bed and stays in bed now d/t too painful to get up into wheelchair. Owns a kelby lift, cpap and megamover transfer mat. Smoking Status: Former smoker Past Alcohol Use History: None Reported Additional Past Alcohol Use History / Comment(s): Pt started smoking in 1971 and quit in 1981 Past Drug Use History: None Reported - Past Family History Brother(s) Family Medical History: Cancer Additional Family Medical History / Comment(s): Colon Ca- Father Family Medical History: Cancer Additional Family Medical History / Comment(s): father had lung cancer. He was a smoker and worked in a foundry. Mother Family Medical History: Coronary Artery Disease (CAD) Additional Family Medical History / Comment(s): Mother had CABG in her 70s. Medications and Allergies Home Medications Medication Instructions Recorded Confirmed Type Atorvastatin [Lipitor] 10 mg PO HS 10/30/17 05/30/19 History Calcium Acetate [PhosLo] 1,334 mg PO AC-TID 10/30/17 05/30/19 History Diltiazem HCl [Diltiazem 24Hr ER] 120 mg PO DAILY 10/30/17 05/30/19 History Metoprolol Tartrate [Lopressor] 25 mg PO BID 10/30/17 05/30/19 History Potassium Chloride [Klor-Con 10] 10 meq PO BID 10/30/17 05/30/19 History Furosemide [Lasix] 80 mg PO BID 09/11/18 05/30/19 History Cholecalciferol [Vitamin D3 (25 1,000 unit PO DAILY tab 10/17/18 05/30/19 Rx Mcg = 1000 Iu)] Cyanocobalamin [Vitamin B-12] 1,000 mcg PO DAILY tab 10/17/18 05/30/19 Rx Ferrous Sulfate [Iron (65 MG 325 mg PO MOWEFR 03/05/19 05/30/19 History Elemental)] HYDROcodone/APAP 5-325MG [[facility] 1 tab PO Q6H PRN 03/05/19 05/30/19 History 5-325] Calcium Carb-Mag Carb-Folic 1 tab PO DAILY 05/28/19 05/30/19 History [Magnebind 400] Midodrine [ProAmatine] 10 mg PO MOWEFR 05/28/19 05/30/19 History Landy-Emmanuel 1 tab PO HS 05/28/19 05/30/19 History Allergies Allergy/AdvReac Type Severity Reaction Status Date / Time diphenhydramine Allergy Unknown Verified 05/30/19 12:52 [From Benadryl] heparin AdvReac Unknown Verified 05/30/19 12:52 Physical Exam Vitals: Vital Signs Temp Pulse Pulse Resp BP BP Pulse Ox 05/31/19 04:25 98.3 F 97 20 82/56 95 05/30/19 21:00 98.8 F 98 20 87/46 95 05/30/19 18:15 96.6 F L 88 20 80/38 92 L 05/30/19 16:50 101 H 18 78/52 97 05/30/19 16:40 96 20 113/73 97 05/30/19 16:30 112 H 24 90/62 92 L 05/30/19 16:20 101 H 14 90/62 93 L 05/30/19 16:10 95 10 L 70/49 97 05/30/19 16:00 104 H 15 89/59 97 05/30/19 15:50 99 23 89/59 93 L 05/30/19 15:40 96 17 100/64 97 05/30/19 15:30 18 94/45 91 L 05/30/19 15:20 101 H 25 H 94/45 99 05/30/19 15:10 98 11 L 104/42 96 05/30/19 15:00 107 H 23 89/51 96 05/30/19 14:50 100 20 89/51 97 05/30/19 14:40 101 H 19 83/50 96 05/30/19 14:30 105 H 12 95/72 98 05/30/19 14:20 107 H 12 97 05/30/19 14:10 118 H 17 101/59 87 L 05/30/19 14:00 96 20 85/69 82 L 05/30/19 13:50 105 H 15 85/69 93 L 05/30/19 13:40 110 H 11 L 87/55 94 L 05/30/19 13:00 100 18 116/53 91 L 05/30/19 12:40 80/61 05/30/19 12:10 101 H 17 107/53 97 05/30/19 12:00 101 H 20 79/51 05/30/19 11:51 97.0 F L 106 H 20 79/51 98 05/30/19 11:49 82 L Intake and Output 05/30/19 05/31/19 05/31/19 22:59 06:59 14:59 Intake Total 640 Balance 640 Intake: Intake, IV Titration 640 Amount Sodium Chloride 0.9% 1, 640 000 ml @ 80 mls/hr IV . [id number] [facility] Rx#:[id number] Other: # Bowel Movements 1 Results - Lab Results Most recent lab results Calcium 8.2 mg/dL (8.4-10.2) L 05/31/19 08:14 05/31/19 08:14 05/31/19 08:14 Assessment and Plan Plan: Assessment: 1. End-stage renal disease maintained on hemodialysis on a Sunday schedule. 2. Chronic hypotension maintained on midodrine. 3. Recurrent C. diff. Maintain on oral vancomycin. 4. Chronic right-sided nephrostomy tube secondary to nephrolithiasis. Patient follows with urology out of [facility]. Patient states the nephrostomy tube was changed last week. 5. Chronic kidney disease mineral bone disease maintained on PhosLo. Plan: Hemodialysis on Sunday. Thank you for the consultation. I will continue to follow the patient with you during his hospital stay.
[2019-05-31 15:30] VITALS: RESP 18
--- NOTE | 2019-05-31 16:00 | P.PN ---
Progress Note - Text Progress Note Date: 05/31/19 Chief Complaint: Loose stools History of presenting complaint: This is a very pleasant 68-year-old patient of Dr. Akshat Acevedo from visiting physician. Has a rather extensive medical history. Patient's brother lives with them and also provides care to him. Patient's son also drops in the house to help him out. Chronic stable medical conditions include atrial fibrillation, end-stage kidney disease on hemodialysis, hyperlipidemia, chronic hypotension, sleep apnea. 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 Patient gets him dialysis Sunday and Sunday. Patient also has obstructive sleep apnea uses CPAP. Patient also got bilateral lower extremity venous stasis dermatitis. Dry feet. Patient was admitted to the hospital on May 28 with diarrhea. Patient had prior C. diff. Patient had no more diarrhea on the floor and was back to his normal once or twice a day bowel pattern. C. diff was tested and it was felt to be more colonization. Patient was discharged. Patient called for his usual dialysis. Yesterday had 1 loose stool. And today again had 1 large loose stool. Given that she was sent back to the hospital for possible C. diff. And admitted for the same. Patient had no fever or chills. No abdominal pain. . Patient otherwise feeling well. Back to his baseline. today-. Laying in bed. Had 1 bowel movement earlier today. Was started on Metamucil yesterday. Also vancomycin. Starting a diet. His son is present. Review of systems: Was done for constitutional, cardiovascular, GI, pulmonary. relevant finding as above Active Medications Acetaminophen (Tylenol Tab) 650 mg PO Q6HR PRN PRN Reason: Mild Pain or Fever > 100.5 Hydrocodone Bitart/Acetaminophen ([place] 5-325) 1 each PO Q6H PRN PRN Reason: Pain Last Admin: 05/31/19 01:32 Dose: 1 each Documented by: Atorvastatin Calcium (Lipitor) 10 mg PO HS [facility] Last Admin: 05/30/19 22:27 Dose: 10 mg Documented by: Ca Carbonate/Folic Ac/Mg Carbonate (Magnebind 400) 1 each PO DAILY [facility] Last Admin: 05/31/19 08:21 Dose: 1 each Documented by: Calcium Acetate (Phoslo) 1,334 mg PO AC-TID [facility] Last Admin: 05/31/19 13:20 Dose: 1,334 mg Documented by: Ballard Syrup (Ballard Syrup) 5 ml PO Q6HR [facility] Last Admin: 05/31/19 13:20 Dose: 5 ml Documented by: Cholecalciferol (Vitamin D3 (25 Mcg = 1000 Iu)) 1,000 unit PO DAILY [facility] Last Admin: 05/31/19 08:20 Dose: 1,000 unit Documented by: Cyanocobalamin (Vitamin B-12) 1,000 mcg PO DAILY [facility] Last Admin: 05/31/19 08:20 Dose: 1,000 mcg Documented by: Diltiazem HCl (Cardizem Cd) 120 mg PO DAILY [facility] Last Admin: 05/31/19 08:20 Dose: 120 mg Documented by: Ferrous Sulfate (Feosol) 325 mg PO MoWeFr@0900 [facility] Last Admin: 05/30/19 18:20 Dose: 325 mg Documented by: Furosemide (Lasix) 80 mg PO BID@0900,1600 [facility] Last Admin: 05/31/19 08:20 Dose: 80 mg Documented by: Metoprolol Tartrate (Lopressor) 25 mg PO BID [facility] Last Admin: 05/31/19 08:20 Dose: 25 mg Documented by: Midodrine (Proamatine) 10 mg PO MoWeFr@0900 [facility] Last Admin: 05/30/19 18:20 Dose: 10 mg Documented by: Multivit/Ca Carb/B Cmplx/FA/Prenat (Nephrocaps) 1 each PO HS [facility] Last Admin: 05/30/19 22:27 Dose: 1 each Documented by: Naloxone HCl (Narcan) 0.2 mg IV Q2M PRN PRN Reason: Opioid Reversal Potassium Chloride (K-Dur 10) 10 meq PO BID [facility] Last Admin: 05/31/19 08:20 Dose: 10 meq Documented by: Psyllium Hydrophilic Mucilloid (Metamucil) 6 gm PO BID [facility] Last Admin: 05/31/19 13:20 Dose: 6 gm Documented by: Vancomycin HCl (Vancomycin Oral Solution) 125 mg PO Q6HR [facility] Last Admin: 05/31/19 13:20 Dose: 125 mg Documented by: Physical examination: VITAL SIGNS:97.6, 81, 18, 90/52, 92% room air GENERAL: laying bed, comfortable awake EYES: Pupils equal. Conjunctiva normal. HEENT: External appearance of nose and ears normal, oral cavity grossly normal. NECK: JVD not raised; masses not palpable. HEART: First and second heart sounds are normal; no edema. LUNGS: Respiratory rate normal; diminished breath sounds. ABDOMEN: Soft, nontender, liver spleen not palpable, no masses palpable. PSYCH: Alert and oriented x3; mood and affect normal. NEUROLOGICAL: Cranial nerves grossly intact; no facial asymmetry, minimal power in the lower extremity, sensation grossly present. EXTREMITY: Dry, both the feet with dysmorphic nails. Patient wearing boots on both the feet Investigations: white count 9.9, hemoglobin 9.7, potassium 4.1, BUN 26, creatinine 2.95 Assessment: -This is a patient with prior C. diff. Now presenting with diarrhea. Had 1 loose stool yesterday. 1 large loose stool today. Patient's C. diff was positive days ago.. It may be that this is all colonization. We will get a ID opinion in the meantime patient be put on vancomycin present orally -History of atrial fibrillation -End-stage kidney disease on hemodialysis Sunday and Sunday -Hyperlipidemia -Essential hypertension -Obstructive sleep apnea uses CPAP -Chronic paraplegia due to a back injury -Chronic medical debility patient is being much bedbound - anemia of chronic kidney disease -Medrol bone disease -Primary osteoarthritis multiple joints -Pickwickian syndrome -Bilateral lower extremity venous stasis dermatitis Plan: continue current medication due to plan. Awaiting input from ID. Care was discussed at length with the patient and the son at the bedside. Hemodialysis being scheduled..
--- NOTE | 2019-05-31 18:10 | P.CONS ---
History of Present Illness - Reason for Consult Consult date: 05/31/19 C. diff colitis Requesting physician: Gamaliel Burkett - Chief Complaint Nausea vomiting and diarrhea 1 day - History of Present Illness Patient is a 68-year-old male with a past medical history significant for C. diff colitis, presenting to the ER at [facility] with nausea vomiting and diarrhea that had been getting worse for 2 days before pres enting to the hospital, the patient did have multiple loose stools per day no blood or mucus in stool patient has felt nauseated and no vomiting. No complaint of some vague abdominal pain more of a crampy nature and doesn't day for 5-10 and no deviation denies high-grade fever did not recall if he has been exposed to any antibiotic in the recent past the patient had did have a nephrostomy tube placed right kidney that is routinely changed at his urologist and had before Hospital and did mention it was changed a few weeks ago did not have any symptoms referable to the same denies having any fever or chills with asymptomatic the patient was evaluated by the ER physician the patient has been afebrile on presentation however did have elevated white count 15,000 patient did have a KUB which shows nonobstructive bowel gas pattern bilateral left leg disease with a right-sided nephrostomy tube in place patient did have stool for C. diff which came back negative the patient admitted with oral vancomycin 125 mg infection disease was consulted for further recommendation regarding antibiotic therapy, Review of Systems Positive point has been mentioned in the HPI rest of the systems are negative Past Medical History Past Medical History: Atrial Fibrillation, Dialysis, Deep Vein Thrombosis (DVT), GI Bleed, Hyperlipidemia, Hypertension, Renal Disease, Sleep Apnea/CPAP/BIPAP Additional Past Medical History / Comment(s): Paraplegia r/t back injury/surgery-pt states he no longer gets up into wheelchair d/t too painful, ESRD with hemodialysis-M/W/F, enlarged R kidney with stones/staghorn-has chronic nephrostomy tube/bag, chronic anemia, mineral bone disease, recurrent CDiff infections, sepsis 2ndary to CDiff colitis/UTI, possible past upper GI bleed, DVT in a leg post op, arhtritis multiple joints, pickwickian syndrome, past respiratory failure/vented, ISACC with Cpap, bilateral lower extremity venous stasis/dermatitis, bilateral lower leg/feet edema and currently scabs on L foot toes. History of Any Multi-Drug Resistant Organisms: C-DIFF, MRSA Year Discovered:: 03/06/19 MDRO Source:: MRSA URINE, ASPIRATE, Cdiff now Past Surgical History: Adenoidectomy, Back Surgery, Heart Catheterization With Stent, Hernia Repair, Tonsillectomy Additional Past Surgical History / Comment(s): LT ARM FISTULA-NO BP OR BLOOD DRAWS IN LT ARM, PCI with stent, low back surgery, nephrostomy tubes-replaced 05/22/19, abdominal hernia, colonoscopy with benign polyp Past Anesthesia/Blood Transfusion Reactions: No Reported Reaction Date of Last Stent Placement:: 2004 Past Psychological History: No Psychological Hx Reported Additional Psychological History / Comment(s): Pt has a brother that lives with him and his son comes over daily. They are his caregivers. He currently has no home care. Pt has a hospital bed and stays in bed now d/t too painful to get up into wheelchair. Owns a kelby lift, cpap and megamover transfer mat. Smoking Status: Former smoker Past Alcohol Use History: None Reported Additional Past Alcohol Use History / Comment(s): Pt started smoking in 1971 and quit in 1981 Past Drug Use History: None Reported - Past Family History Brother(s) Family Medical History: Cancer Additional Family Medical History / Comment(s): Colon Ca- Father Family Medical History: Cancer Additional Family Medical History / Comment(s): father had lung cancer. He was a smoker and worked in a foundry. Mother Family Medical History: Coronary Artery Disease (CAD) Additional Family Medical History / Comment(s): Mother had CABG in her 70s. Medications and Allergies Home Medications Medication Instructions Recorded Confirmed Type Atorvastatin [Lipitor] 10 mg PO HS 10/30/17 05/30/19 History Calcium Acetate [PhosLo] 1,334 mg PO AC-TID 10/30/17 05/30/19 History Diltiazem HCl [Diltiazem 24Hr ER] 120 mg PO DAILY 10/30/17 05/30/19 History Metoprolol Tartrate [Lopressor] 25 mg PO BID 10/30/17 05/30/19 History Potassium Chloride [Klor-Con 10] 10 meq PO BID 10/30/17 05/30/19 History Furosemide [Lasix] 80 mg PO BID 09/11/18 05/30/19 History Cholecalciferol [Vitamin D3 (25 1,000 unit PO DAILY tab 10/17/18 05/30/19 Rx Mcg = 1000 Iu)] Cyanocobalamin [Vitamin B-12] 1,000 mcg PO DAILY tab 10/17/18 05/30/19 Rx Ferrous Sulfate [Iron (65 MG 325 mg PO MOWEFR 03/05/19 05/30/19 History Elemental)] HYDROcodone/APAP 5-325MG [Premium 1 tab PO Q6H PRN 03/05/19 05/30/19 History 5-325] Calcium Carb-Mag Carb-Folic 1 tab PO DAILY 05/28/19 05/30/19 History [Magnebind 400] Midodrine [ProAmatine] 10 mg PO MOWEFR 05/28/19 05/30/19 History Landy-Emmanuel 1 tab PO HS 05/28/19 05/30/19 History Allergies Allergy/AdvReac Type Severity Reaction Status Date / Time diphenhydramine Allergy Unknown Verified 05/30/19 12:52 [From Benadryl] heparin AdvReac Unknown Verified 05/30/19 12:52 Physical Exam Vitals: Vital Signs Temp Pulse Pulse Resp BP BP Pulse Ox 05/31/19 13:42 97.6 F 81 18 90/52 92 L 05/31/19 04:25 98.3 F 97 20 82/56 95 05/30/19 21:00 98.8 F 98 20 87/46 95 05/30/19 18:15 96.6 F L 88 20 80/38 92 L 05/30/19 16:50 101 H 18 78/52 97 05/30/19 16:40 96 20 113/73 97 05/30/19 16:30 112 H 24 90/62 92 L Intake and Output 05/31/19 05/31/19 05/31/19 06:59 14:59 22:59 Intake Total 640 420 Balance 640 420 Intake: Intake, IV Titration 640 420 Amount Sodium Chloride 0.9% 1, 640 420 000 ml @ 80 mls/hr IV . [id number] [facility] Rx#:[id number] GENERAL DESCRIPTION: Elderly male lying in bed, no distress. No tachypnea or accessory muscle of respiration use. HEENT: Shows Pallor , no scleral icterus. Oral mucous membrane is dry. No pharyngeal erythema or thrush NECK: Trachea central, no thyromegaly. LUNGS: Unlabored breathing. Clear to auscultation anteriorly. No wheeze or crackle. HEART: S1, S2, regular rate and rhythm. No loud murmur ABDOMEN: Soft, no tenderness , guarding or rigidity, no organomegaly nephrostomy tube with blood stained secretion EXTREMITIES: No edema of feet. SKIN: No rash, no masses palpable. NEUROLOGICAL: The patient is awake, alert, oriented x3, mood and affect normal. Results CBC & Chem 7: 05/31/19 08:14 05/31/19 08:14 Labs: Abnormal Lab Results - Last 24 Hours (Table) 05/31/19 05/31/19 Range/Units 08:14 08:14 RBC 3.75 L (4.30-5.90) m/uL Hgb 9.7 L (13.0-17.5) gm/dL Hct 33.8 L (39.0-53.0) % MCHC 28.8 L (31.0-37.0) g/dL RDW 17.1 H (11.5-15.5) % Chloride 97 L (98-107) mmol/L BUN 26 H (9-20) mg/dL Creatinine 2.95 H (0.66-1.25) mg/dL Glucose 110 H (74-99) mg/dL Calcium 8.2 L (8.4-10.2) mg/dL ALT 15 L (21-72) U/L Albumin 3.3 L (3.5-5.0) g/dL Assessment and Plan Assessment: 1-patient admitted hospital with intractable diarrhea along with the nausea and vomiting in this patient who did have a history of C. diff colitis highly suspi cious for recurrent C. diff colitis with some clinical improvement on oral vancomycin Plan: 1-we will obtain stool C. diff PCR as well as stool culture 2-increased dose of vancomycin 250 mg by mouth every 6 hours We will follow on clinical condition and cultures to further adjust medication if needed Thank you for this consultation will follow this patient with you Time with Patient: Greater than 30
[2019-05-31] MEDS: ATORVASTATIN 10 MG TAB PO SCH (22:44)
[2019-05-31] MEDS: FOLIC ACID-VIT B COMPLEX-VIT C 1 CAP PO SCH (22:44)
[2019-06-01] MEDS ORDERED: ONDANSETRON 4 MG/2 ML VIAL IVP PRN (00:41)
[2019-06-01] MEDS: HYDROcodone/APAP 5-325MG 1 EACH TAB PO PRN (00:58)
[2019-06-01] MEDS: VANCOMYCIN ORAL SOLUTION 250 MG/5 ML BOTTLE PO SCH ×3 (02:01→11:44)
[2019-06-01] MEDS: CHERRY FLAVOR 60 ML BOTTLE PO SCH ×3 (02:01→11:44)
[2019-06-01 05:58] VITALS: BP 80/47; PULSE 79; TEMP 96.6
[2019-06-01] MEDS: PSYLLIUM HUSK 100% 6 GM PACKET PO SCH (08:50)
[2019-06-01] MEDS: DILTIAZEM CD 120 MG CAP.ER.24H PO SCH (08:50)
[2019-06-01] MEDS: CALCIUM CARB-MAG CARB-FOLIC 1 EACH TAB PO SCH (08:50)
[2019-06-01] MEDS: CHOLECALCIFEROL 1,000 UNIT TAB PO SCH (08:51)
[2019-06-01] MEDS: CALCIUM ACETATE 667 MG CAP PO SCH ×2 (08:51→11:44)
[2019-06-01] MEDS: FUROSEMIDE 80 MG TAB PO SCH (08:51)
[2019-06-01] MEDS: CYANOCOBALAMIN 500 MCG TAB PO SCH (08:51)
[2019-06-01] MEDS: POTASSIUM CHLORIDE ER 10 MEQ TAB.ER.PRT PO SCH (08:51)
[2019-06-01] MEDS: METOPROLOL TARTRATE 25 MG TAB PO SCH (08:51)
--- NOTE | 2019-06-01 10:27 | P.PN ---
Subjective Patient is seen in follow-up for end-stage renal disease. He is maintained on hemodialysis on a Sunday schedule. Patient presented to the hospital with diarrhea which is now resolved. He is tolerating oral intake. No other complaints at this time. Vital signs are stable. General: The patient appeared well nourished and normally developed. HEENT: Head exam is unremarkable. Neck is without jugular venous distension. LUNGS: Lungs are clear to auscultation and percussion. Breath sounds decreased. HEART: Rate and Rhythm are regular. First and second heart sounds normal. No murmurs, rubs or gallops. ABDOMEN: Abdominal exam reveals normal bowel sounds. Non-tender and non- distended. No evidence of peritonitis. EXTREMITITES: 1+ edema. Chronic changes noted. Objective - Vital Signs Vital signs: Vital Signs Temp 96.6 F L 06/01/19 04:40 Pulse 79 06/01/19 04:40 Resp 18 06/01/19 04:40 BP 80/47 06/01/19 04:40 Pulse Ox 93 L 06/01/19 04:40 Intake & Output 05/31/19 06/01/19 06/01/19 18:59 06:59 18:59 Intake Total 960 Output Total 200 Balance 960 -200 Intake: Intake, IV Titration 420 Amount Sodium Chloride 0.9% 1, 420 000 ml @ 80 mls/hr IV . [id number] [facility] Rx#:[id number] Oral 540 Output: Urine 200 Other: # Bowel Movements 1 - Labs CBC & Chem 7: 05/31/19 08:14 05/31/19 08:14 Assessment and Plan Plan: Assessment: 1. End-stage renal disease maintained on hemodialysis on a Sunday schedule. 2. Chronic hypotension maintained on midodrine. 3. Recurrent C. diff. Maintained on oral vancomycin. 4. Chronic right-sided nephrostomy tube secondary to nephrolithiasis. Patient follows with urology out of [facility]. Patient states the nephrostomy tube was changed last week. 5. Chronic kidney disease mineral bone disease maintained on PhosLo. Plan: Hemodialysis on Sunday. Stable to be discharged home from nephrology standpoint.
--- NOTE | 2019-06-01 23:19 | P.DS ---
Providers Date of admission: 05/30/19 15:38 Expected date of discharge: 06/01/19 Attending physician: Gamaliel Burkett Consults: 05/30/19 17:54 Consult Physician Routine Consulting Provider: Won Murray Consult Reason/Comments: c.diff Do you want consulting provider notified?: Yes 05/30/19 22:02 Consult Physician Urgent Consulting Provider: Jeffy Barahona Consult Reason/Comments: psaid he missed hemodialysis today 05/30/19 Do you want consulting provider notified?: Already Contacted Primary care physician: Akshat Nieves MD Hospital Course: Hospital course: This is a very pleasant 68-year-old patient of Dr. Akshat Acevedo from visiting physician. Has a rather extensive medical history. Patient's brother lives with them and also provides care to him. Patient's son also drops in the house to help him out. Chronic stable medical conditions include atrial fibrillation, end-stage kidney disease on hemodialysis, hyperlipidemia, chronic hypotension, sleep apnea. 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 Patient gets him dialysis Sunday and Sunday. Patient also has obstructive sleep apnea uses CPAP. Patient also got bilateral lower extremity venous stasis dermatitis. Dry feet. Patient was admitted to the hospital on May 28 with diarrhea. Patient had prior C. diff. Patient had no more diarrhea on the floor and was back to his normal once or twice a day bowel pattern. C. diff was tested and it was felt to be more colonization. Patient was discharged. Patient called for his usual dialysis. Yesterday had 1 loose stool. And today again had 1 large loose stool. Given that she was sent back to the hospital for possible C. diff. And admitted for the same. Patient had no fever or chills. No abdominal pain. . Patient otherwise feeling well. Back to his baseline. Patient seen by infectious disease. Treated for C. diff. Entire evidence was not conclusive though given patient's white count has some the history was decided to treat him for C. diff. Patient doing well at the time of discharge. Care was discussed the patient today. I also discussed with Dr. murray from [place] today. Patient did receive his hemodialysis Discussion and discharge planning more than 35 minutes Consultations: Dr. murray from [place] Physical examination: VITAL SIGNS: 96.6, 79, 18, 80/47, 93% room air GENERAL: laying bed, comfortable awake EYES: Pupils equal. Conjunctiva normal. HEENT: External appearance of nose and ears normal, oral cavity grossly normal. NECK: JVD not raised; masses not palpable. HEART: First and second heart sounds are normal; no edema. LUNGS: Respiratory rate normal; diminished breath sounds. ABDOMEN: Soft, nontender, liver spleen not palpable, no masses palpable. PSYCH: Alert and oriented x3; mood and affect normal. NEUROLOGICAL: Cranial nerves grossly intact; no facial asymmetry, minimal power in the lower extremity, sensation grossly present. EXTREMITY: Dry, both the feet with dysmorphic nails. Patient wearing boots on both the feet Investigations: white count 9.9, hemoglobin 9.7, potassium 4.1, BUN 26, creatinine 2.95 Assessment: -Acute C. diff colitis -History of atrial fibrillation -End-stage kidney disease on hemodialysis Sunday and Sunday -Hyperlipidemia -Essential hypertension -Obstructive sleep apnea uses CPAP -Chronic paraplegia due to a back injury -Chronic medical debility patient is being much bedbound - anemia of chronic kidney disease -Medrol bone disease -Primary osteoarthritis multiple joints -Pickwickian syndrome -Bilateral lower extremity venous stasis dermatitis Disposition: Home Patient Condition at Discharge: Stable Plan - Discharge Summary New Discharge Prescriptions: New Psyllium Husk 100% [Metamucil Packet] 6 gm PO BID #60 packet Vancomycin Oral Solution 125 mg PO Q6HR #70 ml Continue Calcium Acetate [PhosLo] 1,334 mg PO AC-TID Metoprolol Tartrate [Lopressor] 25 mg PO BID Diltiazem HCl [Diltiazem 24Hr ER] 120 mg PO DAILY Atorvastatin [Lipitor] 10 mg PO HS Potassium Chloride [Klor-Con 10] 10 meq PO BID Furosemide [Lasix] 80 mg PO BID Cholecalciferol [Vitamin D3 (25 Mcg = 1000 Iu)] 1,000 unit PO DAILY tab Cyanocobalamin [Vitamin B-12] 1,000 mcg PO DAILY tab HYDROcodone/APAP 5-325MG [Onyx 5-325] 1 tab PO Q6H PRN PRN Reason: Pain Ferrous Sulfate [Iron (65 MG Elemental)] 325 mg PO MOWEFR Landy-Emmanuel 1 tab PO HS Midodrine [ProAmatine] 10 mg PO MOWEFR Calcium Carb-Mag Carb-Folic [Magnebind 400] 1 tab PO DAILY Discharge Medication List Atorvastatin [Lipitor] 10 mg PO HS 10/30/17 [History] Calcium Acetate [PhosLo] 1,334 mg PO AC-TID 10/30/17 [History] Diltiazem HCl [Diltiazem 24Hr ER] 120 mg PO DAILY 10/30/17 [History] Metoprolol Tartrate [Lopressor] 25 mg PO BID 10/30/17 [History] Potassium Chloride [Klor-Con 10] 10 meq PO BID 10/30/17 [History] Furosemide [Lasix] 80 mg PO BID 09/11/18 [History] Cholecalciferol [Vitamin D3 (25 Mcg = 1000 Iu)] 1,000 unit PO DAILY tab 10/17/18 [Rx] Cyanocobalamin [Vitamin B-12] 1,000 mcg PO DAILY tab 10/17/18 [Rx] Ferrous Sulfate [Iron (65 MG Elemental)] 325 mg PO MOWEFR 03/05/19 [History] HYDROcodone/APAP 5-325MG [Onyx 5-325] 1 tab PO Q6H PRN 03/05/19 [History] Calcium Carb-Mag Carb-Folic [Magnebind 400] 1 tab PO DAILY 05/28/19 [History] Midodrine [ProAmatine] 10 mg PO MOWEFR 05/28/19 [History] Landy-Emmanuel 1 tab PO HS 05/28/19 [History] Psyllium Husk 100% [Metamucil Packet] 6 gm PO BID #60 packet 06/01/19 [Rx] Vancomycin Oral Solution 125 mg PO Q6HR #70 ml 06/01/19 [Rx] Follow up Appointment(s)/Referral(s): Akshat Nieves MD [Primary Care Provider] - 1-2 days Patient Instructions/Handouts: C Diff (Clostridium Difficile) Infection (DC) Discharge Disposition: HOME SELF-CARE
== END 2019-06-01 12:51 | disposition home or self-care (01) ==
LOC: EC 11:44 → 4MS4W 15:38 → INTOOBSV 15:38 → 4MS4W 17:22
PROVIDERS: ADMIT Hospitalist; ATTEND Hospitalist
DX: A04.71 Enterocolitis due to Clostridium difficile, recurrent (principal); I48.91 Unspecified atrial fibrillation; Z99.2 Dependence on renal dialysis; I12.0 Hypertensive chronic kidney disease with stage 5 chronic kidney disease or end stage renal disease; N18.6 End stage renal disease; E78.5 Hyperlipidemia, unspecified; Z99.89 Dependence on other enabling machines and devices; G82.20 Paraplegia, unspecified; R11.10 Vomiting, unspecified; Z74.01 Bed confinement status; M19.91 Primary osteoarthritis, unspecified site; E66.2 Morbid (severe) obesity with alveolar hypoventilation; Z68.42 Body mass index [BMI] 45.0-49.9, adult; I87.2 Venous insufficiency (chronic) (peripheral); I95.89 Other hypotension; D63.1 Anemia in chronic kidney disease; M89.8X9 Other specified disorders of bone, unspecified site; M79.89 Other specified soft tissue disorders; N20.0 Calculus of kidney; Z93.6 Other artificial openings of urinary tract status; R62.7 Adult failure to thrive; Z87.891 Personal history of nicotine dependence; Z87.19 Personal history of other diseases of the digestive system; Z86.14 Personal history of Methicillin resistant Staphylococcus aureus infection; Z87.828 Personal history of other (healed) physical injury and trauma; Z86.718 Personal history of other venous thrombosis and embolism; Z86.010 Personal history of colon polyps; Z86.19 Personal history of other infectious and parasitic diseases; Z95.5 Presence of coronary angioplasty implant and graft; Z79.899 Other long term (current) drug therapy; Z88.8 Allergy status to other drugs, medicaments and biological substances; Z80.1 Family history of malignant neoplasm of trachea, bronchus and lung; Z80.0 Family history of malignant neoplasm of digestive organs; Z82.49 Family history of ischemic heart disease and other diseases of the circulatory system; Z91.15 Patient's noncompliance with renal dialysis
CPT/HCPCS: 96361 ×2; 96374; 99285; 36415; 80053 ×2; 83690; 85025 ×2; 81001; 87324; 74018; G0378 ×3; J2405

== ENCOUNTER 2019-07-30 05:53 | Inpatient (IN) | payer MEDICARE, OTHER ==
[2019-07-30] MEDS ORDERED: SODIUM CHLORIDE 0.9% 1,000 ML IV STA ×2 (06:19)
--- NOTE | 2019-07-30 06:32 | ED ---
SOB HPI - General Chief Complaint: Shortness of Breath Stated Complaint: Weakness,altered mental status Time Seen by Provider: 07/30/19 06:05 Source: patient, EMS, RN notes reviewed, old records reviewed Mode of arrival: EMS Limitations: no limitations - History of Present Illness Initial Comments: on. Patient reportedly was getting ready to go to dialysis this morning when his brother noted that his blood pressure was low, 70/30, and he had some epis odes of difficulty breathing. Patient's oxygen saturation was 84% on room air according to EMS arrival. Patient reportedly has been increasingly lethargic since his last dialysis on Sunday. Patient has not been eating or drinking much. He denies any specific cough. He states that after arriving to ED does have some improvement of his breathing after being placed on the oxygen. Patient states that he has had no known fevers or chills. 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 He denies any previous cardiac or pole pulmonary history. - Related Data Home Medications Medication Instructions Recorded Confirmed Atorvastatin [Lipitor] 10 mg PO HS 10/30/17 07/30/19 Calcium Acetate [PhosLo] 667 mg PO DAILY 10/30/17 07/30/19 Potassium Chloride [Klor-Con 10] 10 meq PO BID 10/30/17 07/30/19 Ferrous Sulfate [Iron (65 MG 325 mg PO MOWEFR 03/05/19 07/30/19 Elemental)] HYDROcodone/APAP 5-325MG [[place] 1 tab PO Q6H PRN 03/05/19 07/30/19 5-325] Midodrine [ProAmatine] 5 mg PO MOWEFR 05/28/19 07/30/19 Landy-Emmanuel 1 tab PO HS 05/28/19 07/30/19 Magne Bind 300mg 300 mg PO BID 07/30/19 07/30/19 Midodrine [ProAmatine] 5 mg PO DAILY PRN 07/30/19 07/30/19 Previous Rx's Medication Instructions Recorded Cholecalciferol [Vitamin D3 (25 1,000 unit PO DAILY tab 10/17/18 Mcg = 1000 Iu)] Cyanocobalamin [Vitamin B-12] 1,000 mcg PO DAILY tab 10/17/18 Allergies Allergy/AdvReac Type Severity Reaction Status Date / Time diphenhydramine Allergy Unknown Verified 07/30/19 07:35 [From Benadryl] heparin AdvReac Unknown Verified 07/30/19 07:35 Review of Systems ROS Statement: Those systems with pertinent positive or pertinent negative responses have been documented in the HPI. ROS Other: All systems not noted in ROS Statement are negative. 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 History of Any Multi-Drug Resistant Organisms: C-DIFF, MRSA Date of last positivie culture/infection: 03/06/19 MDRO Source:: MRSA URINE, ASPIRATE, Cdiff now Past Surgical History: Adenoidectomy, Back Surgery, Heart Catheterization With Stent, Hernia Repair, Tonsillectomy Additional Past Surgical History / Comment(s): LT ARM FISTULA-NO BP OR BLOOD DRAWS IN LT ARM, PCI with stent, low back surgery, nephrostomy tubes-replaced 05/22/19, abdominal hernia, colonoscopy with benign polyp Past Anesthesia/Blood Transfusion Reactions: No Reported Reaction Date of Last Stent Placement:: 2004 Past Psychological History: No Psychological Hx Reported Smoking Status: Former smoker Past Alcohol Use History: None Reported Past Drug Use History: None Reported - Past Family History Brother(s) Family Medical History: Cancer Additional Family Medical History / Comment(s): Colon Ca- Father Family Medical History: Cancer Additional Family Medical History / Comment(s): father had lung cancer. He was a smoker and worked in a foundry. Mother Family Medical History: Coronary Artery Disease (CAD) Additional Family Medical History / Comment(s): Mother had CABG in her 70s. General Exam - General Exam Comments Initial Comments: Morbidly obese 68-year-old male. Patient appears bedbound. Limitations: no limitations General appearance: alert, in no apparent distress Head exam: Present: atraumatic, normocephalic, normal inspection Eye exam: Present: normal appearance, PERRL, EOMI. Absent: scleral icterus, conjunctival injection, periorbital swelling ENT exam: Present: normal exam, mucous membranes dry, mucous membranes moist Neck exam: Present: normal inspection. Absent: tenderness, meningismus, lymphadenopathy Respiratory exam: Present: other (Patient unable to sit up fully. Difficult to elicit all quadrants of the lungs.). Absent: normal lung sounds bilaterally, respiratory distress, wheezes, rales, rhonchi, stridor Cardiovascular Exam: Present: regular rate GI/Abdominal exam: Present: soft, normal bowel sounds. Absent: distended, tenderness, guarding, rebound, rigid Extremities exam: Present: normal inspection, full ROM, normal capillary refill, pedal edema, other (boots over bilateral feet, dry skin over legs and feet. ). Absent: tenderness, joint swelling, calf tenderness Back exam: Present: normal inspection Neurological exam: Present: alert, oriented X3, CN II-XII intact Psychiatric exam: Present: normal affect, normal mood Skin exam: Present: warm, dry, intact, normal color. Absent: rash Course Vital Signs 07/30/19 07/30/19 07/30/19 05:57 05:58 06:00 Temperature 97.9 F Pulse Rate 101 H 99 Respiratory 18 7 L Rate Blood Pressure 87/58 87/66 87/58 O2 Sat by Pulse 96 97 96 Oximetry 07/30/19 07/30/19 07/30/19 06:04 06:30 07:00 Temperature Pulse Rate 100 100 Respiratory 36 H 32 H Rate Blood Pressure 108/71 108/71 96/58 O2 Sat by Pulse 97 Oximetry 07/30/19 07/30/19 07/30/19 07:30 08:00 08:30 Temperature Pulse Rate 96 93 Respiratory 32 H 13 Rate Blood Pressure 100/85 104/57 120/86 O2 Sat by Pulse 98 88 L Oximetry 07/30/19 09:00 Temperature Pulse Rate 95 Respiratory 27 H Rate Blood Pressure 120/86 O2 Sat by Pulse 96 Oximetry Medical Decision Making - Medical Decision Making 68-year-old male multiple comorbidities, with history of end-stage renal disease associated with dialysis today. He presented today for evaluation shortness of breath low blood pressures. Patient was found at 84% on room air. Is initiated and oxygen. He states he had a minor cough, generalized weakness. Chest x-ray showed concern for early infiltrate. He denies any fever. Blood work was reviewed. He had have been a significant elevated BNP. With the fluctuating blood pressures we did give the Patient one dose of Lasix after getting fluids. Patient hypoxic at be related to obesity. He did discuss case with Dr. Barahona agrees for Patient to needing dialysis today. With a concern of consolidation a chest x-ray did miss a Patient on Rocephin and azithromycin at this time. Patient did have blood cultures completed. Patient's case discussed with Dr. Goldsmith also discussed with sounds physician. Patient will be admitted. - Lab Data Result diagrams: 07/30/19 06:34 07/30/19 06:34 Lab Results 07/30/19 07/30/19 07/30/19 Range/Units 06:34 06:34 06:34 WBC 9.9 (3.8-10.6) k/uL RBC 4.21 L (4.30-5.90) m/uL Hgb 10.3 L (13.0-17.5) gm/dL Hct 37.6 L (39.0-53.0) % MCV 89.3 (80.0-100.0) fL MCH 24.5 L (25.0-35.0) pg MCHC 27.4 L (31.0-37.0) g/dL RDW 19.6 H (11.5-15.5) % Plt Count 325 (150-450) k/uL Neutrophils % 82 % Lymphocytes % 9 % Monocytes % 7 % Eosinophils % 1 % Basophils % 1 % Neutrophils # 8.1 H (1.3-7.7) k/uL Lymphocytes # 0.9 L (1.0-4.8) k/uL Monocytes # 0.6 (0-1.0) k/uL Eosinophils # 0.1 (0-0.7) k/uL Basophils # 0.1 (0-0.2) k/uL Hypochromasia Marked Anisocytosis Slight PT (9.0-12.0) sec INR (<1.2) APTT (22.0-30.0) sec Sodium 137 (137-145) mmol/L Potassium 5.5 H (3.5-5.1) mmol/L Chloride 100 (98-107) mmol/L Carbon Dioxide 28 (22-30) mmol/L Anion Gap 9 mmol/L BUN 34 H (9-20) mg/dL Creatinine 3.34 H (0.66-1.25) mg/dL Est GFR (CKD-EPI)AfAm 21 (>60 ml/min/1.73 sqM) Est GFR (CKD-EPI)NonAf 18 (>60 ml/min/1.73 sqM) Glucose 112 H (74-99) mg/dL Plasma Lactic Acid Dennis (0.7-2.0) mmol/L Calcium 9.0 (8.4-10.2) mg/dL Magnesium 2.4 H (1.6-2.3) mg/dL Total Bilirubin 0.5 (0.2-1.3) mg/dL AST 24 (17-59) U/L ALT 20 L (21-72) U/L Alkaline Phosphatase 111 (38-126) U/L Troponin I (0.000-0.034) ng/mL NT-Pro-B Natriuret Pep [id number] pg/mL Total Protein 7.7 (6.3-8.2) g/dL Albumin 3.0 L (3.5-5.0) g/dL 07/30/19 07/30/19 07/30/19 Range/Units 06:34 06:34 06:34 WBC (3.8-10.6) k/uL RBC (4.30-5.90) m/uL Hgb (13.0-17.5) gm/dL Hct (39.0-53.0) % MCV (80.0-100.0) fL MCH (25.0-35.0) pg MCHC (31.0-37.0) g/dL RDW (11.5-15.5) % Plt Count (150-450) k/uL Neutrophils % % Lymphocytes % % Monocytes % % Eosinophils % % Basophils % % Neutrophils # (1.3-7.7) k/uL Lymphocytes # (1.0-4.8) k/uL Monocytes # (0-1.0) k/uL Eosinophils # (0-0.7) k/uL Basophils # (0-0.2) k/uL Hypochromasia Anisocytosis PT 10.7 (9.0-12.0) sec INR 1.0 (<1.2) APTT 24.9 (22.0-30.0) sec Sodium (137-145) mmol/L Potassium (3.5-5.1) mmol/L Chloride (98-107) mmol/L Carbon Dioxide (22-30) mmol/L Anion Gap mmol/L BUN (9-20) mg/dL Creatinine (0.66-1.25) mg/dL Est GFR (CKD-EPI)AfAm (>60 ml/min/1.73 sqM) Est GFR (CKD-EPI)NonAf (>60 ml/min/1.73 sqM) Glucose (74-99) mg/dL Plasma Lactic Acid Dennis 1.2 (0.7-2.0) mmol/L Calcium (8.4-10.2) mg/dL Magnesium (1.6-2.3) mg/dL Total Bilirubin (0.2-1.3) mg/dL AST (17-59) U/L ALT (21-72) U/L Alkaline Phosphatase (38-126) U/L Troponin I <0.012 (0.000-0.034) ng/mL NT-Pro-B Natriuret Pep pg/mL Total Protein (6.3-8.2) g/dL Albumin (3.5-5.0) g/dL 07/30/19 06:59 EKG shows normal sinus rhythm rightward axis. T wave abnormality, consider inferior ischemia, and to consider anterolateral ischemia. Ventricular rate of 100 beats were minute. Intervals 172 ms. QS duration 98 ms. QT QTc is 340/440 ms. - Radiology Data Radiology results: report reviewed Clinical correlation recommended for left lower lobe infiltrate. Moderate cardiomegaly. Suboptimal study of the CT without acute PE. Low lung volumes and mild cardiomegaly with small left pleural effusion. There is a right greater than left basilar consolidation and/or atelectasis. Disposition Clinical Impression: Hypoxia, Hypotension, CHF (congestive heart failure), Pneumonia Disposition: ADMITTED IP TO THIS HOSP Condition: Stable Is patient prescribed a controlled substance at d/c from ED?: No Referrals: Akshat Nieves MD [Primary Care Provider] - 1-2 days Time of Disposition: 10:35
[2019-07-30 06:51] LABS: Anisocytosis Slight; Basophils # (A) 0.1 k/uL (0-0.2); Basophils % (A) 1 %; Eosinophils # (A) 0.1 k/uL (0-0.7); Eosinophils % (A) 1 %; HCT 37.6 % (39.0-53.0); HGB 10.3 gm/dL (13.0-17.5); Hypochromasia Marked; Lymphocytes # (A) 0.9 k/uL (1.0-4.8); Lymphocytes % (A) 9 %; MCH 24.5 pg (25.0-35.0); MCHC 27.4 g/dL (31.0-37.0); MCV 89.3 fL (80.0-100.0); Mean Platelet Volume 6.6; Monocytes # (A) 0.6 k/uL (0-1.0); Monocytes % (A) 7 %; Neutrophils # (A) 8.1 k/uL (1.3-7.7); Neutrophils % (A) 82 %; Platelet Count 325 k/uL (150-450); RBC 4.21 m/uL (4.30-5.90); RDW 19.6 % (11.5-15.5); WBC 9.9 k/uL (3.8-10.6)
[2019-07-30 07:03] LABS: Partial Thromboplastin Time 24.9 sec (22.0-30.0); Prothrombin Time 10.7 sec (9.0-12.0)
[2019-07-30 07:19] LABS: Magnesium 2.4 mg/dL (1.6-2.3); Potassium 5.5 mmol/L (3.5-5.1); Total Bilirubin 0.5 mg/dL (0.2-1.3); Total Protein 7.7 g/dL (6.3-8.2)
--- NOTE | 2019-07-30 07:29 | XR ---
EXAMINATION TYPE: XR chest 1V DATE OF EXAM: 07/30/2019 COMPARISON: 11/05/2018 INDICATION: Difficulty breathing TECHNIQUE: Single frontal view of the chest is obtained. FINDINGS: The heart size is moderately prominent. The pulmonary vasculature is normal. Mild left lower lobe infiltrate may be present. There is silhouetting of the left diaphragm. IMPRESSION: 1. Clinical correlation recommended for left lower lobe infiltrate. 2. Moderate cardiomegaly
[2019-07-30] MEDS ORDERED: cefTRIAXone IN SWFI 1,000 MG/10 ML SYRINGE IVP STA (07:41)
--- NOTE | 2019-07-30 08:49 | CT ---
EXAMINATION TYPE: CT chest angio for PE DATE OF EXAM: 07/30/2019 COMPARISON: NONE HISTORY: Shortness of breath and decreased Oxygen levels. CT DLP: 967.2 mGycm. Automated Exposure Control for Dose Reduction was Utilized. CONTRAST: CTA scan of the thorax is performed with IV Contrast, patient injected with 100 mL of Isovue 370, pul monary embolism protocol. MIP Images are created on CT scanner and reviewed. FINDINGS: LUNGS: There is respiratory motion artifact degradation making evaluation suboptimal. Elevated right hemidiaphragm. There is a small left pleural effusion. There is bibasilar atelectasis and/or consolid ation more prominent in the right lower lobe. Low lung volumes are present. No pneumothorax is seen b ilaterally. MEDIASTINUM: There is suboptimal bolus with medical contrast the right and left heart systems but no CT evidence for acute pulmonary embolism. Enlarged main pulmonary artery axial image 54 is consistent with underlying pulmonary artery hypertension. Overlying type arch is seen which is normal variant. There are no greater than 1 cm hilar or mediastinal lymph nodes. Mild Cardiomegaly is seen. Small per icardial effusion is noted. There is prominence of fat between the right and left atrium consistent w ith lipomatous hypertrophy of the intra-arterial septum. OTHER: Partial visualization of suspected contracted stone filled gallbladder. Right-sided gynecomas tia is noted. Severe multilevel spurring of the thoracic spine. Percutaneous right-sided nephrostomy tube noted on localizer. IMPRESSION: 1. Suboptimal study without acute pulmonary embolism. 2. Low lung volumes and mild cardiomegaly with small left pleural effusion. There is right greater th an left bibasilar consolidation and/or atelectasis.
[2019-07-30] MEDS ORDERED: FUROSEMIDE 10 MG/ML 4 ML VIAL IV STA (09:08)
[2019-07-30] MEDS ORDERED: NALOXONE 0.4 MG/ML 1 ML VIAL IV PRN (11:59)
[2019-07-30] MEDS: MIDODRINE 5 MG TAB PO SCH (13:39)
[2019-07-30] MEDS: FERROUS SULFATE 325 MG TAB PO SCH (13:40)
--- NOTE | 2019-07-30 14:14 | P.NPCON ---
History of Present Illness - Reason for Consult end stage renal disease - History of Present Illness Reason for consultation: End-stage renal disease History of present illness: Patient is a 68-year-old male seen in renal consultation for end-stage renal disease. Patient was seen and examined in the emergency room. He is maintained on hemodialysis on a Sunday schedule. Patient became short of breath this morning and came to the emergency room. Potassium level is mildly elevated at 5.5. He denies any vomiting or diarrhea. Hemodynamically stable. He underwent CTA in the emergency room which revealed no evidence of PE. Chest x-ray was suggestive of left lower lobe infiltrate. He did receive Rocephin in the ER. No fever. Patient has chronic hypotension and is maintained on midodrine. He also has history of nephrolithiasis for the chronic right-sided nephrostomy tube for which she follows at [facility]. Patient states that nephrostomy tube was last changed about a month ago. No chest pain. No other complaints at this time. Vital signs are stable. General: The patient appeared well nourished and normally developed. HEENT: Head exam is unremarkable. Neck is without jugular venous distension. LUNGS: Lungs are clear to auscultation and percussion. Breath sounds decreased. HEART: Rate and Rhythm are regular. First and second heart sounds normal. No mu rmurs, rubs or gallops. ABDOMEN: Obese. Nephrostomy tube on the right side noted. Soft. EXTREMITITES: 2+ edema. Chronic changes noted. Past Medical History Past Medical History: Atrial Fibrillation, Dialysis, Deep Vein Thrombosis (DVT), GI Bleed, Hyperlipidemia, Renal Disease, Sleep Apnea/CPAP/BIPAP Additional Past Medical History / Comment(s): Paraplegia r/t back injury/surgery-pt states he no longer gets up into wheelchair d/t too painful, ESRD with hemodialysis-M/W/F, enlarged R kidney with stones/staghorn-has chronic nephrostomy tube/bag, chronic anemia, mineral bone disease, recurrent CDiff infections, sepsis 2ndary to CDiff colitis/UTI, possible past upper GI bleed, DVT in a leg post op, arhtritis multiple joints, pickwickian syndrome, past respiratory failure/vented, ISACC with Cpap, bilateral lower extremity venous stasis/dermatitis, bilateral lower leg/feet edema, ileus, hypotension. History of Any Multi-Drug Resistant Organisms: C-DIFF, MRSA Date of last positivie culture/infection: 03/06/19 MDRO Source:: MRSA URINE, ASPIRATE, Cdiff now Past Surgical History: Adenoidectomy, Back Surgery, Heart Catheterization With Stent, Hernia Repair, Tonsillectomy Additional Past Surgical History / Comment(s): LT ARM FISTULA-NO BP OR BLOOD DRAWS IN LT ARM, PCI with stent, low back surgery, nephrostomy tubes-replaced approximately one month ago at [facility]-Dr. Mcintyre, abdominal hernia, colonoscopy with benign polyp Past Anesthesia/Blood Transfusion Reactions: No Reported Reaction Date of Last Stent Placement:: 2004 Smoking Status: Former smoker - Past Family History Brother(s) Family Medical History: Cancer Additional Family Medical History / Comment(s): Colon Ca- Father Family Medical History: Cancer Additional Family Medical History / Comment(s): father had lung cancer. He was a smoker and worked in a foundry. Mother Family Medical History: Coronary Artery Disease (CAD) Additional Family Medical History / Comment(s): Mother had CABG in her 70s. Medications and Allergies Home Medications Medication Instructions Recorded Confirmed Type Atorvastatin [Lipitor] 10 mg PO HS 10/30/17 07/30/19 History Calcium Acetate [PhosLo] 667 mg PO DAILY 10/30/17 07/30/19 History Potassium Chloride [Klor-Con 10] 10 meq PO BID 10/30/17 07/30/19 History Cholecalciferol [Vitamin D3 (25 1,000 unit PO DAILY tab 10/17/18 07/30/19 Rx Mcg = 1000 Iu)] Cyanocobalamin [Vitamin B-12] 1,000 mcg PO DAILY tab 10/17/18 07/30/19 Rx Ferrous Sulfate [Iron (65 MG 325 mg PO MOWEFR 03/05/19 07/30/19 History Elemental)] HYDROcodone/APAP 5-325MG [[place] 1 tab PO Q6H PRN 03/05/19 07/30/19 History 5-325] Midodrine [ProAmatine] 5 mg PO MOWEFR 05/28/19 07/30/19 History Landy-Emmanuel 1 tab PO HS 05/28/19 07/30/19 History Magne Bind 300mg 300 mg PO BID 07/30/19 07/30/19 History Midodrine [ProAmatine] 5 mg PO DAILY PRN 07/30/19 07/30/19 History Allergies Allergy/AdvReac Type Severity Reaction Status Date / Time diphenhydramine Allergy Unknown Verified 07/30/19 07:35 [From Benadryl] heparin AdvReac Unknown Verified 07/30/19 07:35 Physical Exam Vitals: Vital Signs Temp Pulse Resp BP Pulse Ox 07/30/19 12:09 97.9 F 98 33 H 102/61 96 07/30/19 12:00 98 33 H 102/61 96 07/30/19 11:30 98 33 H 102/61 96 07/30/19 11:00 92 27 H 101/67 98 07/30/19 10:30 98 8 L 88/62 98 07/30/19 10:00 98 13 88/54 98 07/30/19 09:30 94 27 H 79/60 98 07/30/19 09:00 95 27 H 120/86 96 07/30/19 08:30 120/86 07/30/19 08:00 93 13 104/57 88 L 07/30/19 07:30 96 32 H 100/85 98 07/30/19 07:00 100 32 H 96/58 97 07/30/19 06:30 100 36 H 108/71 07/30/19 06:04 108/71 07/30/19 06:00 99 7 L 87/58 96 07/30/19 05:58 97.9 F 101 H 18 87/66 97 07/30/19 05:57 87/58 96 Intake and Output 07/29/19 07/30/19 07/30/19 22:59 06:59 14:59 Other: Weight 154.221 kg Results - Lab Results Most recent lab results Calcium 9.0 mg/dL (8.4-10.2) 07/30/19 06:34 Magnesium 2.4 mg/dL (1.6-2.3) H 07/30/19 06:34 07/30/19 06:34 07/30/19 06:34 Assessment and Plan Plan: Assessment: 1. End-stage renal disease maintained on hemodialysis on Sunday schedule. 2. Dyspnea secondary to pneumonia versus URI. No evidence of PE. 3. Hyperkalemia secondary to chronic kidney disease. 4. Chronic hypotension maintained on midodrine. 5. Chronic kidney disease mineral bone disease maintained on phosphate binders. 6. History of nephrolithiasis with chronic right-sided nephrostomy tube. Patient follows at [facility]'s urology Department. 7. Volume overload. Plan: Hemodialysis today with goal 3-4 L ultrafiltration. Maintain midodrine and phosphate binders. Follow-up echocardiogram. Thank you for the consultation. I will continue to follow the patient with you during his hospital stay.
[2019-07-30] MEDS ORDERED: ACETAMINOPHEN TAB 325 MG TAB PO PRN (14:47)
--- NOTE | 2019-07-30 14:55 | P.HPIM ---
History of Present Illness H&P Date: 07/30/19 Chief Complaint: Hypotension, shortness of breath 68-year-old male with PMH of ESRD on hemodialysis Sunday, nephrolithiasis with chronic right-sided nephrostomy tube following at [facility], paraplegia, recurrent C. diff infections, atrial fibrillation, hyp ertension, dyslipidemia DVT, pickwickian syndrome and ISACC presents to the ED for shortness of breath and lethargy. Majority of the history was obtained from the ED note as patient appears confused but pleasant. Patient states that he has been here for a few days for diarrhea, though he has only arrived today. Patient apparently had O2 saturation of 84% on room air when EMS arrived with BP of 70/30 and episodes of difficulty breathing. His last dialysis was on Sunday. Patient denies any he adaches, lower extremity edema, nausea or vomiting, fever or chills, cough, chest pain, shortness of breath, palpitations, changes in urination or bowel habits. No changes in appetite or weight. His vital signs in the ED was high 90s on 4 L nasal cannula. His blood pressure was as low as 87/58. He was tachycardic to 101. His blood pressure responded to 1 L bolus given in ED. CBC showed hemoglobin of 10.3. Coagulation panel was negative. CMP showed potassium of 5.5, BUN 34, creatinine 3.34, glucose 112. Lactic acid was negative. Magnesium was elevated at 2.4. Troponin was less than 0.012. BNP was elevated at 169,000. Chest x-ray showed possible left lower lobe infiltrate. CTA chest ruled out PE and showed small left pleural effusion and right greater than left bibasilar consolidation/atelectasis. Patient was admitted for further workup with nephrology on consult. Review of Systems Pertinent positives and negatives as discussed in HPI, a complete review of systems was performed and all other systems are negative. 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 History of Any Multi-Drug Resistant Organisms: C-DIFF, MRSA Date of last positivie culture/infection: 03/06/19 MDRO Source:: MRSA URINE, ASPIRATE, Cdiff now Past Surgical History: Adenoidectomy, Back Surgery, Heart Catheterization With Stent, Hernia Repair, Tonsillectomy Additional Past Surgical History / Comment(s): LT ARM FISTULA-NO BP OR BLOOD DRAWS IN LT ARM, PCI with stent, low back surgery, nephrostomy tubes-replaced 05/22/19, abdominal hernia, colonoscopy with benign polyp Past Anesthesia/Blood Transfusion Reactions: No Reported Reaction Date of Last Stent Placement:: 2004 Past Psychological History: No Psychological Hx Reported Smoking Status: Former smoker Past Alcohol Use History: None Reported Past Drug Use History: None Reported - Past Family History Brother(s) Family Medical History: Cancer Additional Family Medical History / Comment(s): Colon Ca- Father Family Medical History: Cancer Additional Family Medical History / Comment(s): father had lung cancer. He was a smoker and worked in a foundry. Mother Family Medical History: Coronary Artery Disease (CAD) Additional Family Medical History / Comment(s): Mother had CABG in her 70s. Medications and Allergies Home Medications Medication Instructions Recorded Confirmed Type Atorvastatin [Lipitor] 10 mg PO HS 10/30/17 07/30/19 History Calcium Acetate [PhosLo] 667 mg PO DAILY 10/30/17 07/30/19 History Potassium Chloride [Klor-Con 10] 10 meq PO BID 10/30/17 07/30/19 History Cholecalciferol [Vitamin D3 (25 1,000 unit PO DAILY tab 10/17/18 07/30/19 Rx Mcg = 1000 Iu)] Cyanocobalamin [Vitamin B-12] 1,000 mcg PO DAILY tab 10/17/18 07/30/19 Rx Ferrous Sulfate [Iron (65 MG 325 mg PO MOWEFR 03/05/19 07/30/19 History Elemental)] HYDROcodone/APAP 5-325MG [[place] 1 tab PO Q6H PRN 03/05/19 07/30/19 History 5-325] Midodrine [ProAmatine] 5 mg PO MOWEFR 05/28/19 07/30/19 History Landy-Emmanuel 1 tab PO HS 05/28/19 07/30/19 History Magne Bind 300mg 300 mg PO BID 07/30/19 07/30/19 History Midodrine [ProAmatine] 5 mg PO DAILY PRN 07/30/19 07/30/19 History Allergies Allergy/AdvReac Type Severity Reaction Status Date / Time diphenhydramine Allergy Unknown Verified 07/30/19 07:35 [From Benadryl] heparin AdvReac Unknown Verified 07/30/19 07:35 Physical Exam Vitals: Vital Signs Temp Pulse Resp BP Pulse Ox 07/30/19 12:00 98 33 H 102/61 96 07/30/19 11:30 98 33 H 102/61 96 07/30/19 11:00 92 27 H 101/67 98 07/30/19 10:30 98 8 L 88/62 98 07/30/19 10:00 98 13 88/54 98 07/30/19 09:30 94 27 H 79/60 98 07/30/19 09:00 95 27 H 120/86 96 07/30/19 08:30 120/86 07/30/19 08:00 93 13 104/57 88 L 07/30/19 07:30 96 32 H 100/85 98 07/30/19 07:00 100 32 H 96/58 97 07/30/19 06:30 100 36 H 108/71 07/30/19 06:04 108/71 07/30/19 06:00 99 7 L 87/58 96 07/30/19 05:58 97.9 F 101 H 18 87/66 97 07/30/19 05:57 87/58 96 Intake and Output 07/29/19 07/30/19 07/30/19 22:59 06:59 14:59 Other: Weight 154.221 kg General: [non toxic], [no distress], [appears at stated age], [morbidly obese] Derm: [warm], [dry] Head: [atraumatic], [normocephalic], [symmetric] Eyes: [EOMI], [no lid lag], [anicteric sclera] Mouth: [no lip lesion], [mucus membranes moist] Cardiovascular: [S1S2 reg], [no murmur], [positive posterior tibial pulse bilateral], Lungs: [Decreased breath sounds bilateral], [no rhonchi, no rales] , [no accessory muscle use] Abdominal: [soft], [ nontender to palpation], [no guarding], [no appreciable organomegaly] Ext: [no gross muscle atrophy], [no edema], [no contractures], [right nephrostomy tube with purulent discharge] Neuro: [ CN II-XI grossly intact], [no focal neuro deficits] Psych: [Alert], [oriented], [appropriate affect] Results CBC & Chem 7: 07/30/19 06:34 07/30/19 06:34 Labs: Abnormal Lab Results - Last 24 Hours (Table) 07/30/19 07/30/19 Range/Units 06:34 06:34 RBC 4.21 L (4.30-5.90) m/uL Hgb 10.3 L (13.0-17.5) gm/dL Hct 37.6 L (39.0-53.0) % MCH 24.5 L (25.0-35.0) pg MCHC 27.4 L (31.0-37.0) g/dL RDW 19.6 H (11.5-15.5) % Neutrophils # 8.1 H (1.3-7.7) k/uL Lymphocytes # 0.9 L (1.0-4.8) k/uL Potassium 5.5 H (3.5-5.1) mmol/L BUN 34 H (9-20) mg/dL Creatinine 3.34 H (0.66-1.25) mg/dL Glucose 112 H (74-99) mg/dL Magnesium 2.4 H (1.6-2.3) mg/dL ALT 20 L (21-72) U/L Albumin 3.0 L (3.5-5.0) g/dL Assessment and Plan Assessment: Assessment and Plan Sepsis likely due to UTI/infected nephrostomy tube Hypoxia Hypotension ESRD requiring HD Sunday Anemia Hyperkalemia Atrial fibrillation History of DVT Dyslipidemia ISACC Patient meets sepsis criteria. Heart rate greater than 90 on admission, respiratory rate greater than 20, SBP less than 90 with possible infected nephrostomy tube. Lactic acid negative. Clinically, low concerns for pneumonia. Plans: Continue normal saline at 100 mL/h. Follow blood culture. Follow urine culture. Tylenol as needed for fever. Start Rocephin. Consult urology and infectious disease. Possibly related to fluid overload from ESRD. Concerns for right lower lobe infiltrate seen on CTA chest. CTA chest rules out PE. Elevated BNP of 169,000 with moderate cardiomegaly and possible left lower lobe infiltrate. Troponin shows less than 0.012 with EKG showing normal sinus rhythm and T-wave abnormalities. Plans: O2 per NC to maintain O2 saturation greater than 92%. Nephrology consulted to initiate hemodialysis. Trend troponin/EKG to rule out acute coronary syndrome. Telemetry monitoring. Follow echocardiogram. BP 88/54 on admission but improved to 102/61 with IVF. Documented in previous notes that this may be normal for patient. Plans: We'll continue Midodrin home medication. Start normal saline at 100 mL/h. Follow nephrology consultation. Creatinine 3.34. Plans: Nephrology consultation to initiate dialysis. Restart calcium acetate. Hemoglobin 10.3, normocytic. Likely anemia of chronic disease from ESRD. Iron studies show anemia chronic disease. Plans: Continue iron sulfate. Transfuse if hemoglobin less than 7. Potassium 5.5. Likely secondary to ESRD. Plans: Initiate dialysis. Daily BMP. Stable. Plans: Anticoagulation with Xarelto. Plans: Anticoagulation with Xarelto. Plans: Restart Lipitor. Plans: BiPAP at night. DVT prophylaxis: [Heparin] Discussed with: [Patient] Anticipated discharge: [3-4 days] A total of [45] minutes was spent on the care of this complex patient more than 50% of the time was spent in counseling and care coordination. Patient reiterates wanting to remain full code at this time. He names his son Tyron decision maker indicates that he can't make decisions for himself. This admission is anticipated greater than 48 hours for sepsis and hypoxia.
[2019-07-30] MEDS ORDERED: HEPARIN SOD,PORK IN 0.45% NACL 25,000 UNIT in 0.45% NACL 1 250ML.BAG IV SCH (17:15)
[2019-07-30] MEDS ORDERED: VANCOMYCIN IV PER PHARMACY 1 EACH MISC MISCELLANE PRN (19:52)
[2019-07-30] MEDS ORDERED: VANCOMYCIN 2,250 MG in SODIUM CHLORIDE 0.9% 500 ML 500 ML IVPB STA (19:55)
[2019-07-30] MEDS: CEFEPIME 1 GM in SODIUM CHLORIDE 0.9% 50 ML IVPB SCH (20:51)
[2019-07-30] MEDS ORDERED: HEPARIN SODIUM,PORCINE 5,000 UNIT/ML 1 ML VIAL SQ SCH (21:00)
[2019-07-30] MEDS: FUROSEMIDE 40 MG TAB PO SCH (21:43)
[2019-07-30] MEDS: ATORVASTATIN 10 MG TAB PO SCH (21:43)
[2019-07-30] MEDS: FOLIC ACID-VIT B COMPLEX-VIT C 1 CAP PO SCH (21:43)
[2019-07-30] MEDS: CALCIUM CARB-MAG CARB-FOLIC 1 EACH TAB PO SCH (21:43)
[2019-07-30] MEDS: HEPARIN SODIUM,PORCINE 5,000 UNIT/ML 1 ML VIAL SQ SCH (21:43)
[2019-07-31] MEDS: CALCIUM ACETATE 667 MG CAP PO SCH (06:37)
[2019-07-31 08:07] LABS: Anisocytosis Slight; Basophils # (A) 0.1 k/uL (0-0.2); Basophils % (A) 1 %; Eosinophils # (A) 0.2 k/uL (0-0.7); Eosinophils % (A) 1 %; HCT 38.7 % (39.0-53.0); HGB 10.9 gm/dL (13.0-17.5); Hypochromasia Marked; Lymphocytes # (A) 1.6 k/uL (1.0-4.8); Lymphocytes % (A) 13 %; MCH 26.1 pg (25.0-35.0); MCHC 28.2 g/dL (31.0-37.0); MCV 92.7 fL (80.0-100.0); Macrocytosis Slight; Mean Platelet Volume 8.9; Monocytes # (A) 0.8 k/uL (0-1.0); Monocytes % (A) 7 %; Neutrophils # (A) 9.2 k/uL (1.3-7.7); Neutrophils % (A) 77 %; Platelet Count 187 k/uL (150-450); RBC 4.17 m/uL (4.30-5.90); RDW 19.5 % (11.5-15.5)
[2019-07-31] MEDS: CHOLECALCIFEROL 1,000 UNIT TAB PO SCH (08:12)
[2019-07-31] MEDS: CEFEPIME 1 GM in SODIUM CHLORIDE 0.9% 50 ML IVPB SCH (08:12)
[2019-07-31] MEDS: CALCIUM CARB-MAG CARB-FOLIC 1 EACH TAB PO SCH ×2 (08:12→21:10)
[2019-07-31] MEDS: CYANOCOBALAMIN 500 MCG TAB PO SCH (08:13)
[2019-07-31] MEDS: FERROUS SULFATE 325 MG TAB PO SCH (08:13)
[2019-07-31] MEDS: FUROSEMIDE 40 MG TAB PO SCH ×2 (08:13→21:10)
[2019-07-31] MEDS: HEPARIN SODIUM,PORCINE 5,000 UNIT/ML 1 ML VIAL SQ SCH ×2 (08:13→21:11)
[2019-07-31 08:15] LABS: Polychromasia Present
[2019-07-31 08:16] LABS: Poikilocytosis (M) Present
[2019-07-31] MEDS ORDERED: VANCOMYCIN 2,250 MG in SODIUM CHLORIDE 0.9% 500 ML 500 ML IVPB ONE (10:00)
--- NOTE | 2019-07-31 11:11 | P.CONS ---
History of Present Illness - Reason for Consult Consult date: 07/31/19 Infected nephrostomy tube/sepsis - History of Present Illness This is a 68-year-old male has multiple medical troubles that includes morbid obesity, end-stage renal disease on hemodialysis, chronic staghorn calcul us into the right kidney with obstruction requiring right-sided percutaneous nephrostomy tube for drainage. Patient also has renal masses with concerns to underlying neoplasm. Patient follows with communications and signals supervisor, urologist at [facility]. The patient has a very poor functional status and is not thought to be a surgical candidate for any specific intervention such as nephrectomy. The patient has been seen on previous admissions most recently admitted in February and was treated for C. difficile colitis and nephrostomy culture positive for MRSA and Citrobacter. Patient was discharged on oral Vanco and doxycycline. Patient had a readmission and May of this year and treated for C. difficile colitis discharged on vancomycin. Patient apparently has not been feeling well since Sunday after dialysis. He was noted yesterday to have a drop in his pulse ox 84% some difficulty breathing, decreased oral intake and was brought into [facility] emergency center for evaluation. He was found to be afebrile, blood pressure on the low side, hemoglobin 10.3, white count 9.9, BUN 34 and creatinine 3.34 potassium 5.5, albumin 3.0. Troponins were negative on 3 draws. BNP 169,000. Urine culture is in progress. Urinalysis had not been obtained. Chest x-ray concerning for left lower lobe pneumonia. CT of the chest was suboptimal but did not show any signs of pulmonary embolism. Lung volumes and mild cardiomegaly with small left pleural effusion. Right greater than left bibasilar consolidation and/or atelectasis. Patient has been seen by Dr. Barahona for his end-stage renal disease on hemodialysis Sunday and underwent hemodialysis treatment yesterday evening. Patient has not had any diarrhea. Patient states that he did eat his breakfast and his appetite is fair. No nausea or vomiting. When asked about his nephrostomy tube, he states that he is normally changed every 3 months but he does not recall when this was last done. We have placed the patient on cefepime and vancomycin. Review of Systems Constitutional: Reports fatigue, Reports lethargy, Reports poor appetite, Reports weakness, Denies chills, Denies fever Eyes: denies blurred vision, denies pain Ears, nose, mouth and throat: Denies dysphagia, Denies nasal congestion, Denies nasal discharge, Denies vertigo Cardiovascular: Denies chest pain, Denies decreased exercise tolerance, Denies dyspnea on exertion, Denies leg edema, Denies syncope Respiratory: Reports sleep apnea, Denies cough, Denies cough with sputum, Denies dyspnea, Denies excessive sputum, Denies hemoptysis, Denies home oxygen, Denies wheezing Gastrointestinal: Reports loss of appetite, Denies abdominal pain, Denies diarrhea, Denies nausea, Denies vomiting Genitourinary: Reports as per HPI Musculoskeletal: Reports gait dysfunction, Reports muscle weakness, Denies frequent falls, Denies myalgias Integumentary: Denies pruritus, Denies rash Neurological: Denies change in mentation, Denies confusion, Denies seizures, Denies syncope, Denies vertigo Psychiatric: Denies anxiety, Denies depression Endocrine: Denies fatigue, Denies weight change Past Medical History Past Medical History: Atrial Fibrillation, Dialysis, Deep Vein Thrombosis (DVT), GI Bleed, Hyperlipidemia, Hypertension, Renal Disease, Sleep Apnea/CPAP/BIPAP Additional Past Medical History / Comment(s): Paraplegia r/t back injury/surgery-pt states he no longer gets up into wheelchair d/t too painful, ESRD with hemodialysis-M/W/F, enlarged R kidney with stones/staghorn-has chronic nephrostomy tube/bag, chronic anemia, mineral bone disease, recurrent CDiff infections, sepsis 2ndary to CDiff colitis/UTI, possible past upper GI bleed, DVT in a leg post op, arhtritis multiple joints, pickwickian syndrome, past respiratory failure/vented, ISACC with Cpap, bilateral lower extremity venous stasis/dermatitis, bilateral lower leg/feet edema and currently scabs on L foot toes. History of Any Multi-Drug Resistant Organisms: C-DIFF, MRSA Year Discovered:: 03/06/19 MDRO Source:: MRSA URINE, ASPIRATE, Cdiff now Past Surgical History: Adenoidectomy, Back Surgery, Heart Catheterization With Stent, Hernia Repair, Tonsillectomy Additional Past Surgical History / Comment(s): LT ARM FISTULA-NO BP OR BLOOD DRAWS IN LT ARM, PCI with stent, low back surgery, nephrostomy tubes-replaced 05/22/19, abdominal hernia, colonoscopy with benign polyp Past Anesthesia/Blood Transfusion Reactions: No Reported Reaction Date of Last Stent Placement:: 2004 Past Psychological History: No Psychological Hx Reported Smoking Status: Former smoker Past Alcohol Use History: None Reported Additional Past Alcohol Use History / Comment(s): Patient smoked for 10 years ago quit in 1981. Patient has a brother who lives with him and his son comes over daily. They are his caregivers. He has a hospital bed, only her left, CPAP, megamover transfer mat. Past Drug Use History: None Reported - Past Family History Brother(s) Family Medical History: Cancer Additional Family Medical History / Comment(s): Colon Ca- Father Family Medical History: Cancer Additional Family Medical History / Comment(s): father had lung cancer. He was a smoker and worked in a foundry. Mother Family Medical History: Coronary Artery Disease (CAD) Additional Family Medical History / Comment(s): Mother had CABG in her 70s. Medications and Allergies Home Medications Medication Instructions Recorded Confirmed Type Atorvastatin [Lipitor] 10 mg PO HS 10/30/17 07/30/19 History Calcium Acetate [PhosLo] 667 mg PO DAILY 10/30/17 07/30/19 History Potassium Chloride [Klor-Con 10] 10 meq PO BID 10/30/17 07/30/19 History Cholecalciferol [Vitamin D3 (25 1,000 unit PO DAILY tab 10/17/18 07/30/19 Rx Mcg = 1000 Iu)] Cyanocobalamin [Vitamin B-12] 1,000 mcg PO DAILY tab 10/17/18 07/30/19 Rx Ferrous Sulfate [Iron (65 MG 325 mg PO MOWEFR 03/05/19 07/30/19 History Elemental)] HYDROcodone/APAP 5-325MG [[place] 1 tab PO Q6H PRN 03/05/19 07/30/19 History 5-325] Midodrine [ProAmatine] 5 mg PO MOWEFR 05/28/19 07/30/19 History Landy-Emmanuel 1 tab PO HS 05/28/19 07/30/19 History Magne Bind 300mg 300 mg PO BID 07/30/19 07/30/19 History Midodrine [ProAmatine] 5 mg PO DAILY PRN 07/30/19 07/30/19 History Allergies Allergy/AdvReac Type Severity Reaction Status Date / Time diphenhydramine Allergy Unknown Verified 07/30/19 07:35 [From Benadryl] heparin AdvReac Unknown Verified 07/30/19 07:35 Physical Exam Vitals: Vital Signs Temp Pulse Pulse Resp BP BP Pulse Ox 07/31/19 08:17 97.0 F L 90 18 92/57 96 07/31/19 08:00 18 07/31/19 04:00 96 18 90/55 94 L 07/31/19 00:00 96 18 94/58 99 07/30/19 20:36 98 07/30/19 20:00 96.9 F L 105 H 18 86/52 100 07/30/19 16:45 98 18 87/59 91 L 07/30/19 12:15 97.5 F L 100 20 83/56 99 07/30/19 12:09 97.9 F 98 33 H 102/61 96 07/30/19 12:00 98 33 H 102/61 96 07/30/19 11:30 98 33 H 102/61 96 07/30/19 11:00 92 27 H 101/67 98 Intake and Output 07/30/19 07/31/19 07/31/19 22:59 06:59 14:59 Intake Total 480 240 Balance 480 240 Intake: Oral 480 240 Other: # Bowel Movements 1 Weight 158 kg Gen: This is a morbidly obese 68-year-old male. He is sleeping with CPAP in place and awakens to verbal stimuli. He does not appear to be in any respiratory distress. HEENT: Head is atraumatic, normocephalic. Pupils equal, round. Sclerae is anicteric. NECK: Supple. No lymphadenopathy. No thyromegaly. LUNGS: Decreased breath sounds but otherwise clear to auscultation. No intercostal retractions. HEART: Regular rate and rhythm. No murmur. ABDOMEN: Morbidly obese. Soft. Bowel sounds are present. No masses. No ten derness. Nephrostomy tube to the right upper quadrant. Dressing in place which was not removed. No drainage noted. There is purulent material in the nephrostomy drainage system. EXTREMITIES: Hemodialysis fistula to the left upper extremity. Chronic venous stasis changes to the bilateral lower extremities.. NEUROLOGICAL: Patient is awake, alert and oriented x3. Results Results: Laboratory Results WBC 12.0 k/uL (3.8-10.6) H 07/31/19 06:32 RBC 4.17 m/uL (4.30-5.90) L 07/31/19 06:32 Hgb 10.9 gm/dL (13.0-17.5) L 07/31/19 06:32 Hct 38.7 % (39.0-53.0) L 07/31/19 06:32 MCV 92.7 fL (80.0-100.0) 07/31/19 06:32 MCH 26.1 pg (25.0-35.0) 07/31/19 06:32 MCHC 28.2 g/dL (31.0-37.0) L 07/31/19 06:32 RDW 19.5 % (11.5-15.5) H 07/31/19 06:32 Plt Count 187 k/uL (150-450) 07/31/19 06:32 Neutrophils % 77 % 07/31/19 06:32 Lymphocytes % 13 % 07/31/19 06:32 Monocytes % 7 % 07/31/19 06:32 Eosinophils % 1 % 07/31/19 06:32 Basophils % 1 % 07/31/19 06:32 Neutrophils # 9.2 k/uL (1.3-7.7) H 07/31/19 06:32 Lymphocytes # 1.6 k/uL (1.0-4.8) 07/31/19 06:32 Monocytes # 0.8 k/uL (0-1.0) 07/31/19 06:32 Eosinophils # 0.2 k/uL (0-0.7) 07/31/19 06:32 Basophils # 0.1 k/uL (0-0.2) 07/31/19 06:32 Manual Slide Review Performed 07/31/19 06:32 Polychromasia Present 07/31/19 06:32 Hypochromasia Marked 07/31/19 06:32 Poikilocytosis (manual Present 07/31/19 06:32 Anisocytosis Slight 07/31/19 06:32 Macrocytosis Slight 07/31/19 06:32 PT 10.7 sec (9.0-12.0) 07/30/19 06:34 INR 1.0 (<1.2) 07/30/19 06:34 APTT 24.9 sec (22.0-30.0) 07/30/19 06:34 Sodium Cancelled 07/31/19 06:32 Potassium Cancelled 07/31/19 06:32 Chloride Cancelled 07/31/19 06:32 Carbon Dioxide Cancelled 07/31/19 06:32 Anion Gap Cancelled 07/31/19 06:32 BUN Cancelled 07/31/19 06:32 Creatinine Cancelled 07/31/19 06:32 Est GFR (CKD-EPI)AfAm Cancelled 07/31/19 06:32 Est GFR (CKD-EPI)NonAf Cancelled 07/31/19 06:32 Glucose Cancelled 07/31/19 06:32 Plasma Lactic Acid Dennis 1.2 mmol/L (0.7-2.0) 07/30/19 06:34 Calcium Cancelled 07/31/19 06:32 Phosphorus Cancelled 07/31/19 06:32 Magnesium Cancelled 07/31/19 06:32 Total Bilirubin 0.5 mg/dL (0.2-1.3) 07/30/19 06:34 AST 24 U/L (17-59) 07/30/19 06:34 ALT 20 U/L (21-72) L 07/30/19 06:34 Alkaline Phosphatase 111 U/L (38-126) 07/30/19 06:34 Troponin I <0.012 ng/mL (0.000-0.034) 07/30/19 19:08 NT-Pro-B Natriuret Pep [id number] pg/mL 07/30/19 06:34 Total Protein 7.7 g/dL (6.3-8.2) 07/30/19 06:34 Albumin 3.0 g/dL (3.5-5.0) L 07/30/19 06:34 Random Vancomycin 8.4 ug/mL 07/31/19 06:32 CBC & Chem 7: 07/31/19 06:32 07/30/19 06:34 Labs: Abnormal Lab Results - Last 24 Hours (Table) 07/31/19 Range/Units 06:32 WBC 12.0 H (3.8-10.6) k/uL RBC 4.17 L (4.30-5.90) m/uL Hgb 10.9 L (13.0-17.5) gm/dL Hct 38.7 L (39.0-53.0) % MCHC 28.2 L (31.0-37.0) g/dL RDW 19.5 H (11.5-15.5) % Neutrophils # 9.2 H (1.3-7.7) k/uL Microbiology - Last 24 Hours (Table) 07/30/19 06:34 Blood Culture - Preliminary Blood No Growth after 24 hours 07/30/19 12:58 Urine Culture - Preliminary Urine,Clean Catch Assessment and Plan Plan: This is a 68-year-old male patient well known to ID service presents feeling poorly with hypoxia, hypotension and increased lethargy. There is concern for infection to the drainage system from the nephrostomy tube. Culture is in progress. There is also concern for possible pneumonia/atelectasis. Most likely related to atelectasis. Incentive spirometry will be added. Patient does have history of C. difficile colitis which will need to be monitored but no diarrhea at this time. Patient has been started on cefepime and IV vancomycin which will be continued. Continue supportive care. Further recommendations as patient progresses. The above dictated assessment and findings were discussed with Dr. Chadwick. The impression and plan of care have been directed as dictated. Hailey Beth nurse practitioner acting as scribe for Dr. Chadwick.
[2019-07-31 11:22] LABS: Calcium 8.4 mg/dL (8.4-10.2); Magnesium 2.4 mg/dL (1.6-2.3); Phosphorus 5.6 mg/dL (2.5-4.5); Potassium 4.8 mmol/L (3.5-5.1)
--- NOTE | 2019-07-31 11:36 | ECHOF ---
Referral Reason:SOB MEASUREMENTS -------- HEIGHT: 177.8 cm WEIGHT: 154.2 kg BP: 102/61 RVIDd: 5.9 cm (< 3.3) IVSd: 1.5 cm (0.6 - 1.1) LVIDd: 4.9 cm (3.9 - 5.3) LVPWd: 1.3 cm (0.6 - 1.1) IVSs: 1.7 cm LVIDs: 3.3 cm LVPWs: 1.6 cm Ao Diam: 2.9 cm (2.0 - 3.7) AV Cusp: 1.7 cm (1.5 - 2.6) LA Diam: 4.0 cm (2.7 - 3.8) TAPSE: 1.3 cm MV E Aiedn: 0.56 m/s MV DecT: 173 ms MV A Aiden: 0.70 m/s MV E/A Ratio: 0.80 RAP: 5.00 mmHg RVSP: 56.27 mmHg FINDINGS -------- Sinus rhythm. This was a technically adequate study. The left ventricular size is normal. There is moderate concentric left ventricular hypertrophy. O verall left ventricular systolic function is normal with, an EF between 55 - 60 %. There is paradox ical/dysynergic septal motion consistent with right ventricular volume overload and/or elevated right ventricular end-diastolic pressure. The right ventricle is severely enlarged. The right ventricular systolic function is severely impai red. The left atrium was not well visualized. The right atrium is moderately enlarged. Interatrial and interventricular septum intact. There is mild aortic valve sclerosis without stenosis. There is no evidence of aortic regurgitation . There is no evidence of aortic stenosis. The mitral valve is normal. No mitral regurgitation. The tricuspid valve appears structurally normal. Severe tricuspid regurgitation present. There is severe pulmonary hypertension. The right ventricular systolic pressure, as measured by Doppler, is 56.27mmHg. The pulmonic valve was not well visualized. The aortic root size is normal. IVC not well visualized There is a small, generalized pericardial effusion present. CONCLUSIONS -------- 1. Sinus rhythm. 2. This was a technically adequate study. 3. The left ventricular size is normal. 4. There is moderate concentric left ventricular hypertrophy. 5. Overall left ventricular systolic function is normal with, an EF between 55 - 60 %. 6. There is paradoxical/dysynergic septal motion consistent with right ventricular volume overload an d/or elevated right ventricular end-diastolic pressure. 7. The right ventricle is severely enlarged. 8. The right ventricular systolic function is severely impaired. 9. The left atrium was not well visualized. 10. There is mild aortic valve sclerosis without stenosis. 11. There is no evidence of aortic regurgitation. 12. There is no evidence of aortic stenosis. 13. No mitral regurgitation. 14. Severe tricuspid regurgitation present. 15. There is severe pulmonary hypertension. 16. The pulmonic valve was not well visualized. 17. The aortic root size is normal. 18. IVC not well visualized 19. There is a small, generalized pericardial effusion present. HAIR WORKER: Yudy Greco RDCS
--- NOTE | 2019-07-31 12:51 | P.PN ---
Subjective Progress Note Date: 07/31/19 Principal diagnosis: Infected nephrostomy tube Patient seen and examined. No acute events overnight. Brother is at bedside. Brother states that the day of admission, patient appeared very lethargic and minimally responsive with a low BP. Since then, patient has improved today. Patient is continuing to sleep excessively, had dialysis yesterday. He denies any chest pain, shortness breath or palpitations. No nausea or vomiting. No fever or chills. Objective - Vital Signs Vital signs: Vital Signs Temp 96.7 F L 07/31/19 11:16 Pulse 92 07/31/19 11:16 Resp 18 07/31/19 11:16 BP 100/55 07/31/19 11:16 Pulse Ox 98 07/31/19 11:16 Intake & Output 07/30/19 07/31/19 07/31/19 18:59 06:59 18:59 Intake Total 250 480 860 Balance 250 480 860 Weight 158 kg Intake: Intake, IV Titration 620 Amount Sodium Chloride 0.9% 1, 120 000 ml @ 100 mls/hr IV . Q10H STA Rx#:[id number] Vancomycin 2,250 mg In 500 Sodium Chloride 0.9% 500 ml 500 ml @ 167 mls/hr IVPB ONCE ONE Rx#: [id number] Oral 250 480 240 Other: # Bowel Movements 1 - Exam General: [non toxic], [no distress], [appears at stated age], [morbidly obese] Derm: [warm], [dry] Head: [atraumatic], [normocephalic], [symmetric] Eyes: [EOMI], [no lid lag], [anicteric sclera] Mouth: [no lip lesion], [mucus membranes moist] Cardiovascular: [S1S2 reg], [no murmur] Lungs: [Decreased breath sounds bilateral], [no rhonchi, no rales] , [no accessory muscle use] Abdominal: [soft], [ nontender to palpation], [no guarding], [no appreciable organomegaly] Ext: [no gross muscle atrophy], [no edema], [no contractures], [right nephrostomy tube with purulent discharge] Neuro: [no focal neuro deficits] Psych: [Alert], [oriented], [appropriate affect] - Labs CBC & Chem 7: 07/31/19 06:32 07/31/19 10:52 Labs: Abnormal Lab Results - Last 24 Hours (Table) 07/31/19 07/31/19 Range/Units 06:32 10:52 WBC 12.0 H (3.8-10.6) k/uL RBC 4.17 L (4.30-5.90) m/uL Hgb 10.9 L (13.0-17.5) gm/dL Hct 38.7 L (39.0-53.0) % MCHC 28.2 L (31.0-37.0) g/dL RDW 19.5 H (11.5-15.5) % Neutrophils # 9.2 H (1.3-7.7) k/uL Carbon Dioxide 36 H (22-30) mmol/L BUN 23 H (9-20) mg/dL Creatinine 2.85 H (0.66-1.25) mg/dL Phosphorus 5.6 H (2.5-4.5) mg/dL Magnesium 2.4 H (1.6-2.3) mg/dL Microbiology - Last 24 Hours (Table) 07/30/19 06:34 Blood Culture - Preliminary Blood No Growth after 24 hours 07/30/19 12:58 Urine Culture - Preliminary Urine,Clean Catch Assessment and Plan Assessment: Assessment and Plan Sepsis likely due to UTI/infected nephrostomy tube Hypoxia Hypotension ESRD requiring HD Sunday Anemia Atrial fibrillation History of DVT Dyslipidemia ISACC Resolved: Hyperkalemia Patient meets sepsis criteria. Heart rate greater than 90 on admission, respiratory rate greater than 20, SBP less than 90 with possible infected nephrostomy tube, new leukocytosis of 12 today. Lactic acid negative. Clinically, low concerns for pneumonia. Plans: Continue normal saline at 100 mL/h. Follow blood culture. Follow urine culture. Tylenol as needed for fever. Rocephin discontinued for vancomycin and cefepime. Consult urology and infectious disease. Likely related to obesity hypoventilation syndrome and pickwickian. Concerns for right lower lobe infiltrate seen on CTA chest. CTA chest rules out PE. Elevated BNP of 169,000 with moderate cardiomegaly and possible left lower lobe infiltrate. Troponin shows less than 0.012 3 with EKG showing normal sinus rhythm and T-wave abnormalities, ACS ruled out. Plans: O2 per NC to maintain O2 saturation greater than 92%. Nephrology consulted to initiate hemodialysis. Telemetry monitoring. Currently treated with IV antibiotics for possible pneumonia. BiPAP as needed for nighttime. BP 100/55. Documented in previous notes that this may be normal for patient. Plans: We'll continue Midodrin home medication. DC IVF and encourage hydration by mouth Follow nephrology consultation. Creatinine 3.34-2.85. Plans: Nephrology consultation to initiate dialysis. Restart calcium acetate. Hemoglobin 10.9, normocytic. Likely anemia of chronic disease from ESRD. Iron studies show anemia chronic disease. Plans: Continue iron sulfate. Transfuse if hemoglobin less than 7. Stable. Plans: Anticoagulation with Xarelto. Plans: Anticoagulation with Xarelto. Plans: Restart Lipitor. Plans: BiPAP at night. [Patient is being treated with broad-spectrum antibiotics for infected n ephrostomy tube and sepsis. Cultures are pending. He continues to be hypoxic, but this might be his baseline. He is pending clinical improvement. DC in 2-3 days.]
[2019-07-31 14:26] VITALS: BMI 49.9
[2019-07-31 20:15] LABS: Hepatitis A Antibody IgM Non-Reactive (Non-Reactive); Hepatitis B Core IgM Non-Reactive (Non-Reactive); Hepatitis B Surface Antigen Non-Reactive (Non-Reactive); Hepatitis C IgG Antibody Non-Reactive (Non-Reactive)
[2019-07-31] MEDS: FOLIC ACID-VIT B COMPLEX-VIT C 1 CAP PO SCH (21:10)
[2019-07-31] MEDS: ATORVASTATIN 10 MG TAB PO SCH (21:10)
--- NOTE | 2019-07-31 22:09 | P.CON ---
Consult Note - . Consult date: 07/31/19 Assessment/Plan:: This is a 68-year-old male has multiple medical troubles that includes morbid obesity, end-stage renal disease on hemodialysis, chronic staghorn calculus into the right kidney with obstruction requiring right-sided percutaneous nephrostomy tube for drainage. Patient also has renal masses with concerns to underlying neoplasm. Patient follows with traffic control signaler, urologist at [facility]. The patient has a very poor functional status and is not thought to be a surgical candidate for any specific intervention such as nephrectomy. The patient has been seen on previous admissions most recently admitted in February and was treated for C. difficile colitis and nephrostomy culture positive for MRSA and Citrobacter. Patient was discharged on oral Vanco and doxycycline. Patient had a readmission and May of this year and treated for C. difficile colitis discharged on vancomycin. Patient apparently has not been feeling well since Sunday after dialysis. He was noted yesterday to have a drop in his pulse ox 84% some difficulty breathing, decreased oral intake and was brought into [facility] emergency center for evaluation. He was found to be afebrile, blood pressure on the low side, hemoglobin 10.3, white count 9.9, BUN 34 and creatinine 3.34 potassium 5.5, albumin 3.0. Troponins were negative on 3 draws. BNP 169,000. Urine culture is in progress. Urinalysis had not been obtained. Chest x-ray concerning for left lower lobe pneumonia. CT of the chest was suboptimal but did not show any signs of pulmonary embolism. Lung volumes and mild cardiomegaly with small left pleural effusion. Right greater than left bibasilar consolidation and/or atelectasis. Patient has been seen by Dr. Barahona for his end-stage renal disease on hemodialysis Sunday and underwent hemodialysis treatment yesterday evening. Patient has not had any diarrhea. Patient states that he did eat his breakfast and his appetite is fair. No nausea or vomiting. When asked about his nephrostomy tube, he states that he is normally changed every 3 months but he does not recall when this was last done. We have placed the patient on cefepime and vancomycin. Please see the consult note is dictated by the nurse practitioner Mrs. Hailey Beth. This 68-year-old male is well-known to the service resents from home feeling ill with follow drainage coming from his percutaneous nephrostomy tube. Nursing staff has found that the tube was likely changed about a month ago. There is still some purulent drainage in the bag and it is follow nature. Prior cultures have been reviewed in counseling antibiotic therapy with cefepime and vancomycin have been added pending further culture data. He fortunately is feeling better. Having no difficulty with his hemodialysis. He is denying significant diarrhea is feeling better since coming to hospital. Cultures are process will further help correct the therapy. He may need to have further urological evaluation and/or imaging studies to evaluate the effectiveness of the percutaneous nephrostomy tube. He apparently is a poor candidate for any extensive surgical interventions. I agree with evaluation, assessment and plan as dictated by nu e practitioner Mrs. Hailey Beth.
[2019-08-01] MEDS: CALCIUM ACETATE 667 MG CAP PO SCH (06:53)
[2019-08-01 07:58] LABS: Calcium 8.6 mg/dL (8.4-10.2); Potassium 4.9 mmol/L (3.5-5.1); Total Bilirubin 0.4 mg/dL (0.2-1.3); Total Protein 7.8 g/dL (6.3-8.2)
[2019-08-01 08:22] LABS: Anisocytosis Slight; Basophils # (A) 0.1 k/uL (0-0.2); Basophils % (A) 1 %; Eosinophils # (A) 0.1 k/uL (0-0.7); Eosinophils % (A) 1 %; HCT 37.7 % (39.0-53.0); HGB 10.4 gm/dL (13.0-17.5); Hypochromasia Marked; Lymphocytes # (A) 1.3 k/uL (1.0-4.8); Lymphocytes % (A) 13 %; MCH 25.9 pg (25.0-35.0); MCHC 27.6 g/dL (31.0-37.0); MCV 93.7 fL (80.0-100.0); Macrocytosis Slight; Mean Platelet Volume 7.4; Monocytes # (A) 0.5 k/uL (0-1.0); Monocytes % (A) 5 %; Neutrophils # (A) 7.5 k/uL (1.3-7.7); Neutrophils % (A) 78 %; Platelet Count 264 k/uL (150-450); RBC 4.02 m/uL (4.30-5.90); RDW 19.3 % (11.5-15.5); WBC 9.6 k/uL (3.8-10.6)
[2019-08-01] MEDS: CALCIUM CARB-MAG CARB-FOLIC 1 EACH TAB PO SCH ×2 (09:02→22:48)
[2019-08-01] MEDS: HEPARIN SODIUM,PORCINE 5,000 UNIT/ML 1 ML VIAL SQ SCH ×2 (09:02→22:48)
[2019-08-01] MEDS: FUROSEMIDE 40 MG TAB PO SCH ×2 (09:02→22:48)
[2019-08-01] MEDS: CYANOCOBALAMIN 500 MCG TAB PO SCH (09:02)
[2019-08-01] MEDS: CHOLECALCIFEROL 1,000 UNIT TAB PO SCH (09:02)
[2019-08-01] MEDS: CEFEPIME 1 GM in SODIUM CHLORIDE 0.9% 50 ML IVPB SCH (09:03)
--- NOTE | 2019-08-01 09:29 | XR ---
EXAMINATION TYPE: XR chest 1V portable DATE OF EXAM: 08/01/2019 HISTORY: Shortness of breath. COMPARISON: 07/30/2019 TECHNIQUE: Single view of the chest is submitted. FINDINGS: Demonstrated are scattered senescent parenchymal change. Basilar atelectasis. Left lower lobe infiltrate difficult to exclude. Progress studies are advised. The heart is stable. Hilar and mediastinal structures are within normal limits. Degenerative changes are seen of the dorsal spine. IMPRESSION: 1. Basilar atelectasis. Left lower lobe infiltrate difficult to exclude. Progress studies are advise d.
[2019-08-01 10:06] LABS: Rouleaux Present
--- NOTE | 2019-08-01 11:36 | P.PN ---
Subjective Progress Note Date: 08/01/19 Principal diagnosis: Infected nephrostomy tube Patient seen and examined. No acute events overnight. He denies any chest pain, shortness breath or palpitations. No nausea or vomiting. No fever or chills. States that he is feeling pretty good today with no complaints. Objective - Vital Signs Vital signs: Vital Signs Temp 97.5 F L 08/01/19 09:00 Pulse 88 08/01/19 09:00 Resp 16 08/01/19 09:00 BP 89/58 08/01/19 09:00 Pulse Ox 95 08/01/19 09:00 Intake & Output 07/31/19 08/01/19 08/01/19 18:59 06:59 18:59 Intake Total 1540 80 240 Balance 1540 80 240 Weight 158 kg 156.263 kg Intake: IV 80 0.9 80 Intake, IV Titration 620 Amount Sodium Chloride 0.9% 1, 120 000 ml @ 100 mls/hr IV . Q10H STA Rx#:[id number] Vancomycin 2,250 mg In 500 Sodium Chloride 0.9% 500 ml 500 ml @ 167 mls/hr IVPB ONCE ONE Rx#: [id number] Oral 920 240 Other: # Bowel Movements 1 - Exam General: [non toxic], [no distress], [appears at stated age], [morbidly obese] Derm: [warm], [dry] Head: [atraumatic], [normocephalic], [symmetric] Eyes: [EOMI], [no lid lag], [anicteric sclera] Mouth: [no lip lesion], [mucus membranes moist] Cardiovascular: [S1S2 reg], [no murmur] Lungs: [Decreased breath sounds bilateral], [no rhonchi, no rales] , [no accessory muscle use] Abdominal: [soft], [ nontender to palpation], [no guarding], [no appreciable organomegaly] Ext: [no gross muscle atrophy], [no edema], [no contractures], [right nephrosto my tube with purulent discharge] Neuro: [no focal neuro deficits] Psych: [Alert], [oriented], [appropriate affect] - Labs CBC & Chem 7: 08/01/19 06:19 08/01/19 06:19 Labs: Abnormal Lab Results - Last 24 Hours (Table) 07/31/19 08/01/19 08/01/19 Range/Units 10:52 06:19 06:19 RBC 4.02 L (4.30-5.90) m/uL Hgb 10.4 L (13.0-17.5) gm/dL Hct 37.7 L (39.0-53.0) % MCHC 27.6 L (31.0-37.0) g/dL RDW 19.3 H (11.5-15.5) % Chloride 97 L (98-107) mmol/L Carbon Dioxide 36 H (22-30) mmol/L BUN 23 H 29 H (9-20) mg/dL Creatinine 2.85 H 3.39 H (0.66-1.25) mg/dL Glucose 109 H (74-99) mg/dL Phosphorus 5.6 H (2.5-4.5) mg/dL Magnesium 2.4 H (1.6-2.3) mg/dL ALT 13 L (21-72) U/L Albumin 3.0 L (3.5-5.0) g/dL Microbiology - Last 24 Hours (Table) 07/30/19 06:34 Blood Culture - Preliminary Blood No Growth after 48 hours Assessment and Plan Assessment: Assessment and Plan Sepsis likely due to UTI/infected nephrostomy tube Hypoxia Hypotension ESRD requiring HD Sunday Anemia Atrial fibrillation History of DVT Dyslipidemia ISACC Resolved: Hyperkalemia Patient meets sepsis criteria. Heart rate greater than 90 on admission, resp iratory rate greater than 20, SBP less than 90 with possible infected nephrostomy tube, new leukocytosis of 12 yesterday which is within normal limits today. Lactic acid negative. Clinically, low concerns for pneumonia. Blood culture negative at 48 hours. Urine culture preliminary negative. Plans: Continue normal saline at 100 mL/h. Follow blood culture. Follow urine culture . Tylenol as needed for fever. Rocephin discontinued for vancomycin and cefe pime due to previous cultures. Consult urology and infectious disease. Likely related to obesity hypoventilation syndrome and pickwickian. Concerns for right lower lobe infiltrate seen on CTA chest. CTA chest rules out PE. Elevated BNP of 169,000 with moderate cardiomegaly and possible left lower lobe infiltrate. Troponin shows less than 0.012 3 with EKG showing normal sinus rhythm and T-wave abnormalities, ACS ruled out. Plans: O2 per NC to maintain O2 saturation greater than 92%. Nephrology consulted to initiate hemodialysis. Telemetry monitoring. Currently treated with IV antibiotics for possible pneumonia. BiPAP as needed for nighttime. Wean down oxygen, currently on 4 L, discussed with nursing. BP 89/50. Documented in previous notes that this may be normal for patient. Plans: We'll continue Midodrin home medication. DC IVF and encourage hydration by mouth Follow nephrology consultation. Creatinine 3.34-2.85-3.39. Plans: Nephrology consultation to initiate dialysis. Restart calcium acetate. Hemoglobin 10.4, normocytic. Likely anemia of chronic disease from ESRD. Iron studies show anemia chronic disease. Plans: Continue iron sulfate. Transfuse if hemoglobin less than 7. Stable. Plans: Anticoagulation with Xarelto. Plans: Anticoagulation with Xarelto. Plans: Restart Lipitor. Plans: BiPAP at night. [Patient is being treated with broad-spectrum antibiotics for infected nephrostomy tube and sepsis, nephrology consulted urology to see patient. Cultures are pending. He continues to be hypoxic but saturating high 90s on 4 L, will attempt to wean down oxygen. DC 2-3 days.]
[2019-08-01] MEDS: MIDODRINE 5 MG TAB PO SCH (12:14)
--- NOTE | 2019-08-01 12:37 | P.GSCN ---
History of Present Illness Consult date: 08/01/19 History of present illness: The patient is a 68-year-old gentleman with end-stage renal disease on hemodialysis multiple medical problems, major back problems and paralysis who was admitted the hospital with probable urinary tract infection with sepsis. He is found be hypotensive elevated lactic acid. The patient is a chronic patient of [facility]. He has a right nephrostomy tube placed anteriorly. This tube was placed because of poor drainage of the kidney and a full branch staghorn calculus, infected. He is not a surgical candidate due to his multiple medical illnesses. Also has stones in his left kidney that appears somewhat smaller. The patient gets a nephrostomy tube change at [facility] every 3 months. His last changed a month ago. We're asked to see the patient for urologic evaluation. The history is primarily taken from the son. He has had multiple back surgeries in the past and eventually his back is given out. Afsaneh prado is paraplegic and now totally bedridden. He is deemed not to be a surgical candidate due to his obesity, pickwickian syndrome, atrial fibrillation, chronic immobility. In reviewing his chart he has had multiple different infections of the urinary system with different bacteria Proteus was one of them. This would be consistent with an infected stone. I reviewed his CAT scan from February of this past year identifying the staghorn calculus on the right and multiple stones on the left. The left kidney appears somewhat smaller than the right. The nephrostomy tube was placed anteriorly.. Son it is draining normally for him. He is chronically purulent. It has a chronic smell. He is never changes with the nephrostomy tube changes. Review of Systems ROS unobtainable: due to mental status Past Medical History Past Medical History: Atrial Fibrillation, Dialysis, Deep Vein Thrombosis (DVT), GI Bleed, Hyperlipidemia, Hypertension, Renal Disease, Sleep Apnea/CPAP/BIPAP Additional Past Medical History / Comment(s): Paraplegia r/t back injury/surgery-pt states he no longer gets up into wheelchair d/t too painful, ESRD with hemodialysis-M/W/F, enlarged R kidney with stones/staghorn-has chronic nephrostomy tube/bag, chronic anemia, mineral bone disease, recurrent CDiff infections, sepsis 2ndary to CDiff colitis/UTI, possible past upper GI bleed, DVT in a leg post op, arhtritis multiple joints, pickwickian syndrome, past respiratory failure/vented, ISACC with Cpap, bilateral lower extremity venous stasis/dermatitis, bilateral lower leg/feet edema and currently scabs on L foot toes. History of Any Multi-Drug Resistant Organisms: C-DIFF, MRSA Year Discovered:: 03/06/19 MDRO Source:: MRSA URINE, ASPIRATE, Cdiff now Past Surgical History: Adenoidectomy, Back Surgery, Heart Catheterization With Stent, Hernia Repair, Tonsillectomy Additional Past Surgical History / Comment(s): LT ARM FISTULA-NO BP OR BLOOD DRAWS IN LT ARM, PCI with stent, low back surgery, nephrostomy tubes-replaced 05/22/19, abdominal hernia, colonoscopy with benign polyp Past Anesthesia/Blood Transfusion Reactions: No Reported Reaction Date of Last Stent Placement:: 2004 Past Psychological History: No Psychological Hx Reported Smoking Status: Former smoker Past Alcohol Use History: None Reported Additional Past Alcohol Use History / Comment(s): Patient smoked for 10 years ago quit in 1981. Patient has a brother who lives with him and his son comes over daily. They are his caregivers. He has a hospital bed, only her left, C PAP, megamover transfer mat. Past Drug Use History: None Reported - Past Family History Brother(s) Family Medical History: Cancer Additional Family Medical History / Comment(s): Colon Ca- Father Family Medical History: Cancer Additional Family Medical History / Comment(s): father had lung cancer. He was a smoker and worked in a foundry. Mother Family Medical History: Coronary Artery Disease (CAD) Additional Family Medical History / Comment(s): Mother had CABG in her 70s. Medications and Allergies Home Medications Medication Instructions Recorded Confirmed Type Atorvastatin [Lipitor] 10 mg PO HS 10/30/17 07/30/19 History Calcium Acetate [PhosLo] 667 mg PO DAILY 10/30/17 07/30/19 History Potassium Chloride [Klor-Con 10] 10 meq PO BID 10/30/17 07/30/19 History Cholecalciferol [Vitamin D3 (25 1,000 unit PO DAILY tab 10/17/18 07/30/19 Rx Mcg = 1000 Iu)] Cyanocobalamin [Vitamin B-12] 1,000 mcg PO DAILY tab 10/17/18 07/30/19 Rx Ferrous Sulfate [Iron (65 MG 325 mg PO MOWEFR 03/05/19 07/30/19 History Elemental)] HYDROcodone/APAP 5-325MG [[place] 1 tab PO Q6H PRN 03/05/19 07/30/19 History 5-325] Midodrine [ProAmatine] 5 mg PO MOWEFR 05/28/19 07/30/19 History Landy-Emmanuel 1 tab PO HS 05/28/19 07/30/19 History Magne Bind 300mg 300 mg PO BID 07/30/19 07/30/19 History Midodrine [ProAmatine] 5 mg PO DAILY PRN 07/30/19 07/30/19 History Allergies Allergy/AdvReac Type Severity Reaction Status Date / Time diphenhydramine Allergy Unknown Verified 07/30/19 07:35 [From Benadryl] heparin AdvReac Unknown Verified 07/30/19 07:35 Surgical - Exam Vital Signs BP Pulse Ox 87/58 96 07/30/19 05:57 07/30/19 05:57 - General well developed, well nourished, chronically ill - Eyes PERRL - ENT no hearing loss - Neck trachea midline - Respiratory He is wearing an O2 mask normal expansion, normal respiratory effort - Cardiovascular Rhythm: irregularly irregular - Abdomen Right sided upper quadrant nephrostomy tube placement Abdomen: soft, non tender - Genitourinary normal penis with no external lesions, testicles present - Musculoskeletal Lower extremity edema , poor lower extremity vascularity Results - Labs 08/01/19 06:19 08/01/19 06:19 Abnormal Lab Results - Last 24 Hours (Table) 08/01/19 08/01/19 Range/Units 06:19 06:19 RBC 4.02 L (4.30-5.90) m/uL Hgb 10.4 L (13.0-17.5) gm/dL Hct 37.7 L (39.0-53.0) % MCHC 27.6 L (31.0-37.0) g/dL RDW 19.3 H (11.5-15.5) % Chloride 97 L (98-107) mmol/L BUN 29 H (9-20) mg/dL Creatinine 3.39 H (0.66-1.25) mg/dL Glucose 109 H (74-99) mg/dL ALT 13 L (21-72) U/L Albumin 3.0 L (3.5-5.0) g/dL Microbiology - Last 24 Hours (Table) 07/30/19 06:34 Blood Culture - Preliminary Blood No Growth after 48 hours Diabetes panel 08/01/19 Range/Units 06:19 Sodium 137 (137-145) mmol/L Potassium 4.9 (3.5-5.1) mmol/L Chloride 97 L (98-107) mmol/L Carbon Dioxide 30 (22-30) mmol/L BUN 29 H (9-20) mg/dL Creatinine 3.39 H (0.66-1.25) mg/dL Glucose 109 H (74-99) mg/dL Calcium 8.6 (8.4-10.2) mg/dL AST 17 (17-59) U/L ALT 13 L (21-72) U/L Alkaline Phosphatase 112 (38-126) U/L Total Protein 7.8 (6.3-8.2) g/dL Albumin 3.0 L (3.5-5.0) g/dL Calcium panel 08/01/19 Range/Units 06:19 Calcium 8.6 (8.4-10.2) mg/dL Albumin 3.0 L (3.5-5.0) g/dL Pituitary panel 08/01/19 Range/Units 06:19 Sodium 137 (137-145) mmol/L Potassium 4.9 (3.5-5.1) mmol/L Chloride 97 L (98-107) mmol/L Carbon Dioxide 30 (22-30) mmol/L BUN 29 H (9-20) mg/dL Creatinine 3.39 H (0.66-1.25) mg/dL Glucose 109 H (74-99) mg/dL Calcium 8.6 (8.4-10.2) mg/dL Adrenal panel 08/01/19 Range/Units 06:19 Sodium 137 (137-145) mmol/L Potassium 4.9 (3.5-5.1) mmol/L Chloride 97 L (98-107) mmol/L Carbon Dioxide 30 (22-30) mmol/L BUN 29 H (9-20) mg/dL Creatinine 3.39 H (0.66-1.25) mg/dL Glucose 109 H (74-99) mg/dL Calcium 8.6 (8.4-10.2) mg/dL Total Bilirubin 0.4 (0.2-1.3) mg/dL AST 17 (17-59) U/L ALT 13 L (21-72) U/L Alkaline Phosphatase 112 (38-126) U/L Total Protein 7.8 (6.3-8.2) g/dL Albumin 3.0 L (3.5-5.0) g/dL - Imaging Abdominal x-ray: report reviewed, image reviewed CT scan - abdomen: report reviewed, image reviewed CT scan - pelvis: report reviewed, image reviewed Assessment and Plan Assessment: Impression: Urinary tract infection with sepsis. Chronic infected kidney stones,. Renal failure, dialysis dependent. Chronic nephrostomy tube. Multiple medical problems including immobility cardiac and respiratory issues. Recommendations: At this time I do not see any reason to change his nephrostomy tube as it is chronically infected. Stones in his kidney or infected. As long as the drains appropriately I would not change it other than what is being done at [facility]. It can be Irrigated with a 10 mL syringe as needed.
--- NOTE | 2019-08-01 15:05 | CDI ---
Documentation Clarification Form Date: 08/01/2019 2:49:51 PM From: Mahi Preston RN, CCDS Admit Date: 07/30/2019 10:47:00 AM Patient Name: Ramesh Dahl Visit Number: [id number] Discharge Date: ATTENTION: The Clinical Documentation Specialists (CDI) and [facility] Coding Staff appreciate your assistance in clarifying documentation. Please respond to the clarification below the line at the bottom and electronically sign. The CDI & [facility] Coding staff will review the response and follow-up if needed. Please note: Queries are made part of the Legal Health Record. If you have any questions, please contact the author of this message via ITS. Dr. Alfonzo Harrell Atrial Fibrillation is documented in the ER past history, H/P and subsequent progress notes and further clarification is needed. History/Risk Factors: Atrial fibrillation, ESRD on HD, Hypertension, DVT, Clinical Indicators: 68-year-old male who present with shortness of breath weakness, altered mental status. EKG/telemetry: Normal sinus rhythm with T wave abnormality at 100 bpm ECHO: There is a paradodical/dysynergic septal motion consistent with right ventricular volume overload and/or elevated right ventricular end-diastolic pressure. The right ventricle is severely enlarged. EF 55-60 % Treatment: Telemetry monitoring Plans: anticoagulation with Xarelto (per H/P) In your professional opinion, can you please clarify the type of Atrial Fibrillation, if known? Chronic/Permanent Paroxysmal Persistent Other, please specify Unable to determine (Last Revision: February 2018) paroxysmal MTDD
--- NOTE | 2019-08-01 15:27 | CDI ---
Documentation Clarification Form Date: 08/01/2019 3:06:09 PM From: Mahi Preston RN, CCDS Admit Date: 07/30/2019 10:47:00 AM Patient Name: Ramesh Dahl Visit Number: [id number] Discharge Date: ATTENTION: The Clinical Documentation Specialists (CDI) and [facility] Coding Staff appreciate your assistance in clarifying documentation. Please respond to the clarification below the line at the bottom and electronically sign. The CDI & [facility] Coding staff will review the response and follow-up if needed. Please note: Queries are made part of the Legal Health Record. If you have any questions, please contact the author of this message via ITS. Dr. Alfonzo Harrell CHF is documented in ER clinical impression and additional clarification is needed. History/Risk Factors: Atrial fibrillation, ESRD on HD, Hypertension, DVT, Chronic right-sided nephrostomy tube, Pickwickian syndrome Clinical Indicators: 68-year-old mal who present with hypotension and shortness of breath and lethargy. VS/Pulse OX: 84 % on room air when EMS arrived with BP of 70/30. He receives hemodialysis Sunday, Sunday, and Sunday. Patient was treated with IV fluids secondary to low blood pressure. BNP:169,000 Echocardiogram Results: Overall left ventricular systolic function is normal with, an EF between 55 - 60 %. There is paradoxical/dysynergic septal motion consistent with right ventricular volume overload and/or elevated right ventricular end-diastolic pressure. The right ventricle is severely enlarged. Chest X Ray: possible left lower lobe infiltrate Treatment: Hemodialysis (per orders) IV Lasix Q 12, now PO Q12 In your professional opinion, can you please clarify the acuity and type of CHF if known? Systolic Heart Failure: Acute Chronic Acute on Chronic Diastolic Heart Failure: Acute Chronic Acute on Chronic Systolic & Diastolic Heart Failure: Acute Chronic Acute on Chronic Heart Failure Unable to Determine Other, please specify (Last Revision: February 2018) diastolic chronic MTDD
--- NOTE | 2019-08-01 15:53 | CDI ---
Documentation Clarification Form Date: 08/01/2019 3:32:07 PM From: Mahi Preston RN, CCDS Admit Date: 07/30/2019 10:47:00 AM Patient Name: Ramesh Dahl Visit Number: [id number] Discharge Date: ATTENTION: The Clinical Documentation Specialists (CDI) and [facility] Coding Staff appreciate your assistance in clarifying documentation. Please respond to the clarification below the line at the bottom and electronically sign. The CDI & [facility] Coding staff will review the response and follow-up if needed. Please note: Queries are made part of the Legal Health Record. If you have any questions, please contact the author of this message via ITS. Dr. Alfonzo Harrell The patient presented with the following respiratory symptoms: shortness of breath with episodes of difficulty breathing: his oxygen saturation was 84 % on room air according to EMS arrival. Hypoxia is noted in your H/P and ongoing progress notes. History/Risk Factors: ISACC, Pickwickian syndrome, ESRD on HD, Atrial fibrillation, Hypertension, Sleep Apnea/CPAP/BIPAP, Paraplegia Tobacco use: Former smoker Home oxygen: Cpap Clinical Indicators: 68-year-old male with shortness of breath, weakness and confusion. He has a history of Pickwickian syndrome, past respiratory failure and was vented. He has 2+ edema with chronic changes noted. Vital signs: 87/66 101 18 97 % 4/l NC 96/58 100 32 97 4/l NC Chest XR: possible left lower lobe infiltrate, small left pleural effusion Lung/Breathing assessment: decreased breath sounds bilateral. Labs WBC 9.9 CO2 28 CR 3.34, Treatment: Monitor O2 Sats Laisx IV, now PO In your professional opinion, can you please clarify if these findings signify one of the following conditions? Acuity Acute Chronic Acute on Chronic Specificity Respiratory Failure (further specify (if known)): With hypercapnia? (pCO2 >50 and pH <7.35) With hypoxia? (pO2 <60 mm Hg or SpO2 <91% on room air) Other Diagnosis, please specify Unable to determine (Last Revision: February 2018) acute resp failure with hypoxia MTDD
[2019-08-01] MEDS: MIDODRINE 5 MG TAB PO PRN (17:40)
--- NOTE | 2019-08-01 20:55 | PN ---
PROGRESS NOTE Patient is seen for followup for end-stage renal disease. He is scheduled for hemodialysis today. Patient currently lying in bed. He denies any significant complaints. On examination, blood pressure 92/47, heart rate 90 per minute. He is afebrile. EXAMINATION OF THE HEART: S1 and S2. EXAMINATION OF LUNGS: Bilateral breath sounds are heard. Decreased breath sounds at bases. Patient is morbidly obese. ABDOMEN: Soft, obese. Examination of lower extremities shows chronic skin changes, chronic edema. Labs show hemoglobin 10.4, sodium 137, potassium 4.9. ASSESSMENT: 1. End-stage renal disease, on hemodialysis on a Sunday, Sunday, Sunday schedule. We will dialyze him today. 2. Obstructive uropathy with right nephrostomy tube with chronic purulent drainage, being followed by Urology with large staghorn calculus. 3. Chronic hypotension, maintained on midodrine. 4. Volume overload. PLAN: Hemodialysis today. Increase UF to about 2 to 3 L as tolerated. Continue to use midodrine. MMODL / IJN: [id number] /
--- NOTE | 2019-08-01 22:05 | P.PN ---
Subjective Progress Note Date: 08/01/19 This is a 68-year-old male has multiple medical troubles that includes morbid obesity, end-stage renal disease on hemodialysis, chronic staghorn calculus into the right kidney with obstruction requiring right-sided percutaneous nephrostomy tube for drainage. Patient also has renal masses with concerns to underlying neoplasm. Patient follows with strap stitcher, urologist at [facility]. The patient has a very poor functional status and is not thought to be a surgical candidate for any specific intervention such as nephrectomy. The patient has been seen on previous admissions most recently admitted in February and was treated for C. difficile colitis and nephrostomy culture positive for MRSA and Citrobacter. Patient was discharged on oral Vanco and doxycycline. Patient had a readmission and May of this year and treated for C. difficile colitis discharged on vancomycin. Patient apparently has not been feeling well since Sunday after dialysis. He was noted yesterday to have a drop in his pulse ox 84% some difficulty breathing, decreased oral intake and was brought into [facility] emergency center for evaluation. He was found to be afebrile, blood pressure on the low side, hemoglobin 10.3, white count 9.9, BUN 34 and creatinine 3.34 potassium 5.5, albumin 3.0. Troponins were negative on 3 draws. BNP 169,000. Urine culture is in progress. Urinalysis had not been obtained. Chest x-ray concerning for left lower lobe pneumonia. CT of the chest was suboptimal but did not show any signs of pulmonary embolism. Lung volumes and mild cardiomegaly with small left pleural effusion. Right greater than left bibasilar consolidation and/or atelectasis. Patient has been seen by Dr. Barahona for his end-stage renal disease on hemodialysis Sunday and underwent hemodialysis treatment yesterday evening. Patient has not had any diarrhea. Patient states that he did eat his breakfast and his appetite is fair. No nausea or vomiting. When asked about his nephrostomy tube, he states that he is normally changed every 3 months but he does not recall when this was last done. We have placed the patient on cefepime and vancomycin. 08/01/2019 the patient is feeling slightly better today. He is resting his BiPAP is in place but not functioning well. He relates it is feeling somewhat better denies fevers or chills continues to have the purulent drainage from the percutaneous nephrostomy tube. Objective - Vital Signs Vital signs: Vital Signs Temp 97.4 F L 08/01/19 20:00 Pulse 97 08/01/19 20:00 Resp 18 08/01/19 20:00 BP 109/79 08/01/19 20:00 Pulse Ox 96 08/01/19 20:00 Intake & Output 08/01/19 08/01/19 08/02/19 06:59 18:59 06:59 Intake Total 80 650 Output Total 2 1 Balance 80 648 -1 Weight 156.263 kg Intake: IV 80 0.9 80 Intake, IV Titration 50 Amount Cefepime 1 gm In Sodium 50 Chloride 0.9% 50 ml @ 100 mls/hr IVPB DAILY [facility] Rx #:[id number] Oral 600 Output: Stool 2 1 - Exam Gen: This is a morbidly obese 68-year-old male. He is sleeping with CPAP in place and awakens to verbal stimuli. He does not appear to be in any respiratory distress. HEENT: Head is atraumatic, normocephalic. Pupils equal, round. Sclerae is anicteric. NECK: Supple. No lymphadenopathy. No thyromegaly. LUNGS: Decreased breath sounds but otherwise clear to auscultation. No intercostal retractions. HEART: Regular rate and rhythm. No murmur. ABDOMEN: Morbidly obese. Soft. Bowel sounds are present. No masses. No tenderness. Nephrostomy tube to the right upper quadrant. Dressing in place which was not removed. No drainage noted. There is purulent material in the nephrostomy drainage system. EXTREMITIES: Hemodialysis fistula to the left upper extremity. Chronic venous stasis changes to the bilateral lower extremities.. NEUROLOGICAL: Patient is awake, alert and oriented x3. - Labs CBC & Chem 7: 08/01/19 06:19 08/01/19 06:19 Labs: Abnormal Lab Results - Last 24 Hours (Table) 08/01/19 08/01/19 Range/Units : 06:19 RBC 4.02 L (4.30-5.90) m/uL Hgb 10.4 L (13.0-17.5) gm/dL Hct 37.7 L (39.0-53.0) % MCHC 27.6 L (31.0-37.0) g/dL RDW 19.3 H (11.5-15.5) % Chloride 97 L (98-107) mmol/L BUN 29 H (9-20) mg/dL Creatinine 3.39 H (0.66-1.25) mg/dL Glucose 109 H (74-99) mg/dL ALT 13 L (21-72) U/L Albumin 3.0 L (3.5-5.0) g/dL Microbiology - Last 24 Hours (Table) 07/30/19 12:58 Urine Culture - Preliminary Urine,Clean Catch Presumptive Staph aureus Pseudomonas aeruginosa 07/30/19 06:34 Blood Culture - Preliminary Blood No Growth after 48 hours Laboratory Results WBC 9.6 k/uL (3.8-10.6) 08/01/19 06:19 RBC 4.02 m/uL (4.30-5.90) L 08/01/19 06:19 Hgb 10.4 gm/dL (13.0-17.5) L 08/01/19 06:19 Hct 37.7 % (39.0-53.0) L 08/01/19 06:19 MCV 93.7 fL (80.0-100.0) 08/01/19 06:19 MCH 25.9 pg (25.0-35.0) 08/01/19 06:19 MCHC 27.6 g/dL (31.0-37.0) L 08/01/19 06:19 RDW 19.3 % (11.5-15.5) H 08/01/19 06:19 Plt Count 264 k/uL (150-450) 08/01/19 06:19 Neutrophils % 78 % 08/01/19 06:19 Lymphocytes % 13 % 08/01/19 06:19 Monocytes % 5 % 08/01/19 06:19 Eosinophils % 1 % 08/01/19 06:19 Basophils % 1 % 08/01/19 06:19 Neutrophils # 7.5 k/uL (1.3-7.7) 08/01/19 06:19 Lymphocytes # 1.3 k/uL (1.0-4.8) 08/01/19 06:19 Monocytes # 0.5 k/uL (0-1.0) 08/01/19 06:19 Eosinophils # 0.1 k/uL (0-0.7) 08/01/19 06:19 Basophils # 0.1 k/uL (0-0.2) 08/01/19 06:19 Manual Slide Review Performed 08/01/19 06:19 Polychromasia Present 07/31/19 06:32 Hypochromasia Marked 08/01/19 06:19 Poikilocytosis (manual Present 07/31/19 06:32 Anisocytosis Slight 08/01/19 06:19 Macrocytosis Slight 08/01/19 06:19 Rouleaux Present 08/01/19 06:19 PT 10.7 sec (9.0-12.0) 07/30/19 06:34 INR 1.0 (<1.2) 07/30/19 06:34 APTT 24.9 sec (22.0-30.0) 07/30/19 06:34 Sodium 137 mmol/L (137-145) 08/01/19 06:19 Potassium 4.9 mmol/L (3.5-5.1) 08/01/19 06:19 Chloride 97 mmol/L (98-107) L 08/01/19 06:19 Carbon Dioxide 30 mmol/L (22-30) 08/01/19 06:19 Anion Gap 10 mmol/L 08/01/19 06:19 BUN 29 mg/dL (9-20) H 08/01/19 06:19 Creatinine 3.39 mg/dL (0.66-1.25) H 08/01/19 06:19 Est GFR (CKD-EPI)AfAm 21 (>60 ml/min/1.73 sqM) 08/01/19 06:19 Est GFR (CKD-EPI)NonAf 18 (>60 ml/min/1.73 sqM) 08/01/19 06:19 Glucose 109 mg/dL (74-99) H 08/01/19 06:19 Plasma Lactic Acid Dennis 1.2 mmol/L (0.7-2.0) 07/30/19 06:34 Calcium 8.6 mg/dL (8.4-10.2) 08/01/19 06:19 Phosphorus 5.6 mg/dL (2.5-4.5) H 07/31/19 10:52 Magnesium 2.4 mg/dL (1.6-2.3) H 07/31/19 10:52 Total Bilirubin 0.4 mg/dL (0.2-1.3) 08/01/19 06:19 AST 17 U/L (17-59) 08/01/19 06:19 ALT 13 U/L (21-72) L 08/01/19 06:19 Alkaline Phosphatase 112 U/L (38-126) 08/01/19 06:19 Troponin I <0.012 ng/mL (0.000-0.034) 07/30/19 19:08 NT-Pro-B Natriuret Pep 622893 pg/mL 07/30/19 06:34 Total Protein 7.8 g/dL (6.3-8.2) 08/01/19 06:19 Albumin 3.0 g/dL (3.5-5.0) L 08/01/19 06:19 Random Vancomycin 35.0 ug/mL 08/01/19 06:19 Hepatitis A IgM Ab Non-Reactive (Non-Reactive) 07/31/19 10:52 Hep Bs Antigen Non-Reactive (Non-Reactive) 07/31/19 10:52 Hep B Core IgM Ab Non-Reactive (Non-Reactive) 07/31/19 10:52 Hep C IgG Ab Non-Reactive (Non-Reactive) 07/31/19 10:52 Microbiology 07/30/19 12:58 Urine,Clean Catch Urine Culture - Preliminary Presumptive Staph aureus Pseudomonas aeruginosa 07/30/19 06:34 Blood Blood Culture - Preliminary No Growth after 48 hours Assessment and Plan (1) Chronic pyelonephritis Narrative/Plan: This 68-year-old male is well-known to the service resents from home feeling ill with follow drainage coming from his percutaneous nephrostomy tube. Nursing staff has found that the tube was likely changed about a month ago. There is still some purulent drainage in the bag and it is follow nature. Prior cultures have been reviewed in counseling antibiotic therapy with cefepime and vancomycin have been added pending further culture data. He fortunately is feeling better. Having no difficulty with his hemodialysis. He is denying significant diarrhea is feeling better since coming to hospital. Cultures are process will further help correct the therapy. He may need to have further urological evaluation and/or imaging studies to evaluate the effectiveness of the percutaneous nephrostomy tube. He apparently is a poor candidate for any extensive surgical interventions. 08/01/2019 the patient has been seen by nephrology and they have no further plans they believe the current nephrostomy tube is draining appropriately. If there is any concerns or can be flushed. And if there is any significant other changes need to be seen by his urologist at [facility] Antibiotic therapy continues with cefepime and vancomycin and laboratory starting to show evidence of the ongoing pseudomonas and MRSA infection. Plans for antibiotic so discharge will be made as cultures finalized. Fever has improved. Leukocytosis improving. Current Visit: Yes Status: Acute Code(s): N11.9 - CHRONIC TUBULO- INTERSTITIAL NEPHRITIS, UNSPECIFIED SNOMED Code(s): 97050280 (2) Pseudomonas infection Current Visit: Yes Status: Acute Code(s): A49.8 - OTHER BACTERIAL INFECTIONS OF UNSPECIFIED SITE SNOMED Code(s): 25731425 (3) MRSA infection Current Visit: Yes Status: Acute Code(s): A49.02 - METHICILLIN RESIS STAPH INFECTION, UNSP SITE SNOMED Code(s): 587138700
[2019-08-01] MEDS: ATORVASTATIN 10 MG TAB PO SCH (22:48)
[2019-08-01] MEDS: FOLIC ACID-VIT B COMPLEX-VIT C 1 CAP PO SCH (22:48)
[2019-08-02] MEDS: HYDROcodone/APAP 5-325MG 1 EACH TAB PO PRN ×2 (03:39→15:27)
[2019-08-02 06:07] LABS: Anisocytosis Slight; HCT 35.3 % (39.0-53.0); HGB 9.6 gm/dL (13.0-17.5); Hypochromasia Marked; MCH 25.3 pg (25.0-35.0); MCHC 27.2 g/dL (31.0-37.0); Macrocytosis Slight; Mean Platelet Volume 7.6; Platelet Count 256 k/uL (150-450); WBC 8.2 k/uL (3.8-10.6)
[2019-08-02 06:53] LABS: Calcium 8.2 mg/dL (8.4-10.2); Potassium 4.4 mmol/L (3.5-5.1)
[2019-08-02] MEDS: CALCIUM ACETATE 667 MG CAP PO SCH (06:56)
[2019-08-02 06:58] LABS: Vancomycin,Random 27.4 ug/mL
[2019-08-02] MEDS: HEPARIN SODIUM,PORCINE 5,000 UNIT/ML 1 ML VIAL SQ SCH ×2 (09:23→21:15)
[2019-08-02] MEDS: CYANOCOBALAMIN 500 MCG TAB PO SCH (09:23)
[2019-08-02] MEDS: CHOLECALCIFEROL 1,000 UNIT TAB PO SCH (09:23)
[2019-08-02] MEDS: FERROUS SULFATE 325 MG TAB PO SCH (09:23)
[2019-08-02] MEDS: CEFEPIME 1 GM in SODIUM CHLORIDE 0.9% 50 ML IVPB SCH (09:23)
[2019-08-02] MEDS: FUROSEMIDE 40 MG TAB PO SCH ×2 (09:23→21:15)
[2019-08-02] MEDS: CALCIUM CARB-MAG CARB-FOLIC 1 EACH TAB PO SCH ×2 (09:24→22:24)
--- NOTE | 2019-08-02 10:01 | P.PN ---
Subjective Progress Note Date: 08/02/19 Principal diagnosis: This is a chronically bedridden morbidly obese patient with ESRD on dialysis Sunday with a fistula in the left upper arm, he gets dialyzed for 6 hours., He has been admitted with hypotension and has chronic right-sided nephrostomy tube. His urine cultures growing Pseudomonas and staph. He says he has a good appetite. He denies any fever chills nausea vomiting diarrhea. History of present illness: Patient is a 68-year-old male seen in renal consultation for end-stage renal disease. Patient was seen and examined in the emergency room. He is maintained on hemodialysis on a Sunday schedule. Patient became short of breath this morning and came to the emergency room. Potassium level is mildly elevated at 5.5. He denies any vomiting or diarrhea. Hemodynamically stable. He underwent CTA in the emergency room which revealed no evidence of PE. Chest x-ray was suggestive of left lower lobe infiltrate. He did receive Rocephin in the ER. No fever. Patient has chronic hypotension and is maintained on midodrine. He also has history of nephrolithiasis for the chronic right-sided nephrostomy tube for which she follows at [facility]. Patient states that nephrostomy tube was last changed about a month ago. No chest pain. No other complaints at this time. Objective - Vital Signs Vital signs: Vital Signs Temp 96.7 F L 08/02/19 09:22 Pulse 98 08/02/19 09:22 Resp 20 08/02/19 09:22 BP 79/55 08/02/19 09:22 Pulse Ox 95 08/02/19 09:22 Intake & Output 08/01/19 08/02/19 08/02/19 18:59 06:59 18:59 Intake Total 650 510 360 Output Total 2 2321 Balance 648 -1811 360 Weight 156.3 kg Intake: IV 60 0.9 60 Intake, IV Titration 50 Amount Cefepime 1 gm In Sodium 50 Chloride 0.9% 50 ml @ 100 mls/hr IVPB DAILY [facility] Rx #:[id number] Oral 600 150 360 Hemodialysis 300 Output: Drainage 20 Right Abdomen 20 Stool 2 1 Hemodialysis 2300 Morbidly obese male awake alert oriented. HEENT exam difficult because of thick neck neck is supple no facial asymmetry. Lungs are clear to auscultation fair air entry bilaterally Heart sounds are unremarkable for any murmur rub gallop Abdomen soft nontender obese difficult exam Extremity exam was mild edema Neurologically awake alert oriented. Can barely move his toes - Labs CBC & Chem 7: 08/02/19 05:54 08/02/19 05:54 Labs: Abnormal Lab Results - Last 24 Hours (Table) 08/01/19 08/02/19 08/02/19 Range/Units 06:19 05:54 05:54 RBC 4.02 L 3.80 L (4.30-5.90) m/uL Hgb 10.4 L 9.6 L (13.0-17.5) gm/dL Hct 37.7 L 35.3 L (39.0-53.0) % MCHC 27.6 L 27.2 L (31.0-37.0) g/dL RDW 19.3 H 19.0 H (11.5-15.5) % Sodium 133 L (137-145) mmol/L Chloride 97 L (98-107) mmol/L Creatinine 2.34 H (0.66-1.25) mg/dL Calcium 8.2 L (8.4-10.2) mg/dL Microbiology - Last 24 Hours (Table) 07/30/19 06:34 Blood Culture - Preliminary Blood No Growth after 72 hours 07/30/19 12:58 Urine Culture - Preliminary Urine,Clean Catch Presumptive Staph aureus Pseudomonas aeruginosa Assessment and Plan Assessment: Impression 1. ESRD on dialysis for 6 hours on Sunday with fistula in the left upper arm 2. Chronic hypotension, atrial fibrillation. Not sure whether his center off taking blood. As he is morbidly obese and probably has difficulty getting blood pressure cuffs around his arms 3. Chronically bedridden for years with paraplegia. 4. Chronic right kidney staghorn calculus with chronic nephrostomy tube changed every 3 months. 5. History of obstructive sleep apnea with CPAP 6. Chronic bilateral stasis edema. 7. Anemia ESRD hemoglobin went down from 10.4-90.6. No obvious bleeding Recommendation 1. Continue hemodialysis Sunday 2. Low blood pressure, in spite of being on Mediterranean. 3. Monitor labs including hemoglobin calcium phosphorus once a week approximately.
--- NOTE | 2019-08-02 10:11 | P.PN ---
Subjective Progress Note Date: 08/02/19 Principal diagnosis: Infected nephrostomy tube Patient seen and examined. No acute events overnight. Evaluated by urology, recommends to follow-up at [facility] with no plans to change nephrostomy tube. Cultures growing staph aureus and pseudomonas aeruginosa. Currently saturating low 90s on 2 L. Objective - Vital Signs Vital signs: Vital Signs Temp 96.7 F L 08/02/19 09:22 Pulse 98 08/02/19 09:22 Resp 20 08/02/19 09:22 BP 79/55 08/02/19 09:22 Pulse Ox 95 08/02/19 09:22 Intake & Output 08/01/19 08/02/19 08/02/19 18:59 06:59 18:59 Intake Total 650 510 360 Output Total 2 2321 Balance 648 -1811 360 Weight 156.3 kg Intake: IV 60 0.9 60 Intake, IV Titration 50 Amount Cefepime 1 gm In Sodium 50 Chloride 0.9% 50 ml @ 100 mls/hr IVPB DAILY [facility] Rx #:[id number] Oral 600 150 360 Hemodialysis 300 Output: Drainage 20 Right Abdomen 20 Stool 2 1 Hemodialysis 2300 - Exam General: [non toxic], [no distress], [appears at stated age], [morbidly obese] Derm: [warm], [dry] Head: [atraumatic], [normocephalic], [symmetric] Eyes: [EOMI], [no lid lag], [anicteric sclera] Mouth: [no lip lesion], [mucus membranes moist] Cardiovascular: [S1S2 reg], [no murmur] Lungs: [Decreased breath sounds bilateral], [no rhonchi, no rales] , [no accessory muscle use] Abdominal: [soft], [ nontender to palpation], [no guarding], [no appreciable organomegaly] Ext: [no gross muscle atrophy], [lower extremity bilateral edema], [no contractures], [right nephrostomy tube with purulent discharge] Neuro: [no focal neuro deficits] Psych: [Alert], [oriented], [appropriate affect] - Labs CBC & Chem 7: 08/02/19 05:54 08/02/19 05:54 Labs: Abnormal Lab Results - Last 24 Hours (Table) 08/01/19 08/02/19 08/02/19 Range/Units 06:19 05:54 05:54 RBC 4.02 L 3.80 L (4.30-5.90) m/uL Hgb 10.4 L 9.6 L (13.0-17.5) gm/dL Hct 37.7 L 35.3 L (39.0-53.0) % MCHC 27.6 L 27.2 L (31.0-37.0) g/dL RDW 19.3 H 19.0 H (11.5-15.5) % Sodium 133 L (137-145) mmol/L Chloride 97 L (98-107) mmol/L Creatinine 2.34 H (0.66-1.25) mg/dL Calcium 8.2 L (8.4-10.2) mg/dL Microbiology - Last 24 Hours (Table) 07/30/19 06:34 Blood Culture - Preliminary Blood No Growth after 72 hours 07/30/19 12:58 Urine Culture - Preliminary Urine,Clean Catch Presumptive Staph aureus Pseudomonas aeruginosa Assessment and Plan Assessment: Assessment and Plan Sepsis likely due to UTI/infected nephrostomy tube Hypoxia Hypotension ESRD requiring HD Sunday Anemia Atrial fibrillation History of DVT Dyslipidemia ISACC Resolved: Hyperkalemia Patient meets sepsis criteria. Heart rate greater than 90 on admission, respiratory rate greater than 20, SBP less than 90 with possible infected nephrostomy tube, new leukocytosis of 12 on 07/31 which is within normal limits on 08/01. Lactic acid negative. Clinically, low concerns for pneumonia. Blood culture negative at 72 hours. Urine culture positive staph aureus and pseudomonas aeruginosa. Urology recommends no surgical intervention. Plans: Continue normal saline at 100 mL/h. Follow blood culture. Follow urine culture . Tylenol as needed for fever. Rocephin discontinued for vancomycin and cefepime due to previous culture. Follow ID recommendations. Likely related to obesity hypoventilation syndrome and pickwickian. Concerns for right lower lobe infiltrate seen on CTA chest. CTA chest rules out PE. Elevated BNP of 169,000 with moderate cardiomegaly and possible left lower lobe infiltrate. Troponin shows less than 0.012 3 with EKG showing normal sinus rhythm and T-wave abnormalities, ACS ruled out. Plans: O2 per NC to maintain O2 saturation greater than 92%. Nephrology consulted to initiate hemodialysis. Telemetry monitoring. Currently treated with IV antibiotics for possible pneumonia. BiPAP as needed for nighttime. Wean down oxygen, currently on 2 L, discussed with nursing. BP 79/55. Documented in previous notes that this may be normal for patient. Plans: We'll continue Midodrin home medication. DC IVF and encourage hydration by mouth Follow nephrology consultation. Creatinine 3.34-2.85-3.39-2.34. Plans: Nephrology consultation to initiate dialysis. Restart calcium acetate. Hemoglobin 9.6, normocytic. Likely anemia of chronic disease from ESRD. Iron studies show anemia chronic disease. Plans: Continue iron sulfate. Transfuse if hemoglobin less than 7. Stable. Plans: Anticoagulation with Xarelto. Plans: Anticoagulation with Xarelto. Plans: Restart Lipitor. Plans: BiPAP at night. [Patient is being treated with broad-spectrum antibiotics for infected nephrostomy tube and sepsis, cultures pending with sensitivities. He continues to be hypoxic but saturating low 90s on 2 L, will attempt to wean down oxygen, might need long-term. DC 1-2 days.]
[2019-08-02 11:42] LABS: Basophils # (M) 0.08 k/uL (0-0.2); Lymphocytes # (M) 0.74 k/uL (1.0-4.8); Monocytes # (M) 0.74 k/uL (0-1.0); Neutrophils % (M) 81 %; Nucleated Red Blood Cells 0 /100 WBC (0-0); Total Cells Counted 100
[2019-08-02 16:37] LABS: Iron Saturation 7.8 (15.00-50.00)
[2019-08-02] MEDS: ATORVASTATIN 10 MG TAB PO SCH (21:15)
[2019-08-02] MEDS: FOLIC ACID-VIT B COMPLEX-VIT C 1 CAP PO SCH (21:16)
[2019-08-03] MEDS: HYDROcodone/APAP 5-325MG 1 EACH TAB PO PRN ×2 (05:33→20:14)
[2019-08-03 06:24] LABS: Calcium 8.6 mg/dL (8.4-10.2); Potassium 4.7 mmol/L (3.5-5.1)
[2019-08-03 06:30] LABS: Vancomycin,Random 26.9 ug/mL
[2019-08-03] MEDS: CALCIUM ACETATE 667 MG CAP PO SCH (06:38)
[2019-08-03 06:45] LABS: Anisocytosis Slight; Basophils % (A) 1 %; Eosinophils # (A) 0.1 k/uL (0-0.7); Eosinophils % (A) 1 %; HCT 37.2 % (39.0-53.0); HGB 10.4 gm/dL (13.0-17.5); Hypochromasia Marked; Lymphocytes # (A) 0.2 k/uL (1.0-4.8); Lymphocytes % (A) 3 %; MCHC 28.1 g/dL (31.0-37.0); MCV 92.6 fL (80.0-100.0); Macrocytosis Slight; Mean Platelet Volume 7.3; Monocytes # (A) 0.5 k/uL (0-1.0); Monocytes % (A) 7 %; Neutrophils # (A) 6.6 k/uL (1.3-7.7); Neutrophils % (A) 86 %; Platelet Count 278 k/uL (150-450); RBC 4.02 m/uL (4.30-5.90); RDW 19.4 % (11.5-15.5); WBC 7.6 k/uL (3.8-10.6)
[2019-08-03] MEDS: CEFEPIME 1 GM in SODIUM CHLORIDE 0.9% 50 ML IVPB SCH (08:03)
[2019-08-03] MEDS: CHOLECALCIFEROL 1,000 UNIT TAB PO SCH (08:04)
[2019-08-03] MEDS: CYANOCOBALAMIN 500 MCG TAB PO SCH (08:04)
[2019-08-03] MEDS: FUROSEMIDE 40 MG TAB PO SCH ×2 (08:04→20:14)
[2019-08-03] MEDS: HEPARIN SODIUM,PORCINE 5,000 UNIT/ML 1 ML VIAL SQ SCH ×2 (08:04→20:14)
[2019-08-03] MEDS: CALCIUM CARB-MAG CARB-FOLIC 1 EACH TAB PO SCH ×2 (08:04→20:14)
--- NOTE | 2019-08-03 09:24 | P.PN ---
Subjective Progress Note Date: 08/03/19 Principal diagnosis: Infected nephrostomy tube Feels okay today, no chest pain, no abdominal pain, blood pressure remains marginal, afebrile, no nausea no vomiting. Objective - Vital Signs Vital signs: Vital Signs Temp 98.4 F 08/03/19 08:18 Pulse 91 08/03/19 08:18 Resp 20 08/03/19 08:18 BP 84/51 08/03/19 08:18 Pulse Ox 98 08/03/19 08:18 Intake & Output 08/02/19 08/03/19 08/03/19 18:59 06:59 18:59 Intake Total 770 1000 Balance 770 1000 Intake: IV 120 160 0.9 120 160 Intake, IV Titration 50 Amount Cefepime 1 gm In Sodium 50 Chloride 0.9% 50 ml @ 100 mls/hr IVPB DAILY [facility] Rx #:[id number] Oral 600 840 - Exam General: [non toxic], [no distress], [appears at stated age], [morbidly obese] on BiPAP Derm: [warm], [dry] Head: [atraumatic], [normocephalic], [symmetric] Eyes: [EOMI], [no lid lag], [anicteric sclera] Mouth: [no lip lesion], [mucus membranes moist] Cardiovascular: [S1S2 reg], [no murmur] Lungs: [Decreased breath sounds bilateral], [no rhonchi, no rales] , [no accessory muscle use], no wheezing Abdominal: [soft], [ nontender to palpation], [no guarding], obese. Ext: [no gross muscle atrophy], [lower extremity bilateral edema], [no contractures], [right nephrostomy tube with purulent discharge], chronic bilateral discoloration Neuro: [no focal neuro deficits] Psych: [Alert], [oriented], [appropriate affect] - Labs CBC & Chem 7: 08/03/19 05:53 08/03/19 05:53 Labs: Abnormal Lab Results - Last 24 Hours (Table) 08/02/19 08/02/19 08/03/19 Range/Units 05:54 05:54 05:53 RBC (4.30-5.90) m/uL Hgb (13.0-17.5) gm/dL Hct (39.0-53.0) % MCHC (31.0-37.0) g/dL RDW (11.5-15.5) % Lymphocytes # (Manual) 0.74 L (1.0-4.8) k/uL Sodium 134 L (137-145) mmol/L Chloride 95 L (98-107) mmol/L BUN 24 H (9-20) mg/dL Creatinine 3.25 H (0.66-1.25) mg/dL Iron 17 L (65-175) ug/dL TIBC 218 L (228-460) ug/dL Iron Saturation 7.80 L (15.00-50.00) 08/03/19 Range/Units 05:53 RBC 4.02 L (4.30-5.90) m/uL Hgb 10.4 L (13.0-17.5) gm/dL Hct 37.2 L (39.0-53.0) % MCHC 28.1 L (31.0-37.0) g/dL RDW 19.4 H (11.5-15.5) % Lymphocytes # (Manual) (1.0-4.8) k/uL Sodium (137-145) mmol/L Chloride (98-107) mmol/L BUN (9-20) mg/dL Creatinine (0.66-1.25) mg/dL Iron (65-175) ug/dL TIBC (228-460) ug/dL Iron Saturation (15.00-50.00) Microbiology - Last 24 Hours (Table) 07/30/19 06:34 Blood Culture - Preliminary Blood No Growth after 96 hours 07/30/19 12:58 Urine Culture - Final Urine,Clean Catch Methicillin resist S. aureus Pseudomonas aeruginosa Assessment and Plan Plan: Assessment and Plan Sepsis likely due to UTI/infected nephrostomy tube Hypoxia Hypotension ESRD requiring HD Sunday Anemia Atrial fibrillation History of DVT Dyslipidemia ISACC Resolved: Hyperkalemia Patient meets sepsis criteria. Heart rate greater than 90 on admission, respiratory rate greater than 20, SBP less than 90 with possible infected nephrostomy tube, new leukocytosis of 12 on 07/31 which is within normal limits on 08/01. Lactic acid negative. Clinically, low concerns for pneumonia. Blood culture negative at 72 hours. Urine culture positive staph aureus and pseudomonas aeruginosa. Urology recommends no surgical intervention. Plans: Follow blood culture. Follow urine culture. Tylenol as needed for fever. Rocephin discontinued continue vancomycin and cefepime due to previous culture. Follow ID recommendations. Likely related to obesity hypoventilation syndrome and pickwickian. Concerns for right lower lobe infiltrate seen on CTA chest. CTA chest rules out PE. Elevated BNP of 169,000 with moderate cardiomegaly and possible left lower lobe infiltrate. Troponin shows less than 0.012 3 with EKG showing normal sinus rhythm and T-wave abnormalities, ACS ruled out. Plans: O2 per NC to maintain O2 saturation greater than 92%. Nephrology consulted for [facility]. Telemetry monitoring. Currently treated with IV antibiotics for possible pneumonia. BiPAP as needed for nighttime. Wean down oxygen, as tolerated BP 84/51. Documented in previous notes that this may be normal for patient. Plans: We'll continue Midodrin home medication. off IVF Follow nephrology recommendations Creatinine 3.34-2.85-3.39-2.34. Plans: Nephrology consultation to initiate dialysis MWF. Restarted calcium acetate. Hemoglobin 10.4, normocytic. Likely anemia of chronic disease from ESRD. Iron studies show anemia chronic disease. Plans: Continue iron sulfate. No need for blood transfusion. Stable. Plans: Anticoagulation with Xarelto. Plans: Anticoagulation with Xarelto. Plans: Restart Lipitor. Plans: BiPAP at night. [Patient is being treated with broad-spectrum antibiotics for infected nephrostomy tube and sepsis, cultures MRSA and Pseudomonas. He continues to be hypoxic but saturating low 90s on 2 L, will attempt to wean down oxygen, might need assisted placement. DC 1-2 days, pending placement.]
--- NOTE | 2019-08-03 09:41 | P.PN ---
Subjective Progress Note Date: 08/03/19 Principal diagnosis: This is a chronically bedridden morbidly obese patient with ESRD on dialysis Sunday with a fistula in the left upper arm, he gets dialyzed for 6 hours, He has been admitted with hypotension and has chronic right-sided nephrostomy tube. His urine cultures growing Pseudomonas and staph. He says he has a good appetite. Here in the hospital he has been dialyzed only for 3-1/2-4 hours. Ultrafiltration has been 2-3 L. His blood pressure is in the 80s, he is on Midrin 5 mg on Sunday and when necessary He denies any fever chills nausea vomiting diarrhea. History of present illness: Patient is a 68-year-old male seen in renal consultation for end-stage renal disease. Patient was seen and examined in the emergency room. He is maintained on hemodialysis on a Sunday schedule. Patient became short of breath this morning and came to the emergency room. Potassium level is mildly elevated at 5.5. He denies any vomiting or diarrhea. Hemodynamically stable. He underwent CTA in the emergency room which revealed no evidence of PE. Chest x-ray was suggestive of left lower lobe infiltrate. He did receive Rocephin in the ER. No fever. Patient has chronic hypotension and is maintained on midodrine. He also has history of nephrolithiasis for the chronic right-sided nephrostomy tube for which she follows at [facility]. Patient states that nephrostomy tube was last changed about a month ago. No chest pain. No other complaints at this time. Objective - Vital Signs Vital signs: Vital Signs Temp 98.4 F 08/03/19 08:18 Pulse 91 08/03/19 08:18 Resp 20 08/03/19 08:18 BP 84/51 08/03/19 08:18 Pulse Ox 98 08/03/19 08:18 Intake & Output 08/02/19 08/03/19 08/03/19 18:59 06:59 18:59 Intake Total 770 1000 Balance 770 1000 Intake: IV 120 160 0.9 120 160 Intake, IV Titration 50 Amount Cefepime 1 gm In Sodium 50 Chloride 0.9% 50 ml @ 100 mls/hr IVPB DAILY [facility] Rx #:[id number] Oral 600 840 On examination is a morbidly obese male who is hardly able to move and has been bedridden for a long time HEENT exam is difficult. No facial asymmetry neck is supple Lungs are clear to auscultation fair air entry but the exam is less than optimal as he is unable to sit up. Heart sounds are unremarkable normal S1 and S2 no murmur rub gallop Abdomen is obese nontender nondistended Extreme exam was moderate edema with chronic changes of hyperpigmentation and thickening of skin. Somewhat cyanotic and cool to touch Neurologically awake alert oriented comfortable profoundly weak - Labs CBC & Chem 7: 08/03/19 05:53 08/03/19 05:53 Labs: Abnormal Lab Results - Last 24 Hours (Table) 08/02/19 08/02/19 08/03/19 Range/Units 05:54 05:54 05:53 RBC (4.30-5.90) m/uL Hgb (13.0-17.5) gm/dL Hct (39.0-53.0) % MCHC (31.0-37.0) g/dL RDW (11.5-15.5) % Lymphocytes # (1.0-4.8) k/uL Lymphocytes # (Manual) 0.74 L (1.0-4.8) k/uL Sodium 134 L (137-145) mmol/L Chloride 95 L (98-107) mmol/L BUN 24 H (9-20) mg/dL Creatinine 3.25 H (0.66-1.25) mg/dL Iron 17 L (65-175) ug/dL TIBC 218 L (228-460) ug/dL Iron Saturation 7.80 L (15.00-50.00) 08/03/19 Range/Units 05:53 RBC 4.02 L (4.30-5.90) m/uL Hgb 10.4 L (13.0-17.5) gm/dL Hct 37.2 L (39.0-53.0) % MCHC 28.1 L (31.0-37.0) g/dL RDW 19.4 H (11.5-15.5) % Lymphocytes # 0.2 L (1.0-4.8) k/uL Lymphocytes # (Manual) (1.0-4.8) k/uL Sodium (137-145) mmol/L Chloride (98-107) mmol/L BUN (9-20) mg/dL Creatinine (0.66-1.25) mg/dL Iron (65-175) ug/dL TIBC (228-460) ug/dL Iron Saturation (15.00-50.00) Microbiology - Last 24 Hours (Table) 07/30/19 06:34 Blood Culture - Preliminary Blood No Growth after 96 hours 07/30/19 12:58 Urine Culture - Final Urine,Clean Catch Methicillin resist S. aureus Pseudomonas aeruginosa Assessment and Plan Assessment: Impression 1. ESRD on dialysis for 6 hours on Sunday with fistula in the left upper arm. 2. Chronic hypotension, atrial fibrillation. Not sure whether this is an issue with his obesity and difficulty in recalling his blood pressure 3. Chronically bedridden for years with paraplegia. 4. Chronic right kidney staghorn calculus with chronic nephrostomy tube changed every 3 months. 5. History of obstructive sleep apnea with CPAP 6. Chronic bilateral stasis edema. 7. Anemia ESRD hemoglobin went down from 10.4-90.6. No obvious bleeding Recommendation 1. Continue hemodialysis Sunday Subjective tomorrow 2. Low blood pressure, in spite of being on Midrin 5 on MWF. Will increase it to 10 mg predialysis and dialyzing with sodium programming and cold dialysate And this time to 6. 3. Monitor labs including hemoglobin calcium phosphorus once a week approximately.
--- NOTE | 2019-08-03 11:14 | P.PN ---
Progress Note - Text Progress Note Date: 08/03/19 The patient was seen for a nephrostomy tube placed at [facility] for obstructed urine due to a staghorn calculus, infected. This to get changed every 3 months at [facility]. He has chronic purulent drainage out of the nephrostomy tube. There is nothing urologic to do at this point in time as the tube is functioning. He should follow at [facility].
[2019-08-03] MEDS: ATORVASTATIN 10 MG TAB PO SCH (20:14)
[2019-08-03] MEDS: FOLIC ACID-VIT B COMPLEX-VIT C 1 CAP PO SCH (20:14)
[2019-08-04] MEDS: HYDROcodone/APAP 5-325MG 1 EACH TAB PO PRN ×2 (04:11→17:15)
[2019-08-04 07:11] LABS: Anisocytosis Slight; Basophils # (A) 0.1 k/uL (0-0.2); Basophils % (A) 1 %; Eosinophils # (A) 0.1 k/uL (0-0.7); Eosinophils % (A) 1 %; HCT 36.7 % (39.0-53.0); HGB 10.3 gm/dL (13.0-17.5); Hypochromasia Marked; Lymphocytes # (A) 0.7 k/uL (1.0-4.8); Lymphocytes % (A) 7 %; MCH 25.7 pg (25.0-35.0); MCHC 28.2 g/dL (31.0-37.0); Mean Platelet Volume 6.9; Monocytes # (A) 0.6 k/uL (0-1.0); Monocytes % (A) 6 %; Neutrophils % (A) 84 %; Platelet Count 255 k/uL (150-450); RBC 4.03 m/uL (4.30-5.90); RDW 19.5 % (11.5-15.5); WBC 9.6 k/uL (3.8-10.6)
[2019-08-04 07:37] LABS: Albumin 2.9 g/dL (3.5-5.0); Calcium 8.8 mg/dL (8.4-10.2); Potassium 5.2 mmol/L (3.5-5.1); Total Bilirubin 0.5 mg/dL (0.2-1.3); Total Protein 7.5 g/dL (6.3-8.2)
[2019-08-04] MEDS: FUROSEMIDE 40 MG TAB PO SCH ×2 (08:59→19:55)
[2019-08-04] MEDS: CYANOCOBALAMIN 500 MCG TAB PO SCH (08:59)
[2019-08-04] MEDS: CHOLECALCIFEROL 1,000 UNIT TAB PO SCH (08:59)
[2019-08-04] MEDS: CALCIUM ACETATE 667 MG CAP PO SCH (08:59)
[2019-08-04] MEDS: HEPARIN SODIUM,PORCINE 5,000 UNIT/ML 1 ML VIAL SQ SCH (09:00)
[2019-08-04] MEDS: CALCIUM CARB-MAG CARB-FOLIC 1 EACH TAB PO SCH ×2 (09:00→19:55)
[2019-08-04 10:57] LABS: Poikilocytosis (M) Present
[2019-08-04] MEDS: MIDODRINE 5 MG TAB PO SCH (11:39)
--- NOTE | 2019-08-04 15:55 | PN ---
PROGRESS NOTE The patient is seen for followup for end-stage renal disease. He is currently seen on dialysis, we have a 5 hour treatment planned and the we will try to remove at least 3 L today. EXAMINATION: Blood pressure is 97/57, heart rate 85 per minute patient is afebrile. Examination of the heart S1, S2. Examination of the lungs, bilateral breath sounds are heard. Abdomen is soft, obese. Examination lower extremities, chronic skin changes, chronic edema. The patient is paraplegic. LABS: Show sodium 133, potassium 5.2, BUN 31, creatinine 3.8. ASSESSMENT: 1. End-stage renal disease, on hemodialysis on a Sunday, Sunday, Sunday schedule. However, given the volume overload, we will dialyze him daily for now. 2. Nephrolithiasis with chronic right hydro and nephrostomy tube. 3. Chronic hypotension. 4. Chronic atrial fibrillation. 5. Obstructive sleep apnea. PLAN: Continue with midodrine. We will plan for about 3 L today and repeat hemodialysis again in a.m. for about 4 1/2 hours. MMODL / IJN: [id number] /
[2019-08-04] MEDS: FOLIC ACID-VIT B COMPLEX-VIT C 1 CAP PO SCH (19:55)
[2019-08-04] MEDS: ATORVASTATIN 10 MG TAB PO SCH (19:55)
[2019-08-04] MEDS ORDERED: CEFEPIME 1 GM in SODIUM CHLORIDE 0.9% 50 ML IVPB SCH (21:00)
--- NOTE | 2019-08-04 23:08 | P.PN ---
Subjective Progress Note Date: 08/04/19 This is a 68-year-old male has multiple medical troubles that includes morbid obesity, end-stage renal disease on hemodialysis, chronic staghorn calculus into the right kidney with obstruction requiring right-sided percutaneous nephrostomy tube for drainage. Patient also has renal masses with concerns to underlying neoplasm. Patient follows with elevator repairer apprentice, urologist at [facility]. The patient has a very poor functional status and is not thought to be a surgical candidate for any specific intervention such as nephrectomy. The patient has been seen on previous admissions most recently admitted in February and was treated for C. difficile colitis and nephrostomy culture positive for MRSA and Citrobacter. Patient was discharged on oral Vanco and doxycycline. Patient had a readmission and May of this year and treated for C. difficile colitis discharged on vancomycin. Patient apparently has not been feeling well since Sunday after dialysis. He was noted yesterday to have a drop in his pulse ox 84% some difficulty breathing, decreased oral intake and was brought into [facility] emergency center for evaluation. He was found to be afebrile, blood pressure on the low side, hemoglobin 10.3, white count 9.9, BUN 34 and creatinine 3.34 potassium 5.5, albumin 3.0. Troponins were negative on 3 draws. BNP 169,000. Urine culture is in progress. Urinalysis had not been obtained. Chest x-ray concerning for left lower lobe pneumonia. CT of the chest was suboptimal but did not show any signs of pulmonary embolism. Lung volumes and mild cardiomegaly with small left pleural effusion. Right greater than left bibasilar consolidation and/or atelectasis. Patient has been seen by Dr. Barahona for his end-stage renal disease on hemodialysis Sunday and underwent hemodialysis treatment yesterday evening. Patient has not had any diarrhea. Patient states that he did eat his breakfast and his appetite is fair. No nausea or vomiting. When asked about his nephrostomy tube, he states that he is normally changed every 3 months but he does not recall when this was last done. We have placed the patient on cefepime and vancomycin. 08/01/2019 the patient is feeling slightly better today. He is resting his BiPAP is in place but not functioning well. He relates it is feeling somewhat better denies fevers or chills continues to have the purulent drainage from the percutaneous nephrostomy tube. 08/04/2019 reveals patient to be feeling somewhat better. Urological surgery has evaluated with no plans for surgical intervention. Fevers improved doing well with current antibiotic therapy. Blood short of breath. Tolerating dial ysis well. Objective - Vital Signs Vital signs: Vital Signs Temp 97.4 F L 08/04/19 20:00 Pulse 100 08/04/19 20:00 Resp 19 08/04/19 20:00 BP 82/50 08/04/19 20:00 Pulse Ox 97 08/04/19 20:00 Intake & Output 08/04/19 08/04/19 08/05/19 06:59 18:59 06:59 Intake Total 222 118 50 Output Total 32 2 3700 Balance 190 116 -3650 Intake: Intake, IV Titration 50 Amount Cefepime 1 gm In Sodium 50 Chloride 0.9% 50 ml @ 100 mls/hr IVPB [facility] Rx#: [id number] Oral 222 118 Output: Drainage 30 Right Abdomen 30 Stool 2 2 Hemodialysis 3700 Other: # Voids 0 - Exam Gen: This is a morbidly obese 68-year-old male. He is sleeping with CPAP in place and awakens to verbal stimuli. He does not appear to be in any respiratory distress. HEENT: Head is atraumatic, normocephalic. Pupils equal, round. Sclerae is anicteric. NECK: Supple. No lymphadenopathy. No thyromegaly. LUNGS: Decreased breath sounds but otherwise clear to auscultation. No intercostal retractions. HEART: Regular rate and rhythm. No murmur. ABDOMEN: Morbidly obese. Soft. Bowel sounds are present. No masses. No tenderness. Nephrostomy tube to the right upper quadrant. Dressing in place which was not removed. No drainage noted. There is purulent material in the nephrostomy drainage system. EXTREMITIES: Hemodialysis fistula to the left upper extremity. Chronic venous stasis changes to the bilateral lower extremities.. NEUROLOGICAL: Patient is awake, alert and oriented x3. - Labs CBC & Chem 7: 08/04/19 06:32 08/04/19 06:32 Labs: Abnormal Lab Results - Last 24 Hours (Table) 08/04/19 08/04/19 Range/Units 06:32 06:32 RBC 4.03 L (4.30-5.90) m/uL Hgb 10.3 L (13.0-17.5) gm/dL Hct 36.7 L (39.0-53.0) % MCHC 28.2 L (31.0-37.0) g/dL RDW 19.5 H (11.5-15.5) % Neutrophils # 8.0 H (1.3-7.7) k/uL Lymphocytes # 0.7 L (1.0-4.8) k/uL Sodium 133 L (137-145) mmol/L Potassium 5.2 H (3.5-5.1) mmol/L Chloride 96 L (98-107) mmol/L BUN 31 H (9-20) mg/dL Creatinine 3.81 H (0.66-1.25) mg/dL AST 16 L (17-59) U/L ALT 17 L (21-72) U/L Albumin 2.9 L (3.5-5.0) g/dL Microbiology - Last 24 Hours (Table) 07/30/19 12:58 Urine Culture - Final Urine,Clean Catch Methicillin resist S. aureus Pseudomonas aeruginosa 07/30/19 06:34 Blood Culture - Preliminary Blood No Growth after 120 hours Laboratory Results WBC 9.6 k/uL (3.8-10.6) 08/04/19 06:32 RBC 4.03 m/uL (4.30-5.90) L 08/04/19 06:32 Hgb 10.3 gm/dL (13.0-17.5) L 08/04/19 06:32 Hct 36.7 % (39.0-53.0) L 08/04/19 06:32 MCV 91.0 fL (80.0-100.0) 08/04/19 06:32 MCH 25.7 pg (25.0-35.0) 08/04/19 06:32 MCHC 28.2 g/dL (31.0-37.0) L 08/04/19 06:32 RDW 19.5 % (11.5-15.5) H 08/04/19 06:32 Plt Count 255 k/uL (150-450) 08/04/19 06:32 Neutrophils % 84 % 08/04/19 06:32 Neutrophils % (Manual) 81 % 08/02/19 05:54 Lymphocytes % 7 % 08/04/19 06:32 Lymphocytes % (Manual) 9 % 08/02/19 05:54 Monocytes % 6 % 08/04/19 06:32 Monocytes % (Manual) 9 % 08/02/19 05:54 Eosinophils % 1 % 08/04/19 06:32 Basophils % 1 % 08/04/19 06:32 Basophils % (Manual) 1 % 08/02/19 05:54 Neutrophils # 8.0 k/uL (1.3-7.7) H 08/04/19 06:32 Neutrophils # (Manual) 6.64 k/uL (1.3-7.7) 08/02/19 05:54 Lymphocytes # 0.7 k/uL (1.0-4.8) L 08/04/19 06:32 Lymphocytes # (Manual) 0.74 k/uL (1.0-4.8) L 08/02/19 05:54 Monocytes # 0.6 k/uL (0-1.0) 08/04/19 06:32 Monocytes # (Manual) 0.74 k/uL (0-1.0) 08/02/19 05:54 Eosinophils # 0.1 k/uL (0-0.7) 08/04/19 06:32 Basophils # 0.1 k/uL (0-0.2) 08/04/19 06:32 Basophils # (Manual) 0.08 k/uL (0-0.2) 08/02/19 05:54 Nucleated RBCs 0 /100 WBC (0-0) 08/02/19 05:54 Manual Slide Review Performed 08/04/19 06:32 Polychromasia Present 07/31/19 06:32 Hypochromasia Marked 08/04/19 06:32 Poikilocytosis (manual Present 08/04/19 06:32 Anisocytosis Slight 08/04/19 06:32 Macrocytosis Slight 08/03/19 05:53 Rouleaux Present 08/01/19 06:19 PT 10.7 sec (9.0-12.0) 07/30/19 06:34 INR 1.0 (<1.2) 07/30/19 06:34 APTT 24.9 sec (22.0-30.0) 07/30/19 06:34 Sodium 133 mmol/L (137-145) L 08/04/19 06:32 Potassium 5.2 mmol/L (3.5-5.1) H 08/04/19 06:32 Chloride 96 mmol/L (98-107) L 08/04/19 06:32 Carbon Dioxide 26 mmol/L (22-30) 08/04/19 06:32 Anion Gap 11 mmol/L 08/04/19 06:32 BUN 31 mg/dL (9-20) H 08/04/19 06:32 Creatinine 3.81 mg/dL (0.66-1.25) H 08/04/19 06:32 Est GFR (CKD-EPI)AfAm 18 (>60 ml/min/1.73 sqM) 08/04/19 06:32 Est GFR (CKD-EPI)NonAf 15 (>60 ml/min/1.73 sqM) 08/04/19 06:32 Glucose 91 mg/dL (74-99) 08/04/19 06:32 Plasma Lactic Acid Dennis 1.2 mmol/L (0.7-2.0) 07/30/19 06:34 Calcium 8.8 mg/dL (8.4-10.2) 08/04/19 06:32 Phosphorus 5.6 mg/dL (2.5-4.5) H 07/31/19 10:52 Magnesium 2.4 mg/dL (1.6-2.3) H 07/31/19 10:52 Iron 17 ug/dL (65-175) L 08/02/19 05:54 TIBC 218 ug/dL (228-460) L 08/02/19 05:54 Iron Saturation 7.80 (15.00-50.00) L 08/02/19 05:54 Total Bilirubin 0.5 mg/dL (0.2-1.3) 08/04/19 06:32 AST 16 U/L (17-59) L 08/04/19 06:32 ALT 17 U/L (21-72) L 08/04/19 06:32 Alkaline Phosphatase 106 U/L (38-126) 08/04/19 06:32 Troponin I <0.012 ng/mL (0.000-0.034) 07/30/19 19:08 NT-Pro-B Natriuret Pep [id number] pg/mL 07/30/19 06:34 Total Protein 7.5 g/dL (6.3-8.2) 08/04/19 06:32 Albumin 2.9 g/dL (3.5-5.0) L 08/04/19 06:32 Random Vancomycin 26.9 ug/mL 08/03/19 05:53 Hepatitis A IgM Ab Non-Reactive (Non-Reactive) 07/31/19 10:52 Hep Bs Antigen Non-Reactive (Non-Reactive) 07/31/19 10:52 Hep B Core IgM Ab Non-Reactive (Non-Reactive) 07/31/19 10:52 Hep C IgG Ab Non-Reactive (Non-Reactive) 07/31/19 10:52 Microbiology 07/30/19 12:58 Urine,Clean Catch Urine Culture - Final Methicillin resist S. aureus Pseudomonas aeruginosa 07/30/19 06:34 Blood Blood Culture - Preliminary No Growth after 120 hours Assessment and Plan (1) Chronic pyelonephritis Narrative/Plan: This 68-year-old male is well-known to the service resents from home feeling ill with follow drainage coming from his percutaneous nephrostomy tube. Nursing staff has found that the tube was likely changed about a month ago. There is still some purulent drainage in the bag and it is follow nature. Prior cultures have been reviewed in counseling antibiotic therapy with cefepime and vancomycin have been added pending further culture data. He fortunately is feeling better. Having no difficulty with his hemodialysis. He is denying significant diarrhea is feeling better since coming to hospital. Cultures are process will further help correct the therapy. He may need to have further urological evaluation and/or imaging studies to evaluate the effectiveness of the percutaneous nephrostomy tube. He apparently is a poor candidate for any extensive surgical interventions. 08/01/2019 the patient has been seen by nephrology and they have no further plans they believe the current nephrostomy tube is draining appropriately. If there is any concerns or can be flushed. And if there is any significant other changes need to be seen by his urologist at [facility] Antibiotic therapy continues with cefepime and vancomycin and laboratory starting to show evidence of the ongoing pseudomonas and MRSA infection. Plans for antibiotic so discharge will be made as cultures finalized. Fever has improved. Leukocytosis improving. 08/04/2019 patient is stable, cultures do reveal evidence of pseudomonas and MRSA and doing well with current cefepime and vancomycin treatments. This is being planned for the next several weeks. Doing well with hemodialysis. He will follow-up with his [facility] urologist after the discharge. Current Visit: Yes Status: Acute Code(s): N11.9 - CHRONIC TUBULO- INTERSTITIAL NEPHRITIS, UNSPECIFIED SNOMED Code(s): 86605257 (2) Pseudomonas infection Current Visit: Yes Status: Acute Code(s): A49.8 - OTHER BACTERIAL INFECTIONS OF UNSPECIFIED SITE SNOMED Code(s): 97959398 (3) MRSA infection Current Visit: Yes Status: Acute Code(s): A49.02 - METHICILLIN RESIS STAPH INFECTION, UNSP SITE SNOMED Code(s): 010348978
--- NOTE | 2019-08-04 23:13 | P.PN ---
Progress Note - Text Progress Note Date: 08/04/19 Chief Complaint: Hypertension and short of breath History of presenting complaint: This is a very pleasant 68-year-old patient of Dr. Akshat Acevedo from visiting physician. Has a rather extensive medical history. Patient's brother lives with them and also provides care to him. Patient's son also drops in the house to help him out. Chronic stable medical conditions include atrial fibrillation, end-stage kidney disease on hemodialysis, hyperlipidemia, chronic hypotension, sleep apnea. 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 Patient gets him dialysis Sunday and Sunday. Patient also has obstructive sleep apnea uses CPAP. Patient also got bilateral lower extremity venous stasis dermatitis. Dry feet.. Patient had prior C. diff. patient has nephrolithiasis with chronic right-sided nephrostomy tube being followed at [facility]. Patient presented with altered mental status, shortness of breath Admitted with sepsis likely due to UTI been infected nephrostomy tube. Today-laying in bed. Getting hemodialysis. Tired. Did tolerate his diet. Has had a bowel movement. Blood pressures been running low. Review of systems: Was done for constitutional, cardiovascular, GI, pulmonary. relevant finding as above Active Medications Acetaminophen (Tylenol Tab) 650 mg PO Q4HR PRN PRN Reason: Fever and/ or Pain Hydrocodone Bitart/Acetaminophen (Speer 5-325) 1 each PO Q6H PRN PRN Reason: Pain Last Admin: 08/04/19 17:15 Dose: 1 each Documented by: Atorvastatin Calcium (Lipitor) 10 mg PO HS [facility] Last Admin: 08/04/19 19:55 Dose: 10 mg Documented by: Ca Carbonate/Folic Ac/Mg Carbonate (Magnebind 400) 1 each PO BID [facility] Last Admin: 08/04/19 19:55 Dose: 1 each Documented by: Calcium Acetate (Phoslo) 667 mg PO AC-BRKFST [facility] Last Admin: 08/04/19 08:59 Dose: 667 mg Documented by: Cholecalciferol (Vitamin D3 (25 Mcg = 1000 Iu)) 1,000 unit PO DAILY [facility] Last Admin: 08/04/19 08:59 Dose: 1,000 unit Documented by: Cyanocobalamin (Vitamin B-12) 1,000 mcg PO DAILY [facility] Last Admin: 08/04/19 08:59 Dose: 1,000 mcg Documented by: Ferrous Sulfate (Feosol) 325 mg PO MoWeFr@1200 [facility] Last Admin: 08/02/19 09:23 Dose: 325 mg Documented by: Furosemide (Lasix) 40 mg PO Q12HR [facility] Last Admin: 08/04/19 19:55 Dose: 40 mg Documented by: Cefepime HCl 1 gm/ Sodium (Chloride) 50 mls @ 100 mls/hr IVPB [facility] Last Admin: 08/04/19 20:53 Dose: 100 mls/hr Documented by: Midodrine (Proamatine) 5 mg PO DAILY PRN PRN Reason: Blood Pressure - Low Last Admin: 08/01/19 17:40 Dose: 5 mg Documented by: Midodrine (Proamatine) 5 mg PO MoWeFr@1200 [facility] Last Admin: 08/04/19 11:39 Dose: 5 mg Documented by: Miscellaneous Information (Pharmacy To Dose Iv Vancomycin) 1 each MISCELLANE DIRECTED PRN PRN Reason: Per Protocol Multivit/Ca Carb/B Cmplx/FA/Prenat (Nephrocaps) 1 each PO [facility] Last Admin: 08/04/19 19:55 Dose: 1 each Documented by: Naloxone HCl (Narcan) 0.2 mg IV Q2M PRN PRN Reason: Opioid Reversal Physical examination: VITAL SIGNS: 98.4, 94, 18, 84/56, 89% with the CPAP GENERAL: laying bed,, using CPAP, tired EYES: Pupils equal. Conjunctiva normal. HEENT: External appearance of nose and ears normal, oral cavity grossly normal. NECK: JVD unable to assess; masses not palpable. HEART: First and second heart sounds are muffled no edema. LUNGS: Respiratory rate increased; diminished breath sounds. ABDOMEN: Soft, nontender, liver spleen not palpable, no masses palpable. Right-sided nephrostomy tube with purulent drainage PSYCH: Awake answering questions. NEUROLOGICAL: Cranial nerves grossly intact; no facial asymmetry, minimal power in the lower extremity, sensation grossly present. EXTREMITY: Dry, both the feet with dysmorphic nails. Patient wearing boots on both the feet Investigations: White count 9.6 hemoglobin 10.3 potassium 5.2 bun 31 creatinine 3.81 Previous labs Urine culture-MRSA and pseudomonas aeruginosa Blood culture negative Assessment: -Acute UTI with sepsis from acute on chronic pyelonephritis, with a right-sided nephrostomy tube, which is change at [facility] every 3 months, with cultures positive for MRSA and pseudomonas aeruginosa -History of atrial fibrillation -End-stage kidney disease on hemodialysis Sunday and Sunday -Hyperlipidemia -Hypotension, multifactorial -Obstructive sleep apnea uses CPAP -Chronic paraplegia due to a back injury -Chronic medical debility patient is being much bedbound - anemia of chronic kidney disease -Mineral bone disease, 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 Chadwick. Seen by Dr. Sanderson from urology. No further intervention at present time. Overall prognosis guarded. Follow closely
[2019-08-05] MEDS: HYDROcodone/APAP 5-325MG 1 EACH TAB PO PRN (00:23)
[2019-08-05] MEDS: MIDODRINE 5 MG TAB PO PRN (06:44)
[2019-08-05] MEDS: CALCIUM ACETATE 667 MG CAP PO SCH (06:44)
[2019-08-05 06:46] LABS: Albumin 2.7 g/dL (3.5-5.0); Calcium 8.7 mg/dL (8.4-10.2); Total Bilirubin 0.3 mg/dL (0.2-1.3); Total Protein 7.1 g/dL (6.3-8.2)
[2019-08-05 06:51] LABS: Vancomycin,Random 20.4 ug/mL
[2019-08-05 07:25] LABS: Anisocytosis Slight; Basophils # (A) 0.1 k/uL (0-0.2); Basophils % (A) 1 %; Eosinophils # (A) 0.1 k/uL (0-0.7); Eosinophils % (A) 2 %; HCT 36.8 % (39.0-53.0); HGB 10.5 gm/dL (13.0-17.5); Hypochromasia Marked; Lymphocytes # (A) 0.4 k/uL (1.0-4.8); Lymphocytes % (A) 5 %; MCH 26.3 pg (25.0-35.0); MCHC 28.6 g/dL (31.0-37.0); MCV 91.8 fL (80.0-100.0); Mean Platelet Volume 7.3; Monocytes # (A) 0.7 k/uL (0-1.0); Monocytes % (A) 8 %; Neutrophils # (A) 7.3 k/uL (1.3-7.7); Neutrophils % (A) 83 %; Platelet Count 246 k/uL (150-450); RDW 19.3 % (11.5-15.5); WBC 8.8 k/uL (3.8-10.6)
[2019-08-05] MEDS: CALCIUM CARB-MAG CARB-FOLIC 1 EACH TAB PO SCH (08:32)
[2019-08-05] MEDS: CHOLECALCIFEROL 1,000 UNIT TAB PO SCH (08:32)
[2019-08-05] MEDS: FUROSEMIDE 40 MG TAB PO SCH (08:32)
[2019-08-05] MEDS: CYANOCOBALAMIN 500 MCG TAB PO SCH (08:32)
[2019-08-05 12:27] VITALS: RESP 20
[2019-08-05 18:11] VITALS: BP 89/55; PULSE 90; TEMP 97.8
--- NOTE | 2019-08-05 20:11 | PN ---
PROGRESS NOTE Patient is seen for followup for end-stage renal disease. He tolerated 3.5 L of ultrafiltration yesterday with hemodialysis. Patient was dialyzed for about 5 hours. On examination this morning, patient is awake, comfortable. He is not in any acute distress. Blood pressure was 81/39. Repeat blood pressure later on was 106/54. This morning patient denies any significant complaints except for pain in his left foot. He is afebrile. Heart rate about 92 per minute. EXAMINATION OF THE HEART: S1 and S2. EXAMINATION OF LUNGS: Decreased breath sounds at bases. ABDOMEN: Soft, morbidly obese. Examination of lower extremities shows significant edema bilaterally, upper and lower extremities, with chronic skin changes and wounds in the lower extremities. Labs show hemoglobin 10.5, sodium 139, potassium 4.0, creatinine down to 2.07. ASSESSMENT: 1. End-stage renal disease, on hemodialysis on a Sunday, Sunday, Sunday schedule. Patient will be dialyzed more frequently secondary to volume overload. He tolerated 3.5 L of ultrafiltration yesterday. We will dialyze him again today mainly for UF. 2. Chronic hypotension, maintained on midodrine. 3. Chronic right hydronephrosis with staghorn calculus and right nephrostomy tube. 4. Urinary tract infection and sepsis, maintained on antibiotics. Cultures positive for MRSA and pseudomonas. 5. History of atrial fibrillation. 6. Chronic kidney disease mineral bone disorder. PLAN: Repeat dialysis today and patient will be dialyzed again tomorrow, as tomorrow is his regular dialysis day. MMODL / IJN: [id number] /
--- NOTE | 2019-08-06 01:10 | P.DS ---
Providers Date of admission: 07/30/19 10:47 Expected date of discharge: 08/05/19 Attending physician: Gamaliel Burkett Consults: 07/30/19 10:47 Consult Physician Stat Consulting Provider: Jeffy Barahona Consult Reason/Comments: Needs dialysis Do you want consulting provider notified?: Yes 07/30/19 14:53 Consult Physician Routine Consulting Provider: Jay Chadwick Consult Reason/Comments: infected nephrostomy tube, sepsis Do you want consulting provider notified?: Yes Consult Physician Stat Consulting Provider: Javon Dasilva Consult Reason/Comments: infected nephrostomy tube Do you want consulting provider notified?: Yes Primary care physician: Akshat Nivees MD Hospital Course: History of presenting complaint: This is a very pleasant 68-year-old patient of Dr. Akshat Acevedo from visiting physician. Has a rather extensive medical history. Patient's brother lives with them and also provides care to him. Patient's son also drops in the house to help him out. Chronic stable medical conditions include atrial fibrillation, end-stage kidney disease on hemodialysis, hyperlipidemia, chronic hypotension, sleep apnea. 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 Patient gets him dialysis Sunday and Sunday. Patient also has obstructive sleep apnea uses CPAP. Patient also got bilateral lower extremity venous stasis dermatitis. Dry feet.. Patient had prior C. diff. patient has nephrolithiasis with chronic right-sided nephrostomy tube being followed at [facility]. Patient presented with altered mental status, shortness of breath Admitted with sepsis likely due to UTI been infected nephrostomy tube. In spite of being on vancomycin and cefepime patient continued to put on a purulent dr elena from the right nephrostomy tube. No further intervention was offered urologist. Patient is being followed at [facility]. I did discuss with Dr. Chadwick and jeannette wainwright patient is best served at a tertiary level specially when he had his nephrostomy tube placed. I discussed the case with accepting physician Dr. Marvin Ferreira at [facility]. Also discussed with the patient. Agreeable for transfer. Prognosis guarded. Total time spent today was about 45 minutes Review of systems: Was done for constitutional, cardiovascular, GI, pulmonary. relevant finding as above Active Medications Acetaminophen (Tylenol Tab) 650 mg PO Q4HR PRN PRN Reason: Fever and/ or Pain Hydrocodone Bitart/Acetaminophen (Callery 5-325) 1 each PO Q6H PRN PRN Reason: Pain Last Admin: 08/04/19 17:15 Dose: 1 each Documented by: Atorvastatin Calcium (Lipitor) 10 mg PO [facility] Last Admin: 08/04/19 19:55 Dose: 10 mg Documented by: Ca Carbonate/Folic Ac/Mg Carbonate (Magnebind 400) 1 each PO BID [facility] Last Admin: 08/04/19 19:55 Dose: 1 each Documented by: Calcium Acetate (Phoslo) 667 mg PO AC-BRKFST [facility] Last Admin: 08/04/19 08:59 Dose: 667 mg Documented by: Cholecalciferol (Vitamin D3 (25 Mcg = 1000 Iu)) 1,000 unit PO DAILY [facility] Last Admin: 08/04/19 08:59 Dose: 1,000 unit Documented by: Cyanocobalamin (Vitamin B-12) 1,000 mcg PO DAILY [facility] Last Admin: 08/04/19 08:59 Dose: 1,000 mcg Documented by: Ferrous Sulfate (Feosol) 325 mg PO MoWeFr@1200 [facility] Last Admin: 08/02/19 09:23 Dose: 325 mg Documented by: Furosemide (Lasix) 40 mg PO Q12HR [facility] Last Admin: 08/04/19 19:55 Dose: 40 mg Documented by: Cefepime HCl 1 gm/ Sodium (Chloride) 50 mls @ 100 mls/hr IVPB [facility] Last Admin: 08/04/19 20:53 Dose: 100 mls/hr Documented by: Midodrine (Proamatine) 5 mg PO DAILY PRN PRN Reason: Blood Pressure - Low Last Admin: 08/01/19 17:40 Dose: 5 mg Documented by: Midodrine (Proamatine) 5 mg PO MoWeFr@1200 [facility] Last Admin: 08/04/19 11:39 Dose: 5 mg Documented by: Miscellaneous Information (Pharmacy To Dose Iv Vancomycin) 1 each MISCELLANE DIRECTED PRN PRN Reason: Per Protocol Multivit/Ca Carb/B Cmplx/FA/Prenat (Nephrocaps) 1 each PO [facility] Last Admin: 08/04/19 19:55 Dose: 1 each Documented by: Naloxone HCl (Narcan) 0.2 mg IV Q2M PRN PRN Reason: Opioid Reversal Consultations: Dr. Jay Chadwick from [facility] Dr. Jacobson from nephrology Physical examination: VITAL SIGNS: 98.5, 95th 96, 20, 10 6 / 54, 98% on 2 L GENERAL: laying bed,, using CPAP, tired EYES: Pupils equal. Conjunctiva normal. HEENT: External appearance of nose and ears normal, oral cavity grossly normal. NECK: JVD unable to assess; masses not palpable. HEART: First and second heart sounds are muffled no edema. LUNGS: Respiratory rate increased; diminished breath sounds. ABDOMEN: Soft, nontender, liver spleen not palpable, no masses palpable. Right-sided nephrostomy tube with purulent drainage PSYCH: Awake answering questions. NEUROLOGICAL: Cranial nerves grossly intact; no facial asymmetry, minimal power in the lower extremity, sensation grossly present. EXTREMITY: Dry, both the feet with dysmorphic nails. Patient wearing boots on both the feet Investigations: Creatinine 2.07 hemoglobin 10.5 Previous labs Urine culture-MRSA and pseudomonas aeruginosa Blood culture negative Assessment: -Acute UTI with sepsis from acute on chronic pyelonephritis, with a right-sided nephrostomy tube, which is change at [facility] every 3 months, with cultures positive for MRSA and pseudomonas aeruginosa, at least a not a purulent drainage -History of atrial fibrillation -End-stage kidney disease on hemodialysis Sunday and Sunday -Hyperlipidemia -Hypotension, multifactorial -Obstructive sleep apnea uses CPAP -Chronic paraplegia due to a back injury -Chronic medical debility patient is being much bedbound - anemia of chronic kidney disease -Mineral bone disease, with chronic kidney disease -Primary osteoarthritis multiple joints -Pickwickian syndrome -Bilateral lower extremity venous stasis dermatitis Disposition: [facility] for higher level of care transfer. Patient Condition at Discharge: Undetermined Plan - Discharge Summary Discharge Rx Participant: No New Discharge Prescriptions: No Action Calcium Acetate [PhosLo] 667 mg PO DAILY Atorvastatin [Lipitor] 10 mg PO HS Potassium Chloride [Klor-Con 10] 10 meq PO BID Cholecalciferol [Vitamin D3 (25 Mcg = 1000 Iu)] 1,000 unit PO DAILY tab Cyanocobalamin [Vitamin B-12] 1,000 mcg PO DAILY tab HYDROcodone/APAP 5-325MG [Callery 5-325] 1 tab PO Q6H PRN PRN Reason: Pain Ferrous Sulfate [Iron (65 MG Elemental)] 325 mg PO MOWEFR Landy-Emmanuel 1 tab PO HS Midodrine [ProAmatine] 5 mg PO MOWEFR Midodrine [ProAmatine] 5 mg PO DAILY PRN PRN Reason: Blood Pressure - Low Magne Bind 300mg 300 mg PO BID Discharge Medication List Atorvastatin [Lipitor] 10 mg PO HS 10/30/17 [History] Calcium Acetate [PhosLo] 667 mg PO DAILY 10/30/17 [History] Potassium Chloride [Klor-Con 10] 10 meq PO BID 10/30/17 [History] Cholecalciferol [Vitamin D3 (25 Mcg = 1000 Iu)] 1,000 unit PO DAILY tab 10/17/18 [Rx] Cyanocobalamin [Vitamin B-12] 1,000 mcg PO DAILY tab 10/17/18 [Rx] Ferrous Sulfate [Iron (65 MG Elemental)] 325 mg PO MOWEFR 03/05/19 [History] HYDROcodone/APAP 5-325MG [Callery 5-325] 1 tab PO Q6H PRN 03/05/19 [History] Midodrine [ProAmatine] 5 mg PO MOWEFR 05/28/19 [History] Landy-Emmanuel 1 tab PO HS 05/28/19 [History] Magne Bind 300mg 300 mg PO BID 07/30/19 [History] Midodrine [ProAmatine] 5 mg PO DAILY PRN 07/30/19 [History] Follow up Appointment(s)/Referral(s): Madhu Crowder MD [REFERRING] - 08/12/19 10:30 am (Dr. Crowder. Sunday. Bring insurance card and ID) Akshat Nieves MD [Primary Care Provider] - 1-2 days [facility], [NON-STAFF] - Patient Instructions/Handouts: Nephrostomy Tube Insertion (DC), Catheter- associated Urinary Tract Infection (DC) Discharge Disposition: OTHER INSTITUTION NOT DEFINED
== END 2019-08-05 18:49 | disposition short-term general hospital (02) | DRG 698 ==
LOC: EC 05:53 → 3SCARD 10:47 → UNDODISIN 08-05 18:39
PROVIDERS: ADMIT Hospitalist; ATTEND Hospitalist
PROC: 5A1D70Z Performance of Urinary Filtration, Intermittent, Less than 6 Hours Per Day (ICD-10-PCS; principal; 2019-07-30)
DX: T83.512A Infection and inflammatory reaction due to nephrostomy catheter, initial encounter (principal); A41.52 Sepsis due to Pseudomonas; A41.02 Sepsis due to Methicillin resistant Staphylococcus aureus; N18.6 End stage renal disease; J18.9 Pneumonia, unspecified organism; J96.01 Acute respiratory failure with hypoxia; N13.6 Pyonephrosis; E66.2 Morbid (severe) obesity with alveolar hypoventilation; Z68.43 Body mass index [BMI] 50.0-59.9, adult; G82.20 Paraplegia, unspecified; I13.2 Hypertensive heart and chronic kidney disease with heart failure and with stage 5 chronic kidney disease, or end stage renal disease; I50.32 Chronic diastolic (congestive) heart failure; N11.9 Chronic tubulo-interstitial nephritis, unspecified; D63.1 Anemia in chronic kidney disease; E78.5 Hyperlipidemia, unspecified; E87.5 Hyperkalemia; Z99.89 Dependence on other enabling machines and devices; I48.2 Chronic atrial fibrillation; Z99.2 Dependence on renal dialysis; Z87.891 Personal history of nicotine dependence; I87.2 Venous insufficiency (chronic) (peripheral); I95.89 Other hypotension; M15.9 Polyosteoarthritis, unspecified; M89.8X9 Other specified disorders of bone, unspecified site; Z74.01 Bed confinement status; Z79.899 Other long term (current) drug therapy; Z80.0 Family history of malignant neoplasm of digestive organs; Z80.1 Family history of malignant neoplasm of trachea, bronchus and lung; Z82.49 Family history of ischemic heart disease and other diseases of the circulatory system; Z86.19 Personal history of other infectious and parasitic diseases; Z86.718 Personal history of other venous thrombosis and embolism; Z87.442 Personal history of urinary calculi; Z93.6 Other artificial openings of urinary tract status; Z86.010 Personal history of colon polyps; Z86.14 Personal history of Methicillin resistant Staphylococcus aureus infection; Z87.440 Personal history of urinary (tract) infections; Z88.8 Allergy status to other drugs, medicaments and biological substances
CPT/HCPCS: 36415; 71045; 71275; 80048; 80053; 80074; 80202; 83540; 83550; 83605; 83735; 83880; 84100; 84484; 85025; 85610; 85730; 87040; 87077; 87086; 87186; 90935; 93005; 93306; 94760; 96361; 96374; 96375; 99285

== ENCOUNTER 2019-08-11 12:32 | Inpatient (IN) | payer MEDICARE, OTHER ==
[2019-08-11 12:50] LABS: Glucose,Whole Blood 85 mg/dL (75-99)
[2019-08-11] MEDS ORDERED: SODIUM CHLORIDE 0.9% 500 ML 500 ML IV ONE ×2 (13:49→21:53)
[2019-08-11 14:15] LABS: Albumin 3.1 g/dL (3.5-5.0); Calcium 8.8 mg/dL (8.4-10.2); Potassium 4.7 mmol/L (3.5-5.1); Total Bilirubin 0.9 mg/dL (0.2-1.3); Total Protein 8.1 g/dL (6.3-8.2)
--- NOTE | 2019-08-11 14:22 | ED ---
General Adult HPI - General Chief complaint: Altered Mental Status Stated complaint: altered mental status Time Seen by Provider: 08/11/19 12:40 Source: family, EMS, RN notes reviewed Mode of arrival: EMS Limitations: altered mental status - History of Present Illness Initial comments: This is a 68-year-old male who presents emergency Department with a past medical history significant for renal failure as well as nephrostomy tubes. Patient was just discharged from the [facility] for possible infected nephrostomy tubes however according to [facility] they did not replace them because it was a chronic infection. Patient has been less and less responsive since last Sunday while in the hospital and is progressively got worse and was discharged in this condition on Sunday and according to family does not improve at all in fact probably today got a little worse where he just sleeps all day long and can only be aroused short durations and he falls right back to sleep. Patient is not himself complained of anything but family states this level of fatigue is not normal. There is been no history of fever there's been no nausea vomiting or diarrhea family states they have not noted him to be short of breath. History came completely from the family. Patient's family stated that he had a pulmonary embolism however they brought paperwork indicating that a CAT scan for pulmonary embolism was negative. Patient is not on any anticoagulants for his A. fib though according to family the doctor's wanted to put him on some but because of all the problems with anticoagulants in the past they did not. - Related Data Home Medications Medication Instructions Recorded Confirmed Atorvastatin [Lipitor] 10 mg PO HS 10/30/17 08/11/19 Calcium Acetate [PhosLo] 667 mg PO TID 10/30/17 08/11/19 Ferrous Sulfate [Iron (65 MG 325 mg PO MOWEFR 03/05/19 08/11/19 Elemental)] HYDROcodone/APAP 5-325MG [Mentcle 1 tab PO Q6H PRN 03/05/19 08/11/19 5-325] Landy-Emmanuel 1 tab PO HS 05/28/19 08/11/19 Magne Bind 300mg 300 mg PO BID 07/30/19 08/11/19 Midodrine [ProAmatine] 10 mg PO BID 07/30/19 08/11/19 Aspirin EC [Ecotrin] 325 mg PO DAILY 08/11/19 08/11/19 L.acidoph,Paracasei, B.lactis 1 cap PO DAILY 08/11/19 08/11/19 [Probiotic] Metoprolol Tartrate [Lopressor] 25 mg PO BID 08/11/19 08/11/19 Vitamin B Complex With C 1 tab PO DAILY 08/11/19 08/11/19 Previous Rx's Medication Instructions Recorded Cholecalciferol [Vitamin D3 (25 1,000 unit PO DAILY tab 10/17/18 Mcg = 1000 Iu)] Cyanocobalamin [Vitamin B-12] 1,000 mcg PO DAILY tab 10/17/18 Allergies Allergy/AdvReac Type Severity Reaction Status Date / Time diphenhydramine Allergy Unknown Verified 08/11/19 13:24 [From Benadryl] heparin AdvReac Unknown Verified 08/11/19 13:24 Review of Systems ROS Statement: Those systems with pertinent positive or pertinent negative responses have been documented in the HPI. ROS Other: All systems not noted in ROS Statement are negative. 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 History of Any Multi-Drug Resistant Organisms: C-DIFF, MRSA Date of last positivie culture/infection: 07/30/19 MDRO Source:: MRSA URINE, ASPIRATE, Cdiff now Past Surgical History: Adenoidectomy, Back Surgery, Heart Catheterization With S tent, Hernia Repair, Tonsillectomy Additional Past Surgical History / Comment(s): LT ARM FISTULA-NO BP OR BLOOD DRAWS IN LT ARM, PCI with stent, low back surgery, nephrostomy tubes-replaced 7/11/19, abdominal hernia, colonoscopy with benign polyp Past Anesthesia/Blood Transfusion Reactions: No Reported Reaction Date of Last Stent Placement:: 2004 Past Psychological History: No Psychological Hx Reported Smoking Status: Former smoker Past Alcohol Use History: None Reported Past Drug Use History: None Reported - Past Family History Brother(s) Family Medical History: Cancer Additional Family Medical History / Comment(s): Colon Ca- Father Family Medical History: Cancer Additional Family Medical History / Comment(s): father had lung cancer. He was a smoker and worked in a foundry. Mother Family Medical History: Coronary Artery Disease (CAD) Additional Family Medical History / Comment(s): Mother had CABG in her 70s. General Exam - General Exam Comments Initial Comments: GENERAL: Patient is well-developed and well-nourished. Patient is nontoxic and well- hydrated and is in no acute distress. ENT: Neck is soft and supple. No significant lymphadenopathy is noted. Oropharynx is clear. Moist mucous membranes. Neck has full range of motion without eliciting any pain. EYES: The sclera were anicteric and conjunctiva were pink and moist. Extraocular movements were intact and pupils were equal round and reactive to light. Eyelids were unremarkable. PULMONARY: Unlabored respirations. Difficult to hear breath sounds secondary to habitus a nd effort CARDIOVASCULAR: There is a regular rate and rhythm without any murmurs gallops or rubs. ABDOMEN: Soft and nontender with normal bowel sounds. No palpable organomegaly was noted. There is no palpable pulsatile mass. SKIN: Skin is clear with no lesions or rashes and otherwise unremarkable. NEUROLOGIC: Patient is sleeping and when aroused I cannot understand him because he speaks quietly and he only stays awake for approximately 10 seconds before he falls back to sleep. Unable to do a complete neurological exam secondary to patient's inability to stay awake. MUSCULOSKELETAL: Normal extremities with adequate strength and full range of motion. No lower extremity swelling or edema. No calf tenderness. LYMPHATICS: No significant lymphadenopathy is noted PSYCHIATRIC: Unable to assess Limitations: altered mental status Course Vital Signs 08/11/19 08/11/19 08/11/19 12:35 12:36 14:00 Temperature Pulse Rate 96 84 Respiratory 20 18 Rate Blood Pressure 95/31 97/25 O2 Sat by Pulse 94 L 94 L 95 Oximetry 08/11/19 08/11/19 08/11/19 15:00 15:30 19:00 Temperature Pulse Rate 92 89 79 Respiratory 20 20 20 Rate Blood Pressure 89/34 90/52 77/47 O2 Sat by Pulse 96 96 99 Oximetry 08/11/19 08/11/19 08/11/19 19:50 20:00 20:54 Temperature Pulse Rate 80 77 81 Respiratory 20 16 20 Rate Blood Pressure 65/50 77/45 76/52 O2 Sat by Pulse 99 99 97 Oximetry 08/11/19 08/11/19 22:00 22:35 Temperature 98.8 F Pulse Rate 83 87 Respiratory 20 16 Rate Blood Pressure 88/59 90/69 O2 Sat by Pulse 99 99 Oximetry Procedures - Central Line Placement Right SC Consent Obtained: verbal consent Patient Placed on Monitor/Pulse Ox: Yes Prep: mask, gown, gloves Central Line Prep: Chlorhexidine scrub Local Anesthesia Used: Lidocaine 1% Ultrasound Used for Placement: No Central Line Lumen Inserted: triple Central Line Position: good blood return, all ports aspirated, flushed, capped, sutured in place with nylon Dressing Applied: Tegaderm Post Procedure X-Ray: tip of catheter in good position Patient Tolerated Procedure: well Complications: none Medical Decision Making - Medical Decision Making EKG shows sinus tachycardia with occasional PAC at a rate of 101 bpm NH interval is 202 QRS is 96 QT interval 332 QTC is 4:30. Patient's EKG shows T-wave inversions in II, III, and F aVF which were seen her previous EKG. Patient also has some T-wave inversions in precordial leads V4 V5 and V6 which were also seen in previous EKGs. Patient's blood pressure remained in the 70s after a liter and half of fluid so I placed a central line started a Levophed of the patient. Chest x-ray showed possible pneumonia. 2 g of Rocephin. Patient had a liter and a half of fluid his kilogram ideal body weight is 80.7. Patient was considered septic at 4:30 when I saw the chest x-ray. Chest x-ray was done after the patient central line was placed there was good placement of the central line no pneumothorax is noted I spoke with Dr. Burkett he agreed to accept the admission. Spoke with Dr. Trevino he agreed to accept the admission as long as urology was on board. I spoke with urologist and he agreed to accept the consult. I admitted the patient wrote admitting orders. - Lab Data Result diagrams: 08/11/19 12:45 08/11/19 12:45 Lab Results 08/11/19 08/11/19 08/11/19 Range/Units 12:45 12:45 12:45 WBC 18.8 H (3.8-10.6) k/uL RBC 4.12 L (4.30-5.90) m/uL Hgb 10.9 L (13.0-17.5) gm/dL Hct 38.4 L (39.0-53.0) % MCV 93.2 (80.0-100.0) fL MCH 26.6 (25.0-35.0) pg MCHC 28.5 L (31.0-37.0) g/dL RDW 18.5 H (11.5-15.5) % Plt Count 256 (150-450) k/uL Neutrophils % (Manual) 86 % Lymphocytes % (Manual) 3 % Monocytes % (Manual) 10 % Metamyelocytes % 1 % Myelocytes % 2 % Neutrophils # (Manual) 16.17 H (1.3-7.7) k/uL Lymphocytes # (Manual) 0.56 L (1.0-4.8) k/uL Monocytes # (Manual) 1.88 H (0-1.0) k/uL Metamyelocytes # (Man) 0.19 H (0) k/uL Myelocytes # (Manual) 0.38 H (0) k/uL Nucleated RBCs 0 (0-0) /100 WBC Manual Slide Review Performed Toxic Granulation Present Polychromasia Present Hypochromasia Marked Poikilocytosis (manual Present Anisocytosis Slight PT 11.2 (9.0-12.0) sec INR 1.1 (<1.2) APTT 26.0 (22.0-30.0) sec Sample Site ABG pH (7.35-7.45) ABG pCO2 (35-45) mmHg ABG pO2 (83-108) mmHg ABG HCO3 (21-25) mmol/L ABG Total CO2 (19-24) mmol/L ABG O2 Saturation (94-97) % ABG Base Excess mmol/L Mu Test FiO2 % Sodium 136 L (137-145) mmol/L Potassium 4.7 (3.5-5.1) mmol/L Chloride 98 (98-107) mmol/L Carbon Dioxide 29 (22-30) mmol/L Anion Gap 9 mmol/L BUN 11 (9-20) mg/dL Creatinine 1.34 H (0.66-1.25) mg/dL Est GFR (CKD-EPI)AfAm 63 (>60 ml/min/1.73 sqM) Est GFR (CKD-EPI)NonAf 55 (>60 ml/min/1.73 sqM) Glucose 90 (74-99) mg/dL POC Glucose (mg/dL) (75-99) mg/dL POC Glu Dental Appliance Mechanic ID Plasma Lactic Acid Dennis (0.7-2.0) mmol/L Calcium 8.8 (8.4-10.2) mg/dL Total Bilirubin 0.9 (0.2-1.3) mg/dL AST 68 H (17-59) U/L ALT 20 L (21-72) U/L Alkaline Phosphatase 102 (38-126) U/L Troponin I (0.000-0.034) ng/mL Total Protein 8.1 (6.3-8.2) g/dL Albumin 3.1 L (3.5-5.0) g/dL Urine RBC (0-5) /hpf Urine WBC (0-5) /hpf Urine WBC Clumps (None) /hpf Urine Bacteria (None) /hpf Urine Mucus (None) /hpf 08/11/19 08/11/19 08/11/19 Range/Units 12:45 12:45 12:49 WBC (3.8-10.6) k/uL RBC (4.30-5.90) m/uL Hgb (13.0-17.5) gm/dL Hct (39.0-53.0) % MCV (80.0-100.0) fL MCH (25.0-35.0) pg MCHC (31.0-37.0) g/dL RDW (11.5-15.5) % Plt Count (150-450) k/uL Neutrophils % (Manual) % Lymphocytes % (Manual) % Monocytes % (Manual) % Metamyelocytes % % Myelocytes % % Neutrophils # (Manual) (1.3-7.7) k/uL Lymphocytes # (Manual) (1.0-4.8) k/uL Monocytes # (Manual) (0-1.0) k/uL Metamyelocytes # (Man) (0) k/uL Myelocytes # (Manual) (0) k/uL Nucleated RBCs (0-0) /100 WBC Manual Slide Review Toxic Granulation Polychromasia Hypochromasia Poikilocytosis (manual Anisocytosis PT (9.0-12.0) sec INR (<1.2) APTT (22.0-30.0) sec Sample Site ABG pH (7.35-7.45) ABG pCO2 (35-45) mmHg ABG pO2 (83-108) mmHg ABG HCO3 (21-25) mmol/L ABG Total CO2 (19-24) mmol/L ABG O2 Saturation (94-97) % ABG Base Excess mmol/L Mu Test FiO2 % Sodium (137-145) mmol/L Potassium (3.5-5.1) mmol/L Chloride (98-107) mmol/L Carbon Dioxide (22-30) mmol/L Anion Gap mmol/L BUN (9-20) mg/dL Creatinine (0.66-1.25) mg/dL Est GFR (CKD-EPI)AfAm (>60 ml/min/1.73 sqM) Est GFR (CKD-EPI)NonAf (>60 ml/min/1.73 sqM) Glucose (74-99) mg/dL POC Glucose (mg/dL) 85 (75-99) mg/dL POC Glu Dental Appliance Mechanic [place] Novak Plasma Lactic Acid Dennis 1.5 (0.7-2.0) mmol/L Calcium (8.4-10.2) mg/dL Total Bilirubin (0.2-1.3) mg/dL AST (17-59) U/L ALT (21-72) U/L Alkaline Phosphatase (38-126) U/L Troponin I 0.127 H* (0.000-0.034) ng/mL Total Protein (6.3-8.2) g/dL Albumin (3.5-5.0) g/dL Urine RBC (0-5) /hpf Urine WBC (0-5) /hpf Urine WBC Clumps (None) /hpf Urine Bacteria (None) /hpf Urine Mucus (None) /hpf 08/11/19 08/11/19 08/11/19 Range/Units 15:08 20:02 20:07 WBC (3.8-10.6) k/uL RBC (4.30-5.90) m/uL Hgb (13.0-17.5) gm/dL Hct (39.0-53.0) % MCV (80.0-100.0) fL MCH (25.0-35.0) pg MCHC (31.0-37.0) g/dL RDW (11.5-15.5) % Plt Count (150-450) k/uL Neutrophils % (Manual) % Lymphocytes % (Manual) % Monocytes % (Manual) % Metamyelocytes % % Myelocytes % % Neutrophils # (Manual) (1.3-7.7) k/uL Lymphocytes # (Manual) (1.0-4.8) k/uL Monocytes # (Manual) (0-1.0) k/uL Metamyelocytes # (Man) (0) k/uL Myelocytes # (Manual) (0) k/uL Nucleated RBCs (0-0) /100 WBC Manual Slide Review Toxic Granulation Polychromasia Hypochromasia Poikilocytosis (manual Anisocytosis PT (9.0-12.0) sec INR (<1.2) APTT (22.0-30.0) sec Sample Site Rt Brach L Rad ABG pH 7.16 L* 7.35 (7.35-7.45) ABG pCO2 87 H* 28 L (35-45) mmHg ABG pO2 92 91 (83-108) mmHg ABG HCO3 31 H 15 L (21-25) mmol/L ABG Total CO2 33 H 16 L (19-24) mmol/L ABG O2 Saturation 96.0 96.1 (94-97) % ABG Base Excess 1.8 -10.3 mmol/L Mu Test Yes Yes FiO2 40 % Sodium (137-145) mmol/L Potassium (3.5-5.1) mmol/L Chloride (98-107) mmol/L Carbon Dioxide (22-30) mmol/L Anion Gap mmol/L BUN (9-20) mg/dL Creatinine (0.66-1.25) mg/dL Est GFR (CKD-EPI)AfAm (>60 ml/min/1.73 sqM) Est GFR (CKD-EPI)NonAf (>60 ml/min/1.73 sqM) Glucose (74-99) mg/dL POC Glucose (mg/dL) (75-99) mg/dL POC Glu Dental Appliance Mechanic ID Plasma Lactic Acid Dennis (0.7-2.0) mmol/L Calcium (8.4-10.2) mg/dL Total Bilirubin (0.2-1.3) mg/dL AST (17-59) U/L ALT (21-72) U/L Alkaline Phosphatase (38-126) U/L Troponin I (0.000-0.034) ng/mL Total Protein (6.3-8.2) g/dL Albumin (3.5-5.0) g/dL Urine RBC >182 H (0-5) /hpf Urine WBC >182 H (0-5) /hpf Urine WBC Clumps Many H (None) /hpf Urine Bacteria Many H (None) /hpf Urine Mucus Many H (None) /hpf Critical Care Time Critical Care Time: Yes Total Critical Care Time: 35 Disposition Clinical Impression: Elevated troponin, Urinary tract infection, Sepsis, Pneumonia, Hypercapnia Disposition: ADMITTED IP TO THIS HOSP Referrals: Akshat Nieves MD [Primary Care Provider] - 1-2 days Time of Disposition: 22:31
[2019-08-11 14:27] LABS: INR 1.1 (<1.2); Prothrombin Time 11.2 sec (9.0-12.0)
[2019-08-11 14:33] LABS: Anisocytosis Slight; HCT 38.4 % (39.0-53.0); HGB 10.9 gm/dL (13.0-17.5); Hypochromasia Marked; MCH 26.6 pg (25.0-35.0); MCHC 28.5 g/dL (31.0-37.0); MCV 93.2 fL (80.0-100.0); Mean Platelet Volume 6.8; Platelet Count 256 k/uL (150-450); RBC 4.12 m/uL (4.30-5.90); RDW 18.5 % (11.5-15.5); WBC 18.8 k/uL (3.8-10.6)
[2019-08-11 14:47] LABS: Lymphocytes # (M) 0.56 k/uL (1.0-4.8); Metamyelocytes # (M) 0.19 k/uL (0); Metamyelocytes % 1 %; Monocytes # (M) 1.88 k/uL (0-1.0); Myelocytes # (M) 0.38 k/uL (0); Myelocytes % 2 %; Neutrophils % (M) 86 %; Nucleated Red Blood Cells 0 /100 WBC (0-0); Total Cells Counted 200
[2019-08-11 14:49] LABS: Poikilocytosis (M) Present; Polychromasia Present; Toxic Granulation Present
--- NOTE | 2019-08-11 14:53 | CT ---
EXAMINATION TYPE: CT brain wo con DATE OF EXAM: 08/11/2019 COMPARISON: None HISTORY: decreased mental status CT DLP: 1143.4 mGycm Automated exposure control for dose reduction was used. FINDINGS: There is mild degenerative change of the greater frontal lobe component. Intracranial atherosclerotic changes are noted. Exam limited by motion artifact minimal changes of sinusitis. No midline shift or mass effect. Intrac ranial atherosclerotic changes are noted IMPRESSION: NO ACUTE PROCESS
--- NOTE | 2019-08-11 14:53 | XR ---
EXAMINATION TYPE: XR chest 2V DATE OF EXAM: 08/11/2019 COMPARISON: 08/01/2019 HISTORY: Altered metal status TECHNIQUE: Frontal and lateral views of the chest are obtained. FINDINGS: Lateral view is suboptimal secondary to patient body habitus and inspiratory effort. On th e frontal view there is a patchy retrocardiac density obscuring the left hemidiaphragm and patchy rig ht midlung opacity. Findings are new from the prior. Cardiomediastinal silhouette is again enlarged e xaggerated by low lung volumes. No sizable pneumothorax. Osseous structures appear grossly intact. IMPRESSION: Retrocardiac opacity and right midlung opacity that may be exaggerated by low lung volum es however are both new from the prior and concerning for multifocal pneumonia versus atelectasis.
[2019-08-11 15:13] LABS: ABG Base Excess 1.8 mmol/L; ABG HCO3 31 mmol/L (21-25); ABG PO2 92 mmHg (83-108); ABG TCO2 33 mmol/L (19-24); Allen Test Performed? Yes
[2019-08-11 15:17] LABS: ABG PCO2 87 mmHg (35-45); ABG PH 7.16 (7.35-7.45)
[2019-08-11] MEDS ORDERED: cefTRIAXone IN SWFI 1,000 MG/10 ML SYRINGE IVP STA (19:09)
[2019-08-11] MEDS ORDERED: SODIUM CHLORIDE 0.9% 1,000 ML IV STA (19:33)
[2019-08-11 20:03] LABS: Allen Test Performed? Yes
[2019-08-11 20:06] LABS: ABG Base Excess -10.3 mmol/L; ABG HCO3 15 mmol/L (21-25); ABG Oxygen Saturation 96.1 % (94-97); ABG PCO2 28 mmHg (35-45); ABG PH 7.35 (7.35-7.45); ABG PO2 91 mmHg (83-108); ABG TCO2 16 mmol/L (19-24)
[2019-08-11] MEDS ORDERED: SODIUM CHLORIDE 0.9% 500 ML 500 ML IV STA (20:12)
[2019-08-11] MEDS ORDERED: NOREPINEPHRINE 4 MG in SODIUM CHLORIDE 0.9% 250 ML IV SCH (21:30)
--- NOTE | 2019-08-11 21:37 | XR ---
EXAMINATION TYPE: XR chest 1V portable DATE OF EXAM: 08/11/2019 COMPARISON: Today HISTORY: Check line placement TECHNIQUE: Single frontal view of the chest is obtained. FINDINGS: There is right subclavian catheter with the tip over the right atrium. No pneumothorax. Th ere is patchy interstitial infiltrates in both lungs. Heart is enlarged. Exam is limited by patient's size. IMPRESSION: Catheter appears in fairly good position. Heart and lungs unchanged.
[2019-08-11] MEDS ORDERED: NALOXONE 0.4 MG/ML 1 ML VIAL IV PRN (22:34)
[2019-08-11 22:36] LABS: Bacteria,Urine Many /hpf; Mucus,Urine Many /hpf; RBC,Urine >182 /hpf (0-5); WBC,Urine >182 /hpf (0-5)
[2019-08-11 22:39] LABS: Appearance,Urine Cloudy (Clear)
[2019-08-11 22:40] LABS: Color,Urine Brown
[2019-08-12] MEDS: CEFEPIME 2 GM in SODIUM CHLORIDE 0.9% 100 ML IVPB SCH ×2 (00:44→08:26)
[2019-08-12 01:45] LABS: Glucose,Whole Blood 76 mg/dL (75-99)
[2019-08-12] MEDS: NOREPINEPHRINE 32 MG in SODIUM CHLORIDE 0.9% 218 ML IV SCH ×2 (02:30→10:29)
[2019-08-12 02:48] VITALS: BMI 46.8
[2019-08-12] MEDS ORDERED: NALOXONE 0.4 MG/ML 1 ML VIAL IV PRN (03:51)
[2019-08-12] MEDS: SODIUM CHLORIDE 0.9% 1,000 ML IV SCH (04:03)
[2019-08-12 05:53] LABS: Anisocytosis Slight; Calcium 8.8 mg/dL (8.4-10.2); HCT 40.9 % (39.0-53.0); HGB 10.5 gm/dL (13.0-17.5); Hypochromasia Marked; MCH 24.2 pg (25.0-35.0); MCHC 25.7 g/dL (31.0-37.0); MCV 94.3 fL (80.0-100.0); Macrocytosis Slight; Magnesium 2.1 mg/dL (1.6-2.3); Mean Platelet Volume 6.2; Phosphorus 3.1 mg/dL (2.5-4.5); Platelet Count 305 k/uL (150-450); Potassium 3.6 mmol/L (3.5-5.1); RBC 4.34 m/uL (4.30-5.90); RDW 19.3 % (11.5-15.5); WBC 14.8 k/uL (3.8-10.6)
[2019-08-12 06:06] LABS: Glucose,Whole Blood 85 mg/dL (75-99)
[2019-08-12 06:19] LABS: Band Neutrophils % 2 %; Lymphocytes # (M) 0.59 k/uL (1.0-4.8); Monocytes # (M) 0.44 k/uL (0-1.0); Neutrophils % (M) 91 %; Nucleated Red Blood Cells 0 /100 WBC (0-0); Total Cells Counted 100
--- NOTE | 2019-08-12 06:42 | XR ---
EXAMINATION TYPE: XR chest 1V portable DATE OF EXAM: 08/12/2019 COMPARISON: 08/11/2019 INDICATION: Respiratory distress TECHNIQUE: Single frontal view of the chest is obtained. FINDINGS: The heart size is normal. The pulmonary vasculature is normal. Small left pleural effusion is present. Some fluid may be within the minor fissure on the right. Catheter enters on the right with the tip in the right atrium. IMPRESSION: 1. Small pleural fluid collections. 2. Catheter with the tip in the right atrium.
[2019-08-12] MEDS: PANTOPRAZOLE 40 MG/10 ML VIAL IV SCH (08:26)
--- NOTE | 2019-08-12 09:21 | P.CONS ---
History of Present Illness - Reason for Consult Consult date: 08/12/19 UTI pneumonia - History of Present Illness This is a 68-year-old male with multiple medical troubles that include s morbid obesity, end-stage renal disease on hemodialysis, chronic staghorn calculus into the right kidney with obstruction requiring right-sided percutaneous nephrostomy tube for drainage. Patient also has renal masses with concerns to underlying neoplasm. Patient follows with waiter waitress, urologist at [facility]. The patient has a very poor functional status and is not thought to be a surgical candidate for any specific intervention such as nephrectomy. The patient has been seen on previous admissions most recently July 30 through August 05. At that time, urine culture was positive for MRSA and Pseudomonas and patient was on cefepime and vancomycin. Patient was not showing significant improvement and was transferred to his urology care team at [facility] last Sunday. Apparently patient was not feeling well last Sunday and continued to be unwell, discharged home on Sunday from [facility]. Family was concerned that he was getting worse and sleeping all day long and was only arousable for short periods of time. Patient complained of fatigue. He denies any fever or chills. No nausea or vomiting. No diarrhea. Patient did not have any surgical intervention nor exchange of urostomy tube at [facility]. Patient now presents to [facility] emergency room. He was afebrile, initial white count 18.8, BUN 16 and creatinine 1.88. Troponins were elevated at 0.127 and 0.169. Urinalysis revealed RBCs greater than 182, wbc's greater than 182, WBC clumps many, bacteria many. He had a CAT scan of the brain that showed no acute findings. Initial chest x-ray revealed retro-cardiac opacities and right midlung opacities may be exaggerated by low lung volumes however are new from prior and concerning for multifocal pneumonia versus atelectasis. Repeat chest x-ray this morning reveals small pleural fluid collection. Patient had line placement during the night and has been started on levo fed. He received 2 doses of Rocephin and 2.5 L of fluid while in the emergency center. He is currently on cefepime. He is currently undergoing hemodialysis. Urine culture and blood culture status received. He is on BiPAP support. Review of Systems Constitutional: Reports fatigue, Reports lethargy, Reports malaise, Reports poor appetite, Reports weakness, Denies chills, Denies fever Eyes: denies blurred vision, denies pain Ears, nose, mouth and throat: Denies headache, Denies nasal congestion, Denies nasal discharge, Denies sore throat Cardiovascular: Reports leg edema, Denies chest pain, Denies shortness of breath Respiratory: Denies cough, Denies dyspnea Gastrointestinal: Reports loss of appetite, Denies diarrhea, Denies nausea, Denies vomiting Genitourinary: Reports as per HPI Musculoskeletal: Reports frequent falls, Reports gait dysfunction, Reports muscle weakness Integumentary: Denies pruritus, Denies rash, Denies wounds Neurological: Reports weakness, Denies convulsions, Denies head injury, Denies seizures, Denies syncope Psychiatric: Denies anxiety, Denies depression Endocrine: Denies fatigue, Denies weight change Past Medical History Past Medical History: Atrial Fibrillation, Dialysis, Deep Vein Thrombosis (DVT), GI Bleed, Hyperlipidemia, Hypertension, Renal Disease, Sleep Apnea/CPAP/BIPAP Additional Past Medical History / Comment(s): Paraplegia r/t back injury/surgery-pt states he no longer gets up into wheelchair d/t too painful, ESRD with hemodialysis-M/W/F, enlarged R kidney with stones/staghorn-has chronic nephrostomy tube/bag, chronic anemia, mineral bone disease, recurrent CDiff infections, sepsis 2ndary to CDiff colitis/UTI, possible past upper GI bleed, DVT in a leg post op, arhtritis multiple joints, pickwickian syndrome, past respiratory failure/vented, ISACC with Cpap, bilateral lower extremity venous stasis/dermatitis, bilateral lower leg/feet edema and currently scabs on L foot toes. History of Any Multi-Drug Resistant Organisms: C-DIFF, MRSA Year Discovered:: 07/30/19 MDRO Source:: MRSA URINE, ASPIRATE, Cdiff now Past Surgical History: Adenoidectomy, Back Surgery, Heart Catheterization With Stent, Hernia Repair, Tonsillectomy Additional Past Surgical History / Comment(s): LT ARM FISTULA-NO BP OR BLOOD DRAWS IN LT ARM, PCI with stent, low back surgery, nephrostomy tubes-replaced 05/22/19, abdominal hernia, colonoscopy with benign polyp Past Anesthesia/Blood Transfusion Reactions: No Reported Reaction Date of Last Stent Placement:: 2004 Past Psychological History: No Psychological Hx Reported Additional Psychological History / Comment(s): Pt has a brother that lives with him and his son comes over daily and a grand daughter that comes regularly. They are his caregivers. He currently has no home care. Pt has a hospital bed and stays in bed now d/t too painful to get up into wheelchair. Owns a kelby lift, cpap and megamover transfer mat. Smoking Status: Former smoker Past Alcohol Use History: None Reported Additional Past Alcohol Use History / Comment(s): Patient smoked for 10 years ago quit in 1981. Patient has a brother who lives with him and his son comes over daily. They are his caregivers. He has a hospital bed, only her left, CPAP, megamover transfer mat. Past Drug Use History: None Reported - Past Family History Brother(s) Family Medical History: Cancer Additional Family Medical History / Comment(s): Colon Ca- Father Family Medical History: Cancer Additional Family Medical History / Comment(s): father had lung cancer. He was a smoker and worked in a foundry. Mother Family Medical History: Coronary Artery Disease (CAD) Additional Family Medical History / Comment(s): Mother had CABG in her 70s. Medications and Allergies Home Medications Medication Instructions Recorded Confirmed Type Atorvastatin [Lipitor] 10 mg PO HS 10/30/17 08/11/19 History Calcium Acetate [PhosLo] 667 mg PO TID 10/30/17 08/11/19 History Cholecalciferol [Vitamin D3 (25 1,000 unit PO DAILY tab 10/17/18 08/11/19 Rx Mcg = 1000 Iu)] Cyanocobalamin [Vitamin B-12] 1,000 mcg PO DAILY tab 10/17/18 08/11/19 Rx Ferrous Sulfate [Iron (65 MG 325 mg PO MOWEFR 03/05/19 08/11/19 History Elemental)] HYDROcodone/APAP 5-325MG [[place] 1 tab PO Q6H PRN 03/05/19 08/11/19 History 5-325] Landy-Emmanuel 1 tab PO HS 05/28/19 08/11/19 History Magne Bind 300mg 300 mg PO BID 07/30/19 08/11/19 History Midodrine [ProAmatine] 10 mg PO BID 07/30/19 08/11/19 History Aspirin EC [Ecotrin] 325 mg PO DAILY 08/11/19 08/11/19 History L.acidoph,Paracasei, B.lactis 1 cap PO DAILY 08/11/19 08/11/19 History [Probiotic] Metoprolol Tartrate [Lopressor] 25 mg PO BID 08/11/19 08/11/19 History Vitamin B Complex With C 1 tab PO DAILY 08/11/19 08/11/19 History Allergies Allergy/AdvReac Type Severity Reaction Status Date / Time diphenhydramine Allergy Unknown Verified 08/11/19 13:24 [From Benadryl] heparin AdvReac Unknown Verified 08/11/19 13:24 Physical Exam Vitals: Vital Signs Temp Pulse Resp BP Pulse Ox 08/12/19 07:00 93 18 103/62 96 08/12/19 06:00 98 18 114/65 97 08/12/19 05:00 91 12 108/68 95 08/12/19 04:00 97.5 F L 87 17 113/69 95 08/12/19 03:30 79 17 81/52 97 08/12/19 03:15 84 22 71/46 97 08/12/19 03:00 88 14 82/45 97 08/12/19 02:45 85 12 89/58 93 L 08/12/19 02:30 82 12 96/60 97 08/12/19 02:15 89 7 L 92/63 95 08/12/19 02:00 97.3 F L 82 15 82/58 97 08/12/19 01:45 95 20 77/47 08/12/19 01:39 87 93/60 08/12/19 01:00 87 16 93/57 100 08/12/19 00:00 81 16 90/55 99 08/11/19 23:47 84 16 88/57 100 08/11/19 23:33 97.3 F L 17 08/11/19 23:00 84 16 90/57 99 08/11/19 22:52 85 20 92/60 100 08/11/19 22:35 98.8 F 87 16 90/69 99 08/11/19 22:00 83 20 88/59 99 08/11/19 20:54 81 20 76/52 97 08/11/19 20:00 77 16 77/45 99 08/11/19 19:50 80 20 65/50 99 08/11/19 19:00 79 20 77/47 99 08/11/19 15:30 89 20 90/52 96 08/11/19 15:00 92 20 89/34 96 08/11/19 14:00 84 18 97/25 95 08/11/19 12:36 96 20 95/31 94 L 08/11/19 12:35 94 L Intake and Output 08/11/19 08/12/19 08/12/19 22:59 06:59 14:59 Intake Total 167.722 60.678 Output Total 50 Balance 167.722 10.678 Intake: IV 60 20 0.9 NS 60 20 Intake, IV Titration 107.722 40.678 Amount Norepinephrine 32 mg In 34.654 40.678 Sodium Chloride 0.9% 218 ml @ 0.05 MCG/KG/MIN 3. 767 mls/hr IV .Q24H CRICKET Rx#:[id number] Norepinephrine 4 mg In 73.068 Sodium Chloride 0.9% 250 ml @ 0.05 MCG/KG/MIN 30. 615 mls/hr IV .Q8H18M CRICKET Rx#:[id number] Output: Urine 50 Other: Weight 156.8 kg Gen: This is a morbidly obese 68-year-old male. He is sleeping with CPAP in place and awakens to verbal stimuli. He does not appear to be in any respiratory distress. HEENT: Head is atraumatic, normocephalic. Pupils equal, round. Sclerae is an icteric. NECK: Supple. No lymphadenopathy. No thyromegaly. LUNGS: Decreased breath sounds but otherwise clear to auscultation. No intercostal retractions. HEART: Regular rate and rhythm. No murmur. ABDOMEN: Morbidly obese. Soft. Bowel sounds are present. No masses. No tenderness. Nephrostomy tube to the right upper quadrant. Dressing in place which was not removed. No drainage noted. There is purulent material in the nephrostomy drainage system. Foul order coming from nephrostomy tube. EXTREMITIES: Hemodialysis fistula to the left upper extremity. Chronic venous stasis changes to the bilateral lower extremities. 3+ lateral lower extremity edema. Dorsalis pedis +1 bilaterally.. NEUROLOGICAL: Patient is awake, alert and oriented x3. Results Results: Laboratory Results WBC 14.8 k/uL (3.8-10.6) H 08/12/19 05:30 RBC 4.34 m/uL (4.30-5.90) 08/12/19 05:30 Hgb 10.5 gm/dL (13.0-17.5) L 08/12/19 05:30 Hct 40.9 % (39.0-53.0) 08/12/19 05:30 MCV 94.3 fL (80.0-100.0) 08/12/19 05:30 MCH 24.2 pg (25.0-35.0) L 08/12/19 05:30 MCHC 25.7 g/dL (31.0-37.0) L 08/12/19 05:30 RDW 19.3 % (11.5-15.5) H 08/12/19 05:30 Plt Count 305 k/uL (150-450) 08/12/19 05:30 Neutrophils % (Manual) 91 % 08/12/19 05:30 Band Neutrophils % 2 % 08/12/19 05:30 Lymphocytes % (Manual) 4 % 08/12/19 05:30 Monocytes % (Manual) 3 % 08/12/19 05:30 Metamyelocytes % 1 % 08/11/19 12:45 Myelocytes % 2 % 08/11/19 12:45 Neutrophils # (Manual) 13.70 k/uL (1.3-7.7) H 08/12/19 05:30 Lymphocytes # (Manual) 0.59 k/uL (1.0-4.8) L 08/12/19 05:30 Monocytes # (Manual) 0.44 k/uL (0-1.0) 08/12/19 05:30 Metamyelocytes # (Man) 0.19 k/uL (0) H 08/11/19 12:45 Myelocytes # (Manual) 0.38 k/uL (0) H 08/11/19 12:45 Nucleated RBCs 0 /100 WBC (0-0) 08/12/19 05:30 Manual Slide Review Performed 08/12/19 05:30 Toxic Granulation Present 08/11/19 12:45 Polychromasia Present 08/11/19 12:45 Hypochromasia Marked 08/12/19 05:30 Poikilocytosis (manual Present 08/11/19 12:45 Anisocytosis Slight 08/12/19 05:30 Macrocytosis Slight 08/12/19 05:30 PT 11.2 sec (9.0-12.0) 08/11/19 12:45 INR 1.1 (<1.2) 08/11/19 12:45 APTT 26.0 sec (22.0-30.0) 08/11/19 12:45 Sample Site L Rad 08/11/19 20:02 ABG pH 7.35 (7.35-7.45) 08/11/19 20:02 ABG pCO2 28 mmHg (35-45) L 08/11/19 20:02 ABG pO2 91 mmHg (83-108) 08/11/19 20:02 ABG HCO3 15 mmol/L (21-25) L 08/11/19 20:02 ABG Total CO2 16 mmol/L (19-24) L 08/11/19 20:02 ABG O2 Saturation 96.1 % (94-97) 08/11/19 20:02 ABG Base Excess -10.3 mmol/L 08/11/19 20:02 Mu Test Yes 08/11/19 20:02 FiO2 40 % 08/11/19 15:08 Sodium 138 mmol/L (137-145) 08/12/19 05:30 Potassium 3.6 mmol/L (3.5-5.1) 08/12/19 05:30 Chloride 101 mmol/L (98-107) 08/12/19 05:30 Carbon Dioxide 27 mmol/L (22-30) 08/12/19 05:30 Anion Gap 10 mmol/L 08/12/19 05:30 BUN 16 mg/dL (9-20) 08/12/19 05:30 Creatinine 1.88 mg/dL (0.66-1.25) H 08/12/19 05:30 Est GFR (CKD-EPI)AfAm 42 (>60 ml/min/1.73 sqM) 08/12/19 05:30 Est GFR (CKD-EPI)NonAf 36 (>60 ml/min/1.73 sqM) 08/12/19 05:30 Glucose 101 mg/dL (74-99) H 08/12/19 05:30 POC Glucose (mg/dL) 85 mg/dL (75-99) 08/12/19 06:04 POC Glu Postage Machine Operator Santo Carvajal 08/12/19 06:04 Plasma Lactic Acid Dennis 0.8 mmol/L (0.7-2.0) 08/12/19 05:30 Calcium 8.8 mg/dL (8.4-10.2) 08/12/19 05:30 Phosphorus 3.1 mg/dL (2.5-4.5) 08/12/19 05:30 Magnesium 2.1 mg/dL (1.6-2.3) 08/12/19 05:30 Total Bilirubin 0.9 mg/dL (0.2-1.3) 08/11/19 12:45 AST 68 U/L (17-59) H 08/11/19 12:45 ALT 20 U/L (21-72) L 08/11/19 12:45 Alkaline Phosphatase 102 U/L (38-126) 08/11/19 12:45 Troponin I 0.169 ng/mL (0.000-0.034) H* 08/11/19 23:58 Total Protein 8.1 g/dL (6.3-8.2) 08/11/19 12:45 Albumin 3.1 g/dL (3.5-5.0) L 08/11/19 12:45 Urine Color Brown 08/11/19 20:07 Urine Appearance Cloudy (Clear) 08/11/19 20:07 Urine pH Not Reportable 08/11/19 20:07 Ur Specific Tanner Not Reportable 08/11/19 20:07 Urine Protein Not Reportable 08/11/19 20:07 Ur Protein Confirm Not Reportable 08/11/19 20:07 Urine Glucose (UA) Not Reportable 08/11/19 20:07 Urine Ketones Not Reportable 08/11/19 20:07 Urine Blood Not Reportable 08/11/19 20:07 Urine Nitrite Not Reportable 08/11/19 20:07 Urine Bilirubin Not Reportable 08/11/19 20:07 Ur Bilirubin Confirm Not Reportable 08/11/19 20:07 Urine Urobilinogen Not Reportable 08/11/19 20:07 Ur Leukocyte Esterase Not Reportable 08/11/19 20:07 Urine RBC >182 /hpf (0-5) H 08/11/19 20:07 Urine WBC >182 /hpf (0-5) H 08/11/19 20:07 Urine WBC Clumps Many /hpf (None) H 08/11/19 20:07 Urine Bacteria Many /hpf (None) H 08/11/19 20:07 Urine Mucus Many /hpf (None) H 08/11/19 20:07 Urine Opiates Screen Cancelled 08/11/19 20:07 Ur Oxycodone Screen Cancelled 08/11/19 20:07 Urine Methadone Screen Cancelled 08/11/19 20:07 Ur Propoxyphene Screen Cancelled 08/11/19 20:07 Ur Barbiturates Screen Cancelled 08/11/19 20:07 U Tricyclic Antidepress Cancelled 08/11/19 20:07 Ur Phencyclidine Scrn Cancelled 08/11/19 20:07 Ur Amphetamines Screen Cancelled 08/11/19 20:07 U Methamphetamines Scrn Cancelled 08/11/19 20:07 U Benzodiazepines Scrn Cancelled 08/11/19 20:07 Urine Cocaine Screen Cancelled 08/11/19 20:07 U Marijuana (THC) Screen Cancelled 08/11/19 20:07 CBC & Chem 7: 08/12/19 05:30 08/12/19 05:30 Labs: Abnormal Lab Results - Last 24 Hours (Table) 08/11/19 08/11/19 08/11/19 Range/Units 12:45 12:45 12:45 WBC 18.8 H (3.8-10.6) k/uL RBC 4.12 L (4.30-5.90) m/uL Hgb 10.9 L (13.0-17.5) gm/dL Hct 38.4 L (39.0-53.0) % MCH (25.0-35.0) pg MCHC 28.5 L (31.0-37.0) g/dL RDW 18.5 H (11.5-15.5) % Neutrophils # (Manual) 16.17 H (1.3-7.7) k/uL Lymphocytes # (Manual) 0.56 L (1.0-4.8) k/uL Monocytes # (Manual) 1.88 H (0-1.0) k/uL Metamyelocytes # (Man) 0.19 H (0) k/uL Myelocytes # (Manual) 0.38 H (0) k/uL ABG pH (7.35-7.45) ABG pCO2 (35-45) mmHg ABG HCO3 (21-25) mmol/L ABG Total CO2 (19-24) mmol/L Sodium 136 L (137-145) mmol/L Creatinine 1.34 H (0.66-1.25) mg/dL Glucose (74-99) mg/dL AST 68 H (17-59) U/L ALT 20 L (21-72) U/L Troponin I 0.127 H* (0.000-0.034) ng/mL Albumin 3.1 L (3.5-5.0) g/dL Urine RBC (0-5) /hpf Urine WBC (0-5) /hpf Urine WBC Clumps (None) /hpf Urine Bacteria (None) /hpf Urine Mucus (None) /hpf 08/11/19 08/11/19 08/11/19 Range/Units 15:08 20:02 20:07 WBC (3.8-10.6) k/uL RBC (4.30-5.90) m/uL Hgb (13.0-17.5) gm/dL Hct (39.0-53.0) % MCH (25.0-35.0) pg MCHC (31.0-37.0) g/dL RDW (11.5-15.5) % Neutrophils # (Manual) (1.3-7.7) k/uL Lymphocytes # (Manual) (1.0-4.8) k/uL Monocytes # (Manual) (0-1.0) k/uL Metamyelocytes # (Man) (0) k/uL Myelocytes # (Manual) (0) k/uL ABG pH 7.16 L* (7.35-7.45) ABG pCO2 87 H* 28 L (35-45) mmHg ABG HCO3 31 H 15 L (21-25) mmol/L ABG Total CO2 33 H 16 L (19-24) mmol/L Sodium (137-145) mmol/L Creatinine (0.66-1.25) mg/dL Glucose (74-99) mg/dL AST (17-59) U/L ALT (21-72) U/L Troponin I (0.000-0.034) ng/mL Albumin (3.5-5.0) g/dL Urine RBC >182 H (0-5) /hpf Urine WBC >182 H (0-5) /hpf Urine WBC Clumps Many H (None) /hpf Urine Bacteria Many H (None) /hpf Urine Mucus Many H (None) /hpf 08/11/19 08/12/19 08/12/19 Range/Units 23:58 05:30 05:30 WBC 14.8 H (3.8-10.6) k/uL RBC (4.30-5.90) m/uL Hgb 10.5 L (13.0-17.5) gm/dL Hct (39.0-53.0) % MCH 24.2 L (25.0-35.0) pg MCHC 25.7 L (31.0-37.0) g/dL RDW 19.3 H (11.5-15.5) % Neutrophils # (Manual) 13.70 H (1.3-7.7) k/uL Lymphocytes # (Manual) 0.59 L (1.0-4.8) k/uL Monocytes # (Manual) (0-1.0) k/uL Metamyelocytes # (Man) (0) k/uL Myelocytes # (Manual) (0) k/uL ABG pH (7.35-7.45) ABG pCO2 (35-45) mmHg ABG HCO3 (21-25) mmol/L ABG Total CO2 (19-24) mmol/L Sodium (137-145) mmol/L Creatinine 1.88 H (0.66-1.25) mg/dL Glucose 101 H (74-99) mg/dL AST (17-59) U/L ALT (21-72) U/L Troponin I 0.169 H* (0.000-0.034) ng/mL Albumin (3.5-5.0) g/dL Urine RBC (0-5) /hpf Urine WBC (0-5) /hpf Urine WBC Clumps (None) /hpf Urine Bacteria (None) /hpf Urine Mucus (None) /hpf Assessment and Plan Plan: This 68-year-old male is well-known to the service as he was recently hospitalized for chronic pyelonephritis and transferred to [facility]. Nephrostomy tube was not changed at [facility] patient was discharged home. He presents with signs of sepsis with septic shock along with chronic pyelonephritis. Patient is requiring vasopressors. He is currently on cefepime which will be transitioned to Fortaz and daptomycin. Most recent urine culture positive for pseudomonas and MRSA. Repeat urine culture and blood cultures status received. Continue supportive care. Further recommendations as patient progresses. The above dictated assessment and findings were discussed with Dr. Chadwick. The impression and plan of care have been directed as dictated. Hailey Beth nurse practitioner acting as scribe for Dr. Chadwick.
[2019-08-12] MEDS ORDERED: DAPTOmycin 500 MG in SODIUM CHLORIDE 0.9% 50 ML IVPB SCH ×4 (10:00)
--- NOTE | 2019-08-12 12:46 | P.CNPUL ---
History of Present Illness Consult date: 08/12/19 Reason for consult: other (Sepsis/septic shock) Chief complaint: Altered mental status History of present illness: This is a 68-year-old white male with history of morbid obesity, end-stage renal disease, on hemodialysis, history of staghorn calculus and right kidney with obstruction requiring a right-sided percutaneous nephrostomy tube, questionable renal neoplasm, patient follows with urology and nephrology at [facility], and he was felt to be a poor surgical candidate for any surgical intervention/nephrectomy. Patient was recently admitted to [facility] July 30 of August 05, and he had positive urine cultures for Pseudomonas and MRSA. Treated with cefepime and vancomycin. Patient was not showing much improvement, and his source of infection was felt to be related to his nephrostomy tubes then apparently patient was transferred to [facility] spent few days at [facility], and he was discharged a few days ago. Since that discharge, the patient has been feeling weak, sleeping most of the time, fatigue, denies any fever chills nausea vomiting abdominal pain. Denies any diarrhea. No specific intervention was made at [facility]. Patient presented last night to the ER with multiple constitutional symptoms, his WBC count was elevated at 18.8, he was afebrile, his troponins were borderline elevated. Urinalysis clearly showed evidence of urinary tract infection and the urine in the nephrostomy tube was foul-smelling and seems to be extremely purulent. Chest x-ray showed mostly evidence of pleural effusions, atelectasis, no clear-cut evidence of pneumonia. Patient was admitted he required fluid boluses and he had a short course of norepinephrine for low blood pressure he was placed empirically on antibiotics and he is presently on daptomycin and Fortaz. Patient is not a great historian. Most of the information was obtained from the chart. Presently the patient is off norepinephrine, he is receiving hemodialysis, and he is on BiPAP. His BiPAP is at 12/5 and 40% FiO2. Review of Systems Constitutional: Patient mostly complains of fatigue, no energy, poor appetite. Eyes: Denies diplopia or blurred vision Ears, nose, mouth and throat: Denies sore throat or headache or earache Cardiovascular: Denies chest pain or palpitations. Respiratory: Denies cough wheezing shortness of breath Gastrointestinal: Complains of poor appetite, no nausea no vomiting no melena no hematemesis. Genitourinary: Reports as per HPI Musculoskeletal: Complains of frequent falls, unsteady gait. Integumentary: Denies skin rashes or pruritus. Neurological: Mostly complains of generalized weakness. Psychiatric: Denies any symptoms of active depression Endocrine: Denies heat or cold intolerance. 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 History of Any Multi-Drug Resistant Organisms: C-DIFF, MRSA Date of last positivie culture/infection: 07/30/19 MDRO Source:: MRSA URINE, ASPIRATE, Cdiff now Past Surgical History: Adenoidectomy, Back Surgery, Heart Catheterization With Stent, Hernia Repair, Tonsillectomy Additional Past Surgical History / Comment(s): LT ARM FISTULA-NO BP OR BLOOD DRAWS IN LT ARM, PCI with stent, low back surgery, nephrostomy tubes-replaced 05/22/19, abdominal hernia, colonoscopy with benign polyp Past Anesthesia/Blood Transfusion Reactions: No Reported Reaction Date of Last Stent Placement:: 2004 Past Psychological History: No Psychological Hx Reported Additional Psychological History / Comment(s): Pt has a brother that lives with him and his son comes over daily and a grand daughter that comes regularly. They are his caregivers. He currently has no home care. Pt has a hospital bed and stays in bed now d/t too painful to get up into wheelchair. Owns a kelby lift, cpap and megamover transfer mat. Smoking Status: Former smoker Past Alcohol Use History: None Reported Additional Past Alcohol Use History / Comment(s): Patient smoked for 10 years ago quit in 1981. Patient has a brother who lives with him and his son comes over daily. They are his caregivers. He has a hospital bed, only her left, CPAP, megamover transfer mat. Past Drug Use History: None Reported - Past Family History Brother(s) Family Medical History: Cancer Additional Family Medical History / Comment(s): Colon Ca- Father Family Medical History: Cancer Additional Family Medical History / Comment(s): father had lung cancer. He was a smoker and worked in a foundry. Mother Family Medical History: Coronary Artery Disease (CAD) Additional Family Medical History / Comment(s): Mother had CABG in her 70s. Medications and Allergies Home Medications Medication Instructions Recorded Confirmed Type Atorvastatin [Lipitor] 10 mg PO HS 10/30/17 08/11/19 History Calcium Acetate [PhosLo] 667 mg PO TID 10/30/17 08/11/19 History Cholecalciferol [Vitamin D3 (25 1,000 unit PO DAILY tab 10/17/18 08/11/19 Rx Mcg = 1000 Iu)] Cyanocobalamin [Vitamin B-12] 1,000 mcg PO DAILY tab 10/17/18 08/11/19 Rx Ferrous Sulfate [Iron (65 MG 325 mg PO MOWEFR 03/05/19 08/11/19 History Elemental)] HYDROcodone/APAP 5-325MG [[place] 1 tab PO Q6H PRN 03/05/19 08/11/19 History 5-325] Landy-Emmanuel 1 tab PO HS 05/28/19 08/11/19 History Magne Bind 300mg 300 mg PO BID 07/30/19 08/11/19 History Midodrine [ProAmatine] 10 mg PO BID 07/30/19 08/11/19 History Aspirin EC [Ecotrin] 325 mg PO DAILY 08/11/19 08/11/19 History L.acidoph,Paracasei, B.lactis 1 cap PO DAILY 08/11/19 08/11/19 History [Probiotic] Metoprolol Tartrate [Lopressor] 25 mg PO BID 08/11/19 08/11/19 History Vitamin B Complex With C 1 tab PO DAILY 08/11/19 08/11/19 History Allergies Allergy/AdvReac Type Severity Reaction Status Date / Time diphenhydramine Allergy Unknown Verified 08/11/19 13:24 [From Andry] heparin AdvReac Unknown Verified 08/11/19 13:24 Physical Exam Vitals: Vital Signs Temp Pulse Pulse Resp BP BP Pulse Ox 08/12/19 12:00 97.8 F 105 H 23 85/70 91 L 08/12/19 11:30 104 H 22 158/97 08/12/19 11:25 97.8 F 102 H 20 94/78 08/12/19 11:00 102 H 21 112/98 97 08/12/19 10:30 105 H 21 88/52 98 08/12/19 10:00 103 H 17 84/50 97 08/12/19 09:30 106 H 22 107/83 95 08/12/19 09:00 97.7 F 98 19 84/62 96 08/12/19 08:30 101 H 20 109/69 96 08/12/19 08:00 104 H 20 97/67 96 08/12/19 07:30 96 20 102/62 97 08/12/19 07:00 93 18 103/62 96 08/12/19 06:00 98 18 114/65 97 08/12/19 05:00 91 12 108/68 95 08/12/19 04:00 97.5 F L 87 17 113/69 95 08/12/19 03:30 79 17 81/52 97 08/12/19 03:15 84 22 71/46 97 08/12/19 03:00 88 14 82/45 97 08/12/19 02:45 85 12 89/58 93 L 08/12/19 02:30 82 12 96/60 97 08/12/19 02:15 89 7 L 92/63 95 08/12/19 02:00 97.3 F L 82 15 82/58 97 08/12/19 01:45 95 20 77/47 08/12/19 01:39 87 93/60 08/12/19 01:00 87 16 93/57 100 08/12/19 00:00 81 16 90/55 99 08/11/19 23:47 84 16 88/57 100 08/11/19 23:33 97.3 F L 17 08/11/19 23:00 84 16 90/57 99 08/11/19 22:52 85 20 92/60 100 08/11/19 22:35 98.8 F 87 16 90/69 99 08/11/19 22:00 83 20 88/59 99 08/11/19 20:54 81 20 76/52 97 08/11/19 20:00 77 16 77/45 99 08/11/19 19:50 80 20 65/50 99 08/11/19 19:00 79 20 77/47 99 08/11/19 15:30 89 20 90/52 96 08/11/19 15:00 92 20 89/34 96 08/11/19 14:00 84 18 97/25 95 08/11/19 12:36 96 20 95/31 94 L 08/11/19 12:35 94 L Intake and Output 08/11/19 08/12/19 08/12/19 22:59 06:59 14:59 Intake Total 167.722 441.974 Output Total 6050 Balance 167.722 -5608.026 Intake: IV 60 120 0.9 NS 60 120 Intake, IV Titration 107.722 321.974 Amount Cefepime 2 gm In Sodium 100 Chloride 0.9% 100 ml @ 200 mls/hr IVPB Q8HR CRICKET Rx#:[id number] DAPTOmycin 500 mg In 50 Sodium Chloride 0.9% 50 ml @ 100 mls/hr IVPB Q48H CRICKET Rx#:[id number] Norepinephrine 32 mg In 34.654 121.974 Sodium Chloride 0.9% 218 ml @ 0.05 MCG/KG/MIN 3. 767 mls/hr IV .Q24H CRICKET Rx#:[id number] Norepinephrine 4 mg In 73.068 Sodium Chloride 0.9% 250 ml @ 0.05 MCG/KG/MIN 30. 615 mls/hr IV .Q8H18M CRICKET Rx#:[id number] cefTAZidime 0.5 gm In 50 Sodium Chloride 0.9% 50 ml @ 100 mls/hr IVPB Q2D CRICKET Rx#:[id number] Output: Urine 50 Hemodialysis 3000 Other 3000 Other: Weight 156.8 kg 156.8 kg Gen: Revealed a 68-year-old white male obese, on BiPAP, in no distress. HEENT: Atraumatic normocephalic. PERRLA, EOMI, no active. NECK: Supple. No neck masses no JVD no thyromegaly.. LUNGS: Diminished breath sounds at the bases crackles at the bases no rhonchi and no wheezes. HEART: Regular rate and rhythm. 2/6 systolic murmur thought the precordium ABDOMEN: Obese soft nontender, nephrostomy tube noted in the right upper quadrant, foul-smelling urine is noted in the nephrostomy bag. EXTREMITIES: Hemodialysis fistula to the left upper extremity. Chronic venous stasis changes to the bilateral lower extremities. 3+ lateral lower extremity edema. Dorsalis pedis +1 bilaterally.. NEUROLOGICAL: Alert oriented 3, no gross focal neurologic deficits. Psychiatric: Normal mood affect and normal mental status examination. Skin: No rashes. Lymphatics: No lymphadenopathy. Results - Laboratory Findings CBC and BMP: 08/12/19 05:30 08/12/19 05:30 ABG ABG pH 7.35 (7.35-7.45) 08/11/19 20:02 ABG pCO2 28 mmHg (35-45) L 08/11/19 20:02 ABG pO2 91 mmHg (83-108) 08/11/19 20:02 ABG O2 Saturation 96.1 % (94-97) 08/11/19 20:02 PT/INR, D-dimer PT 11.2 sec (9.0-12.0) 08/11/19 12:45 INR 1.1 (<1.2) 08/11/19 12:45 Abnormal lab findings: Abnormal Labs 08/11/19 08/11/19 08/11/19 12:45 12:45 12:45 WBC 18.8 H RBC 4.12 L Hgb 10.9 L Hct 38.4 L MCH MCHC 28.5 L RDW 18.5 H Neutrophils # (Manual) 16.17 H Lymphocytes # (Manual) 0.56 L Monocytes # (Manual) 1.88 H Metamyelocytes # (Man) 0.19 H Myelocytes # (Manual) 0.38 H ABG pH ABG pCO2 ABG HCO3 ABG Total CO2 Sodium 136 L Creatinine 1.34 H Glucose AST 68 H ALT 20 L Troponin I 0.127 H* Albumin 3.1 L Urine RBC Urine WBC Urine WBC Clumps Urine Bacteria Urine Mucus 08/11/19 08/11/19 08/11/19 15:08 20:02 20:07 WBC RBC Hgb Hct MCH MCHC RDW Neutrophils # (Manual) Lymphocytes # (Manual) Monocytes # (Manual) Metamyelocytes # (Man) Myelocytes # (Manual) ABG pH 7.16 L* ABG pCO2 87 H* 28 L ABG HCO3 31 H 15 L ABG Total CO2 33 H 16 L Sodium Creatinine Glucose AST ALT Troponin I Albumin Urine RBC >182 H Urine WBC >182 H Urine WBC Clumps Many H Urine Bacteria Many H Urine Mucus Many H 08/11/19 08/12/19 08/12/19 23:58 05:30 05:30 WBC 14.8 H RBC Hgb 10.5 L Hct MCH 24.2 L MCHC 25.7 L RDW 19.3 H Neutrophils # (Manual) 13.70 H Lymphocytes # (Manual) 0.59 L Monocytes # (Manual) Metamyelocytes # (Man) Myelocytes # (Manual) ABG pH ABG pCO2 ABG HCO3 ABG Total CO2 Sodium Creatinine 1.88 H Glucose 101 H AST ALT Troponin I 0.169 H* Albumin Urine RBC Urine WBC Urine WBC Clumps Urine Bacteria Urine Mucus 08/12/19 05:30 WBC RBC Hgb Hct MCH MCHC RDW Neutrophils # (Manual) Lymphocytes # (Manual) Monocytes # (Manual) Metamyelocytes # (Man) Myelocytes # (Manual) ABG pH ABG pCO2 ABG HCO3 ABG Total CO2 Sodium Creatinine Glucose AST ALT Troponin I 0.169 H* Albumin Urine RBC Urine WBC Urine WBC Clumps Urine Bacteria Urine Mucus - Diagnostic Findings Chest x-ray: image reviewed (As noted in HPI.) Assessment and Plan Assessment: Impression: 1 acute septic shock, secondary to urinary tract infection and most likely infected nephrostomy tubes and pyelonephritis. 2 bilateral pleural effusions, fluid overload secondary to chronic renal failure. Patient will improve with hemodialysis. 3 multiple comorbidities including chronic atrial fibrillation, hypertension, obstructive sleep apnea syndrome, chronic renal failure on hemodialysis, stage IV, hyperlipidemia, paraplegia related to a back injury, staghorn calculus in right kidney, previous nephrostomy tube in right kidney, chronic anemia of chronic disease, multiple episodes of urinary tract infections in the past, history of deep vein thrombosis. Chronic venous stasis dermatitis, Recommendation: Patient will remain on present antibiotics including Fortaz and daptomycin, infectious disease consultation was initiated, urology consultation was also initiated, patient may eventually require nephrostomy tube change, patient will remain in the ICU, continue hemodynamic support as necessary maintain mean arterial pressure of 65, GI and DVT prophylaxis, prognosis is extremely poor and guarded, I had a long discussion with the patient regarding his CODE STATUS, and he wishes to remain full code. He will discussed the CODE STATUS again with his son. We will continue to follow again prognosis is extremely poor. Time with Patient: Greater than 30
[2019-08-12] MEDS ORDERED: DARBEPOETIN ALFA 40 MCG/0.4 ML SYRINGE SQ SCH (18:00)
[2019-08-12] MEDS: HYDROcodone/APAP 5-325MG 1 EACH TAB PO PRN (18:44)
--- NOTE | 2019-08-12 19:16 | P.GSCN ---
History of Present Illness Consult date: 08/12/19 Reason for Consult: right sided nephrostomy tube History of present illness: Mr. Dahl is a 68-year-old male with multiple comorbidities. patient presented to the ED with altered mental status. Of note he was recently hospitalized from July 30 through August 05. He has hx of chronic staghorn calculus and chronic infection of the right kidney currently been managed by IR at [facility]. The patient has a very poor functional status and is a surgical candidate. On evaluation today he denies any flank pain, the right nephrostomy tube with purulent drainage. Review of Systems ROS unobtainable: due to mental status Past Medical History Past Medical History: Atrial Fibrillation, Dialysis, Deep Vein Thrombosis (DVT), GI Bleed, Hyperlipidemia, Hypertension, Renal Disease, Sleep Apnea/CPAP/BIPAP Additional Past Medical History / Comment(s): Paraplegia r/t back injury/surgery-pt states he no longer gets up into wheelchair d/t too painful, ESRD with hemodialysis-M/W/F, enlarged R kidney with stones/staghorn-has chronic nephrostomy tube/bag, chronic anemia, mineral bone disease, recurrent CDiff infections, sepsis 2ndary to CDiff colitis/UTI, possible past upper GI bleed, DVT in a leg post op, arhtritis multiple joints, pickwickian syndrome, past respiratory failure/vented, ISACC with Cpap, bilateral lower extremity venous stasis/dermatitis, bilateral lower leg/feet edema and currently scabs on L foot toes. History of Any Multi-Drug Resistant Organisms: C-DIFF, MRSA Year Discovered:: 07/30/19 MDRO Source:: MRSA URINE, ASPIRATE, Cdiff now Past Surgical History: Adenoidectomy, Back Surgery, Heart Catheterization With Stent, Hernia Repair, Tonsillectomy Additional Past Surgical History / Comment(s): LT ARM FISTULA-NO BP OR BLOOD DRAWS IN LT ARM, PCI with stent, low back surgery, nephrostomy tubes-replaced 05/22/19, abdominal hernia, colonoscopy with benign polyp Past Anesthesia/Blood Transfusion Reactions: No Reported Reaction Date of Last Stent Placement:: 2004 Past Psychological History: No Psychological Hx Reported Additional Psychological History / Comment(s): Pt has a brother that lives with him and his son comes over daily and a grand daughter that comes regularly. They are his caregivers. He currently has no home care. Pt has a hospital bed and stays in bed now d/t too painful to get up into wheelchair. Owns a kelby lift, cpap and megamover transfer mat. Smoking Status: Former smoker Past Alcohol Use History: None Reported Additional Past Alcohol Use History / Comment(s): Patient smoked for 10 years ago quit in 1981. Patient has a brother who lives with him and his son comes o dulce daily. They are his caregivers. He has a hospital bed, only her left, CPAP, megamover transfer mat. Past Drug Use History: None Reported - Past Family History Brother(s) Family Medical History: Cancer Additional Family Medical History / Comment(s): Colon Ca- Father Family Medical History: Cancer Additional Family Medical History / Comment(s): father had lung cancer. He was a smoker and worked in a foundry. Mother Family Medical History: Coronary Artery Disease (CAD) Additional Family Medical History / Comment(s): Mother had CABG in her 70s. Medications and Allergies Home Medications Medication Instructions Recorded Confirmed Type Atorvastatin [Lipitor] 10 mg PO HS 10/30/17 08/11/19 History Calcium Acetate [PhosLo] 667 mg PO TID 10/30/17 08/11/19 History Cholecalciferol [Vitamin D3 (25 1,000 unit PO DAILY tab 10/17/18 08/11/19 Rx Mcg = 1000 Iu)] Cyanocobalamin [Vitamin B-12] 1,000 mcg PO DAILY tab 10/17/18 08/11/19 Rx Ferrous Sulfate [Iron (65 MG 325 mg PO MOWEFR 03/05/19 08/11/19 History Elemental)] HYDROcodone/APAP 5-325MG [[place] 1 tab PO Q6H PRN 03/05/19 08/11/19 History 5-325] Landy-Emmanuel 1 tab PO HS 05/28/19 08/11/19 History Magne Bind 300mg 300 mg PO BID 07/30/19 08/11/19 History Midodrine [ProAmatine] 10 mg PO BID 07/30/19 08/11/19 History Aspirin EC [Ecotrin] 325 mg PO DAILY 08/11/19 08/11/19 History L.acidoph,Paracasei, B.lactis 1 cap PO DAILY 08/11/19 08/11/19 History [Probiotic] Metoprolol Tartrate [Lopressor] 25 mg PO BID 08/11/19 08/11/19 History Vitamin B Complex With C 1 tab PO DAILY 08/11/19 08/11/19 History Allergies Allergy/AdvReac Type Severity Reaction Status Date / Time diphenhydramine Allergy Unknown Verified 08/11/19 13:24 [From Benadryl] heparin AdvReac Unknown Verified 08/11/19 13:24 Surgical - Exam Vital Signs Pulse Ox 94 L 08/11/19 12:35 - General no distress, no pain - Abdomen Abdomen: soft, non tender - Genitourinary no CVA tenderness right PCN in place with purulent drainage - Psychiatric oriented to place Results - Labs 08/12/19 05:30 08/12/19 05:30 Abnormal Lab Results - Last 24 Hours (Table) 08/11/19 08/11/19 08/11/19 Range/Units 20:02 20:07 23:58 WBC (3.8-10.6) k/uL Hgb (13.0-17.5) gm/dL MCH (25.0-35.0) pg MCHC (31.0-37.0) g/dL RDW (11.5-15.5) % Neutrophils # (Manual) (1.3-7.7) k/uL Lymphocytes # (Manual) (1.0-4.8) k/uL ABG pCO2 28 L (35-45) mmHg ABG HCO3 15 L (21-25) mmol/L ABG Total CO2 16 L (19-24) mmol/L Creatinine (0.66-1.25) mg/dL Glucose (74-99) mg/dL Troponin I 0.169 H* (0.000-0.034) ng/mL Urine RBC >182 H (0-5) /hpf Urine WBC >182 H (0-5) /hpf Urine WBC Clumps Many H (None) /hpf Urine Bacteria Many H (None) /hpf Urine Mucus Many H (None) /hpf 08/12/19 08/12/19 08/12/19 Range/Units 05:30 05:30 05:30 WBC 14.8 H (3.8-10.6) k/uL Hgb 10.5 L (13.0-17.5) gm/dL MCH 24.2 L (25.0-35.0) pg MCHC 25.7 L (31.0-37.0) g/dL RDW 19.3 H (11.5-15.5) % Neutrophils # (Manual) 13.70 H (1.3-7.7) k/uL Lymphocytes # (Manual) 0.59 L (1.0-4.8) k/uL ABG pCO2 (35-45) mmHg ABG HCO3 (21-25) mmol/L ABG Total CO2 (19-24) mmol/L Creatinine 1.88 H (0.66-1.25) mg/dL Glucose 101 H (74-99) mg/dL Troponin I 0.169 H* (0.000-0.034) ng/mL Urine RBC (0-5) /hpf Urine WBC (0-5) /hpf Urine WBC Clumps (None) /hpf Urine Bacteria (None) /hpf Urine Mucus (None) /hpf Microbiology - Last 24 Hours (Table) 08/12/19 07:45 Urine Culture - Preliminary Urine,Catheterized Diabetes panel 08/12/19 Range/Units 05:30 Sodium 138 (137-145) mmol/L Potassium 3.6 (3.5-5.1) mmol/L Chloride 101 (98-107) mmol/L Carbon Dioxide 27 (22-30) mmol/L BUN 16 (9-20) mg/dL Creatinine 1.88 H (0.66-1.25) mg/dL Glucose 101 H (74-99) mg/dL Calcium 8.8 (8.4-10.2) mg/dL Calcium panel 08/12/19 Range/Units 05:30 Calcium 8.8 (8.4-10.2) mg/dL Phosphorus 3.1 (2.5-4.5) mg/dL Pituitary panel 08/12/19 Range/Units 05:30 Sodium 138 (137-145) mmol/L Potassium 3.6 (3.5-5.1) mmol/L Chloride 101 (98-107) mmol/L Carbon Dioxide 27 (22-30) mmol/L BUN 16 (9-20) mg/dL Creatinine 1.88 H (0.66-1.25) mg/dL Glucose 101 H (74-99) mg/dL Calcium 8.8 (8.4-10.2) mg/dL Adrenal panel 08/12/19 Range/Units 05:30 Sodium 138 (137-145) mmol/L Potassium 3.6 (3.5-5.1) mmol/L Chloride 101 (98-107) mmol/L Carbon Dioxide 27 (22-30) mmol/L BUN 16 (9-20) mg/dL Creatinine 1.88 H (0.66-1.25) mg/dL Glucose 101 H (74-99) mg/dL Calcium 8.8 (8.4-10.2) mg/dL - Imaging CT scan - abdomen: image reviewed (right staghorn calculi) Assessment and Plan Assessment: Mr. Dahl is a 68-year-old male with right-sided staghorn calculus, chrnoically infected right kidney that is currently been managed by a right percutaneous nephrostomy tube. Patient admitted with AMS. Plan: -Keep Nephrstomy in place, can keep his appointment for nephrostomy tube exchange at [facility]. He has chronic infection of the right kidney secondary to his staghorn calculu and unlikely to benefit from nephrostomy tube exchange at this time -Can flush PCN with saline PRN if poor drainage
--- NOTE | 2019-08-12 19:44 | P.HPIM ---
History of Present Illness H&P Date: 08/12/19 Chief Complaint: Confused History of presenting complaint: This is a very pleasant 68-year-old patient of Dr. Akshat Acevedo from visiting physician. Has a rather extensive medical history. Patient's brother lives with them and also provides care to him. Patient's son also drops in the house to help him out. Chronic stable medical conditions include atrial fibrillation, end-stage kidney disease on hemodialysis, hyperlipidemia, chronic hypotension, sleep apnea. 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 Patient gets dialysis Sunday and Sunday. Patient also has obstructive sleep apnea uses CPAP. Patient also got bilateral lower extremity venous stasis dermatitis. Dry feet.. Patient had prior C. diff. patient has nephrolithiasis with chronic right-sided nephrostomy tube being followed at [facility]. Patient recently was in the hospital from July 30 through August 05. He then presented with altered mental status. Patient is felt to UTI versus infective nephrostomy tube. Patient was treated with vancomycin and cefepime. Patient continued to have purulent drainage to the right nephrostomy tube. As patient was not getting any better and after discussing Dr. Chadwick it was decided to transfer the patient to [facility]. So that some surgical intervention could be carried out. Patient was discharged from [facility] as he was felt to be very high risk candidate for any surgical intervention. Patient presented to ER with altered mental status somewhat bit confused. PCO2 was high. Patient was delirious. Patient's been on a BiPAP and patient are drawn. Blood gases improved. Patient continues to have thick purulent drainage the right nephrostomy tube. Admitted for the same. Also running a low blood pressure in the 70s systolic. Given IV fluids. Patient admitted to the ICU. Not doing too well. The able to answer questions. Son at the bedside. Consultations were made to wide area network administrator, nephrology, infectious disease. Review of systems: GEN.: Tired EYES: None HEENT: None NECK: None RESPIRATORY: Short of breath CARDIOVASCULAR: None GASTROINTESTINAL: None GENITOURINARY: None MUSCULOSKELETAL: Pain in the joints] LYMPHATICS: None HEMATOLOGICAL: None PSYCHIATRY: None NEUROLOGICAL: Weakness lower extremity Social history: Patient's brother lives with him. Was also's caregiver. Son lives nearby. Patient smoked only 10 years stopped in 1981. bedbound. Family history: Colon cancer Physical examination: VITAL SIGNS: 96, 20, 95/31, 94% on 4 L GENERAL: BMI 46.9, laying in bed, tired using a BiPAP EYES: Pupils equal. Conjunctiva normal. HEENT: External appearance of nose and ears normal, oral cavity grossly dry. NECK: JVD unable to assess,; masses not palpable. HEART: Heart sounds muffled; some edema. LUNGS: Respiratory rate increased; diminished breath sounds. ABDOMEN: Soft, nontender, liver spleen not palpable, no masses palpable. PSYCH: Alert and oriented x3; mood and affect tired. NEUROLOGICAL: Cranial nerves grossly intact; no facial asymmetry, minimal power in the lower extremity, sensation grossly present. LYMPHATICS: No lymph nodes palpable in the axilla and neck EXTREMITY: Dry, both the feet with dysmorphic nails. Patient wearing boots on both the feet Investigations: White count 18.8 hemoglobin 10.9 potassium 4.7 bun 11 creatinine 1.34 Troponin 0.127, 0.169, 0.169 Arterial blood gases show pH is 7.16 pCO2 of 87 Assessment: -Acute severe bacterial pyuria, but severely infected nephrostomy tube. Patient has been on antibiotics for quite a few days now. No relief or improvement. Still putting out significant purulent drainage. Patient was recently transferred to [facility] with the hope that some abscess could be drained. Because patient is very high surgical risks no intervention was done. -Acute on chronic hypoxic and hypercapnic respiratory failure requiring BiPAP, POA -Septic shock from above requiring pressure support -Acute metabolic encephalopathy from CO2 narcosis, improved with BiPAP -History of atrial fibrillation -End-stage kidney disease on hemodialysis Sunday and Sunday -Hyperlipidemia -Essential hypertension -Obstructive sleep apnea uses CPAP -Chronic paraplegia due to a back injury -Chronic medical debility patient is being much bedbound - anemia of chronic kidney disease -Mineral bone disease -Primary osteoarthritis multiple joints -Pickwickian syndrome -Bilateral lower extremity venous stasis dermatitis ] Plan: Admitted to the ICU. Patient was seen by nephrology, infectious disease, wide area network administrator. Patient was initially started on cefepime and then transition to Fortaz and daptomycin by Dr. Chadwick. Patient is on a BiPAP. Other medications resumed. Patient got supportive boots of the lower extremity.'s to take off the pressure. Spent a good amount of time discussing with my colleagues and consultants to include Dr. Manning from critical care, Dr. Jacobson from nephrology, Dr. Chadwick for infectious disease, off overall patient's poor prognosis. It was a collective impression that patient's failing doing poorly and without any surgery prognosis extremely poor. In any case patient is extremely high risk for any surgery. Also has multiple comorbidities and patient's been failing. Advanced care planning: Had extensive and detailed talk both with the patient and patient's son. This discussed what I discussed with my other colleagues. Both the patient and the son understand that the doing poorly. Antibiotics are not really helping and specially the nephrostomy tube still putting out pus. They do realize that patient's quality of life is very poor. Decision-making is done both by the patient and his son. They finally decided to proceed to DO NOT RESUSCITATE status. Also want informational visit from hospice so that patient can be discharged home to hospice. That should happen tomorrow. Several questions were answered. We also discussed that dialysis is only prolonging the current situation and they might decide about stopping the same. I did speak to the social insurance adviser to get hospice come out and do informational visit. Patient at this point has no indication for GIP hospice. The did the patient and the son know to call me if that any further questions. About 30 minutes was spent with a ACP. 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 History of Any Multi-Drug Resistant Organisms: C-DIFF, MRSA Date of last positivie culture/infection: 07/30/19 MDRO Source:: MRSA URINE, ASPIRATE, Cdiff now Past Surgical History: Adenoidectomy, Back Surgery, Heart Catheterization With Stent, Hernia Repair, Tonsillectomy Additional Past Surgical History / Comment(s): LT ARM FISTULA-NO BP OR BLOOD DRAWS IN LT ARM, PCI with stent, low back surgery, nephrostomy tubes-replaced 05/22/19, abdominal hernia, colonoscopy with benign polyp Past Anesthesia/Blood Transfusion Reactions: No Reported Reaction Date of Last Stent Placement:: 2004 Past Psychological History: No Psychological Hx Reported Additional Psychological History / Comment(s): Pt has a brother that lives with him and his son comes over daily and a grand daughter that comes regularly. They are his caregivers. He currently has no home care. Pt has a hospital bed and stays in bed now d/t too painful to get up into wheelchair. Owns a kelby lift, cpap and megamover transfer mat. Smoking Status: Former smoker Past Alcohol Use History: None Reported Additional Past Alcohol Use History / Comment(s): Patient smoked for 10 years ago quit in 1981. Patient has a brother who lives with him and his son comes over daily. They are his caregivers. He has a hospital bed, only her left, CPAP, megamover transfer mat. Past Drug Use History: None Reported - Past Family History Brother(s) Family Medical History: Cancer Additional Family Medical History / Comment(s): Colon Ca- Father Family Medical History: Cancer Additional Family Medical History / Comment(s): father had lung cancer. He was a smoker and worked in a foundry. Mother Family Medical History: Coronary Artery Disease (CAD) Additional Family Medical History / Comment(s): Mother had CABG in her 70s. Medications and Allergies Home Medications Medication Instructions Recorded Confirmed Type Atorvastatin [Lipitor] 10 mg PO HS 10/30/17 08/11/19 History Calcium Acetate [PhosLo] 667 mg PO TID 10/30/17 08/11/19 History Cholecalciferol [Vitamin D3 (25 1,000 unit PO DAILY tab 10/17/18 08/11/19 Rx Mcg = 1000 Iu)] Cyanocobalamin [Vitamin B-12] 1,000 mcg PO DAILY tab 10/17/18 08/11/19 Rx Ferrous Sulfate [Iron (65 MG 325 mg PO MOWEFR 04/24/19 09/30/19 History Elemental)] HYDROcodone/APAP 5-325MG [[place] 1 tab PO Q6H PRN 03/05/19 08/11/19 History 5-325] Landy-Emmanuel 1 tab PO HS 05/28/19 08/11/19 History Magne Bind 300mg 300 mg PO BID 07/30/19 08/11/19 History Midodrine [ProAmatine] 10 mg PO BID 07/30/19 08/11/19 History Aspirin EC [Ecotrin] 325 mg PO DAILY 08/11/19 08/11/19 History L.acidoph,Paracasei, B.lactis 1 cap PO DAILY 08/11/19 08/11/19 History [Probiotic] Metoprolol Tartrate [Lopressor] 25 mg PO BID 08/11/19 08/11/19 History Vitamin B Complex With C 1 tab PO DAILY 08/11/19 08/11/19 History Allergies Allergy/AdvReac Type Severity Reaction Status Date / Time diphenhydramine Allergy Unknown Verified 08/11/19 13:24 [From Benadryl] heparin AdvReac Unknown Verified 08/11/19 13:24 Physical Exam Vitals: Vital Signs Temp Pulse Resp BP Pulse Ox 08/12/19 10:00 103 H 17 84/50 97 08/12/19 09:30 106 H 22 107/83 95 08/12/19 09:00 97.7 F 98 19 84/62 96 08/12/19 08:30 101 H 20 109/69 96 08/12/19 08:00 104 H 20 97/67 96 08/12/19 07:30 96 20 102/62 97 08/12/19 07:00 93 18 103/62 96 08/12/19 06:00 98 18 114/65 97 08/12/19 05:00 91 12 108/68 95 08/12/19 04:00 97.5 F L 87 17 113/69 95 08/12/19 03:30 79 17 81/52 97 08/12/19 03:15 84 22 71/46 97 08/12/19 03:00 88 14 82/45 97 08/12/19 02:45 85 12 89/58 93 L 08/12/19 02:30 82 12 96/60 97 08/12/19 02:15 89 7 L 92/63 95 08/12/19 02:00 97.3 F L 82 15 82/58 97 08/12/19 01:45 95 20 77/47 08/12/19 01:39 87 93/60 08/12/19 01:00 87 16 93/57 100 08/12/19 00:00 81 16 90/55 99 08/11/19 23:47 84 16 88/57 100 08/11/19 23:33 97.3 F L 17 08/11/19 23:00 84 16 90/57 99 08/11/19 22:52 85 20 92/60 100 08/11/19 22:35 98.8 F 87 16 90/69 99 08/11/19 22:00 83 20 88/59 99 08/11/19 20:54 81 20 76/52 97 08/11/19 20:00 77 16 77/45 99 08/11/19 19:50 80 20 65/50 99 08/11/19 19:00 79 20 77/47 99 08/11/19 15:30 89 20 90/52 96 08/11/19 15:00 92 20 89/34 96 08/11/19 14:00 84 18 97/25 95 08/11/19 12:36 96 20 95/31 94 L 08/11/19 12:35 94 L Intake and Output 08/11/19 08/12/19 08/12/19 22:59 06:59 14:59 Intake Total 167.722 283.455 Output Total 50 Balance 167.722 233.455 Intake: IV 60 80 0.9 NS 60 80 Intake, IV Titration 107.722 203.455 Amount Cefepime 2 gm In Sodium 100 Chloride 0.9% 100 ml @ 200 mls/hr IVPB Q8HR CRICKET Rx#:[id number] Norepinephrine 32 mg In 34.654 103.455 Sodium Chloride 0.9% 218 ml @ 0.05 MCG/KG/MIN 3. 767 mls/hr IV .Q24H CRICKET Rx#:[id number] Norepinephrine 4 mg In 73.068 Sodium Chloride 0.9% 250 ml @ 0.05 MCG/KG/MIN 30. 615 mls/hr IV .Q8H18M CRICKET Rx#:[id number] Output: Urine 50 Other: Weight 156.8 kg 156.8 kg Results CBC & Chem 7: 08/12/19 05:30 08/12/19 05:30 Labs: Abnormal Lab Results - Last 24 Hours (Table) 08/11/19 08/11/19 08/11/19 Range/Units 12:45 12:45 12:45 WBC 18.8 H (3.8-10.6) k/uL RBC 4.12 L (4.30-5.90) m/uL Hgb 10.9 L (13.0-17.5) gm/dL Hct 38.4 L (39.0-53.0) % MCH (25.0-35.0) pg MCHC 28.5 L (31.0-37.0) g/dL RDW 18.5 H (11.5-15.5) % Neutrophils # (Manual) 16.17 H (1.3-7.7) k/uL Lymphocytes # (Manual) 0.56 L (1.0-4.8) k/uL Monocytes # (Manual) 1.88 H (0-1.0) k/uL Metamyelocytes # (Man) 0.19 H (0) k/uL Myelocytes # (Manual) 0.38 H (0) k/uL ABG pH (7.35-7.45) ABG pCO2 (35-45) mmHg ABG HCO3 (21-25) mmol/L ABG Total CO2 (19-24) mmol/L Sodium 136 L (137-145) mmol/L Creatinine 1.34 H (0.66-1.25) mg/dL Glucose (74-99) mg/dL AST 68 H (17-59) U/L ALT 20 L (21-72) U/L Troponin I 0.127 H* (0.000-0.034) ng/mL Albumin 3.1 L (3.5-5.0) g/dL Urine RBC (0-5) /hpf Urine WBC (0-5) /hpf Urine WBC Clumps (None) /hpf Urine Bacteria (None) /hpf Urine Mucus (None) /hpf 08/11/19 08/11/19 08/11/19 Range/Units 15:08 20:02 20:07 WBC (3.8-10.6) k/uL RBC (4.30-5.90) m/uL Hgb (13.0-17.5) gm/dL Hct (39.0-53.0) % MCH (25.0-35.0) pg MCHC (31.0-37.0) g/dL RDW (11.5-15.5) % Neutrophils # (Manual) (1.3-7.7) k/uL Lymphocytes # (Manual) (1.0-4.8) k/uL Monocytes # (Manual) (0-1.0) k/uL Metamyelocytes # (Man) (0) k/uL Myelocytes # (Manual) (0) k/uL ABG pH 7.16 L* (7.35-7.45) ABG pCO2 87 H* 28 L (35-45) mmHg ABG HCO3 31 H 15 L (21-25) mmol/L ABG Total CO2 33 H 16 L (19-24) mmol/L Sodium (137-145) mmol/L Creatinine (0.66-1.25) mg/dL Glucose (74-99) mg/dL AST (17-59) U/L ALT (21-72) U/L Troponin I (0.000-0.034) ng/mL Albumin (3.5-5.0) g/dL Urine RBC >182 H (0-5) /hpf Urine WBC >182 H (0-5) /hpf Urine WBC Clumps Many H (None) /hpf Urine Bacteria Many H (None) /hpf Urine Mucus Many H (None) /hpf 08/11/19 08/12/19 08/12/19 Range/Units 23:58 05:30 05:30 WBC 14.8 H (3.8-10.6) k/uL RBC (4.30-5.90) m/uL Hgb 10.5 L (13.0-17.5) gm/dL Hct (39.0-53.0) % MCH 24.2 L (25.0-35.0) pg MCHC 25.7 L (31.0-37.0) g/dL RDW 19.3 H (11.5-15.5) % Neutrophils # (Manual) 13.70 H (1.3-7.7) k/uL Lymphocytes # (Manual) 0.59 L (1.0-4.8) k/uL Monocytes # (Manual) (0-1.0) k/uL Metamyelocytes # (Man) (0) k/uL Myelocytes # (Manual) (0) k/uL ABG pH (7.35-7.45) ABG pCO2 (35-45) mmHg ABG HCO3 (21-25) mmol/L ABG Total CO2 (19-24) mmol/L Sodium (137-145) mmol/L Creatinine 1.88 H (0.66-1.25) mg/dL Glucose 101 H (74-99) mg/dL AST (17-59) U/L ALT (21-72) U/L Troponin I 0.169 H* (0.000-0.034) ng/mL Albumin (3.5-5.0) g/dL Urine RBC (0-5) /hpf Urine WBC (0-5) /hpf Urine WBC Clumps (None) /hpf Urine Bacteria (None) /hpf Urine Mucus (None) /hpf Thrombosis Risk Factor Assmnt - Choose All That Apply Each Factor Represents 1 point: Obesity (BMI >25), Sepsis (< 1month) Each Risk Factor Represents 2 Points: Age 61-74 years Thrombosis Risk Factor Assessment Total Risk Factor Score: 4 Thrombosis Risk Factor Assessment Level: Moderate Risk
--- NOTE | 2019-08-12 21:41 | CONS ---
CONSULTATION REASON FOR CONSULT: End-stage renal disease. HISTORY OF PRESENT ILLNESS: The patient is a 68-year-old male on hemodialysis on a Sunday, Sunday, Sunday schedule. He was admitted to the hospital with complaints of feeling ill and weak. He was recently discharged from [facility] where he was transferred from [facility] for further evaluation of the right pyelonephritis and chronic obstructive uropathy with chronic nephrostomy tube on the right side. The patient was hypotensive. He is admitted to the ICU. He is currently maintained on Levophed. He also continues to be in fluid overload. The patient was dialyzed this morning. We had about 3 L of ultrafiltration. Patient tolerated the procedure fairly well. The Levophed was not increased. PAST MEDICAL HISTORY: Obesity, atrial fibrillation, end-stage renal disease. DVT, GI bleed, hyperlipidemia, history of paraplegia, back injury, mineral bone disorder, history of previous sepsis, history of C difficile colitis, obstructive sleep apnea, chronic dermatitis, chronic lower extremity edema, recurrent urinary tract infections. PAST SURGICAL HISTORY: Left arm AV fistula, nephrostomy tube bilaterally, currently with abdominal hernia repair, colonoscopy, back surgery, polyp removal. MEDICATIONS: Medications prior to admission included Lipitor, PhosLo, vitamin D3, vitamin B12, iron, MagneBind, Midodrine, aspirin, Lopressor, vitamin B. ALLERGIES: INCLUDE HEPARIN AND BENADRYL. PHYSICAL EXAMINATION: On examination, patient is currently comfortable, awake. He is not in any acute distress. Blood pressure when patient was seen earlier in the morning was 158/97, previously 112/98, heart rate about 100 per minute. Patient is afebrile. Examination of the heart S1, S2. Examination of the lungs, bilateral breath sounds are heard. Abdomen is soft, morbidly obese. Exam of lower extremities shows chronic skin changes, chronic edema, multiple discoloration noted in the toes. LABS: Show hemoglobin 10.5, white cell count 14.8. Sodium 138, potassium 3.6, BUN 16, serum creatinine 1.8. ASSESSMENT: 1. End-stage renal disease, on hemodialysis on a Sunday, Sunday, Sunday schedule, status post hemodialysis this morning with UF of about 3 L. 2. Chronic right obstructive uropathy with purulent drainage from the nephrostomy tube with chronic infections maintained on antibiotics, being followed at [facility]. The patient was recently discharged from there. There was no intervention done. 3. Volume overload, somewhat improved. The patient will be dialyzed again tomorrow morning. 4. Morbid obesity. 5. Sepsis, maintained on antibiotics, being followed by Infectious Disease. PLAN: Repeat hemodialysis in a.m. Continue with the midodrine. Continue antibiotics. Obtain information regarding hospitalization at [facility]. If the patient is eating, we can add phosphate binders. However, his phosphorus is actually on the lower side. Therefore, I will hold off on the binders. Maintain patient on Aranesp also for anemia of chronic disease. Thank you for this consultation. We will continue to follow the patient with you during his hospitalization. MMODL / IJN: [id number] /
--- NOTE | 2019-08-12 22:33 | P.CON ---
Consult Note - . Consult date: 08/12/19 Assessment/Plan:: This is a 68-year-old male with multiple medical troubles that includes morbid obesity, end-stage renal disease on hemodialysis, chronic staghorn calculus into the right kidney with obstruction requiring right-sided percutaneous nephrostomy tube for drainage. Patient also has renal masses with concerns to underlying neoplasm. Patient follows with chicken handler, urologist at [facility]. The patient has a very poor functional status and is not thought to be a surgical candidate for any specific intervention such as nephrectomy. The patient has been seen on previous admissions most recently July 30 through August 05. At that time, urine culture was positive for MRSA and Pseudomonas and patient was on cefepime and vancomycin. Patient was not showing significant improvement and was transferred to his urology care team at [facility] last Sunday. Apparently patient was not feeling well last Sunday and continued to be unwell, discharged home on Sunday from [facility]. Family was concerned that he was getting worse and sleeping all day long and was only arousable for short periods of time. Patient complained of fatigue. He denies any fever or chills. No nausea or vomiting. No diarrhea. Patient did not have any surgical intervention nor exchange of urostomy tube at [facility]. Patient now presents to [facility] emergency room. He was afebrile, initial white count 18.8, BUN 16 and creatinine 1.88. Troponins were elevated at 0.127 and 0.169. Urinalysis revealed RBCs greater than 182, wbc's greater than 182, WBC clumps many, bacteri a many. He had a CAT scan of the brain that showed no acute findings. Initial chest x-ray revealed retro-cardiac opacities and right midlung opacities may be exaggerated by low lung volumes however are new from prior and concerning for multifocal pneumonia versus atelectasis. Repeat chest x-ray this morning reveals small pleural fluid collection. Patient had line placement during the night and has been started on levo fed. He received 2 doses of Rocephin and 2.5 L of fluid while in the emergency center. He is currently on cefepime. He is currently undergoing hemodialysis. Urine culture and blood culture status received. He is on BiPAP support. Please see the consult note as dictated by nurse practitioner Mrs. Hailey Beth. The patient presents again with recurrent sepsis I1 respiratory failure elevated troponins and ongoing end-stage renal disease requiring hemodialysis. He also has extensive leukocytosis. His that he was just cared for at the outside hospital. They deemed colonization from the drainage from his percutaneous nephrostomy. Antibiotics were discontinued. Now within 48 hours the patient has recurrent sepsis, appears to be from the ongoing pyelonephritis with the progressive disease and necrosis of the kidney isn't by any ongoing purulent very foul drainage. He has been deemed a nonsurgical candidate due to his very poor health. Discussion occurs with the family as to what the next plans can be. Since he is not a surgical candidate and he is not responding or improving with current interventions would need to consider an alternative path. They're willing to discuss these issues. For now will continue his current antibiotic therapy with ceftazidime and vancomycin for the isolated pathogens. I agree with evaluation, assessment and plan as dictated by nurse practitioner Mrs. Hailey Beth.
[2019-08-13] MEDS: NOREPINEPHRINE 32 MG in SODIUM CHLORIDE 0.9% 218 ML IV SCH (03:19)
[2019-08-13] MEDS: SODIUM CHLORIDE 0.9% 1,000 ML IV SCH (04:29)
[2019-08-13] MEDS: HYDROcodone/APAP 5-325MG 1 EACH TAB PO PRN (04:36)
[2019-08-13 05:54] LABS: Calcium 8.7 mg/dL (8.4-10.2); Magnesium 2.1 mg/dL (1.6-2.3); Phosphorus 2.7 mg/dL (2.5-4.5); Potassium 3.5 mmol/L (3.5-5.1)
[2019-08-13 06:38] LABS: Anisocytosis Slight; HGB 10.6 gm/dL (13.0-17.5); Hypochromasia Marked; MCH 25.7 pg (25.0-35.0); MCHC 27.2 g/dL (31.0-37.0); MCV 94.7 fL (80.0-100.0); Macrocytosis Slight; Platelet Count 280 k/uL (150-450); RBC 4.12 m/uL (4.30-5.90); RDW 18.5 % (11.5-15.5); WBC 15.1 k/uL (3.8-10.6)
[2019-08-13 08:00] LABS: Eosinophils # (M) 0.15 k/uL (0-0.7); Lymphocytes # (M) 0.76 k/uL (1.0-4.8); Metamyelocytes # (M) 0.15 k/uL (0); Metamyelocytes % 1 %; Myelocytes % 2 %; Neutrophils % (M) 89 %; Nucleated Red Blood Cells 0 /100 WBC (0-0); Total Cells Counted 200
[2019-08-13 08:02] LABS: Polychromasia Present
[2019-08-13 08:17] VITALS: TEMP 98.4
[2019-08-13] MEDS: PANTOPRAZOLE 40 MG/10 ML VIAL IV SCH (09:09)
[2019-08-13 11:16] VITALS: BP 101/63; PULSE 89; RESP 19
--- NOTE | 2019-08-13 20:29 | PN ---
PROGRESS NOTE Patient is seen for followup for end-stage renal disease. Family has discussed hospice, and they would like to proceed with hospice care. They are currently undecided about dialysis. Levophed is slightly decreased. Overall, patient's general condition is about the same. He is maintained on empiric antibiotics. On examination this morning, blood pressure was 99/62, heart rate 82 per minute. He is afebrile. EXAMINATION OF THE HEART: S1 and S2. EXAMINATION OF LUNGS: Bilateral breath sounds are heard. ABDOMEN: Soft, morbidly obese. Examination of lower extremities shows chronic lower extremity edema. WORSHIP LEADER exam is grossly intact. Labs show sodium of 139, potassium 3.5, BUN 18, serum creatinine 2.0. ASSESSMENT: 1. End-stage renal disease, on hemodialysis on a Sunday, Sunday, Sunday schedule, status post hemodialysis yesterday. Patient will be dialyzed again today. However, family has been talked to regarding hospice care, and they are leaning towards hospice. 2. Chronic right-sided pyelonephritis with chronic obstructive uropathy and right nephrostomy tube, maintained on long-term antibiotics with repeated acute infections, being followed by Infectious Disease. 3. Sepsis, maintained on Levophed, the dose of which is slightly lower. 4. Obstructive sleep apnea. 5. Anemia of chronic disease. 6. Generalized debility. PLAN: Hemodialysis today if patient is not switched to hospice care. MMODL / IJN: [id number] /
--- NOTE | 2019-08-17 22:50 | P.DS ---
Providers Date of admission: 08/11/19 22:34 Expected date of discharge: 08/13/19 Attending physician: Gamaliel Burkett Consults: 08/11/19 22:34 Consult Physician Routine Consulting Provider: Jay Chadwick Consult Reason/Comments: Urinary tract infection, pneumonia Do you want consulting provider notified?: Yes Consult Physician Routine Consulting Provider: Doron Trevino Consult Reason/Comments: Critical care management Do you want consulting provider notified?: Yes Consult Physician Stat Consulting Provider: Nigel Maguire Consult Reason/Comments: Urinary tract infection Do you want consulting provider notified?: Yes 08/12/19 07:49 Consult Physician Routine Consulting Provider: Barbara Jacobson Consult Reason/Comments: dialysis Do you want consulting provider notified?: Already Contacted Primary care physician: Akshat Nieves MD Hospital Course: Hospital course: This is a very pleasant 68-year-old patient of Dr. Akshat Acevedo from visiting physician. Has a rather extensive medical history. Patient's brother lives with them and also provides care to him. Patient's son also drops in the house to help him out. Chronic stable medical conditions include atrial fibrillation, end-stage kidney disease on hemodialysis, hyperlipidemia, chronic hypotension, sleep apnea. 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 Patient gets dialysis Sunday and Sunday. Patient also has obstructive sleep apnea uses CPAP. Patient also got bilateral lower extremity venous stasis dermatitis. Dry feet.. Patient had prior C. diff. patient has nephrolithiasis with chronic right-sided nephrostomy tube being followed at [facility]. Patient recently was in the hospital from July 30 through August 05. He then presented with altered mental status. Patient is felt to UTI versus infective nephrostomy tube. Patient was treated with vancomycin and cefepime. Patient continued to have purulent drainage to the right nephrostomy tube. As patient was not getting any better and after discussing Dr. Chadwick it was decided to transfer the patient to [facility]. So that some surgical intervention could be carried out. Patient was discharged from [facility] as he was felt to be very high risk candidate for any surgical intervention. Patient presented to ER with altered mental status somewhat bit confused. PCO2 was high. Patient was delirious. Patient's been on a BiPAP and patient are drawn. Blood gases improved. Patient continues to have thick purulent drainage the right nephrostomy tube. Admitted for the same. Also running a low blood pressure in the 70s systolic. Given IV fluids. Patient admitted to the ICU. Not doing too well. The able to answer questions. Son at the bedside. 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 As patient was doing poorly. I discussed with the son at length. Also discussed with the patient. Also does spoke to Dr. Chadwick from infectious disease, Dr. Manning from pulmonary Dr. Jacobson from nephrology. They were agreeable that it'll be the right thing for the patient to proceed with hospice. Plan was discussed with the patient to go home with family. case managers was called to get informational visit for the patient and family. Son expressed about taking the patient home. Good support system at home. Today-(last evening I was called by the [facility] nurse to open the patient to to comfort care. I did tell the nurse that I still was in the process of discussing with the family. We are planning to discharge the patient home with hospice. Only to provide information about hospice to the family.) Today morning came to the ICU. Came to the patient's room to discuss about going home with hospice. Hospice nurse in the patient's room, informed me that they had already spoken to the family and had decided to proceed with GIP. I then spoke to the hospice team in the ICU managers room-hospice nurse has spoken to the family and that they will be opening the case to GIP and criteria is being met. I did inform the hospice team, that they should have called me and let me take decision- with the patient's family before executing a decision plan with the family. i then went back and spoke to the patient's son and the family. Now they're expecting the patient to be here as discussed with the hospice team. Physical examination: VITAL SIGNS: Vital signs noted GENERAL: laying in bed, tired using a BiPAP, awake Patient laying in bed, appears comfortable Following commands Investigations: White count 15.1 hemoglobin 10.6 potassium 3.5 creatinine 2 Admission labs White count 18.8 hemoglobin 10.9 potassium 4.7 bun 11 creatinine 1.34 Troponin 0.127, 0.169, 0.169 Arterial blood gases show pH is 7.16 pCO2 of 87 Discharge diagnosis: -Acute severe bacterial pyuria, but severely infected nephrostomy tube. Patient has been on antibiotics for quite a few days now. No relief or improvement. Still putting out significant purulent drainage. Patient was recently transferred to [facility] with the hope that some abscess could be drained. Because patient is very high surgical risks no intervention was done. 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 As discussed with the family. Patient Condition at Discharge: Poor Plan - Discharge Summary Discharge Rx Participant: No New Discharge Prescriptions: Discontinued Calcium Acetate [PhosLo] 667 mg PO TID Atorvastatin [Lipitor] 10 mg PO HS Cholecalciferol [Vitamin D3 (25 Mcg = 1000 Iu)] 1,000 unit PO DAILY tab Cyanocobalamin [Vitamin B-12] 1,000 mcg PO DAILY tab HYDROcodone/APAP 5-325MG [Sigel 5-325] 1 tab PO Q6H PRN PRN Reason: Pain Ferrous Sulfate [Iron (65 MG Elemental)] 325 mg PO MOWEFR Landy-Emmanuel 1 tab PO HS Midodrine [ProAmatine] 10 mg PO BID Magne Bind 300mg 300 mg PO BID Vitamin B Complex With C 1 tab PO DAILY Aspirin EC [Ecotrin] 325 mg PO DAILY L.acidoph,Paracasei, B.lactis [Probiotic] 1 cap PO DAILY Metoprolol Tartrate [Lopressor] 25 mg PO BID Follow up Appointment(s)/Referral(s): Akshat Nieves MD [Primary Care Provider] - As Needed [facility], [NON-STAFF] - 1-2 Days Discharge Disposition: [facility] TO HOSPICE MED FACILTY
== END 2019-08-13 12:44 | disposition hospice, inpatient (51) | DRG 698 ==
LOC: EC 12:32 → 2SICU 22:34
PROVIDERS: ADMIT Hospitalist; ATTEND Hospitalist
PROC: 05HY33Z Insertion of Infusion Device into Upper Vein, Percutaneous Approach (ICD-10-PCS; principal; 2019-08-11)
PROC: 5A09457 Assistance with Respiratory Ventilation, 24-96 Consecutive Hours, Continuous Positive Airway Pressure (ICD-10-PCS; 2019-08-11)
PROC: 5A1D70Z Performance of Urinary Filtration, Intermittent, Less than 6 Hours Per Day (ICD-10-PCS; 2019-08-12)
DX: T83.512A Infection and inflammatory reaction due to nephrostomy catheter, initial encounter (principal); A41.9 Sepsis, unspecified organism; G93.41 Metabolic encephalopathy; J96.21 Acute and chronic respiratory failure with hypoxia; J96.22 Acute and chronic respiratory failure with hypercapnia; N18.6 End stage renal disease; R65.21 Severe sepsis with septic shock; E66.2 Morbid (severe) obesity with alveolar hypoventilation; I12.0 Hypertensive chronic kidney disease with stage 5 chronic kidney disease or end stage renal disease; J90 Pleural effusion, not elsewhere classified; J98.11 Atelectasis; G82.20 Paraplegia, unspecified; I48.20 Chronic atrial fibrillation, unspecified; Z51.5 Encounter for palliative care; Z66 Do not resuscitate; I95.89 Other hypotension; E87.70 Fluid overload, unspecified; N20.0 Calculus of kidney; D63.1 Anemia in chronic kidney disease; E78.5 Hyperlipidemia, unspecified; I87.2 Venous insufficiency (chronic) (peripheral); M15.9 Polyosteoarthritis, unspecified; E83.89 Other disorders of mineral metabolism; N13.9 Obstructive and reflux uropathy, unspecified; R77.9 Abnormality of plasma protein, unspecified; Z74.01 Bed confinement status; Z79.2 Long term (current) use of antibiotics; Z79.82 Long term (current) use of aspirin; Z79.899 Other long term (current) drug therapy; Z88.8 Allergy status to other drugs, medicaments and biological substances; Z86.19 Personal history of other infectious and parasitic diseases; Z86.718 Personal history of other venous thrombosis and embolism; Z87.440 Personal history of urinary (tract) infections; Z87.891 Personal history of nicotine dependence; Z99.2 Dependence on renal dialysis; Z95.5 Presence of coronary angioplasty implant and graft; Z86.14 Personal history of Methicillin resistant Staphylococcus aureus infection; Z80.0 Family history of malignant neoplasm of digestive organs; Z80.1 Family history of malignant neoplasm of trachea, bronchus and lung; Z82.49 Family history of ischemic heart disease and other diseases of the circulatory system; Y83.3 Surgical operation with formation of external stoma as the cause of abnormal reaction of the patient, or of later complication, without mention of misadventure at the time of the procedure
CPT/HCPCS: 36415; 70450; 71045; 71046; 80048; 80053; 82805; 83605; 83735; 84100; 84484; 85025; 85610; 85730; 87040; 87077; 87086; 87186; 90935; 93005; 94660; 96361; 96365; 96366; 96368; 96375; 99291

== ENCOUNTER 2019-08-13 11:38 | Inpatient (IN) | payer MEDICAID ==
[2019-08-13] MEDS ORDERED: MORPHINE SULFATE 2 MG/ML SYRINGE IV PRN (12:10)
[2019-08-13] MEDS ORDERED: ACETAMINOPHEN SUPPOSITORY 650 MG SUPP RECTAL PRN (12:10)
[2019-08-13] MEDS ORDERED: ATROPINE OPHTH SOLN 1% 5ML BTL SUBLINGUAL PRN (12:10)
[2019-08-13] MEDS ORDERED: LORazepam 2 MG/ML INJ IV PRN (12:10)
[2019-08-13] MEDS ORDERED: ONDANSETRON 4 MG/2 ML VIAL IVP PRN (12:10)
[2019-08-13] MEDS ORDERED: MORPHINE SULFATE (100 MG/2 ML) 100 MG in SODIUM CHLORIDE 0.9% 100 ML IV SCH (12:15)
[2019-08-13] MEDS ORDERED: SCOPOLAMINE 1.5MG/72HR PATCH TRANSDERM SCH (12:15)
[2019-08-14 01:51] VITALS: PULSE 94; RESP 20
[2019-08-14 10:06] VITALS: BMI 47.8
--- NOTE | 2019-08-17 22:19 | P.DS ---
Providers Date of admission: 08/13/19 12:48 Expected date of discharge: 08/14/19 (Patient ) Attending physician: Gamaliel Burkett Primary care physician: Akshat Nieves MD Hospital Course: Hospital course: Patient was admitted to [facility] under hospice service. Comfort packed was used. Patient remained comfortable. Family was present. Patient succumbed underlying condition. Cause of : Acute severe pyelonephritis Other medical problems: End-stage kidney disease on hemodialysis Plan - Discharge Summary Discharge Disposition: - Preliminary Cause of Preliminary Cause of : Acute pyelonephritis
== END 2019-08-14 13:11 | disposition expired | DRG 951 ==
LOC: 2SICU 12:48 → 4SSUR 16:31
PROVIDERS: ADMIT Hospitalist; ATTEND Hospitalist
DX: Z51.5 Encounter for palliative care (principal); N18.6 End stage renal disease; N10 Acute pyelonephritis; Z99.2 Dependence on renal dialysis; Z66 Do not resuscitate; Z88.8 Allergy status to other drugs, medicaments and biological substances
CPT/HCPCS: 94760